=== PATIENT | female | born 1950 | race Caucasian/White ===

== ENCOUNTER 2016-07-08 12:59 | Emergency (ER) | payer MEDICARE, OTHER ==
[2016-07-08 13:22] VITALS: RESP 18
[2016-07-08] MEDS ORDERED: HYDROmorphone 1 MG/ML 1 ML SYRINGE IM STA (13:34)
--- NOTE | 2016-07-08 13:50 | ED ---
Upper Extremity HPI - General Chief Complaint: Extremity Injury, Upper Stated Complaint: fall/arm pain Time Seen by Provider: 07/08/16 13:28 Source: patient, RN notes reviewed Mode of arrival: ambulatory Limitations: no limitations - History of Present Illness Initial Comments: 66-year-old female presented emergency department with chief complaint of fall. Patient states she was chasing her dog states she tripped and fell on asphalt. She states she has an abrasion noted to her right first digit with ecchymosis and pain, ecchymosis noted to his left foot first digit. Patient primarily complains of right wrist pain with deformity. Patient states that she struck her nose though she has no nasal pain denies headache, dizziness. Patient also went of left rib pain. Patient has no back pain. Patient denies nausea, vomiting diarrhea constipation. Patient offers no complaints. Patient states her tetanus is up-to-date last 5 years. Patient does not take blood thinners. - Related Data Home Medications Medication Instructions Recorded Confirmed Diphenox-Atrop 2.5-0.025 mg 2 tab PO TID 11/09/13 07/08/16 [Lomotil] SUMAtriptan SUCCINATE [Imitrex] 100 mg PO DAILY PRN 02/25/14 07/08/16 Losartan/Hydrochlorothiazide 1 each PO DAILY 03/26/14 07/08/16 [Losartan-Hctz 100-12.5 mg Tab] OXcarbazepine [Oxtellar Xr] 300 mg PO DAILY 03/26/14 07/08/16 Ascorbic Acid [Vitamin C] 500 mg PO DAILY 10/05/15 07/08/16 Aspirin 81 mg PO DAILY 10/05/15 07/08/16 Baclofen [Lioresal] 20 mg PO HS 10/05/15 07/08/16 Calcium Carbonate [Calcium] 180 mg PO DAILY 10/05/15 07/08/16 Cholestyramine (with Sugar) 378 gm PO BID 10/05/15 07/08/16 [Questran Powder] HYDROcodone/APAP 7.5-325MG [[place] 1 tab PO Q6HR PRN 10/05/15 07/08/16 7.5-325] Melatonin 5 mg PO HS 10/05/15 07/08/16 Propranolol [Inderal] 120 mg PO DAILY 10/05/15 07/08/16 rOPINIRole HCL [Requip] 4 mg PO BID 10/05/15 07/08/16 risperiDONE [RisperDAL] 0.5 mg PO DAILY 10/05/15 07/08/16 Allergies Allergy/AdvReac Type Severity Reaction Status Date / Time ketorolac tromethamine AdvReac Rapid Verified 07/08/16 14:45 [From Toradol] Heart Rate Review of Systems ROS Statement: Those systems with pertinent positive or pertinent negative responses have been documented in the HPI. ROS Other: All systems not noted in ROS Statement are negative. Past Medical History Past Medical History: GERD/Reflux, GI Bleed, Hyperlipidemia, Hypertension, Neurologic Disorder, Osteoarthritis (OA), Supraventricular Tachycardia (SVT) Additional Past Medical History / Comment(s): PUD,. Crohn disease,. short gut syndrome,. migraine headaches, History of Any Multi-Drug Resistant Organisms: None Reported Past Surgical History: Appendectomy, Bowel Resection, Heart Catheterization Additional Past Surgical History / Comment(s): ACDF-ANTERIOR CERVICAL DISKECTOMY AND FUSION. ORIF Rt femur,. bowel resection X3 1959, 1967, 1975,. recto- vagina fistula repair,. EGD,. colonoscopy, occipital steroid injections. Past Anesthesia/Blood Transfusion Reactions: No Reported Reaction Past Psychological History: Anxiety, Depression Smoking Status: Former smoker Past Alcohol Use History: Occasional Past Drug Use History: None Reported - Past Family History Mother Family Medical History: Hypertension Father Family Medical History: Neurologic Disorder General Exam Limitations: no limitations General appearance: alert, in no apparent distress Head exam: Present: atraumatic, normocephalic, normal inspection Eye exam: Present: normal appearance, PERRL, EOMI. Absent: scleral icterus, conjunctival injection, periorbital swelling ENT exam: Present: normal exam, normal oropharynx, mucous membranes moist, TM's normal bilaterally Neck exam: Present: normal inspection, full ROM. Absent: tenderness, meningismus, lymphadenopathy Respiratory exam: Present: normal lung sounds bilaterally, chest wall tenderness (Mild tenderness left anterior lateral ribs). Absent: respiratory distress, wheezes, rales, rhonchi, stridor Cardiovascular Exam: Present: regular rate, normal rhythm, normal heart sounds. Absent: systolic murmur, diastolic murmur, rubs, gallop, clicks GI/Abdominal exam: Present: soft, normal bowel sounds. Absent: distended, tenderness, guarding, rebound, rigid Extremities exam: Present: other (Ecchymosis noted to the right foot first digit with small abrasion there is no nail disruption. There is ecchymosis noted distal tip of the left foot first digit with no wound. Right wrist there is deformity with ecchymosis noted limited range of motion secondary pain there is moderate tenderness with palpation radial pulses equal bilaterally Refill less than 2 seconds patient has full sensation of all digits) Neurological exam: Present: alert, oriented X3, CN II-XII intact Skin exam: Present: warm, dry, intact, normal color. Absent: rash Course Vital Signs 07/08/16 13:19 Temperature 98.4 F Pulse Rate 77 Respiratory 18 Rate Blood Pressure 119/74 O2 Sat by Pulse 98 Oximetry Procedures - Orthopedic Splinting/Casting Injury #1 Side: right Upper Extremity Injury Location: wrist Upper Extremity Immobilizer: volar splint (Short arm neurovascular intact before and after procedure) Medical Decision Making - Medical Decision Making 66-year-old female presented emergency from for fall. Patient has a fracture to her right wrist which is impacted. Patient also has a fracture to her first toe on her right foot. Patient was placed orthopedic shoe. Patient be discharged with pain medication. Return parameters were discussed. Patient follow-up with on-call orthopedics Dr. Barnett. Disposition Clinical Impression: Toe fracture, Right wrist fracture, Rib contusion Disposition: HOME SELF-CARE Condition: Stable Instructions: Wrist Fracture in Adults (ED) Additional Instructions: Please return to the Emergency Department if symptoms worsen or any other concerns. Referrals: Matthias Dixon MD [Primary Care Provider] - 1-2 days Miky Barnett MD [STAFF PHYSICIAN] - 1-2 days Time of Disposition: 14:47
--- NOTE | 2016-07-08 14:42 | XR ---
EXAMINATION TYPE: XR wrist complete RT DATE OF EXAM: 07/08/2016 2:33 PM CLINICAL HISTORY: pain TECHNIQUE: Frontal, lateral and oblique images of the right wrist are obtained. COMPARISON: None. FINDINGS: There is an impacted distal radial fracture identified. No definite intra-articular extension. No add itional fracture seen. The joint spaces appear within normal limits. The overlying soft tissue appe ars unremarkable. IMPRESSION: There is an impacted distal radial fracture identified. ICD 10 closed FRACTURE, INITIAL EVALUATION
--- NOTE | 2016-07-08 14:43 | XR ---
EXAMINATION TYPE: XR ribs LT w pa chest xray DATE OF EXAM: 07/08/2016 2:33 PM COMPARISON: 12/04/2014 HISTORY: Pain TECHNIQUE: Single view of the chest 3 views of the ribs are submitted. FINDINGS: The lungs are clear. No Evidence for pneumothorax. No evidence for focal contusion. Medi astinal structures are midline. Evaluation of the ribs fails to demonstrate evidence for acute displ aced rib fracture or secondary sign of rib fracture. Chronic deformity of left rib 7. IMPRESSION: 1. No acute pulmonary disease. 2. No acute displaced left-sided rib fracture.
--- NOTE | 2016-07-08 14:45 | XR ---
EXAMINATION TYPE: XR toes bilateral DATE OF EXAM: 07/08/2016 2:33 PM COMPARISON: NONE HISTORY: Pain TECHNIQUE: 3 views of the bilateral great toes are submitted. FINDINGS: Right great toe: There is a fracture at the dorsal base of the distal phalanx right great toe. Displa cement is 1.8 mm. There is intra-articular extension. No additional fractures seen. Left great toe: No evidence for acute displaced fracture or dislocation. IMPRESSION: 1. Fracture of the right great toe as noted.
[2016-07-08 15:13] VITALS: BP 119/55; PULSE 88; TEMP 98.3
== END 2016-07-08 15:13 | disposition home or self-care (01) ==
LOC: EC 12:59
DX: S52.501A Unspecified fracture of the lower end of right radius, initial encounter for closed fracture (principal); S92.421A Displaced fracture of distal phalanx of right great toe, initial encounter for closed fracture; S20.212A Contusion of left front wall of thorax, initial encounter; I10 Essential (primary) hypertension; G43.909 Migraine, unspecified, not intractable, without status migrainosus; I47.1 Supraventricular tachycardia; R29.90 Unspecified symptoms and signs involving the nervous system; Z79.899 Other long term (current) drug therapy; Z79.82 Long term (current) use of aspirin; Z88.8 Allergy status to other drugs, medicaments and biological substances; Z87.891 Personal history of nicotine dependence; Y93.02 Activity, running; W01.0XXA Fall on same level from slipping, tripping and stumbling without subsequent striking against object, initial encounter
CPT/HCPCS: 71101; 73660; 73110; 29125; 96372; 99283; J1170

== ENCOUNTER 2016-09-06 05:20 | Emergency (ER) | payer MEDICARE, OTHER ==
[2016-09-06 05:30] VITALS: RESP 18
[2016-09-06] MEDS ORDERED: SUMAtriptan SUCCINATE 6 MG/0.5 ML VIAL SQ STA (05:42)
--- NOTE | 2016-09-06 06:44 | ED ---
Psych HPI - General Chief Complaint: Psychiatric Symptoms Stated Complaint: mental health Time Seen by Provider: 09/06/16 05:23 Source: patient, EMS Mode of arrival: EMS - Related Data Home Medications Medication Instructions Recorded Confirmed Diphenox-Atrop 2.5-0.025 mg 1 tab PO TID 11/09/13 09/06/16 [Lomotil] SUMAtriptan SUCCINATE [Imitrex] 100 mg PO DAILY PRN 02/25/14 09/06/16 Losartan/Hydrochlorothiazide 1 tab PO DAILY 03/26/14 09/06/16 [Losartan-Hctz 100-12.5 mg Tab] Ascorbic Acid [Vitamin C] 500 mg PO DAILY 10/05/15 09/06/16 Aspirin 81 mg PO DAILY 10/05/15 09/06/16 Baclofen [Lioresal] 20 mg PO TID PRN 10/05/15 09/06/16 Calcium Carbonate [Calcium] 180 mg PO DAILY 10/05/15 09/06/16 Cholestyramine (with Sugar) 1 packet PO BID 10/05/15 09/06/16 [Questran Powder] HYDROcodone/APAP 7.5-325MG [[place] 1 tab PO Q6HR PRN 10/05/15 09/06/16 7.5-325] Cholecalciferol [Vitamin D3] 1,000 unit PO DAILY 07/08/16 09/06/16 Gluc/Abhay-MSM#1/C/Bravo/Hermes/Bor 1 tab PO DAILY 07/08/16 09/06/16 [Glucosamine-Chondroitin Tablet] Multivitamins, Thera [Multivitamin] 1 tab PO DAILY 07/08/16 09/06/16 Propranolol HCl [Propranolol HCl 160 mg PO DAILY 07/08/16 09/06/16 ER] Zolpidem [Ambien] 10 mg PO HS PRN 07/08/16 09/06/16 rOPINIRole HCL [rOPINIRole HCL ER] 4 mg PO BID 07/08/16 09/06/16 Allergies Allergy/AdvReac Type Severity Reaction Status Date / Time ketorolac tromethamine AdvReac Rapid Verified 09/06/16 05:30 [From Toradol] Heart Rate Review of Systems ROS Statement: Those systems with pertinent positive or pertinent negative responses have been documented in the HPI. ROS Other: All systems not noted in ROS Statement are negative. Past Medical History Past Medical History: GERD/Reflux, GI Bleed, Hyperlipidemia, Hypertension, Neurologic Disorder, Osteoarthritis (OA), Supraventricular Tachycardia (SVT) Additional Past Medical History / Comment(s): PUD,. Crohn disease,. short gut syndrome,. migraine headaches, History of Any Multi-Drug Resistant Organisms: None Reported Past Surgical History: Appendectomy, Bowel Resection, Heart Catheterization Additional Past Surgical History / Comment(s): ACDF-ANTERIOR CERVICAL DISKECTOMY AND FUSION. ORIF Rt femur,. bowel resection X3 1959, 1967, 1975,. recto- vagina fistula repair,. EGD,. colonoscopy, occipital steroid injections. Past Anesthesia/Blood Transfusion Reactions: No Reported Reaction Past Psychological History: Anxiety, Depression Smoking Status: Former smoker Past Alcohol Use History: Occasional Past Drug Use History: None Reported - Past Family History Mother Family Medical History: Hypertension Father Family Medical History: Neurologic Disorder General Exam Limitations: no limitations Course Vital Signs 09/06/16 05:26 Temperature 98.4 F Pulse Rate 78 Respiratory 18 Rate Blood Pressure 117/63 O2 Sat by Pulse 96 Oximetry Disposition Clinical Impression: Migraine, Insomnia Disposition: HOME SELF-CARE Condition: Fair Referrals: Matthias Dixon MD [Primary Care Provider] - 1-2 days
[2016-09-06 06:58] VITALS: BP 163/74; PULSE 79; TEMP 97.3
== END 2016-09-06 07:44 | disposition home or self-care (01) ==
LOC: EC 05:20
DX: G43.909 Migraine, unspecified, not intractable, without status migrainosus (principal); E78.5 Hyperlipidemia, unspecified; I10 Essential (primary) hypertension; M19.90 Unspecified osteoarthritis, unspecified site; Z87.891 Personal history of nicotine dependence; Z79.82 Long term (current) use of aspirin; Z79.899 Other long term (current) drug therapy; Z88.6 Allergy status to analgesic agent; Z87.19 Personal history of other diseases of the digestive system
CPT/HCPCS: 99284; 96372; 82075; J3030

== ENCOUNTER 2016-11-06 09:19 | Day surgery (SDC) | payer MEDICARE ==
[2016-11-05 11:15] VITALS: BMI 23.3
[~2016-11-06 09:19] MED LIST: LACTATED RINGERS 1,000 ML IV SCH
[2016-11-06 10:14] VITALS: TEMP 97.5
[2016-11-06] MEDS ORDERED: LACTATED RINGERS 1,000 ML IV ONE (10:16)
[2016-11-06] MEDS ORDERED: LIDOCAINE 1% 20 ML VIAL (10MG/ML) FOR IV START INTRADERMA ONE (10:16)
[2016-11-06] MEDS ORDERED: PROPOFOL 10 MG/ML 20 ML VIAL IV ONE (10:47)
--- NOTE | 2016-11-06 11:04 | P.PCN ---
Date of Procedure: 11/06/16 Preoperative Diagnosis: Postoperative Diagnosis: Procedure(s) Performed: BRIEF HISTORY: Patient is a 66-year-old pleasant white female, scheduled for an elective colonoscopy as a part of evaluation of lungs any history of Crohn's disease diagnosed at age 15. She is presently in clinical remission. PROCEDURE PERFORMED: Colonoscopy. PREOPERATIVE DIAGNOSIS: Long-standing history of Crohn's disease. IV sedation per Anesthesia. PROCEDURE: After informed consent was obtained, the patient, was brought into the endoscopy unit. IV sedation was administered by Anesthesia under continuous monitoring. Digital rectal examination was normal. Initially the Olympus CF- 160 flexible video colonoscope was then inserted in the rectum, gradually advanced into the right colon without any difficulty with the ileocolic anastomosis was visualized and appeared normal. The anastomosis was widely patent. The scope was advanced into the distal ileum at least 40 cm visualized and appeared normal. The mucosa of the ascending colon, transverse colon, descending colon, sigmoid colon, and rectum appeared normal. Retroflexion was performed in the rectum and no lesions were seen. The patient tolerated the procedure well. IMPRESSION: Normal-appearing colon from rectum to the right ileocolic anastomosis with no evidence of recurrent Crohn's disease. RECOMMENDATIONS: Findings of this examination were discussed with the patient as well as his family. She was advised to have a repeat surveillance colonoscopy in 5 years.. Implants: Indications for Procedure: Operative Findings: Description of Procedure:
[2016-11-06 11:07] VITALS: RESP 16
[2016-11-06 11:26] VITALS: BP 146/76; PULSE 73
== END 2016-11-06 12:26 | disposition home or self-care (01) ==
LOC: ORWHC2ENDO 09:19
PROVIDERS: ATTEND Internal Medicine Gastroenterology
DX: K50.90 Crohn's disease, unspecified, without complications (principal); Z98.0 Intestinal bypass and anastomosis status; Z90.49 Acquired absence of other specified parts of digestive tract; I47.1 Supraventricular tachycardia; E78.5 Hyperlipidemia, unspecified; I10 Essential (primary) hypertension; M19.90 Unspecified osteoarthritis, unspecified site; G43.909 Migraine, unspecified, not intractable, without status migrainosus; K21.9 Gastro-esophageal reflux disease without esophagitis; Z79.82 Long term (current) use of aspirin; Z79.899 Other long term (current) drug therapy; Z88.8 Allergy status to other drugs, medicaments and biological substances
CPT/HCPCS: 45378; J2704

== ENCOUNTER 2016-12-11 12:56 | Inpatient (IN) | payer MEDICARE ==
[2016-12-11] MEDS ORDERED: ACETAMINOPHEN IV (For NPO) 1,000 MG in EMPTY BAG 1 BAG IVPB STA (12:59)
--- NOTE | 2016-12-11 13:14 | ED ---
General Adult HPI - General Chief complaint: Altered Mental Status Stated complaint: ALTERED MENTAL, COMBATIVE Time Seen by Provider: 12/11/16 12:58 Source: EMS, RN notes reviewed Mode of arrival: EMS Limitations: altered mental status, physical limitation - History of Present Illness Initial comments: Patient is a 66-year-old female presenting to the emergency Department with agitation. Patient history provided by EMS. Patient reportedly has a history of headaches with psychotic behavior. Patient's mother reported to EMS that this happens frequently with her. Patient is agitated and restless and nonverbal at this time. Patient's home was apparently in disarray by the patient. EMS reports temporal temperature at 105.3. - Related Data Home Medications Medication Instructions Recorded Confirmed Diphenox-Atrop 2.5-0.025 mg 2 tab PO TID 11/09/13 12/11/16 [Lomotil] SUMAtriptan SUCCINATE [Imitrex] 100 mg PO DAILY PRN 02/25/14 12/11/16 Losartan/Hydrochlorothiazide 1 tab PO DAILY 03/26/14 12/11/16 [Losartan-Hctz 100-12.5 mg Tab] Baclofen [Lioresal] 20 mg PO TID PRN 10/05/15 12/11/16 Cholestyramine (with Sugar) 1 packet PO BID 10/05/15 12/11/16 [Questran Powder] HYDROcodone/APAP 7.5-325MG [[place] 1 tab PO Q8HR PRN 10/05/15 12/11/16 7.5-325] Propranolol HCl [Propranolol HCl 160 mg PO DAILY 07/08/16 12/11/16 ER] Zolpidem [Ambien] 10 mg PO HS PRN 07/08/16 12/11/16 DULoxetine HCL [Cymbalta] 60 mg PO DAILY 11/05/16 12/11/16 rOPINIRole HCL 3 mg PO TID 12/11/16 12/11/16 Allergies Allergy/AdvReac Type Severity Reaction Status Date / Time ketorolac tromethamine AdvReac Rapid Verified 12/11/16 14:35 [From Toradol] Heart Rate Review of Systems ROS Statement: Those systems with pertinent positive or pertinent negative responses have been documented in the HPI. ROS Other: All systems not noted in ROS Statement are negative. Limitations: ROS unobtainable due to patients medical condition Past Medical History Past Medical History: GERD/Reflux, GI Bleed, Hyperlipidemia, Hypertension, Neurologic Disorder, Osteoarthritis (OA), Supraventricular Tachycardia (SVT) Additional Past Medical History / Comment(s): Crohn disease,. short gut syndrome,. migraine headaches, History of Any Multi-Drug Resistant Organisms: None Reported Past Surgical History: Appendectomy, Bowel Resection, Heart Catheterization Additional Past Surgical History / Comment(s): ACDF-ANTERIOR CERVICAL DISKECTOMY AND FUSION. ORIF Rt femur,. bowel resection X3 1959, 1967, 1975,. recto- vagina fistula repair,. EGD,. colonoscopy, occipital steroid injections. Past Anesthesia/Blood Transfusion Reactions: No Reported Reaction Smoking Status: Former smoker - Past Family History Mother Family Medical History: Hypertension Father Family Medical History: Neurologic Disorder General Exam Limitations: altered mental status, physical limitation General appearance: alert, anxious, other (Patient is agitated and restless, nonverbal.) Head exam: Present: atraumatic Eye exam: Present: normal appearance ENT exam: Present: mucous membranes dry Neck exam: Present: normal inspection. Absent: tenderness, meningismus Respiratory exam: Present: normal lung sounds bilaterally Cardiovascular Exam: Present: tachycardia GI/Abdominal exam: Present: soft. Absent: tenderness Extremities exam: Present: other (Mild erythema right dorsal lateral hand without warmth.) Neurological exam: Present: alert, other (Limited assessment. No focal deficit , moves all extremities) Expanded Neurological exam: Present: protecting the airway Psychiatric exam: Present: agitated, anxious, manic Expanded Focused psych exam: Present: mute, restlessness Skin exam: Present: erythema (Right lateral hand.) Course Vital Signs 12/11/16 12/11/16 12:59 16:05 Temperature 105 F H 99.9 F H Pulse Rate 127 H 101 H Respiratory 24 22 Rate Blood Pressure 137/77 89/50 O2 Sat by Pulse 98 96 Oximetry - Reevaluation(s) Reevaluation #1: 12/11/16 14:12 Patient was reexamined. Patient does meet criteria for severe sepsis diagnosed at 1412. Blood cultures and lactic acid have been ordered. Fluid bolus has been ordered. IV antibiotics has been ordered. 12/11/16 15:32 Dr. Dixon has been paged 12/11/16 16:09 Dr. Dixon has been paged again 12/11/16 16:14 Patient was reexamined. Case was discussed with Dr. Hayes who will admit for Dr. Dixon with ICU consult for Dr. Ferrer. EKG Findings - EKG Comments: EKG Findings:: Sinus tachycardia 102. PVC present. [place] 132. QRS 88. QT 302. QTC 393. Normal axis. Normal QRS. Nonspecific ST-T. Procedures - Orthopedic Splinting/Casting Injury #1 Side: right Upper Extremity Injury Location: forearm Upper Extremity Immobilizer: volar splint Additional Comments: Short arm splint. No complications. Examined postplacement and good alignment and neurovascular intact. - Restraint - Face to Face Restraint Occurrence 1 Patient's Immediate Situation: Endangers self safety, Endangers others' safety, Endangers staff safety, Violent behavior Patient's Reaction to the Intervention: Uncooperative, Anxious, Aggressive, Restless Patient's Medical & Behavioral Condition: Anxious, Agitated Need to Continue or Terminate Restraint or Seclusion: Continue Face to Face Eval of Restraint Date: 12/11/16 Face to Face Eval of Restraint Time: 13:09 Medical Decision Making - Lab Data Result diagrams: 12/11/16 13:20 12/11/16 13:20 Lab Results 12/11/16 12/11/16 12/11/16 Range/Units 13:20 13:20 13:20 WBC 21.9 H (3.8-10.6) k/uL RBC 3.88 (3.80-5.40) m/uL Hgb 11.5 (11.4-16.0) gm/dL Hct 34.5 (34.0-46.0) % MCV 89.0 (80.0-100.0) fL MCH 29.5 (25.0-35.0) pg MCHC 33.2 (31.0-37.0) g/dL RDW 12.9 (11.5-15.5) % Plt Count 319 (150-450) k/uL Neutrophils % 80 % Lymphocytes % 12 % Monocytes % 6 % Eosinophils % 0 % Basophils % 0 % Neutrophils # 17.6 H (1.3-7.7) k/uL Lymphocytes # 2.6 (1.0-4.8) k/uL Monocytes # 1.3 H (0-1.0) k/uL Eosinophils # 0.0 (0-0.7) k/uL Basophils # 0.0 (0-0.2) k/uL PT (9.0-12.0) sec INR (<1.2) APTT (22.0-30.0) sec Sodium 151 H (137-145) mmol/L Potassium 3.6 (3.5-5.1) mmol/L Chloride 121 H* (98-107) mmol/L Carbon Dioxide 18 L (22-30) mmol/L Anion Gap 12 mmol/L BUN 39 H (7-17) mg/dL Creatinine 1.04 (0.52-1.04) mg/dL Est GFR (MDRD) Af Amer >60 (>60 ml/min/1.73 sqM) Est GFR (MDRD) Non-Af 53 (>60 ml/min/1.73 sqM) Glucose 102 H (74-99) mg/dL Plasma Lactic Acid Juma (0.7-2.0) mmol/L Calcium 9.4 (8.4-10.2) mg/dL Total Bilirubin 1.2 (0.2-1.3) mg/dL AST 62 H (14-36) U/L ALT 37 (9-52) U/L Alkaline Phosphatase 82 (38-126) U/L Total Creatine Kinase 1339 H (30-135) U/L CK-MB (CK-2) 13.1 H* (0.0-2.4) ng/mL CK-MB (CK-2) Rel Index 1.0 Troponin I 0.015 (0.000-0.034) ng/mL Total Protein 6.6 (6.3-8.2) g/dL Albumin 3.8 (3.5-5.0) g/dL Urine Color Urine Appearance (Clear) Urine pH (5.0-8.0) Ur Specific [place] (1.001-1.035) Urine Protein (Negative) Urine Glucose (UA) (Negative) Urine Ketones (Negative) Urine Blood (Negative) Urine Nitrite (Negative) Urine Bilirubin (Negative) Urine Urobilinogen (<2.0) mg/dL Ur Leukocyte Esterase (Negative) Urine RBC (0-5) /hpf Urine Bacteria (None) /hpf Hyaline Casts (0-2) /lpf Urine Mucus (None) /hpf Salicylates <1.0 mg/dL Urine Opiates Screen (NotDetected) Ur Oxycodone Screen (NotDetected) Urine Methadone Screen (NotDetected) Ur Propoxyphene Screen (NotDetected) Acetaminophen <10.0 ug/mL Ur Barbiturates Screen (NotDetected) U Tricyclic Antidepress (NotDetected) Ur Phencyclidine Scrn (NotDetected) Ur Amphetamines Screen (NotDetected) U Methamphetamines Scrn (NotDetected) U Benzodiazepines Scrn (NotDetected) Urine Cocaine Screen (NotDetected) U Marijuana (THC) Screen (NotDetected) Serum Alcohol <10 mg/dL 12/11/16 12/11/16 12/11/16 Range/Units 13:20 13:20 13:20 WBC (3.8-10.6) k/uL RBC (3.80-5.40) m/uL Hgb (11.4-16.0) gm/dL Hct (34.0-46.0) % MCV (80.0-100.0) fL MCH (25.0-35.0) pg MCHC (31.0-37.0) g/dL RDW (11.5-15.5) % Plt Count (150-450) k/uL Neutrophils % % Lymphocytes % % Monocytes % % Eosinophils % % Basophils % % Neutrophils # (1.3-7.7) k/uL Lymphocytes # (1.0-4.8) k/uL Monocytes # (0-1.0) k/uL Eosinophils # (0-0.7) k/uL Basophils # (0-0.2) k/uL PT 11.5 (9.0-12.0) sec INR 1.1 (<1.2) APTT 22.2 (22.0-30.0) sec Sodium (137-145) mmol/L Potassium (3.5-5.1) mmol/L Chloride (98-107) mmol/L Carbon Dioxide (22-30) mmol/L Anion Gap mmol/L BUN (7-17) mg/dL Creatinine (0.52-1.04) mg/dL Est GFR (MDRD) Af Amer (>60 ml/min/1.73 sqM) Est GFR (MDRD) Non-Af (>60 ml/min/1.73 sqM) Glucose (74-99) mg/dL Plasma Lactic Acid Juma 3.2 H* (0.7-2.0) mmol/L Calcium (8.4-10.2) mg/dL Total Bilirubin (0.2-1.3) mg/dL AST (14-36) U/L ALT (9-52) U/L Alkaline Phosphatase (38-126) U/L Total Creatine Kinase (30-135) U/L CK-MB (CK-2) (0.0-2.4) ng/mL CK-MB (CK-2) Rel Index Troponin I (0.000-0.034) ng/mL Total Protein (6.3-8.2) g/dL Albumin (3.5-5.0) g/dL Urine Color Yellow Urine Appearance Clear (Clear) Urine pH 5.5 (5.0-8.0) Ur Specific [place] 1.021 (1.001-1.035) Urine Protein 1+ H (Negative) Urine Glucose (UA) Negative (Negative) Urine Ketones 1+ H (Negative) Urine Blood Small H (Negative) Urine Nitrite Negative (Negative) Urine Bilirubin Negative (Negative) Urine Urobilinogen <2.0 (<2.0) mg/dL Ur Leukocyte Esterase Negative (Negative) Urine RBC 23 H (0-5) /hpf Urine Bacteria Rare H (None) /hpf Hyaline Casts 1 (0-2) /lpf Urine Mucus Rare H (None) /hpf Salicylates mg/dL Urine Opiates Screen Detected H (NotDetected) Ur Oxycodone Screen Not Detected (NotDetected) Urine Methadone Screen Not Detected (NotDetected) Ur Propoxyphene Screen Not Detected (NotDetected) Acetaminophen ug/mL Ur Barbiturates Screen Not Detected (NotDetected) U Tricyclic Antidepress Not Detected (NotDetected) Ur Phencyclidine Scrn Not Detected (NotDetected) Ur Amphetamines Screen Not Detected (NotDetected) U Methamphetamines Scrn Not Detected (NotDetected) U Benzodiazepines Scrn Not Detected (NotDetected) Urine Cocaine Screen Not Detected (NotDetected) U Marijuana (THC) Screen Not Detected (NotDetected) Serum Alcohol mg/dL - Radiology Data Radiology results: image reviewed (Chest x-ray shows mild left perihilar infiltrate. X-ray of the right hand shows possible nondisplaced fracture of distal radius, also consider infection.) Critical Care Time Critical Care Time: Yes Total Critical Care Time: 33 Disposition Clinical Impression: Severe sepsis, Pneumonia, Altered mental status, Dehydration Disposition: ADMITTED IP TO THIS [facility] Condition: Serious Referrals: Matthias Dixon MD [Primary Care Provider] - 1-2 days Decision Time: 16:36
[2016-12-11] MEDS: SODIUM CHLORIDE 0.9% 500 ML IV SCH ×4 (13:24→16:12)
[2016-12-11] MEDS: LORazepam 2 MG/ML SYRINGE IV STA ×2 (13:32→14:30)
[2016-12-11 13:34] LABS: Basophils % (A) 0 %; CH 29.4; CHCM 33.2; Eosinophils % (A) 0 %; HCT 34.5 % (34.0-46.0); HDW 2.44; HGB 11.5 gm/dL (11.4-16.0); Luc # (Auto) 0.44; Luc % (Auto) 2; Lymphocytes # (A) 2.6 k/uL (1.0-4.8); Lymphocytes % (A) 12 %; MCH 29.5 pg (25.0-35.0); MCHC 33.2 g/dL (31.0-37.0); Mean Platelet Volume 7.8; Monocytes # (A) 1.3 k/uL (0-1.0); Monocytes % (A) 6 %; Neutrophils # (A) 17.6 k/uL (1.3-7.7); Neutrophils % (A) 80 %; RBC 3.88 m/uL (3.80-5.40); RDW 12.9 % (11.5-15.5); WBC 21.9 k/uL (3.8-10.6); WBC (Perox) 22.43
[2016-12-11 13:35] LABS: Appearance,Urine Clear (Clear); Bacteria,Urine Rare /hpf; Bilirubin,Urine Negative (Negative); Glucose,Urine (UA) Negative (Negative); Ketones,Urine 1+ (Negative); Leukocyte Esterase,Urine Negative (Negative); Mucus,Urine Rare /hpf; Nitrite,Urine Negative (Negative); PH, Urine 5.5 (5.0-8.0); Particle Count 4641; Protein,Urine 1+ (Negative); RBC,Urine 23 /hpf (0-5); Specific Gravity,Urine 1.021 (1.001-1.035); UA Billing (MACRO vs. MICRO) MICRO; Urobilinogen,Urine <2.0 mg/dL (<2.0)
[2016-12-11 13:39] LABS: INR 1.1 (<1.2); Partial Thromboplastin Time 22.2 sec (22.0-30.0); Prothrombin Time 11.5 sec (9.0-12.0)
--- NOTE | 2016-12-11 14:00 | XR ---
EXAMINATION TYPE: XR chest 1V portable DATE OF EXAM: 12/11/2016 COMPARISON: 07/08/2016 INDICATION: Altered mental status, combative TECHNIQUE: Single frontal view of the chest is obtained in the AP supine view FINDINGS: The heart size is normal. The pulmonary vasculature is normal. There are some mild infiltrates in the left perihilar region. Co rrelate for pneumonia or aspiration pneumonia. IMPRESSION: 1. Mild left perihilar infiltrate. Correlate for pneumonia and aspiration pneumonia. Follow-up is rec ommended.
[2016-12-11 14:01] LABS: ALT 37 U/L (9-52); AST 62 U/L (14-36); Acetaminophen <10.0 ug/mL; Alcohol <10 mg/dL; Alkaline Phosphatase 82 U/L (38-126); Anion Gap 12 mmol/L; Blood Urea Nitrogen 39 mg/dL (7-17); Calcium 9.4 mg/dL (8.4-10.2); Carbon Dioxide 18 mmol/L (22-30); Glucose 102 mg/dL (74-99); Non-African American GFR(MDRD) 53 (>60 ml/min/1.73 sqM); Potassium 3.6 mmol/L (3.5-5.1); Salicylate <1.0 mg/dL; Sodium 151 mmol/L (137-145); Total Bilirubin 1.2 mg/dL (0.2-1.3); Total Protein 6.6 g/dL (6.3-8.2)
--- NOTE | 2016-12-11 14:03 | XR ---
EXAMINATION TYPE: XR hand limited RT DATE OF EXAM: 12/11/2016 COMPARISON: 07/08/2016 HISTORY: Pain redness TECHNIQUE: 2 view right wrist FINDINGS: There is an oblique hypodensity within the distal radius. There is lucency within the ulna r aspect of the distal radius. Step-off on the articular surface is not identified. Consider occult f racture. Other etiologies including infection could be considered. Small spurs from the radial aspect of the metaphyseal radius. Soft tissue swelling is over the dorsal wrist. IMPRESSION: 1. Possible nondisplaced occult fracture versus infection of the distal radius. Clinical correlation is recommended.
[2016-12-11 14:04] LABS: Chloride 121 mmol/L (98-107)
[2016-12-11] MEDS ORDERED: PNEUMONIA PROTOCOL UTILIZED 1 EACH MISC PO PRN (14:09)
[2016-12-11] MEDS ORDERED: LEVOFLOXACIN 750MG-D5W PMX 750 MG in DEXTROSE/WATER 1 150ML.BAG IVPB STA (14:09)
[2016-12-11] MEDS ORDERED: PIPERACILLIN-TAZOBACTAM 3.375 GM in DEXTROSE/WATER 1 50ML.BAG IVPB STA (14:09)
[2016-12-11] MEDS ORDERED: LORazepam 2 MG/ML SYRINGE IV STA (14:30)
[2016-12-11 14:31] LABS: Troponin I 0.015 ng/mL (0.000-0.034)
[2016-12-11 14:32] LABS: Creatine Kinase MB 13.1 ng/mL (0.0-2.4)
--- NOTE | 2016-12-11 15:20 | CT ---
EXAMINATION TYPE: CT brain wo con DATE OF EXAM: 12/11/2016 COMPARISON: 11/26/2014 HISTORY: Patient poor historian. Altered mental status. CT DLP: 1116 mGycm. Automated Exposure Control for Dose Reduction was Utilized. TECHNIQUE: CT scan of the head is performed without contrast. FINDINGS: There is no acute intracranial hemorrhage, mass effect, or midline shift identified. The ventricles and sulci are within normal limits in size. The globes are intact. Again there is and ab normal made of a high riding left jugular bulb. The previously finding of engorged superior ophthalmi c veins is no longer visualized. Cavernous sinuses appear unremarkable. 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 There is new paranasal sinus disease with mucosal thickening seen within the right maxillary, ethmoid, and to a lesser degree within the sphenoid sinuses. Remaining paranasal sinuses and mastoid air cells are we ll aerated. IMPRESSION: 1. No acute intracranial hemorrhage, mass effect, or midline shift is seen. 2. 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 3. New paranasal sinus disease. 4. Previously seen engorged superior ophthalmic veins are now within normal limits. Cavernous sinuses are unremarkable.
[2016-12-11] MEDS ORDERED: ACETAMINOPHEN SUPPOSITORY 650 MG SUPP RECTAL PRN (16:36)
[2016-12-11] MEDS ORDERED: NALOXONE 0.4 MG/ML 1 ML VIAL IV PRN (16:36)
[2016-12-11 17:42] LABS: Glucose,Whole Blood 101 mg/dL (75-99)
[2016-12-11] MEDS: HALOPERIDOL LACTATE 5 MG/ML 1 ML VIAL IVP PRN (18:01)
[2016-12-11 18:48] LABS: Troponin I 0.013 ng/mL (0.000-0.034)
[2016-12-11 18:51] VITALS: BMI 25.3
[2016-12-11 18:52] LABS: Creatine Kinase MB 16.1 ng/mL (0.0-2.4)
[2016-12-11] MEDS: SODIUM CHLORIDE 0.9% 1,000 ML IV SCH ×2 (20:47→20:50)
[2016-12-11] MEDS ORDERED: SODIUM CHLORIDE 0.9% 2,000 ML IV ONE (22:33)
[2016-12-11] MEDS ORDERED: VANCOMYCIN 1,000 MG in SODIUM CHLORIDE 0.9% 250 ML IVPB STA (22:58)
[2016-12-11] MEDS ORDERED: IPRATROPIUM-ALBUTEROL 3 ML NEB INHALATION PRN (22:58)
--- NOTE | 2016-12-11 22:58 | P.CON ---
Consult Note - . Consult date: 12/11/16 Assessment/Plan:: *Live* [facility] [address], [place] [address] Critical care consult, time spent 50 minutes Patient Name: Deedee John Date of : 1950 Patient Status: Inpatient Attending Provider: Nicky Hayes Date: 12/11/16 Initialization Date: 12/11/16 General Adult HPI - General Chief complaint: Altered Mental Status Stated complaint: ALTERED MENTAL, COMBATIVE Source: EMS, RN notes reviewed. Emergency room physician Limitations: altered mental status, physical limitation - History of Present Illness Initial comments: Patient is a 66-year-old female presenting to the emergency Department with agitation. Patient history provided by EMS. Patient reportedly has a history of headaches with psychotic behavior. Patient's mother reported to EMS that this happens frequently with her. Patient is agitated and restless and nonverbal at this time. Patient's home was apparently in disarray by the patient. EMS reports temporal temperature at 105.3. Patient has a recent hospitalization psychiatric unit has been discharged in stable condition lives by herself at home last seen 3 days ago she was found by mother lethargic poorly responsive agitated not in her best shape patient was very combative as well and Route as well as in the ER in ICU does require 2.5 mg of IM Holdol with that patient was slightly more calm she is however arousable does open eyes does answer to simple question fever spike has improved to 99 from 105 - Related Data Home Medications Medication Instructions Recorded Confirmed Diphenox-Atrop 2.5-0.025 mg 2 tab PO TID 11/09/13 12/11/16 [Lomotil] SUMAtriptan SUCCINATE [Imitrex] 100 mg PO DAILY PRN 02/25/14 12/11/16 Losartan/Hydrochlorothiazide 1 tab PO DAILY 03/26/14 12/11/16 [Losartan-Hctz 100-12.5 mg Tab] Baclofen [Lioresal] 20 mg PO TID PRN 10/05/15 12/11/16 Cholestyramine (with Sugar) 1 packet PO BID 10/05/15 12/11/16 [Questran Powder] HYDROcodone/APAP 7.5-325MG [[place] 1 tab PO Q8HR PRN 10/05/15 12/11/16 7.5-325] Propranolol HCl [Propranolol HCl 160 mg PO DAILY 07/08/16 12/11/16 ER] Zolpidem [Ambien] 10 mg PO HS PRN 07/08/16 12/11/16 DULoxetine HCL [Cymbalta] 60 mg PO DAILY 11/05/16 12/11/16 rOPINIRole HCL 3 mg PO TID 12/11/16 12/11/16 Allergies Allergy/AdvReac Type Severity Reaction Status Date / Time ketorolac tromethamine AdvReac Rapid Verified 12/11/16 14:35 [From Toradol] Heart Rate Review of Systems ROS Statement: Those systems with pertinent positive or pertinent negative responses have been documented in the HPI. ROS Other: All systems not noted in ROS Statement are negative. Limitations: ROS unobtainable due to patients medical condition Past Medical History Past Medical History: GERD/Reflux, GI Bleed, Hyperlipidemia, Hypertension, Neurologic Disorder, Osteoarthritis (OA), Supraventricular Tachycardia (SVT) Additional Past Medical History / Comment(s): Crohn disease,. short gut syndrome,. migraine headaches, History of Any Multi-Drug Resistant Organisms: None Reported Past Surgical History: Appendectomy, Bowel Resection, Heart Catheterization Additional Past Surgical History / Comment(s): ACDF-ANTERIOR CERVICAL DISKECTOMY AND FUSION. ORIF Rt femur,. bowel resection X3 1959, 1967, 1975,. recto- vagina fistula repair,. EGD,. colonoscopy, occipital steroid injections. Past Anesthesia/Blood Transfusion Reactions: No Reported Reaction Smoking Status: Former smoker - Past Family History Mother Family Medical History: Hypertension Father Family Medical History: Neurologic Disorder General Exam Limitations: altered mental status, physical limitation, restless and agitated behavior General appearance: alert, anxious, other (Patient is agitated and restless, nonverbal.) Head exam: Present: atraumatic, patient does have a small bruise on the left eye superior aspect, which is nontender Eye exam: Present: normal appearance ENT exam: Present: Oral mucous membranes dry Neck exam: Present: normal inspection. Absent: tenderness, meningismus Respiratory exam: Present: normal lung sounds bilaterally fine expiratory wheeze cannot be excluded however was intermittent Cardiovascular Exam: Present: tachycardia S1-S2 audible no gallop rub or murmur GI/Abdominal exam: Present: soft. Absent: tenderness bowel sounds are present no rebound rigidity or tenderness Extremities exam: Right wrist diffuse edema and erythema right dorsal lateral hand without warmth, tender to touch extending from distal part of the forearm involving the wrist and extensor surface of the hand.) Neurological exam: Present: alert, other (Limited assessment. No focal deficit , moves all extremities) Neurological exam: Present: protecting the airway, good gag reflex Psychiatric exam: Present: agitated, anxious, manic Focused psych exam: Present: mute, restlessness, predominantly Skin exam: Present: erythema (Right lateral hand.), Patient also noted to have a diffuse somewhat well-defined rash appears to be a drug rash or related to vasculitis predominantly involving the extensor surface of the extremities this rash varies from 1 cm to 2 cm in size not raised does not appear to be pruritic with somewhat well-defined margins Course Vital Signs 12/11/16 12/11/16 12:59 16:05 Temperature 105 F H 99.9 F H Pulse Rate 127 H 101 H Respiratory 24 22 Rate Blood Pressure 137/77 89/50 O2 Sat by Pulse 98 96 Oximetry EKG Findings - EKG Comments: EKG Findings:: Sinus tachycardia 102. PVC present. UT 132. QRS 88. QT 302. QTC 393. Normal axis. Normal QRS. Nonspecific ST-T. - Lab Data Result diagrams: 12/11/16 13:20 12/11/16 13:20 Lab Results 12/11/16 12/11/16 12/11/16 Range/Units 13:20 13:20 13:20 WBC 21.9 H (3.8-10.6) k/uL RBC 3.88 (3.80-5.40) m/uL Hgb 11.5 (11.4-16.0) gm/dL Hct 34.5 (34.0-46.0) % MCV 89.0 (80.0-100.0) fL MCH 29.5 (25.0-35.0) pg MCHC 33.2 (31.0-37.0) g/dL RDW 12.9 (11.5-15.5) % Plt Count 319 (150-450) k/uL Neutrophils % 80 % Lymphocytes % 12 % Monocytes % 6 % Eosinophils % 0 % Basophils % 0 % Neutrophils # 17.6 H (1.3-7.7) k/uL Lymphocytes # 2.6 (1.0-4.8) k/uL Monocytes # 1.3 H (0-1.0) k/uL Eosinophils # 0.0 (0-0.7) k/uL Basophils # 0.0 (0-0.2) k/uL PT (9.0-12.0) sec INR (<1.2) APTT (22.0-30.0) sec Sodium 151 H (137-145) mmol/L Potassium 3.6 (3.5-5.1) mmol/L Chloride 121 H* (98-107) mmol/L Carbon Dioxide 18 L (22-30) mmol/L Anion Gap 12 mmol/L BUN 39 H (7-17) mg/dL Creatinine 1.04 (0.52-1.04) mg/dL Est GFR (MDRD) Af Amer >60 (>60 ml/min/1.73 sqM) Est GFR (MDRD) Non-Af 53 (>60 ml/min/1.73 sqM) Glucose 102 H (74-99) mg/dL Plasma Lactic Acid Juma (0.7-2.0) mmol/L Calcium 9.4 (8.4-10.2) mg/dL Total Bilirubin 1.2 (0.2-1.3) mg/dL AST 62 H (14-36) U/L ALT 37 (9-52) U/L Alkaline Phosphatase 82 (38-126) U/L Total Creatine Kinase 1339 H (30-135) U/L CK-MB (CK-2) 13.1 H* (0.0-2.4) ng/mL CK-MB (CK-2) Rel Index 1.0 Troponin I 0.015 (0.000-0.034) ng/mL Total Protein 6.6 (6.3-8.2) g/dL Albumin 3.8 (3.5-5.0) g/dL Urine Color Urine Appearance (Clear) Urine pH (5.0-8.0) Ur Specific [place] (1.001-1.035) Urine Protein (Negative) Urine Glucose (UA) (Negative) Urine Ketones (Negative) Urine Blood (Negative) Urine Nitrite (Negative) Urine Bilirubin (Negative) Urine Urobilinogen (<2.0) mg/dL Ur Leukocyte Esterase (Negative) Urine RBC (0-5) /hpf Urine Bacteria (None) /hpf Hyaline Casts (0-2) /lpf Urine Mucus (None) /hpf Salicylates <1.0 mg/dL Urine Opiates Screen (NotDetected) Ur Oxycodone Screen (NotDetected) Urine Methadone Screen (NotDetected) Ur Propoxyphene Screen (NotDetected) Acetaminophen <10.0 ug/mL Ur Barbiturates Screen (NotDetected) U Tricyclic Antidepress (NotDetected) Ur Phencyclidine Scrn (NotDetected) Ur Amphetamines Screen (NotDetected) U Methamphetamines Scrn (NotDetected) U Benzodiazepines Scrn (NotDetected) Urine Cocaine Screen (NotDetected) U Marijuana (THC) Screen (NotDetected) Serum Alcohol <10 mg/dL 12/11/16 12/11/16 12/11/16 Range/Units 13:20 13:20 13:20 WBC (3.8-10.6) k/uL RBC (3.80-5.40) m/uL Hgb (11.4-16.0) gm/dL Hct (34.0-46.0) % MCV (80.0-100.0) fL MCH (25.0-35.0) pg MCHC (31.0-37.0) g/dL RDW (11.5-15.5) % Plt Count (150-450) k/uL Neutrophils % % Lymphocytes % % Monocytes % % Eosinophils % % Basophils % % Neutrophils # (1.3-7.7) k/uL Lymphocytes # (1.0-4.8) k/uL Monocytes # (0-1.0) k/uL Eosinophils # (0-0.7) k/uL Basophils # (0-0.2) k/uL PT 11.5 (9.0-12.0) sec INR 1.1 (<1.2) APTT 22.2 (22.0-30.0) sec Sodium (137-145) mmol/L Potassium (3.5-5.1) mmol/L Chloride (98-107) mmol/L Carbon Dioxide (22-30) mmol/L Anion Gap mmol/L BUN (7-17) mg/dL Creatinine (0.52-1.04) mg/dL Est GFR (MDRD) Af Amer (>60 ml/min/1.73 sqM) Est GFR (MDRD) Non-Af (>60 ml/min/1.73 sqM) Glucose (74-99) mg/dL Plasma Lactic Acid Juma 3.2 H* (0.7-2.0) mmol/L Calcium (8.4-10.2) mg/dL Total Bilirubin (0.2-1.3) mg/dL AST (14-36) U/L ALT (9-52) U/L Alkaline Phosphatase (38-126) U/L Total Creatine Kinase (30-135) U/L CK-MB (CK-2) (0.0-2.4) ng/mL CK-MB (CK-2) Rel Index Troponin I (0.000-0.034) ng/mL Total Protein (6.3-8.2) g/dL Albumin (3.5-5.0) g/dL Urine Color Yellow Urine Appearance Clear (Clear) Urine pH 5.5 (5.0-8.0) Ur Specific [place] 1.021 (1.001-1.035) Urine Protein 1+ H (Negative) Urine Glucose (UA) Negative (Negative) Urine Ketones 1+ H (Negative) Urine Blood Small H (Negative) Urine Nitrite Negative (Negative) Urine Bilirubin Negative (Negative) Urine Urobilinogen <2.0 (<2.0) mg/dL Ur Leukocyte Esterase Negative (Negative) Urine RBC 23 H (0-5) /hpf Urine Bacteria Rare H (None) /hpf Hyaline Casts 1 (0-2) /lpf Urine Mucus Rare H (None) /hpf Salicylates mg/dL Urine Opiates Screen Detected H (NotDetected) Ur Oxycodone Screen Not Detected (NotDetected) Urine Methadone Screen Not Detected (NotDetected) Ur Propoxyphene Screen Not Detected (NotDetected) Acetaminophen ug/mL Ur Barbiturates Screen Not Detected (NotDetected) U Tricyclic Antidepress Not Detected (NotDetected) Ur Phencyclidine Scrn Not Detected (NotDetected) Ur Amphetamines Screen Not Detected (NotDetected) U Methamphetamines Scrn Not Detected (NotDetected) U Benzodiazepines Scrn Not Detected (NotDetected) Urine Cocaine Screen Not Detected (NotDetected) U Marijuana (THC) Screen Not Detected (NotDetected) Serum Alcohol mg/dL - Radiology Data Radiology results: image reviewed (Chest x-ray shows mild left perihilar infiltrate. 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 Impression severe sepsis related to unclear source at this point of time associated urinary tract infection, left perihilar pneumonia, Acute rhabdomyolysis related to above versus trauma of the right forearm and wrist with possible fracture distal end of the radius medial aspect versus osteomyelitis of the distal end of the radius, (overall less likely) Diffuse rash macular well-defined without any raised border of unclear etiology suspected drug rash versus vasculitis Altered mental status and encephalopathy and agitated behavior Acute renal failure hypernatremia severe dehydration and volume depleted state with hypovolemic shock History of psychiatric disorder Plan aggressive fluid resuscitation Broad-spectrum antibiotics H and already has been on the Zosyn and Levaquin, will add IV vancomycin Repeatedly labs later on today if total CK, renal failure and acidosis is getting worse may need to start bicarb drip Haldol on IV as needed with 2.5 mg to keep patient, and comfortable Head urine culture repeat labs and x-ray tomorrow Patient to be started on DVT and peptic ulcer disease prophylaxis, critical care time spent 50 minutes Overall plan is to observe her clinical response over the next 12-24 hours , subsequently may need dermatology and/or or infectious disease consultation
[2016-12-11] MEDS ORDERED: IV VANCOMYCIN PER PHARMACY 1 EACH MISC MISCELLANE PRN (23:01)
[2016-12-11] MEDS ORDERED: VANCOMYCIN 1,500 MG in SODIUM CHLORIDE 0.9% 250 ML IVPB ONE (23:15)
[2016-12-11 23:41] LABS: Anion Gap 7 mmol/L; Blood Urea Nitrogen 30 mg/dL (7-17); Calcium 7.8 mg/dL (8.4-10.2); Carbon Dioxide 20 mmol/L (22-30); Creatine Kinase 1447 U/L (30-135); Glucose 85 mg/dL (74-99); Non-African American GFR(MDRD) >60 (>60 ml/min/1.73 sqM); Potassium 3.1 mmol/L (3.5-5.1); Sodium 149 mmol/L (137-145)
[2016-12-11 23:42] LABS: Chloride 122 mmol/L (98-107)
[2016-12-12] MEDS: PIPERACILLIN-TAZOBACTAM 3.375 GM in DEXTROSE/WATER 1 50ML.BAG IVPB SCH ×3 (00:19→16:15)
[2016-12-12] MEDS ORDERED: Potassium Replacement Protocol 1 EACH MISC MISCELLANE PRN ×2 (00:28→05:29)
[2016-12-12 01:16] LABS: Troponin I <0.012 ng/mL (0.000-0.034)
[2016-12-12 01:21] LABS: Creatine Kinase MB 13.8 ng/mL (0.0-2.4)
[2016-12-12] MEDS: POTASSIUM CHLORIDE 10 MEQ, LIDOCAINE 2% INJ 10 MG in SODIUM CHLORIDE 0.9% 100 ML IV SCH ×4 (01:22→07:09)
[2016-12-12] MEDS: HALOPERIDOL LACTATE 5 MG/ML 1 ML VIAL IVP PRN ×2 (02:31→19:46)
[2016-12-12 04:38] LABS: Basophils % (A) 0 %; CH 29.7; CHCM 31.5; Eosinophils % (A) 1 %; HCT 28.8 % (34.0-46.0); HDW 2.31; Luc # (Auto) 0.16; Luc % (Auto) 2; Lymphocytes % (A) 11 %; MCH 30.1 pg (25.0-35.0); MCHC 31.7 g/dL (31.0-37.0); MCV 94.9 fL (80.0-100.0); Mean Platelet Volume 8.1; Monocytes # (A) 0.6 k/uL (0-1.0); Monocytes % (A) 6 %; Neutrophils # (A) 7.4 k/uL (1.3-7.7); Neutrophils % (A) 80 %; RBC 3.03 m/uL (3.80-5.40); RDW 13.7 % (11.5-15.5); WBC 9.2 k/uL (3.8-10.6); WBC (Perox) 9.84
[2016-12-12 04:42] LABS: HGB 9.1 gm/dL (11.4-16.0)
[2016-12-12 04:48] LABS: ALT 49 U/L (9-52); AST 56 U/L (14-36); Alkaline Phosphatase 60 U/L (38-126); Anion Gap 8 mmol/L; Blood Urea Nitrogen 24 mg/dL (7-17); Calcium 7.2 mg/dL (8.4-10.2); Carbon Dioxide 16 mmol/L (22-30); Glucose 83 mg/dL (74-99); Magnesium 1.4 mg/dL (1.6-2.3); Non-African American GFR(MDRD) >60 (>60 ml/min/1.73 sqM); Phosphorous 1.7 mg/dL (2.5-4.5); Potassium 3.4 mmol/L (3.5-5.1); Sodium 149 mmol/L (137-145); Total Protein 4.8 g/dL (6.3-8.2)
[2016-12-12 04:52] LABS: Chloride 125 mmol/L (98-107)
[2016-12-12] MEDS ORDERED: Phosphorus Replacement Protoco 1 EACH MISC MISCELLANE PRN (05:33)
[2016-12-12] MEDS ORDERED: Magnesium Replacement Protocol 1 EACH MISC MISCELLANE PRN (05:34)
[2016-12-12] MEDS: MAGNESIUM SULFATE-D5W PMX 1 GM in DEXTROSE/WATER 1 100ML.BAG IVPB SCH ×3 (06:20→09:44)
[2016-12-12] MEDS: SODIUM PHOSPHATE 10 MMOL in SODIUM CHLORIDE 0.9% 250 ML IVPB SCH ×2 (06:20→08:30)
--- NOTE | 2016-12-12 06:51 | XR ---
EXAMINATION TYPE: XR chest 1V portable DATE OF EXAM: 12/12/2016 HISTORY: pneumonia. REFERENCE: Previous study dated 12/11/2016. FINDINGS: There is perihilar airspace disease, worse on the left than the right. There is peribronchi al cuffing. Heart size is largely obscured. I could not exclude small effusions. IMPRESSION: WORSENING PERIHILAR AIRSPACE DISEASE BILATERALLY, WORSE ON THE LEFT THAN THE RIGHT.
[2016-12-12] MEDS: SODIUM CHLORIDE 0.9% 1,000 ML IV SCH ×2 (07:11→14:03)
[2016-12-12] MEDS: HEPARIN SODIUM,PORCINE 5,000 UNIT/ML 1 ML VIAL SQ SCH ×2 (08:08→19:57)
--- NOTE | 2016-12-12 08:14 | P.CNOR ---
History of Present Illness - [facility] Consult date: 12/12/16 Consult reason: fracture (Right distal radius fracture) History of present illness: This is a 66-year-old female admitted to the emergency department last evening with confusion and agitation. The patient had a temperature of over 105. She' s had history of mental illness. Chest x-ray revealed pneumonia. We're consulted for orthopedic evaluation of her right wrist. They're questioning infection versus fracture to the distal radius. The patient is alert and is morning but does have some confusion. She states that she does not recall recent trauma to the right wrist. Past Medical History Past Medical History: GERD/Reflux, GI Bleed, Hyperlipidemia, Hypertension, Neurologic Disorder, Osteoarthritis (OA), Supraventricular Tachycardia (SVT) Additional Past Medical History / Comment(s): Crohn disease,. short gut syndrome,. migraine headaches, History of Any Multi-Drug Resistant Organisms: None Reported Past Surgical History: Appendectomy, Bowel Resection, Heart Catheterization Additional Past Surgical History / Comment(s): ACDF-ANTERIOR CERVICAL DISKECTOMY AND FUSION. ORIF Rt femur,. bowel resection X3 1959, 1967, 1975,. recto- vagina fistula repair,. EGD,. colonoscopy, occipital steroid injections. Past Anesthesia/Blood Transfusion Reactions: No Reported Reaction Past Psychological History: Anxiety, Depression Smoking Status: Unknown if ever smoked Past Alcohol Use History: Unable to Obtain Additional Past Alcohol Use History / Comment(s): quit 31 years ago; smoked occ from teen to 30 yrs old 1 pkg kirill 3-4 days Past Drug Use History: Unable to Obtain - Past Family History Mother Family Medical History: Hypertension Father Family Medical History: Neurologic Disorder Medications and Allergies Home Medications Medication Instructions Recorded Confirmed Type Diphenox-Atrop 2.5-0.025 mg 2 tab PO TID 11/09/13 12/11/16 History [Lomotil] SUMAtriptan SUCCINATE [Imitrex] 100 mg PO DAILY PRN 02/25/14 12/11/16 History Losartan/Hydrochlorothiazide 1 tab PO DAILY 03/26/14 12/11/16 History [Losartan-Hctz 100-12.5 mg Tab] Baclofen [Lioresal] 20 mg PO TID PRN 10/05/15 12/11/16 History Cholestyramine (with Sugar) 1 packet PO BID 10/05/15 12/11/16 History [Questran Powder] HYDROcodone/APAP 7.5-325MG [[place] 1 tab PO Q8HR PRN 10/05/15 12/11/16 History 7.5-325] Propranolol HCl [Propranolol HCl 160 mg PO DAILY 07/08/16 12/11/16 History ER] Zolpidem [Ambien] 10 mg PO HS PRN 07/08/16 12/11/16 History DULoxetine HCL [Cymbalta] 60 mg PO DAILY 11/05/16 12/11/16 History rOPINIRole HCL 3 mg PO TID 12/11/16 12/11/16 History Allergies Allergy/AdvReac Type Severity Reaction Status Date / Time ketorolac tromethamine AdvReac Rapid Verified 12/11/16 14:35 [From Toradol] Heart Rate Physical Examination This is a 66-year-old female in no acute distress. She is alert but does have some confusion and is easily distracted throughout the exam. Exam of the head neck reveal no obvious deformity. The patient has full cervical spine motion without difficulty or pain. There is no pain with palpation about the cervical spine or paraspinal musculature. Exam of the upper extremities reveals a splint in place to the right arm. There is an IV in the right hand. The splint is removed. The Gar[place] wrap was very tight around the forearm and wrist. There is significant ecchymosis about the wrist and into the hand. There is no erythema. The patient can move the wrist joint in flexion and extension without pain or difficulty. There is point tenderness over the distal radius. There is no appreciable wrist joint effusion noted. She has full finger motion without difficulty. Neurovascular status to the right upper extremity is intact. No obvious deformity noted to the left upper extremity. She has full shoulder and elbow motion bilaterally. Exam the lower extremities reveals no obvious deformity. She can lift each leg off the bed independently. There is no hip pain with logroll bilaterally. She has full foot and ankle motion bilaterally. Neurovascular status the lower extremities is intact. Results X-ray of the right wrist and hand reveal an acute intra-articular fracture of the distal radius. There is no obvious joint effusion on x-ray. There are some bony calcifications noted on the lateral view the dorsum of the distal radius which may indicate an old fracture as well. I see no evidence of osteomyelitis or bony erosion. - Labs Labs: Abnormal Lab Results - Last 24 Hours (Table) 12/11/16 12/11/16 12/11/16 Range/Units 13:20 13:20 13:20 WBC 21.9 H (3.8-10.6) k/uL RBC (3.80-5.40) m/uL Hgb (11.4-16.0) gm/dL Hct (34.0-46.0) % Neutrophils # 17.6 H (1.3-7.7) k/uL Monocytes # 1.3 H (0-1.0) k/uL Sodium 151 H (137-145) mmol/L Potassium (3.5-5.1) mmol/L Chloride 121 H* (98-107) mmol/L Carbon Dioxide 18 L (22-30) mmol/L BUN 39 H (7-17) mg/dL Glucose 102 H (74-99) mg/dL POC Glucose (mg/dL) (75-99) mg/dL Plasma Lactic Acid Juma (0.7-2.0) mmol/L Calcium (8.4-10.2) mg/dL Phosphorus (2.5-4.5) mg/dL Magnesium (1.6-2.3) mg/dL AST 62 H (14-36) U/L Creatine Kinase (30-135) U/L Total Creatine Kinase 1339 H (30-135) U/L CK-MB (CK-2) 13.1 H* (0.0-2.4) ng/mL Total Protein (6.3-8.2) g/dL Albumin (3.5-5.0) g/dL Urine Protein (Negative) Urine Ketones (Negative) Urine Blood (Negative) Urine RBC (0-5) /hpf Urine Bacteria (None) /hpf Urine Mucus (None) /hpf Urine Opiates Screen (NotDetected) 12/11/16 12/11/16 12/11/16 Range/Units 13:20 13:20 17:40 WBC (3.8-10.6) k/uL RBC (3.80-5.40) m/uL Hgb (11.4-16.0) gm/dL Hct (34.0-46.0) % Neutrophils # (1.3-7.7) k/uL Monocytes # (0-1.0) k/uL Sodium (137-145) mmol/L Potassium (3.5-5.1) mmol/L Chloride (98-107) mmol/L Carbon Dioxide (22-30) mmol/L BUN (7-17) mg/dL Glucose (74-99) mg/dL POC Glucose (mg/dL) 101 H (75-99) mg/dL Plasma Lactic Acid Juma 3.2 H* (0.7-2.0) mmol/L Calcium (8.4-10.2) mg/dL Phosphorus (2.5-4.5) mg/dL Magnesium (1.6-2.3) mg/dL AST (14-36) U/L Creatine Kinase (30-135) U/L Total Creatine Kinase (30-135) U/L CK-MB (CK-2) (0.0-2.4) ng/mL Total Protein (6.3-8.2) g/dL Albumin (3.5-5.0) g/dL Urine Protein 1+ H (Negative) Urine Ketones 1+ H (Negative) Urine Blood Small H (Negative) Urine RBC 23 H (0-5) /hpf Urine Bacteria Rare H (None) /hpf Urine Mucus Rare H (None) /hpf Urine Opiates Screen Detected H (NotDetected) 12/11/16 12/11/16 12/11/16 Range/Units 17:56 23:20 23:20 WBC (3.8-10.6) k/uL RBC (3.80-5.40) m/uL Hgb (11.4-16.0) gm/dL Hct (34.0-46.0) % Neutrophils # (1.3-7.7) k/uL Monocytes # (0-1.0) k/uL Sodium 149 H (137-145) mmol/L Potassium 3.1 L (3.5-5.1) mmol/L Chloride 122 H* (98-107) mmol/L Carbon Dioxide 20 L (22-30) mmol/L BUN 30 H (7-17) mg/dL Glucose (74-99) mg/dL POC Glucose (mg/dL) (75-99) mg/dL Plasma Lactic Acid Juma (0.7-2.0) mmol/L Calcium 7.8 L (8.4-10.2) mg/dL Phosphorus (2.5-4.5) mg/dL Magnesium (1.6-2.3) mg/dL AST (14-36) U/L Creatine Kinase 1447 H (30-135) U/L Total Creatine Kinase 2031 H (30-135) U/L CK-MB (CK-2) 16.1 H* 13.8 H* (0.0-2.4) ng/mL Total Protein (6.3-8.2) g/dL Albumin (3.5-5.0) g/dL Urine Protein (Negative) Urine Ketones (Negative) Urine Blood (Negative) Urine RBC (0-5) /hpf Urine Bacteria (None) /hpf Urine Mucus (None) /hpf Urine Opiates Screen (NotDetected) 12/12/16 12/12/16 Range/Units 03:57 03:57 WBC (3.8-10.6) k/uL RBC 3.03 L (3.80-5.40) m/uL Hgb 9.1 L D (11.4-16.0) gm/dL Hct 28.8 L (34.0-46.0) % Neutrophils # (1.3-7.7) k/uL Monocytes # (0-1.0) k/uL Sodium 149 H (137-145) mmol/L Potassium 3.4 L (3.5-5.1) mmol/L Chloride 125 H* (98-107) mmol/L Carbon Dioxide 16 L (22-30) mmol/L BUN 24 H (7-17) mg/dL Glucose (74-99) mg/dL POC Glucose (mg/dL) (75-99) mg/dL Plasma Lactic Acid Juma (0.7-2.0) mmol/L Calcium 7.2 L (8.4-10.2) mg/dL Phosphorus 1.7 L (2.5-4.5) mg/dL Magnesium 1.4 L (1.6-2.3) mg/dL AST 56 H (14-36) U/L Creatine Kinase (30-135) U/L Total Creatine Kinase (30-135) U/L CK-MB (CK-2) (0.0-2.4) ng/mL Total Protein 4.8 L (6.3-8.2) g/dL Albumin 2.3 L (3.5-5.0) g/dL Urine Protein (Negative) Urine Ketones (Negative) Urine Blood (Negative) Urine RBC (0-5) /hpf Urine Bacteria (None) /hpf Urine Mucus (None) /hpf Urine Opiates Screen (NotDetected) Microbiology - Last 24 Hours (Table) 12/11/16 13:20 Urine Culture - Preliminary Urine,Catheterized H & H 12/11/16 12/12/16 Range/Units 13:20 03:57 Hgb 11.5 9.1 L D (11.4-16.0) gm/dL Hct 34.5 28.8 L (34.0-46.0) % Coagulation 12/11/16 Range/Units 13:20 INR 1.1 (<1.2) Result Diagrams: 12/12/16 03:57 12/12/16 03:57 Assessment and Plan (1) Altered mental status Status: Acute (2) Pneumonia Status: Acute (3) Polysubstance abuse Status: Acute (4) Severe major depression with psychotic features Status: Acute (5) Anxiety disorder Status: Chronic (6) Other intraarticular fracture of lower end of right radius, initial encounter for closed fracture Status: Acute Plan: The clinical and x-ray findings are discussed the patient and her nurse. I will return to place her in a short arm splint to the right upper extremity. Once swelling in the hand comes down and she no longer needs the IV access, we may place her in a cast. We'll continue to follow throughout her stay.
[2016-12-12] MEDS ORDERED: PANTOPRAZOLE 40 MG/10 ML VIAL IVP SCH (09:00)
--- NOTE | 2016-12-12 11:37 | P.PN ---
Subjective Patient is a 66-year-old female presenting to the emergency Department with agitation. Patient history provided by EMS. Patient reportedly has a history of headaches with psychotic behavior. Patient's mother reported to EMS that this happens frequently with her. Patient is agitated and restless and nonverbal at this time. Patient's home was apparently in disarray by the patient. EMS reports temporal temperature at 105.3. Patient has a recent hospitalization psychiatric unit has been discharged in stable condition lives by herself at home last seen 3 days ago she was found by mother lethargic poorly responsive agitated not in her best shape patient was very combative as well and Route as well as in the ER in ICU does require 2.5 mg of IM Holdol with that patient was slightly more calm she is however arousable does open eyes does answer to simple question fever spike has improved to 99 from 105 The patient is seen again today December 2016 in follow-up in the intensive care unit. She is more awake and alert. She is a 0.9 normal saline at 120 mL's per hour. She does have multiple bruises on her upper and lower extremities. She does have a right wrist fracture. Her chest x-ray does show worsening airspace disease bilaterally greater on the left than right. She denies any worsening shortness of breath, cough or congestion. She is currently maintaining good O2 saturations in the 90s on room air. No leukocytosis. She is afebrile. Her sodium remains at 149, potassium 3.4, chloride 125 and a carbon dioxide of 16. Creatinine is 0.80. Hemoglobin 9.1. Objective - Vital Signs Vital signs: Vital Signs Temp 98.6 F 12/12/16 08:00 Pulse 85 12/12/16 10:00 Resp 20 12/12/16 10:00 BP 119/66 12/12/16 10:00 Pulse Ox 96 12/12/16 10:00 Intake & Output 12/11/16 12/12/16 12/12/16 18:59 06:59 18:59 Intake Total 390 4165 860 Output Total 105 765 345 Balance 285 3400 515 Weight 62.8 kg 65.3 kg Intake: IV 4165 860 Magnesium Sulfate-D5w Pmx 100 200 1 gm In Dextrose/Water 1 100ml.bag @ 100 mls/hr IVPB Q1H [facility] Rx#: [id number] Piperacillin-Tazobactam 3 50 50 .375 gm In Dextrose/Water 1 50ml.bag @ 12.5 mls/hr IVPB Q8HR [facility] Rx#: [id number] Potassium Chloride 10 meq 300 Lidocaine 2% Inj 10 mg In Sodium Chloride 0.9% 100 ml @ 100 mls/hr IV Q1HR [facility] Rx#:[id number] Sodium Chloride 0.9% 1, 3340 360 000 ml @ 120 mls/hr IV . Q8H20M [facility] Rx#:[id number] Sodium Phosphate 10 mmol 125 250 In Sodium Chloride 0.9% 250 ml @ 125 mls/hr IVPB Q2H [facility] Rx#:[id number] Vancomycin 1,250 mg In 250 Sodium Chloride 0.9% 250 ml @ 125 mls/hr IVPB Q24H [facility] Rx#:[id number] Intake, IV Titration 390 Amount Piperacillin-Tazobactam 3 150 .375 gm In Dextrose/Water 1 50ml.bag @ 12.5 mls/hr IVPB Q8HR [facility] Rx#: [id number] Sodium Chloride 0.9% 1, 240 000 ml @ 120 mls/hr IV . Q8H20M [facility] Rx#:[id number] Output: Urine 105 765 345 Other: Voiding Method Indwelling Catheter Indwelling Catheter Indwelling Catheter - Exam GENERAL EXAM: Alert, comfortable in no apparent distress. HEAD: Normocephalic. EYES: Normal reaction of pupils, equal size. NOSE: Clear with pink turbinates. THROAT: No erythema or exudates. NECK: No masses, no JVD. CHEST: No chest wall deformity. LUNGS: Equal air entry with few scattered rhonchi. CVS: S1 and S2 normal with no audible murmurs, regular rhythm. ABDOMEN: No hepatosplenomegaly, normal bowel sounds, no guarding or rigidity. SPINE: No scoliosis or deformity SKIN: No rashes, areas of bruising and ecchymosis. CENTRAL NERVOUS SYSTEM: No focal deficits, tone is normal in all 4 extremities. Extremities: There is trace peripheral edema. Soft cast to the right upper extremity. Peripheral pulses are intact. - Labs CBC & Chem 7: 12/12/16 03:57 12/12/16 03:57 Labs: Abnormal Lab Results - Last 24 Hours (Table) 12/11/16 12/11/16 12/11/16 Range/Units 13:20 13:20 13:20 WBC 21.9 H (3.8-10.6) k/uL RBC (3.80-5.40) m/uL Hgb (11.4-16.0) gm/dL Hct (34.0-46.0) % Neutrophils # 17.6 H (1.3-7.7) k/uL Monocytes # 1.3 H (0-1.0) k/uL Sodium 151 H (137-145) mmol/L Potassium (3.5-5.1) mmol/L Chloride 121 H* (98-107) mmol/L Carbon Dioxide 18 L (22-30) mmol/L BUN 39 H (7-17) mg/dL Glucose 102 H (74-99) mg/dL POC Glucose (mg/dL) (75-99) mg/dL Plasma Lactic Acid Juma (0.7-2.0) mmol/L Calcium (8.4-10.2) mg/dL Phosphorus (2.5-4.5) mg/dL Magnesium (1.6-2.3) mg/dL AST 62 H (14-36) U/L Creatine Kinase (30-135) U/L Total Creatine Kinase 1339 H (30-135) U/L CK-MB (CK-2) 13.1 H* (0.0-2.4) ng/mL Total Protein (6.3-8.2) g/dL Albumin (3.5-5.0) g/dL Urine Protein (Negative) Urine Ketones (Negative) Urine Blood (Negative) Urine RBC (0-5) /hpf Urine Bacteria (None) /hpf Urine Mucus (None) /hpf Urine Opiates Screen (NotDetected) 12/11/16 12/11/16 12/11/16 Range/Units 13:20 13:20 17:40 WBC (3.8-10.6) k/uL RBC (3.80-5.40) m/uL Hgb (11.4-16.0) gm/dL Hct (34.0-46.0) % Neutrophils # (1.3-7.7) k/uL Monocytes # (0-1.0) k/uL Sodium (137-145) mmol/L Potassium (3.5-5.1) mmol/L Chloride (98-107) mmol/L Carbon Dioxide (22-30) mmol/L BUN (7-17) mg/dL Glucose (74-99) mg/dL POC Glucose (mg/dL) 101 H (75-99) mg/dL Plasma Lactic Acid Juma 3.2 H* (0.7-2.0) mmol/L Calcium (8.4-10.2) mg/dL Phosphorus (2.5-4.5) mg/dL Magnesium (1.6-2.3) mg/dL AST (14-36) U/L Creatine Kinase (30-135) U/L Total Creatine Kinase (30-135) U/L CK-MB (CK-2) (0.0-2.4) ng/mL Total Protein (6.3-8.2) g/dL Albumin (3.5-5.0) g/dL Urine Protein 1+ H (Negative) Urine Ketones 1+ H (Negative) Urine Blood Small H (Negative) Urine RBC 23 H (0-5) /hpf Urine Bacteria Rare H (None) /hpf Urine Mucus Rare H (None) /hpf Urine Opiates Screen Detected H (NotDetected) 12/11/16 12/11/16 12/11/16 Range/Units 17:56 23:20 23:20 WBC (3.8-10.6) k/uL RBC (3.80-5.40) m/uL Hgb (11.4-16.0) gm/dL Hct (34.0-46.0) % Neutrophils # (1.3-7.7) k/uL Monocytes # (0-1.0) k/uL Sodium 149 H (137-145) mmol/L Potassium 3.1 L (3.5-5.1) mmol/L Chloride 122 H* (98-107) mmol/L Carbon Dioxide 20 L (22-30) mmol/L BUN 30 H (7-17) mg/dL Glucose (74-99) mg/dL POC Glucose (mg/dL) (75-99) mg/dL Plasma Lactic Acid Juma (0.7-2.0) mmol/L Calcium 7.8 L (8.4-10.2) mg/dL Phosphorus (2.5-4.5) mg/dL Magnesium (1.6-2.3) mg/dL AST (14-36) U/L Creatine Kinase 1447 H (30-135) U/L Total Creatine Kinase 2031 H (30-135) U/L CK-MB (CK-2) 16.1 H* 13.8 H* (0.0-2.4) ng/mL Total Protein (6.3-8.2) g/dL Albumin (3.5-5.0) g/dL Urine Protein (Negative) Urine Ketones (Negative) Urine Blood (Negative) Urine RBC (0-5) /hpf Urine Bacteria (None) /hpf Urine Mucus (None) /hpf Urine Opiates Screen (NotDetected) 12/12/16 12/12/16 Range/Units 03:57 03:57 WBC (3.8-10.6) k/uL RBC 3.03 L (3.80-5.40) m/uL Hgb 9.1 L D (11.4-16.0) gm/dL Hct 28.8 L (34.0-46.0) % Neutrophils # (1.3-7.7) k/uL Monocytes # (0-1.0) k/uL Sodium 149 H (137-145) mmol/L Potassium 3.4 L (3.5-5.1) mmol/L Chloride 125 H* (98-107) mmol/L Carbon Dioxide 16 L (22-30) mmol/L BUN 24 H (7-17) mg/dL Glucose (74-99) mg/dL POC Glucose (mg/dL) (75-99) mg/dL Plasma Lactic Acid Juma (0.7-2.0) mmol/L Calcium 7.2 L (8.4-10.2) mg/dL Phosphorus 1.7 L (2.5-4.5) mg/dL Magnesium 1.4 L (1.6-2.3) mg/dL AST 56 H (14-36) U/L Creatine Kinase (30-135) U/L Total Creatine Kinase (30-135) U/L CK-MB (CK-2) (0.0-2.4) ng/mL Total Protein 4.8 L (6.3-8.2) g/dL Albumin 2.3 L (3.5-5.0) g/dL Urine Protein (Negative) Urine Ketones (Negative) Urine Blood (Negative) Urine RBC (0-5) /hpf Urine Bacteria (None) /hpf Urine Mucus (None) /hpf Urine Opiates Screen (NotDetected) Microbiology - Last 24 Hours (Table) 12/11/16 13:20 Urine Culture - Preliminary Urine,Catheterized Assessment and Plan Plan: Impression: #1 Severe sepsis of unclear etiology suspect urinary tract infection and left perihilar pneumonia. #2 Acute rhabdomyolysis secondary to trauma. 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 #4 Altered mental status and encephalopathy secondary to sepsis. #5 Hypernatremia with hyperchloremia secondary to severe dehydration. #6 History of psychiatric disorder. Plan: The patient was seen and evaluated by Dr. Moeller. Her chest x-ray and labs were reviewed. We'll continue with her current antibiotics. Infectious disease has been consulted. We will await further culture results. We'll increase her activity as tolerated. She could be transferred out of the intensive care unit to a regular medical floor today. We'll continue to follow.
[2016-12-12] MEDS ORDERED: VANCOMYCIN 1,250 MG in SODIUM CHLORIDE 0.9% 250 ML IVPB SCH ×2 (14:00→23:00)
[2016-12-12] MEDS: LEVOFLOXACIN 750MG-D5W PMX 750 MG in DEXTROSE/WATER 1 150ML.BAG IVPB SCH (14:03)
--- NOTE | 2016-12-12 14:12 | P.HPIM ---
History of Present Illness H&P Date: 12/12/16 Chief Complaint: acute psychosis/pneumonia with sepsis. Patient is a 6-year-old female. She is a patient of Dr. Craig with a previous medical history significant for hypertension and hypertensive cardiovascular disease, history of Crohn disease, anxiety, major depressive disorder, valvular heart disease in the form of mitral regurgitation, supraventricular tachycardia, peptic ulcer disease. Patient has been having a lot of issues with her ex-, and her social life has been declining up till she was from and unfortunately her recently, and the patient has been living by her self and she has a friend who checks on her on a regular basis along with her mother who lives about a block away, patient was hospitalized back in February 2014 to the mental health unit with a diagnosis of acute psychosis and possible paranoid schizophrenia believe the final diagnosis was bipolar disorder with psychotic feature and she was maintained on her Trileptal 450 mg orally once every day along with Risperdal 1 mg orally twice every day for long period of time and the patient has been seeing me on a regular basis every 3 months in the office however she stopped coming to the office for the past almost 6 months, and the patient apparently was at home when her mother cold her house she did not answer she ended up going to her house to check on her she looked through the window and she saw her quite manicky with running around she ended up the opening the door and unfortunately at that time her dog ran away and her mother tried to tor the dog and by the time she came back her daughter was gone and she went to the house to house was told apart with a lot of filth and food everywhere she broke a lot of her furniture, she went looking for her daughter and finally she went to her house where she found her daughter sitting in a recliner chairs and she was oscillating back in force very fast and the patient was quite agitated and eventually tripped and fell she was found to have a significant swelling in the right forearm, patient's mother ended up calling the police who and they're turn called EMS and the patient was quite agitated she did receive 2.5 mg withheld all I am and she was transported to the emergency department at [facility] patient was admitted to intensive care unit for diagnosis of hypoxemia with sepsis and she was found to have a right perihilar more than left perihilar pneumonia and she was started on IV antibiotic and she was admitted to the intensive care unit, she had a computed tomography scan of the brain that didn't show an old lacunar infarct of the right anterior limb of the internal capsule, without any acute of normalities. Patient was admitted under my service with the pulmonary consultation. Review of Systems Constitutional: Reports chronic headaches, Reports chronic pain, Reports daytime sleepiness, Reports fatigue, Reports lethargy, Reports malaise, Reports weakness, Reports weight loss, Denies anorexia Eyes: denies blurred vision, denies bulging eye, denies decreased vision, denies diplopia, denies discharge Ears: deny: ear discharge Ears, nose, mouth and throat: Denies dysphagia, Denies neck lump, Denies sore throat, Denies vertigo Breasts: absent: change in shape Cardiovascular: Reports high blood pressure, Denies chest pain, Denies decreased exercise tolerance, Denies lightheadedness, Denies orthopnea, Denies rapid heart beat, Denies shortness of breath, Denies syncope Respiratory: Reports cough, Reports cough with sputum, Reports wheezing, Denies congestion, Denies home oxygen, Denies sleep apnea, Denies snoring Gastrointestinal: Reports nausea, Denies abdominal pain, Denies bloating, Denies BRBPR, Denies excessive gas, Denies heartburn, Denies melena, Denies vomiting Genitourinary: Denies dysuria, Denies hematuria Menstruation: Reports postmenopausal Musculoskeletal: Reports fractures, Denies myalgias Musculoskeletal: right: hand pain, hand stiffness, hand swelling, absent: ankle pain, ankle stiffness, ankle swelling, elbow pain, elbow stiffness, elbow swelling, foot pain, foot stiffness, foot swelling, hip pain, hip stiffness, hip swelling, knee pain, knee stiffness, knee swelling, shoulder pain, shoulder stiffness, shoulder swelling, wrist pain, wrist stiffness, wrist swelling Integumentary: Denies pruritus, Denies rash Neurological: Reports change in mentation, Reports confusion, Reports gait dysfunction, Reports migraines, Reports weakness Psychiatric: Reports anxiety, Reports confusion, Reports depression, Reports irritability, Reports paranoia Endocrine: Denies fatigue, Denies weight change Past Medical History Past Medical History: GERD/Reflux, GI Bleed, Hyperlipidemia, Hypertension, Neurologic Disorder, Osteoarthritis (OA), Supraventricular Tachycardia (SVT) Additional Past Medical History / Comment(s): Crohn disease,. short gut syndrome,. migraine headaches, History of Any Multi-Drug Resistant Organisms: None Reported Past Surgical History: Appendectomy, Bowel Resection, Heart Catheterization Additional Past Surgical History / Comment(s): ACDF-ANTERIOR CERVICAL DISKECTOMY AND FUSION. ORIF Rt femur,. bowel resection X3 1959, 1967, 1975,. recto- vagina fistula repair,. EGD,. colonoscopy, occipital steroid injections. Past Anesthesia/Blood Transfusion Reactions: No Reported Reaction Past Psychological History: Anxiety, Depression Smoking Status: Unknown if ever smoked Past Alcohol Use History: Unable to Obtain Additional Past Alcohol Use History / Comment(s): quit 31 years ago; smoked occ from teen to 30 yrs old 1 pkg kirill 3-4 days Past Drug Use History: Unable to Obtain - Past Family History Mother Family Medical History: Hypertension Father Family Medical History: Neurologic Disorder Medications and Allergies Home Medications Medication Instructions Recorded Confirmed Type Diphenox-Atrop 2.5-0.025 mg 2 tab PO TID 11/09/13 12/11/16 History [Lomotil] SUMAtriptan SUCCINATE [Imitrex] 100 mg PO DAILY PRN 02/25/14 12/11/16 History Losartan/Hydrochlorothiazide 1 tab PO DAILY 03/26/14 12/11/16 History [Losartan-Hctz 100-12.5 mg Tab] Baclofen [Lioresal] 20 mg PO TID PRN 10/05/15 12/11/16 History Cholestyramine (with Sugar) 1 packet PO BID 10/05/15 12/11/16 History [Questran Powder] HYDROcodone/APAP 7.5-325MG [[place] 1 tab PO Q8HR PRN 10/05/15 12/11/16 History 7.5-325] Propranolol HCl [Propranolol HCl 160 mg PO DAILY 07/08/16 12/11/16 History ER] Zolpidem [Ambien] 10 mg PO HS PRN 07/08/16 12/11/16 History DULoxetine HCL [Cymbalta] 60 mg PO DAILY 11/05/16 12/11/16 History rOPINIRole HCL 3 mg PO TID 12/11/16 12/11/16 History Allergies Allergy/AdvReac Type Severity Reaction Status Date / Time ketorolac tromethamine AdvReac Rapid Verified 12/11/16 14:35 [From Toradol] Heart Rate Physical Exam Vitals: Vital Signs Temp Pulse Resp BP Pulse Ox 12/12/16 07:09 88 25 H 103/66 96 12/12/16 07:00 101 H 25 H 103/66 98 12/12/16 06:50 94 20 103/66 98 12/12/16 06:40 76 18 103/66 96 12/12/16 06:30 74 22 103/66 97 12/12/16 06:20 103 H 22 103/66 96 12/12/16 06:10 80 26 H 105/66 97 12/12/16 06:00 77 21 105/66 93 L 12/12/16 05:50 81 24 105/66 93 L 12/12/16 05:40 78 21 105/66 92 L 12/12/16 05:30 81 20 105/66 97 12/12/16 05:20 81 24 105/66 97 12/12/16 05:10 88 19 103/62 97 12/12/16 05:00 85 21 103/62 97 12/12/16 04:50 83 18 103/62 97 12/12/16 04:40 85 16 103/62 97 12/12/16 04:30 84 17 103/62 98 12/12/16 04:19 86 20 103/62 99 12/12/16 04:10 90 18 105/64 95 12/12/16 04:00 98.5 F 86 23 105/64 94 L 12/12/16 03:50 84 22 105/64 95 12/12/16 03:40 83 23 105/64 95 12/12/16 03:30 79 20 105/64 99 12/12/16 03:20 83 20 105/64 99 12/12/16 03:10 82 15 112/68 99 12/12/16 03:00 84 20 112/68 100 12/12/16 02:50 89 29 H 112/68 97 12/12/16 02:40 95 40 H 112/68 97 12/12/16 02:30 95 28 H 112/68 97 12/12/16 02:20 103 H 33 H 112/68 97 12/12/16 02:10 109 H 22 100/62 96 12/12/16 02:00 82 22 100/62 94 L 12/12/16 01:50 88 28 H 100/62 94 L 12/12/16 01:40 88 30 H 100/62 94 L 12/12/16 01:30 87 28 H 100/62 97 12/12/16 01:16 89 23 100/62 95 12/12/16 01:10 88 25 H 99/60 95 12/12/16 01:00 89 22 99/60 96 12/12/16 00:50 88 22 99/60 96 12/12/16 00:40 88 20 99/60 98 12/12/16 00:30 82 25 H 99/60 98 12/12/16 00:20 88 23 99/60 97 12/12/16 00:10 87 13 91/48 98 12/12/16 00:00 99.2 F 89 24 91/48 98 12/11/16 23:50 88 21 91/48 98 12/11/16 23:40 87 20 91/48 98 12/11/16 23:30 87 23 91/48 98 12/11/16 23:20 88 21 91/48 98 12/11/16 23:10 96 21 92/53 96 12/11/16 23:00 93 21 92/53 97 12/11/16 22:50 98 20 92/53 97 12/11/16 22:40 87 20 92/53 98 12/11/16 22:34 90 23 92/53 98 12/11/16 22:29 94 25 H 92/53 95 12/11/16 22:20 91 19 92/53 98 12/11/16 22:10 99 20 102/49 96 12/11/16 22:00 92 21 102/49 96 12/11/16 21:50 88 20 102/49 97 12/11/16 21:40 92 28 H 102/49 96 12/11/16 21:30 93 28 H 102/49 95 12/11/16 21:20 91 25 H 102/49 96 12/11/16 21:10 95 24 97/54 97 12/11/16 21:00 97 19 97/54 96 12/11/16 20:45 94 19 97/54 95 12/11/16 20:40 95 19 97/54 95 12/11/16 20:30 94 20 97/54 95 12/11/16 20:20 95 19 97/54 95 12/11/16 20:10 96 19 92/50 95 12/11/16 20:00 96 19 92/50 95 12/11/16 19:50 99.5 F 100 30 H 92/50 95 12/11/16 19:40 96 20 92/50 95 12/11/16 19:30 93 21 92/50 95 12/11/16 19:20 97 27 H 92/50 95 12/11/16 18:50 107 H 31 H 97/53 12/11/16 18:40 105 H 21 97/53 12/11/16 18:30 106 H 25 H 97/53 12/11/16 18:20 99.3 F 110 H 38 H 97/53 94 L 12/11/16 18:10 121 H 55 H 12/11/16 18:00 132 H 47 H 12/11/16 17:50 120 H 38 H 12/11/16 17:43 130 H 39 H 12/11/16 17:17 99.9 F H 96 20 92/55 95 12/11/16 17:06 99.3 F 12/11/16 16:05 99.9 F H 101 H 22 89/50 96 12/11/16 12:59 105 F H 127 H 24 137/77 98 Intake and Output 12/11/16 12/12/16 12/12/16 22:59 06:59 14:59 Intake Total 755 3800 Output Total 205 665 Balance 550 3135 Intake: IV 365 3800 Magnesium Sulfate-D5w Pmx 100 1 gm In Dextrose/Water 1 100ml.bag @ 100 mls/hr IVPB Q1H DARRYL Rx#: [id number] Piperacillin-Tazobactam 3 50 .375 gm In Dextrose/Water 1 50ml.bag @ 12.5 mls/hr IVPB Q8HR DARRYL Rx#: [id number] Potassium Chloride 10 meq 300 Lidocaine 2% Inj 10 mg In Sodium Chloride 0.9% 100 ml @ 100 mls/hr IV Q1HR DARRYL Rx#:[id number] Sodium Chloride 0.9% 1, 365 2975 000 ml @ 120 mls/hr IV . Q8H20M DARRYL Rx#:[id number] Sodium Phosphate 10 mmol 125 In Sodium Chloride 0.9% 250 ml @ 125 mls/hr IVPB Q2H DARRYL Rx#:[id number] Vancomycin 1,250 mg In 250 Sodium Chloride 0.9% 250 ml @ 125 mls/hr IVPB Q24H DARRYL Rx#:[id number] Intake, IV Titration 390 Amount Piperacillin-Tazobactam 3 150 .375 gm In Dextrose/Water 1 50ml.bag @ 12.5 mls/hr IVPB Q8HR DARRYL Rx#: [id number] Sodium Chloride 0.9% 1, 240 000 ml @ 120 mls/hr IV . Q8H20M DARRYL Rx#:[id number] Output: Urine 205 665 Other: Voiding Method Indwelling Catheter Indwelling Catheter Weight 62.8 kg 65.3 kg - Constitutional General appearance: average body habitus, mild distress - EENT Eyes: anicteric sclerae, EOMI, PERRLA, no ptosis, no scleral icterus, normal appearance ENT: hearing grossly normal, NA/AT, normal oropharynx, no thrush Ears: bilateral: normal - Neck Neck: no lymphadenopathy, normal ROM, no rigidity Carotids: bilateral: upstroke normal Thyroid: bilateral: normal size - Respiratory Respiratory: bilateral: diminished, rhonchi, wheezing, negative: dullness, rales , prolonged expiration - Cardiovascular Rhythm: regular Heart sounds: normal: S1, S2 Abnormal Heart Sounds: systolic murmur, no rub, no S3 Gallop, no S4 Gallop, no click - Gastrointestinal General gastrointestinal: normal bowel sounds, soft, no splenomegaly, no tenderness, no umbilical hernia, no ventral hernia - Integumentary Integumentary: normal, normal turgor - Neurologic Neurologic: CNII-XII intact - Musculoskeletal Musculoskeletal: generalized weakness, strength equal bilaterally - Psychiatric Psychiatric: no A&O x's 3, no appropriate affect, no intact judgment & insight Results CBC & Chem 7: 12/12/16 03:57 12/12/16 13:06 Labs: Abnormal Lab Results - Last 24 Hours (Table) 12/11/16 12/11/16 12/11/16 Range/Units 13:20 13:20 13:20 WBC 21.9 H (3.8-10.6) k/uL RBC (3.80-5.40) m/uL Hgb (11.4-16.0) gm/dL Hct (34.0-46.0) % Neutrophils # 17.6 H (1.3-7.7) k/uL Monocytes # 1.3 H (0-1.0) k/uL Sodium 151 H (137-145) mmol/L Potassium (3.5-5.1) mmol/L Chloride 121 H* (98-107) mmol/L Carbon Dioxide 18 L (22-30) mmol/L BUN 39 H (7-17) mg/dL Glucose 102 H (74-99) mg/dL POC Glucose (mg/dL) (75-99) mg/dL Plasma Lactic Acid Juma (0.7-2.0) mmol/L Calcium (8.4-10.2) mg/dL Phosphorus (2.5-4.5) mg/dL Magnesium (1.6-2.3) mg/dL AST 62 H (14-36) U/L Creatine Kinase (30-135) U/L Total Creatine Kinase 1339 H (30-135) U/L CK-MB (CK-2) 13.1 H* (0.0-2.4) ng/mL Total Protein (6.3-8.2) g/dL Albumin (3.5-5.0) g/dL Urine Protein (Negative) Urine Ketones (Negative) Urine Blood (Negative) Urine RBC (0-5) /hpf Urine Bacteria (None) /hpf Urine Mucus (None) /hpf Urine Opiates Screen (NotDetected) 12/11/16 12/11/16 12/11/16 Range/Units 13:20 13:20 17:40 WBC (3.8-10.6) k/uL RBC (3.80-5.40) m/uL Hgb (11.4-16.0) gm/dL Hct (34.0-46.0) % Neutrophils # (1.3-7.7) k/uL Monocytes # (0-1.0) k/uL Sodium (137-145) mmol/L Potassium (3.5-5.1) mmol/L Chloride (98-107) mmol/L Carbon Dioxide (22-30) mmol/L BUN (7-17) mg/dL Glucose (74-99) mg/dL POC Glucose (mg/dL) 101 H (75-99) mg/dL Plasma Lactic Acid Juma 3.2 H* (0.7-2.0) mmol/L Calcium (8.4-10.2) mg/dL Phosphorus (2.5-4.5) mg/dL Magnesium (1.6-2.3) mg/dL AST (14-36) U/L Creatine Kinase (30-135) U/L Total Creatine Kinase (30-135) U/L CK-MB (CK-2) (0.0-2.4) ng/mL Total Protein (6.3-8.2) g/dL Albumin (3.5-5.0) g/dL Urine Protein 1+ H (Negative) Urine Ketones 1+ H (Negative) Urine Blood Small H (Negative) Urine RBC 23 H (0-5) /hpf Urine Bacteria Rare H (None) /hpf Urine Mucus Rare H (None) /hpf Urine Opiates Screen Detected H (NotDetected) 12/11/16 12/11/16 12/11/16 Range/Units 17:56 23:20 23:20 WBC (3.8-10.6) k/uL RBC (3.80-5.40) m/uL Hgb (11.4-16.0) gm/dL Hct (34.0-46.0) % Neutrophils # (1.3-7.7) k/uL Monocytes # (0-1.0) k/uL Sodium 149 H (137-145) mmol/L Potassium 3.1 L (3.5-5.1) mmol/L Chloride 122 H* (98-107) mmol/L Carbon Dioxide 20 L (22-30) mmol/L BUN 30 H (7-17) mg/dL Glucose (74-99) mg/dL POC Glucose (mg/dL) (75-99) mg/dL Plasma Lactic Acid Juma (0.7-2.0) mmol/L Calcium 7.8 L (8.4-10.2) mg/dL Phosphorus (2.5-4.5) mg/dL Magnesium (1.6-2.3) mg/dL AST (14-36) U/L Creatine Kinase 1447 H (30-135) U/L Total Creatine Kinase 2031 H (30-135) U/L CK-MB (CK-2) 16.1 H* 13.8 H* (0.0-2.4) ng/mL Total Protein (6.3-8.2) g/dL Albumin (3.5-5.0) g/dL Urine Protein (Negative) Urine Ketones (Negative) Urine Blood (Negative) Urine RBC (0-5) /hpf Urine Bacteria (None) /hpf Urine Mucus (None) /hpf Urine Opiates Screen (NotDetected) 12/12/16 12/12/16 Range/Units 03:57 03:57 WBC (3.8-10.6) k/uL RBC 3.03 L (3.80-5.40) m/uL Hgb 9.1 L D (11.4-16.0) gm/dL Hct 28.8 L (34.0-46.0) % Neutrophils # (1.3-7.7) k/uL Monocytes # (0-1.0) k/uL Sodium 149 H (137-145) mmol/L Potassium 3.4 L (3.5-5.1) mmol/L Chloride 125 H* (98-107) mmol/L Carbon Dioxide 16 L (22-30) mmol/L BUN 24 H (7-17) mg/dL Glucose (74-99) mg/dL POC Glucose (mg/dL) (75-99) mg/dL Plasma Lactic Acid Juma (0.7-2.0) mmol/L Calcium 7.2 L (8.4-10.2) mg/dL Phosphorus 1.7 L (2.5-4.5) mg/dL Magnesium 1.4 L (1.6-2.3) mg/dL AST 56 H (14-36) U/L Creatine Kinase (30-135) U/L Total Creatine Kinase (30-135) U/L CK-MB (CK-2) (0.0-2.4) ng/mL Total Protein 4.8 L (6.3-8.2) g/dL Albumin 2.3 L (3.5-5.0) g/dL Urine Protein (Negative) Urine Ketones (Negative) Urine Blood (Negative) Urine RBC (0-5) /hpf Urine Bacteria (None) /hpf Urine Mucus (None) /hpf Urine Opiates Screen (NotDetected) Microbiology - Last 24 Hours (Table) 12/11/16 13:20 Urine Culture - Preliminary Urine,Catheterized Thrombosis Risk Factor Assmnt - DVT/VTE Prophylaxis DVT/VTE Prophylaxis: Pharmacologic Prophylaxis ordered, Mechanical Prophylaxis ordered - Choose All That Apply Any of the Below Risk Factors Present?: Yes Each Risk Factor Represents 2 Points: Age 61-74 years Thrombosis Risk Factor Assessment Total Risk Factor Score: 2 Thrombosis Risk Factor Assessment Level: Low Risk Assessment and Plan Plan: Assessment and plan: 1. Severe sepsis due to left perihilar pneumonia as well as possible UTI. Continue patient on IV antibiotic, continue IV fluid resuscitation the form of D5 half-normal saline, encourage oral intake of free water, continue patient on Levaquin 750 mg IV piggyback every 24 hours, vancomycin pharmacy to dose, and Zosyn 3.375 g IV piggyback every 6 hours, urine culture, blood culture, sputum culture, Pulmicort consultation, monitor the patient lactic acid level in the next 6 hours, patient will be transferred outside the intensive care unit in the next 24 hours, continue patient on DuoNeb 3 mL nebulization 4 times every day, continue oxygen support. 2. Right distal radius occult fracture versus osteomyelitis. Check the patient 's ESR this time, patient was placed in a splint as to put her in a cast when the swelling is down. Continue IV antibiotic for now. Patient may need to go for a bone scan which is more stable or even MRI of the right forearm. 3. Acute psychosis I believe are due to bipolar disorder with psychotic features versus paranoiac schizophrenia. Patient will need to be restarted back and her Trileptal for 50 mg orally once every day as well as Risperdal 1 mg orally twice every day, we will hold off until patient is more stable for now we'll continue the patient on held all 2.5 mg IV push every 8 hours as needed. 4. Non-anion gap metabolic acidosis with hyperchloremia. Encourage oral intake of free water and change her IV fluid to D5 half-normal saline at 125 mL an hour. Repeat the patient CMP tomorrow morning. 5. Hypertension and hypertensive cardiovascular disease. Currently hypotensive. Continue patient on current IV fluid. Hold off losartan, atenolol. 6. History of Crohn disease with chronic anemia. Stable at this time patient has been under the care of GI for many years. 7. Migraine headaches with a chronic pain syndrome. Hold off pain management. 8. Supraventricular tachycardia. Stable at this point in time. We will resume the patient beta naldo with the patient is more stable. 9. Hypokalemia. Status post placement. 10. DVT prophylaxis. Heparin 5000 units subcutaneously every 12 hours. 11. GI prophylaxis. Continue Protonix 40 mg IV push every 24 hours. 12. Patient is full code. 13. Admit to inpatient. Estimated length of stay 2 midnights.
[2016-12-12] MEDS: POTASSIUM CHLORIDE ER 20 MEQ TAB.ER PO SCH ×2 (14:45→16:15)
[2016-12-12] MEDS ORDERED: BISACODYL 10 MG SUPP RECTAL STA (19:19)
[2016-12-12] MEDS ORDERED: DRY MOUTH SPRAY 44.3 SPRAY/44.3 ML SPRAY MUCOUS MEM PRN (19:41)
[2016-12-12] MEDS: BISACODYL 10 MG SUPP RECTAL PRN (19:50)
[2016-12-12] MEDS: DEXTROSE 5%-0.45% NACL 1,000 ML IV SCH (19:57)
[2016-12-12] MEDS: HYDROcodone/APAP 5-325MG 1 EACH TAB PO PRN (22:49)
[2016-12-13] MEDS: LACTULOSE 20 GM/30 ML CUP PO SCH ×3 (02:24→23:37)
[2016-12-13] MEDS: PIPERACILLIN-TAZOBACTAM 3.375 GM in DEXTROSE/WATER 1 50ML.BAG IVPB SCH ×4 (03:13→23:37)
[2016-12-13] MEDS: BISACODYL 10 MG SUPP RECTAL PRN (03:40)
[2016-12-13] MEDS: HYDROcodone/APAP 5-325MG 1 EACH TAB PO PRN ×3 (05:04→17:55)
[2016-12-13 07:22] LABS: Magnesium 1.9 mg/dL (1.6-2.3); Phosphorous 1.5 mg/dL (2.5-4.5)
[2016-12-13] MEDS: PANTOPRAZOLE 40 MG TABLET PO SCH (08:49)
[2016-12-13] MEDS: HEPARIN SODIUM,PORCINE 5,000 UNIT/ML 1 ML VIAL SQ SCH ×2 (08:49→20:45)
[2016-12-13] MEDS: DEXTROSE 5%-0.45% NACL 1,000 ML IV SCH ×2 (08:50→11:37)
--- NOTE | 2016-12-13 10:18 | P.PN ---
Subjective Principal diagnosis: Fracture right distal radius. Acute sepsis. This is a 66-year-old female who we are following regarding her right distal radius. The patient was admitted with confusion and high fever. Prior to admission she had been quite agitated and combative. The patient does not remember what happened over the past several days. Chest x-ray showed infiltrates. The patient is feeling better today. She has been transferred to the [facility] floor from ICU. She has no new complaints or concerns today. Objective - Vital Signs Vital signs: Vital Signs Temp 96.8 F L 12/13/16 07:00 Pulse 93 12/13/16 07:00 Resp 16 12/13/16 07:00 BP 110/56 12/13/16 07:00 Pulse Ox 99 12/13/16 07:00 Intake & Output 12/12/16 12/13/16 12/13/16 18:59 06:59 18:59 Intake Total 1340 1490 Output Total 720 Balance 620 1490 Intake: IV 1340 50 Magnesium Sulfate-D5w Pmx 200 1 gm In Dextrose/Water 1 100ml.bag @ 100 mls/hr IVPB Q1H [facility] Rx#: [id number] Piperacillin-Tazobactam 3 50 50 .375 gm In Dextrose/Water 1 50ml.bag @ 12.5 mls/hr IVPB Q8HR [facility]ARRYL Rx#: [id number] Sodium Chloride 0.9% 1, 840 000 ml @ 120 mls/hr IV . Q8H20M [facility]ARRYL Rx#:[id number] Sodium Phosphate 10 mmol 250 In Sodium Chloride 0.9% 250 ml @ 125 mls/hr IVPB Q2H [facility]ARRYL Rx#:[id number] Intake, IV Titration 1440 Amount Dextrose 5%-0.45% NaCl 1, 1440 000 ml @ 125 mls/hr IV . Q8H DARRYL Rx#:[id number] Output: Urine 720 Other: Voiding Method Bedside Commode # Bowel Movements 1 - Exam This is a 66-year-old female in no acute distress. She is alert and oriented. She does continue to have some confusion over the recent events. Exam of the right upper extremity reveals a splint in place. She has full finger motion without difficulty. There is ecchymosis noted to the hand and fingers. She is normal sensation to the fingers. Neurovascular status to the upper extremity is intact. - Labs CBC & Chem 7: 12/12/16 03:57 12/12/16 19:41 Labs: Abnormal Lab Results - Last 24 Hours (Table) 12/12/16 12/13/16 Range/Units 13:06 06:38 Potassium 3.4 L (3.5-5.1) mmol/L Phosphorus 1.5 L (2.5-4.5) mg/dL Microbiology - Last 24 Hours (Table) 12/11/16 13:20 Urine Culture - Final Urine,Catheterized 12/11/16 13:20 Blood Culture - Preliminary Blood No Growth after 24 hours Assessment and Plan (1) Altered mental status Status: Acute (2) Pneumonia Status: Acute (3) Polysubstance abuse Status: Acute (4) Severe major depression with psychotic features Status: Acute (5) Anxiety disorder Status: Chronic (6) Plan: The clinical and x-ray findings are discussed the patient and her nurse. There is very low suspicion for septic arthritis or osteomyelitis of the wrist. She does have history of old fracture as well as radiographic evidence of an acute intra-articular distal radius fracture. She is to continue the current splint until swelling comes down. We'll continue to follow throughout her stay.
[2016-12-13] MEDS ORDERED: FUROSEMIDE 10 MG/ML 4 ML VIAL IV STA (11:20)
[2016-12-13] MEDS: IPRATROPIUM-ALBUTEROL 3 ML NEB INHALATION SCH ×3 (12:16→20:13)
--- NOTE | 2016-12-13 14:49 | CONS ---
DATE OF SERVICE: 12/12/2016 REASON FOR CONSULTATION: Fever and pneumonia. HISTORY OF PRESENT ILLNESS: The patient is a 66-year-old female who was brought into the ER by the EMS after the mother found the patient to be more agitated and uncontrollable for her. Apparently the patient was noticed to be restless and ( ) at the time presentation to the ER and did have a fever of 105 degrees Fahrenheit. The patient workup including the patient with the white of 21.9. BUN and creatinine were normal and the urine was not significantly positive. The patient did have initial chest x-ray that was reported to be mild left perihilar infiltrate. A repeat x-ray done this morning showing worsening perihilar air space disease bilaterally, worse on the left than on the right. The patient has been treated with a broad spectrum antibiotic in the form of vanco, Zosyn and Levaquin. ID is consulted for further examination regarding antibiotic therapy. At the time of evaluation the patient knows that she is in the hospital, my name. The patient did mention she did some headache yesterday, however, that has improved. The patient denies having some photophobia. Some nausea but no vomiting. The patient denies significant chest pain or shortness of breath. She did have some cough but not bringing up any sputum. Denies any abdominal pain. No diarrhea. No significant urinary symptoms. REVIEW OF SYSTEMS: CONSTITUTIONAL: Positive for ( ) along with fever. EYES: No complaint. HEENT: No complaint. RESPIRATORY: As per HPI. CARDIOVASCULAR: No complaint. GENITOURINARY: No complaint. MUSCULOSKELETAL: No complaint. PSYCHOLOGICAL: No complaint. NEUROLOGICAL: As per HPI. PAST MEDICAL HISTORY: Significant for hypertension, hyperlipidemia, osteoarthritis, SVT, GI bleed, anxiety and depression. PAST SURGICAL HISTORY: Appendectomy, bowel obstruction, heart catheterization, cervical discectomy/fusion, ORIF of the right femur. SOCIAL HISTORY: No history of any smoking. No drinking or any drug use. FAMILY HISTORY: Mother history of hypertension. ALLERGIES: KETOROLAC. MEDICATIONS: Patient is currently on Tylenol, DuoNeb, Haldol, heparin, levofloxacin, Narcan, Protonix, piptazobactam and vancomycin. On examination her blood pressure is 119/76 with a pulse of 101, temperature 98.2, she is 96% on room air. GENERAL DESCRIPTION: Elderly female lying in bed in no distress. ( ). HEENT: Pallor. No scleral icterus. Oral mucosa dry. NECK: No JVD. No thyromegaly. LUNGS: Unlabored breathing. Some coarse breath sounds at the bilateral bases. No wheeze. HEART: S1/S2 regular. ABDOMEN: Active bowel sounds. No tenderness, no guarding, no rigidity. EXTREMITIES: No edema. NEUROLOGIC: The patient is awake, alert, oriented x3. No signs of no meningeal irritation. No ( ). LAB: Hemoglobin 9.1, white count 9.2, admitted white count was 21.9. BUN of 24 , creatinine 0.80. Sodium and chloride have been elevated. No significant elevation of the liver enzymes. UA was not significantly positive. Urine toxicology screen positive for opiates. DIAGNOSTIC IMPRESSION: Patient admitted to hospital with sepsis, patient had a fever of 105. Patient did have elevated white count. Source is likely pneumonia with a question of possibly community acquired verus aspiration etiology. The patient denied exposure to anybody. Less likely dealing with a methicillin-resistant Staphylococcus aureus pneumonia. PLAN: 1. Will try to obtain sputum for culture and sensitivity. 2. Patient will continue on the Zosyn and the Levaquin, however, will recommend discontinuation of the vancomycin. 3. Will follow clinical condition and cultures and further adjust medication if needed. Thank you for this consultation. I will follow this patient along with you. KANDACE
--- NOTE | 2016-12-13 15:00 | P.PN ---
Subjective Patient is a 6-year-old female. She is a patient of Dr. Craig with a previous medical history significant for hypertension and hypertensive cardiovascular disease, history of Crohn disease, anxiety, major depressive disorder, valvular heart disease in the form of mitral regurgitation, supraventricular tachycardia, peptic ulcer disease. Patient has been having a lot of issues with her ex-, and her social life has been declining up till she was from and unfortunately her recently, and the patient has been living by her self and she has a friend who checks on her on a regular basis along with her mother who lives about a block away, patient was hospitalized back in February 2014 to the mental health unit with a diagnosis of acute psychosis and possible paranoid schizophrenia believe the final diagnosis was bipolar disorder with psychotic feature and she was maintained on her Trileptal 450 mg orally once every day along with Risperdal 1 mg orally twice every day for long period of time and the patient has been seeing me on a regular basis every 3 months in the office however she stopped coming to the office for the past almost 6 months, and the patient apparently was at home when her mother cold her house she did not answer she ended up going to her house to check on her she looked through the window and she saw her quite manicky with running around she ended up the opening the door and unfortunately at that time her dog ran away and her mother tried to tor the dog and by the time she came back her daughter was gone and she went to the house to house was told apart with a lot of filth and food everywhere she broke a lot of her furniture, she went looking for her daughter and finally she went to her house where she found her daughter sitting in a recliner chairs and she was oscillating back in force very fast and the patient was quite agitated and eventually tripped and fell she was found to have a significant swelling in the right forearm, patient's mother ended up calling the police who and they're turn called EMS and the patient was quite agitated she did receive 2.5 mg withheld all I am and she was transported to the emergency department at [facility] patient was admitted to intensive care unit for diagnosis of hypoxemia with sepsis and she was found to have a right perihilar more than left perihilar pneumonia and she was started on IV antibiotic and she was admitted to the intensive care unit, she had a computed tomography scan of the brain that didn't show an old lacunar infarct of the right anterior limb of the internal capsule, without any acute of normalities. Patient was admitted under my service with the pulmonary consultation. 12/13: Patient was transferred from the intensive care unit last night, she was seen today and was complaining of increased shortness breath, increased coughing and minimal phlegm production, she does complain of orthopnea, PND, she does complain of increased swelling in both upper and lower extremities, patient was given Lasix 40 mg IV push 1, she was taken off her IV fluid, and she was started on neb treatment DuoNeb 3 mL 4 times every day [id number]. Objective - Vital Signs Vital signs: Vital Signs Temp 97.9 F 12/13/16 02:31 Pulse 105 H 12/13/16 02:31 Resp 20 12/13/16 02:31 BP 133/72 12/13/16 02:31 Pulse Ox 97 12/13/16 02:31 Intake & Output 12/12/16 12/13/16 12/13/16 18:59 06:59 18:59 Intake Total 1340 1490 Output Total 720 Balance 620 1490 Intake: IV 1340 50 Magnesium Sulfate-D5w Pmx 200 1 gm In Dextrose/Water 1 100ml.bag @ 100 mls/hr IVPB Q1H DARR[facility] Rx#: [id number] Piperacillin-Tazobactam 3 50 50 .375 gm In Dextrose/Water 1 50ml.bag @ 12.5 mls/hr IVPB Q8HR [facility] Rx#: [id number] Sodium Chloride 0.9% 1, 840 000 ml @ 120 mls/hr IV . Q8H20M DARRYL Rx#:[id number] Sodium Phosphate 10 mmol 250 In Sodium Chloride 0.9% 250 ml @ 125 mls/hr IVPB Q2H DARR[facility] Rx#:[id number] Intake, IV Titration 1440 Amount Dextrose 5%-0.45% NaCl 1, 1440 000 ml @ 125 mls/hr IV . Q8H DARRYL Rx#:[id number] Output: Urine 720 Other: Voiding Method Bedside Commode # Bowel Movements 1 - Exam - Constitutional General appearance: average body habitus, mild distress - EENT Eyes: anicteric sclerae, EOMI, PERRLA, no ptosis, no scleral icterus, normal appearance ENT: hearing grossly normal, NA/AT, normal oropharynx, no thrush Ears: bilateral: normal - Neck Neck: no lymphadenopathy, normal ROM, no rigidity Carotids: bilateral: upstroke normal Thyroid: bilateral: normal size - Respiratory Respiratory: bilateral: diminished, rhonchi, wheezing, negative: dullness, rales , prolonged expiration - Cardiovascular Rhythm: regular Heart sounds: normal: S1, S2 Abnormal Heart Sounds: systolic murmur, no rub, no S3 Gallop, no S4 Gallop, no click - Gastrointestinal General gastrointestinal: normal bowel sounds, soft, no splenomegaly, no tenderness, no umbilical hernia, no ventral hernia - Integumentary Integumentary: normal, normal turgor - Neurologic Neurologic: CNII-XII intact - Musculoskeletal Musculoskeletal: generalized weakness, strength equal bilaterally - Psychiatric Psychiatric: no A&O x's 3, no appropriate affect, no intact judgment & insight - Labs CBC & Chem 7: 12/12/16 03:57 12/12/16 19:41 Labs: Abnormal Lab Results - Last 24 Hours (Table) 12/12/16 12/13/16 Range/Units 13:06 06:38 Potassium 3.4 L (3.5-5.1) mmol/L Phosphorus 1.5 L (2.5-4.5) mg/dL Microbiology - Last 24 Hours (Table) 12/11/16 13:20 Urine Culture - Final Urine,Catheterized 12/11/16 13:20 Blood Culture - Preliminary Blood No Growth after 24 hours Assessment and Plan Plan: Assessment and plan: 1. Severe sepsis due to left perihilar pneumonia as well as possible UTI. Continue patient on IV antibiotic, continue IV fluid resuscitation the form of D5 half-normal saline, encourage oral intake of free water, continue patient on Levaquin 750 mg IV piggyback every 24 hours, vancomycin pharmacy to dose, and Zosyn 3.375 g IV piggyback every 6 hours, urine culture, blood culture, sputum culture, Pulmicort consultation, monitor the patient lactic acid level in the next 6 hours, patient will be transferred outside the intensive care unit in the next 24 hours, continue patient on DuoNeb 3 mL nebulization 4 times every day, continue oxygen support. 2. Right distal radius occult fracture . patient was placed in a splint as to put her in a cast when the swelling is down. Continue IV antibiotic for now. Patient may need to go for a bone scan which is more stable or even MRI of the right forearm. 3. Acute psychosis I believe are due to bipolar disorder with psychotic features versus paranoiac schizophrenia. Patient will need to be restarted back and her Trileptal for 50 mg orally once every day as well as Risperdal 1 mg orally twice every day, we will hold off until patient is more stable for now we'll continue the patient on held all 2.5 mg IV push every 8 hours as needed. 4. Non-anion gap metabolic acidosis with hyperchloremia. Encourage oral intake of free water and change her IV fluid to D5 half-normal saline at 125 mL an hour. Repeat the patient CMP tomorrow morning. 5. Hypertension and hypertensive cardiovascular disease. Currently hypotensive. Continue patient on current IV fluid. Hold off losartan, atenolol. 6. History of Crohn disease with chronic anemia. Stable at this time patient has been under the care of GI for many years. 7. Migraine headaches with a chronic pain syndrome. Hold off pain management. 8. Supraventricular tachycardia. Stable at this point in time. We will resume the patient beta naldo with the patient is more stable. 9. Hypokalemia. Status post placement. 10. DVT prophylaxis. Heparin 5000 units subcutaneously every 12 hours. 11. GI prophylaxis. Continue Protonix 40 mg IV push every 24 hours. 12. Acute respiratory insufficiency due to perihilar pneumonia and fluid overload.heplock IV,Lasix 40 mg ivp x1 and continue with duoneb and ABX ,will recheck CXR in AM.
[2016-12-13 15:46] LABS: Anion Gap 10 mmol/L; Blood Urea Nitrogen 4 mg/dL (7-17); Calcium 8.3 mg/dL (8.4-10.2); Carbon Dioxide 20 mmol/L (22-30); Chloride 115 mmol/L (98-107); Glucose 123 mg/dL (74-99); Non-African American GFR(MDRD) >60 (>60 ml/min/1.73 sqM); Potassium 3.1 mmol/L (3.5-5.1); Sodium 145 mmol/L (137-145)
[2016-12-13 15:47] LABS: Basophils % (A) 0 %; CH 29.6; CHCM 32.4; Eosinophils # (A) 0.1 k/uL (0-0.7); Eosinophils % (A) 2 %; HCT 35.1 % (34.0-46.0); HDW 2.42; HGB 11.2 gm/dL (11.4-16.0); Luc # (Auto) 0.16; Luc % (Auto) 2; Lymphocytes # (A) 1.3 k/uL (1.0-4.8); Lymphocytes % (A) 14 %; MCH 29.2 pg (25.0-35.0); MCHC 31.8 g/dL (31.0-37.0); MCV 91.8 fL (80.0-100.0); Mean Platelet Volume 7.3; Monocytes # (A) 0.4 k/uL (0-1.0); Monocytes % (A) 4 %; Neutrophils # (A) 7.4 k/uL (1.3-7.7); Neutrophils % (A) 79 %; RBC 3.82 m/uL (3.80-5.40); WBC 9.4 k/uL (3.8-10.6)
[2016-12-13] MEDS: LEVOFLOXACIN 750MG-D5W PMX 750 MG in DEXTROSE/WATER 1 150ML.BAG IVPB SCH (15:53)
--- NOTE | 2016-12-13 15:57 | P.CN ---
Psychiatric Consult - . Consult date: 12/13/16 Consult:: 12/13/16 15:41 Identification and Reason for Consult: Patient is a 66-year-old female who was consulted due to altered mental status and confusion. Patient was admitted with pneumonia and an elevated temperature and also had fractured her right distal radius. Patient was seen initially on her own and her mother came later and the patient permitted her to stay and she provided collaborative information. History of Present Illness: Patient is a 66-year-old female who states that she was in her usual state of health but does admit that she had not seen her physician for the last 6 months and reports that she did need to go and he was continuing to fill her prescriptions. The patient was unable to report to me why she was taking Cymbalta 60 mg. Patient states that she lives alone and is able to care for her activities of daily living without any assistance and actually moved here to assisting caring for her mother who lives several houses away. Patient's mother confirms that the patient was doing well and that last Wednesday evening she watched the patient bowl. Patient's mother reports that she had no response on from her daughter when she called and then went to her house on Wednesday. Patient's mother states that she initially had to track down her daughter's dog who got out when she went there and when she went into the house and could not find her daughter. She states that she initially saw her daughter on the porch and then when she returned to her own home her daughter was sitting in her house. Patient's mother reports that she had a severe migraine headache and that when she has these she throws things around. Patient reports that she slipped on a piece of carpeting on a concrete step in her garage and that's when she injured her right wrist. Patient patient states that she was doing well at home and her mother confirmed this. Patient reports that she goes bowling and has a bridge social life as well as having a good-looking boyfriend. Patient reports that she is not feeling confused today and states that she is not clear about the last several days. Patient was admitted here in 2013 with symptoms of psychosis but at that time she had a urinary tract infection as well as elevated liver enzymes. Patient is unable to endorse any symptoms of depression currently or in the past , no symptoms of odette currently or in the past and reports that she has never had any suicidal ideation and has no history of suicide attempts. Past Psychiatric History: Patient's only psychiatric admission was in 2013 and at that time she was presenting with confusion, psychotic symptoms and it was felt to be due to a urinary tract infection and elevated liver enzymes. Patient is currently been taking Cymbalta 60 mg a day but she was unable to tell me why she was taking it. Past Medical/Surgical History: Patient reports that she has hypertension, mitral regurgitation, supraventricular tachycardia, Crohn's disease, coronary artery disease, has had a peptic ulcer and has migraine headaches. She reports having several bowel resections as well as fistula repairs due to her Crohn's disease. Current Medications Acetaminophen (Tylenol Suppository) 650 mg RECTAL Q4HR PRN PRN Reason: Fever And/ Or Mild Pain Hydrocodone Bitart/Acetaminophen (Munising 5-325) 1 each PO Q6HR PRN PRN Reason: Pain Last Admin: 12/13/16 11:39 Dose: 1 each Albuterol/Ipratropium (Duoneb 0.5 Mg-3 Mg/3 Ml Soln) 3 ml INHALATION RT-QID [facility] Last Admin: 12/13/16 12:16 Dose: 3 ml Bisacodyl (Dulcolax) 10 mg RECTAL DAILY PRN PRN Reason: Constipation Last Admin: 12/13/16 03:40 Dose: 10 mg Haloperidol Lactate (Haldol) 2.5 mg IVP Q8HR PRN PRN Reason: Agitation or Acute Psychosis Last Admin: 12/12/16 19:46 Dose: 2.5 mg Heparin Sodium (Porcine) (Heparin) 5,000 unit SQ Q12HR [facility] Last Admin: 12/13/16 08:49 Dose: 5,000 unit Levofloxacin 750 mg/ IV (Solution) 150 mls @ 100 mls/hr IVPB Q24H DARRYL Stop: 12/24/16 15:01 Last Admin: 12/12/16 14:03 Dose: 100 mls/hr Piperacillin/Tazobactam/ (Dextrose 3.375 gm/ IV Solution) 50 mls @ 12.5 mls/hr IVPB Q8HR [facility] Stop: 12/21/16 00:01 Last Admin: 12/13/16 09:49 Dose: 12.5 mls/hr Dextrose/Sodium Chloride (Dextrose 5%-1/2ns Iv Soln) 1,000 mls @ 125 mls/hr IV .Q8H [facility] Last Admin: 12/13/16 11:37 Dose: Not Given Lactulose (Cephulac) 30 gm PO BID [facility] Last Admin: 12/13/16 08:49 Dose: 30 gm Miscellaneous Information (Pneumonia Protocol Utilized) 1 each PO ONCE PRN PRN Reason: Per Protocol Miscellaneous Information (Potassium Per Protocol) 1 each MISCELLANE DAILY PRN ; Protocol PRN Reason: Per Protocol Miscellaneous Information (Magnesium Per Protocol) 1 each MISCELLANE DAILY PRN ; Protocol PRN Reason: Per Protocol Miscellaneous Information (Phosphorus Per Protocol) 1 each MISCELLANE DAILY PRN ; Protocol PRN Reason: Per Protocol Naloxone HCl (Narcan) 0.2 mg IV Q2M PRN PRN Reason: Opioid Reversal Naphazoline/Phenyleph/Pyrilamine (Neutra-Phos Packet) 1 each PO TID DARRYL Pantoprazole Sodium (Protonix) 40 mg PO AC-BRKFST [facility] Last Admin: 12/13/16 08:49 Dose: 40 mg Saliva Substitute (Mouthkote Solution) 1 spray MUCOUS MEM QID PRN PRN Reason: Dry Mouth Last Admin: 12/12/16 20:36 Dose: 1 spray Family History: Patient states that she is unaware of anyone in the family who is any psychiatric illness, any alcohol or substance use disorders and no one has completed suicide. Social History: Patient was born and raised in [place] and she states at the age of 20 she went to [place] returning 10 years ago to assist in the care of with her mother. She reports that she lives in her own house and her mother lives nearby. Patient reports that she has been 3 times the last [facility] . She has 3 children ages 44, 41 and 34 2 of whom limit [place] and one lives in [place]. 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 She reports that she is not currently working and is retired and lives on her 's pension and Social Security. She denies any prior abuse. Patient states she is involved in a relationship with a man that she described as "good-looking". Substance Use History: Patient reports that she may have one to 2 drinks a week and has never used any more alcohol than that. She denies any current or prior substance use and she quit smoking a number of years ago. Legal History: Patient denies any legal history. Mental Status:Appearance/Attitude: Patient is lying in a hospital bed and is in no acute distress and is cooperative and makes good eye contact. She has a hematoma under her left eye that she states she obtained when she fell at home on the stairs. Behavior: Patient displayed no psychomotor agitation or retardation. Speech/Language: Speech was spontaneous and of normal volume and rhythm and she was coherent. Thought Process: Patient's thought processes were goal-directed and there is no evidence of any circumstantial or tangential thought and no loose associations or flight of ideas. Thought Content: Patient denied any auditory or visual hallucinations no delusions or paranoid ideation could be elicited. Patient reports that she is doing well and feeling much better. She reported no other concerns at this time. Suicidal/Homicidal Ideation: Patient denied any current suicidal or homicidal ideation. Sensorium/Cognition: She was alert and oriented to person, place, and time and her memory was grossly intact. Mood/Affect: Patient's mood was pleasant and euthymic and her affect was appropriate. Insight/Judgement: Patient's insight and judgment are intact. Assessment: Patient has a history of having had a delirium with agitated behavior in 2013 when her liver enzymes were elevated and she had a urinary tract infection, she was admitted this time with agitation and confusion most likely secondary to pneumonia as well as having injured her right wrist. Today patient on exam is not experiencing or exhibiting any confusion there is no evidence of any agitation. Her mother was there to collaborate her history that she was doing well at home prior to admission but that when she does have severe migraine headaches she has a tendency to throw things around. Patient reports that she slipped on a piece of carpeting on a concrete step going into her garage and this is what caused her to fall and injure her right wrist. Patient had no other concerns at this time. Diagnosis: Delirium now resolving Plan: At this time I see no evidence of any psychotic process, depressive process or manic process and see no need for any psychotropic medication. I am unaware of why the patient was taking Cymbalta 60 mg a day in the past as the patient could not tell me why. I will sign off the case as the patient's delirium appears to be resolving as her pneumonia has been treated. 12/13/16 15:41 12/13/16 15:48
[2016-12-13] MEDS: POTAS-SOD-PHOS 278-164-250 MG 1 EACH PACKET PO SCH ×2 (17:13→23:39)
[2016-12-13] MEDS ORDERED: Potassium Replacement Protocol 1 EACH MISC MISCELLANE PRN (19:14)
[2016-12-13] MEDS: POTASSIUM CHLORIDE ER 20 MEQ TAB.ER PO SCH ×2 (20:46→23:33)
[2016-12-14] MEDS: HYDROcodone/APAP 5-325MG 1 EACH TAB PO PRN ×3 (00:07→18:42)
[2016-12-14] MEDS: POTASSIUM CHLORIDE ER 20 MEQ TAB.ER PO SCH ×2 (04:24→05:30)
[2016-12-14] MEDS: DEXTROSE 5%-0.45% NACL 1,000 ML IV SCH ×2 (04:42→04:43)
[2016-12-14 07:36] LABS: Basophils % (A) 0 %; CHCM 32.4; Eosinophils # (A) 0.3 k/uL (0-0.7); Eosinophils % (A) 4 %; HCT 32.8 % (34.0-46.0); HDW 2.38; HGB 10.3 gm/dL (11.4-16.0); Luc # (Auto) 0.16; Luc % (Auto) 3; Lymphocytes # (A) 1.1 k/uL (1.0-4.8); Lymphocytes % (A) 18 %; MCH 29.1 pg (25.0-35.0); MCHC 31.3 g/dL (31.0-37.0); MCV 93.1 fL (80.0-100.0); Mean Platelet Volume 8.1; Monocytes # (A) 0.4 k/uL (0-1.0); Monocytes % (A) 6 %; Neutrophils # (A) 4.5 k/uL (1.3-7.7); Neutrophils % (A) 69 %; RBC 3.52 m/uL (3.80-5.40); RDW 13.7 % (11.5-15.5); WBC 6.5 k/uL (3.8-10.6); WBC (Perox) 6.91
[2016-12-14 07:48] LABS: ALT 64 U/L (9-52); AST 34 U/L (14-36); Alkaline Phosphatase 67 U/L (38-126); Anion Gap 7 mmol/L; Blood Urea Nitrogen 3 mg/dL (7-17); Carbon Dioxide 22 mmol/L (22-30); Chloride 114 mmol/L (98-107); Glucose 103 mg/dL (74-99); Magnesium 1.7 mg/dL (1.6-2.3); Non-African American GFR(MDRD) >60 (>60 ml/min/1.73 sqM); Phosphorous 2.3 mg/dL (2.5-4.5); Potassium 3.5 mmol/L (3.5-5.1); Sodium 143 mmol/L (137-145); Total Bilirubin 0.5 mg/dL (0.2-1.3); Total Protein 5.6 g/dL (6.3-8.2)
--- NOTE | 2016-12-14 07:51 | XR ---
EXAMINATION TYPE: XR chest 2V DATE OF EXAM: 12/14/2016 COMPARISON: 12/12/2016 TECHNIQUE: PA and lateral views submitted. HISTORY: Abnormal x-ray FINDINGS: Degenerative changes spine with mild compression deformities in the upper thoracic region. Previous surgery involving the abdomen. Improving bilateral areas of infiltrate. No sizable pleural effusion or pneumothorax. Heart size stab le. IMPRESSION: 1. Improving bilateral infiltrates.
[2016-12-14] MEDS: IPRATROPIUM-ALBUTEROL 3 ML NEB INHALATION SCH ×4 (08:40→19:22)
[2016-12-14] MEDS: PIPERACILLIN-TAZOBACTAM 3.375 GM in DEXTROSE/WATER 1 50ML.BAG IVPB SCH ×3 (09:16→23:03)
[2016-12-14] MEDS: HEPARIN SODIUM,PORCINE 5,000 UNIT/ML 1 ML VIAL SQ SCH ×2 (09:17→21:13)
[2016-12-14] MEDS: LACTULOSE 20 GM/30 ML CUP PO SCH ×2 (09:17→21:13)
[2016-12-14] MEDS: POTAS-SOD-PHOS 278-164-250 MG 1 EACH PACKET PO SCH ×3 (09:17→21:13)
[2016-12-14] MEDS: PANTOPRAZOLE 40 MG TABLET PO SCH (09:18)
[2016-12-14] MEDS ORDERED: ZOLPIDEM 10 MG TAB PO PRN (10:32)
--- NOTE | 2016-12-14 10:56 | P.PN ---
Subjective Principal diagnosis: Fracture right distal radius. Acute sepsis. This is a 66-year-old female who we are following regarding her right distal radius. The patient was admitted with confusion and high fever. Prior to admission she had been quite agitated and combative. The patient does not remember what happened over the past several days. Chest x-ray showed infiltrates. The patient is feeling better today. She has been transferred to the [facility] floor from ICU. She has no new complaints or concerns today. Objective - Vital Signs Vital signs: Vital Signs Temp 97.6 F 12/14/16 07:00 Pulse 92 12/14/16 08:53 Resp 16 12/14/16 07:00 BP 147/89 12/14/16 07:00 Pulse Ox 97 12/14/16 07:00 Intake & Output 12/13/16 12/14/16 12/14/16 18:59 06:59 18:59 Intake Total 100 180 Balance 100 180 Intake: IV 100 Piperacillin-Tazobactam 3 100 .375 gm In Dextrose/Water 1 50ml.bag @ 12.5 mls/hr IVPB Q8HR [facility] Rx#: [id number] Oral 180 Other: Voiding Method Bedside Commode # Voids 3 # Bowel Movements 2 1 - Exam This is a 66-year-old female in no acute distress. She is alert and oriented. She does continue to have some confusion over the recent events. Exam of the right upper extremity reveals a splint in place. She has full finger motion without difficulty. There is ecchymosis noted to the hand and fingers. Swelling to fingers is decreased. She is normal sensation to the fingers. Neurovascular status to the upper extremity is intact. - Labs CBC & Chem 7: 12/14/16 06:56 12/14/16 06:56 Labs: Abnormal Lab Results - Last 24 Hours (Table) 12/13/16 12/13/16 12/14/16 Range/Units 15:17 15: 01:05 RBC (3.80-5.40) m/uL Hgb 11.2 L (11.4-16.0) gm/dL Hct (34.0-46.0) % Potassium 3.1 L 3.3 L (3.5-5.1) mmol/L Chloride 115 H (98-107) mmol/L Carbon Dioxide 20 L (22-30) mmol/L BUN 4 L (7-17) mg/dL Glucose 123 H (74-99) mg/dL Calcium 8.3 L (8.4-10.2) mg/dL Phosphorus (2.5-4.5) mg/dL ALT (9-52) U/L Total Protein (6.3-8.2) g/dL Albumin (3.5-5.0) g/dL 12/14/16 12/14/16 Range/Units 06:56 06:56 RBC 3.52 L (3.80-5.40) m/uL Hgb 10.3 L (11.4-16.0) gm/dL Hct 32.8 L (34.0-46.0) % Potassium (3.5-5.1) mmol/L Chloride 114 H (98-107) mmol/L Carbon Dioxide (22-30) mmol/L BUN 3 L (7-17) mg/dL Glucose 103 H (74-99) mg/dL Calcium 8.0 L (8.4-10.2) mg/dL Phosphorus 2.3 L (2.5-4.5) mg/dL ALT 64 H (9-52) U/L Total Protein 5.6 L (6.3-8.2) g/dL Albumin 2.9 L (3.5-5.0) g/dL Microbiology - Last 24 Hours (Table) 12/11/16 13:20 Blood Culture - Preliminary Blood No Growth after 48 hours Assessment and Plan (1) Altered mental status Status: Acute (2) Pneumonia Status: Acute (3) Polysubstance abuse Status: Acute (4) Severe major depression with psychotic features Status: Acute (5) Anxiety disorder Status: Chronic (6) Plan: The clinical and x-ray findings are discussed the patient and her nurse. There is very low suspicion for septic arthritis or osteomyelitis of the wrist. She does have history of old fracture as well as radiographic evidence of an acute intra-articular distal radius fracture. She is to continue the current splint until swelling comes down. We'll continue to follow throughout her stay. She may be discharged from an orthopedic standpoint. She is to follow-up in one week for re-x-ray and evaluation.
--- NOTE | 2016-12-14 11:08 | PN ---
A 66-year-old female who we saw yesterday in the ICU in consultation. She came in with severe sepsis of unclear etiology, likely related to either urinary tract infection/urosepsis or pneumonia involving the left lung. She also had some acute rhabdomyolysis from trauma as well as osteomyelitis of the distal end of the radius. The patient came in with altered mental status, hypernatremia, dehydration. Doing much better today. Feeing much better. Orthopedics has been consulted as has Infectious Disease. The patient really is not a particular good historian. I cannot really remember exactly what happened to her. Current temperature is 96.8, heart rate 80, respiratory rate 16, blood pressure 110/56, mean 74, room air saturation 99%. Appears in no acute distress. HEENT examination is grossly unremarkable. Mucous membranes are moist. No oral lesions. NECK: Supple. Full range of motion. No adenopathy or thyromegaly. Cardiovascular examination reveals regular rhythm and rate. Heart sounds are distant. No murmur. Heart rate about 88. Lungs reveal a few scattered rhonchi. No wheezes or crackles. Breath sounds are equal. Abdomen is soft. Bowel sounds are heard. Extremities are intact. No cyanosis, clubbing or edema. Multiple bruises throughout her body including right arm, hand, leg and chest area. The patient is not even sure how they develop. Lab data is reviewed. Nothing from today other than a phosphorus of 1.5 and a magnesium of 1.9. Microbiology thus far is all negative. Chest x-ray from yesterday shows perihilar airspace disease more on the left than on the right. Could be consistent with a touch of fluid overload and/or pneumonia. A chest x-ray will be ordered for tomorrow. ASSESSMENT: 1. Sepsis, likely related to urinary source. Possible left sided pneumonia as well. 2. Acute rhabdomyolysis secondary to trauma. 3. Mental status changes secondary to sepsis. 4. Hypernatremia and hyperchloremia secondary to severe dehydration. 5. History of psychiatric disorder. 6. Right forearm fracture. PLAN: The patient is certainly much better. Will continue to follow. X-ray in the morning. No additional recommendations are made. Orders are reviewed. [facility]
[2016-12-14] MEDS ORDERED: LOSARTAN 25 MG TAB PO STA (13:49)
--- NOTE | 2016-12-14 13:50 | P.PN ---
Subjective Patient is a 6-year-old female. She is a patient of Dr. Craig with a previous medical history significant for hypertension and hypertensive cardiovascular disease, history of Crohn disease, anxiety, major depressive disorder, valvular heart disease in the form of mitral regurgitation, supraventricular tachycardia, peptic ulcer disease. Patient has been having a lot of issues with her ex-, and her social life has been declining up till she was from and unfortunately her recently, and the patient has been living by her self and she has a friend who checks on her on a regular basis along with her mother who lives about a block away, patient was hospitalized back in February 2014 to the mental health unit with a diagnosis of acute psychosis and possible paranoid schizophrenia believe the final diagnosis was bipolar disorder with psychotic feature and she was maintained on her Trileptal 450 mg orally once every day along with Risperdal 1 mg orally twice every day for long period of time and the patient has been seeing me on a regular basis every 3 months in the office however she stopped coming to the office for the past almost 6 months, and the patient apparently was at home when her mother cold her house she did not answer she ended up going to her house to check on her she looked through the window and she saw her quite manicky with running around she ended up the opening the door and unfortunately at that time her dog ran away and her mother tried to tor the dog and by the time she came back her daughter was gone and she went to the house to house was told apart with a lot of filth and food everywhere she broke a lot of her furniture, she went looking for her daughter and finally she went to her house where she found her daughter sitting in a recliner chairs and she was oscillating back in force very fast and the patient was quite agitated and eventually tripped and fell she was found to have a significant swelling in the right forearm, patient's mother ended up calling the police who and they're turn called EMS and the patient was quite agitated she did receive 2.5 mg withheld all I am and she was transported to the emergency department at [facility] patient was admitted to intensive care unit for diagnosis of hypoxemia with sepsis and she was found to have a right perihilar more than left perihilar pneumonia and she was started on IV antibiotic and she was admitted to the intensive care unit, she had a computed tomography scan of the brain that didn't show an old lacunar infarct of the right anterior limb of the internal capsule, without any acute of normalities. Patient was admitted under my service with the pulmonary consultation. 12/13: Patient was transferred from the intensive care unit last night, she was seen today and was complaining of increased shortness breath, increased coughing and minimal phlegm production, she does complain of orthopnea, PND, she does complain of increased swelling in both upper and lower extremities, patient was given Lasix 40 mg IV push 1, she was taken off her IV fluid, and she was started on neb treatment DuoNeb 3 mL 4 times every day [id number]. 12/14: Patient states that she is feeling better today and slept okay during the night. Her breathing status is improved. Pulse ox is 97% on room air. Repeat chest x-ray shows improving bilateral infiltrates. Patient is requesting Ambien for sleep which will be provided. Chloride is down to 114. IV fluids will be changed to saline lock. Patient has been seen by psychiatrist does not identify any psychiatric issues. Dr. Sykes has recommended discontinuing vancomycin continue Levaquin and Zosyn. We will change Levaquin to oral. Potassium is 3.5. Anticipate possible discharge by tomorrow. Objective - Vital Signs Vital signs: Vital Signs Temp 97.6 F 12/14/16 07:00 Pulse 92 12/14/16 08:53 Resp 16 12/14/16 07:00 BP 147/89 12/14/16 07:00 Pulse Ox 97 12/14/16 07:00 Intake & Output 12/13/16 12/14/16 12/14/16 18:59 06:59 18:59 Intake Total 100 180 Balance 100 180 Intake: IV 100 Piperacillin-Tazobactam 3 100 .375 gm In Dextrose/Water 1 50ml.bag @ 12.5 mls/hr IVPB Q8HR [facility] Rx#: [id number] Oral 180 Other: Voiding Method Bedside Commode # Voids 3 # Bowel Movements 2 1 - Exam General appearance: average body habitus, mild distress - EENT Eyes: anicteric sclerae, EOMI, PERRLA, no ptosis, no scleral icterus, normal appearance ENT: hearing grossly normal, NA/AT, normal oropharynx, no thrush Ears: bilateral: normal - Neck Neck: no lymphadenopathy, normal ROM, no rigidity Carotids: bilateral: upstroke normal Thyroid: bilateral: normal size - Respiratory Respiratory: bilateral: diminished, rhonchi, wheezing, negative: dullness, rales , prolonged expiration - Cardiovascular Rhythm: regular Heart sounds: normal: S1, S2 Abnormal Heart Sounds: systolic murmur, no rub, no S3 Gallop, no S4 Gallop, no click - Gastrointestinal General gastrointestinal: normal bowel sounds, soft, no splenomegaly, no tenderness, no umbilical hernia, no ventral hernia - Integumentary Integumentary: normal, normal turgor - Neurologic Neurologic: CNII-XII intact - Musculoskeletal Musculoskeletal: generalized weakness, strength equal bilaterally - Psychiatric Psychiatric: no A&O x's 3, no appropriate affect, no intact judgment & insight - Labs CBC & Chem 7: 12/14/16 06:56 12/14/16 06:56 Labs: Abnormal Lab Results - Last 24 Hours (Table) 12/13/16 12/13/16 12/14/16 Range/Units 15:17 15:17 01:05 RBC (3.80-5.40) m/uL Hgb 11.2 L (11.4-16.0) gm/dL Hct (34.0-46.0) % Potassium 3.1 L 3.3 L (3.5-5.1) mmol/L Chloride 115 H (98-107) mmol/L Carbon Dioxide 20 L (22-30) mmol/L BUN 4 L (7-17) mg/dL Glucose 123 H (74-99) mg/dL Calcium 8.3 L (8.4-10.2) mg/dL Phosphorus (2.5-4.5) mg/dL ALT (9-52) U/L Total Protein (6.3-8.2) g/dL Albumin (3.5-5.0) g/dL 12/14/16 12/14/16 Range/Units 06:56 06:56 RBC 3.52 L (3.80-5.40) m/uL Hgb 10.3 L (11.4-16.0) gm/dL Hct 32.8 L (34.0-46.0) % Potassium (3.5-5.1) mmol/L Chloride 114 H (98-107) mmol/L Carbon Dioxide (22-30) mmol/L BUN 3 L (7-17) mg/dL Glucose 103 H (74-99) mg/dL Calcium 8.0 L (8.4-10.2) mg/dL Phosphorus 2.3 L (2.5-4.5) mg/dL ALT 64 H (9-52) U/L Total Protein 5.6 L (6.3-8.2) g/dL Albumin 2.9 L (3.5-5.0) g/dL Microbiology - Last 24 Hours (Table) 12/11/16 13:20 Blood Culture - Preliminary Blood No Growth after 48 hours Assessment and Plan Plan: 1. Severe sepsis due to left perihilar pneumonia as well as possible UTI. Continue Levaquin 750 mg to oral every 24 hours, vancomycin discontinued, and Zosyn 3.375 g IV piggyback every 6 hours. Pulmonary and infectious disease consults appreciated 2. Right distal radius occult fracture maintained with a splint until swelling is improved. [facility] after discharge. 3. Acute psychosis I believe are due to bipolar disorder with psychotic features versus paranoiac schizophrenia. Patient will need to be restarted back and her Trileptal for 50 mg orally once every day as well as Risperdal 1 mg orally twice every day, Haldol as needed. Psychiatric consult noted. 4. Non-anion gap metabolic acidosis with hyperchloremia. IV fluids discontinued. 5. Hypertension and hypertensive cardiovascular disease. Patient was hypotensive but improved now. Patient will be resumed on lower dose of losartan 25 mg daily. 6. History of Crohn disease with chronic anemia. Stable at this time patient has been under the care of GI for many years. 7. Migraine headaches with a chronic pain syndrome. Hold off pain management. 8. Supraventricular tachycardia. Stable at this point in time. We will resume the patient beta naldo with the patient is more stable. 9. Hypokalemia. Status post placement. 10. DVT prophylaxis. Heparin 5000 units subcutaneously every 12 hours. 11. GI prophylaxis. Continue Protonix 40 mg IV push every 24 hours. 12. Acute respiratory insufficiency due to perihilar pneumonia and fluid overload.heplock IV,Lasix 40 mg ivp x1 and continue with duoneb and ABX Discharge plan: Most likely home tomorrow Impression and plan of care have been directed as dictated by the signing physician. Idalmis Parker nurse practitioner acting as scribe for signing physician.
[2016-12-14] MEDS: LEVOFLOXACIN 750 MG TAB PO SCH (15:24)
--- NOTE | 2016-12-14 17:32 | P.PN ---
Subjective Patient is a 66-year-old female presenting to the emergency Department with agitation. Patient history provided by EMS. Patient reportedly has a history of headaches with psychotic behavior. Patient's mother reported to EMS that this happens frequently with her. Patient is agitated and restless and nonverbal at this time. Patient's home was apparently in disarray by the patient. EMS reports temporal temperature at 105.3. Patient has a recent hospitalization psychiatric unit has been discharged in stable condition lives by herself at home last seen 3 days ago she was found by mother lethargic poorly responsive agitated not in her best shape patient was very combative as well and Route as well as in the ER in ICU does require 2.5 mg of IM Holdol with that patient was slightly more calm she is however arousable does open eyes does answer to simple question fever spike has improved to 99 from 105 On 12/12/2016 the patient is being seen in follow-up in the intensive care unit. She is more awake and alert. She is a 0.9 normal saline at 120 mL's per hour. She does have multiple bruises on her upper and lower extremities. She does have a right wrist fracture. Her chest x-ray does show worsening airspace disease bilaterally greater on the left than right. She denies any worsening shortness of breath, cough or congestion. She is currently maintaining good O2 saturations in the 90s on room air. No leukocytosis. She is afebrile. Her sodium remains at 149, potassium 3.4, chloride 125 and a carbon dioxide of 16. Creatinine is 0.80. Hemoglobin 9.1. On 12/14/2016 the patient is being seen in follow-up. She has no specific complaints pH is on room air oxygen. Chest x-ray shows further improvement reported pulses were described earlier. She is afebrile pH is hemodynamically stable. She is on Levaquin and Zosyn. Objective - Vital Signs Vital signs: Vital Signs Temp 98 F 12/14/16 13:56 Pulse 94 12/14/16 16:46 Resp 16 12/14/16 13:56 BP 123/76 12/14/16 13:56 Pulse Ox 97 12/14/16 13:56 Intake & Output 12/13/16 12/14/16 12/14/16 18:59 06:59 18:59 Intake Total 100 180 Balance 100 180 Intake: IV 100 Piperacillin-Tazobactam 3 100 .375 gm In Dextrose/Water 1 50ml.bag @ 12.5 mls/hr IVPB Q8HR [facility] Rx#: [id number] Oral 180 Other: Voiding Method Bedside Commode Bedside Commode # Voids 3 # Bowel Movements 2 1 - Exam The patient appeared well nourished and normally developed. Vital signs as documented. Head exam is unremarkable. No scleral icterus or corneal arcus noted. Neck is without jugular venous distension, thyromegaly, or carotid bruits. Carotid upstrokes are brisk bilaterally. Lungs are clear to auscultation and percussion. Cardiac exam reveals the PMI to be normally sized and situated. Rhythm is regular. First and second heart sounds normal. No murmurs, rubs or gallops. Abdominal exam reveals normal bowel sounds, no masses , no organomegaly and no aortic enlargement. Extremities are nonedematous and both femoral and pedal pulses are normal. The right upper extremities placed in a splint and it's wrapped. - Labs CBC & Chem 7: 12/14/16 06:56 12/14/16 06:56 Labs: Abnormal Lab Results - Last 24 Hours (Table) 12/14/16 12/14/16 12/14/16 Range/Units 01:05 06:56 06:56 RBC 3.52 L (3.80-5.40) m/uL Hgb 10.3 L (11.4-16.0) gm/dL Hct 32.8 L (34.0-46.0) % Potassium 3.3 L (3.5-5.1) mmol/L Chloride 114 H (98-107) mmol/L BUN 3 L (7-17) mg/dL Glucose 103 H (74-99) mg/dL Calcium 8.0 L (8.4-10.2) mg/dL Phosphorus 2.3 L (2.5-4.5) mg/dL ALT 64 H (9-52) U/L Total Protein 5.6 L (6.3-8.2) g/dL Albumin 2.9 L (3.5-5.0) g/dL Microbiology - Last 24 Hours (Table) 12/11/16 13:20 Blood Culture - Preliminary Blood No Growth after 72 hours Assessment and Plan Plan: Impression: #1 Severe sepsis of unclear etiology suspect urinary tract infection and left perihilar pneumonia. Pneumonia is more favored over urine checked infection. Urine cultures of been negative. Patient is still on Zosyn and Levaquin. Chest x-ray is improving. Vancomycin was discontinued today. Patient is on oral Levaquin. #2 Acute rhabdomyolysis secondary to trauma. #3 fracture of the distal end of the radius. The arm was splinted and the patient is under good pain control. #4 Altered mental status and encephalopathy secondary to sepsis. #5 Hypernatremia with hyperchloremia secondary to severe dehydration. This has recovered and the patient's sodium level is normalized is down to 143. #6 History of psychiatric disorder. The patient was acute psychotic and this is improved #6: Disease with chronic anemia 7 migraine 8 metabolic acidosis, recovered Plan Chest x-ray was noted. The clinical improvement was noted. We'll continue to follow. Possible discharge in a.m. Ambulate in the hallway.
--- NOTE | 2016-12-14 18:59 | PN ---
DATE OF SERVICE: 12/13/16 REASON FOR FOLLOW UP: Pneumonia. INTERVAL HISTORY: The patient is afebrile. She is breathing comfortably. She did have minimal cough and not bringing up any sputum. Denies significant chest pain. No abdominal pain. No nausea or vomiting. No diarrhea. On examination, blood pressure 153/83, pulse 88, temperature 97.8. She is 97 % on room air. General description is an elderly female lying in the bed in no distress. Respiratory system: Unlabored breathing. Some decreased breath sounds at the base. No wheeze. Heart: S1, S2 regular rate and rhythm. Abdomen soft, no tenderness. LABS: Hemoglobin 11.2, White count 9.4 with a BUN 4. Creatinine 0.90. Blood cultures so far negative. DIAGNOSTIC IMPRESSION AND PLAN: Patient admitted to the hospital with sepsis with fever, elevated white count with bilateral perihilar infiltrate more on the right side with question of possible pneumonia. Community acquired with aspiration. She is currently covered with Zosyn and Levaquin. We will try to obtain a sputum ( ) antibiotics. Continue supportive care. KANDACE
[2016-12-15] MEDS: HYDROcodone/APAP 5-325MG 1 EACH TAB PO PRN ×2 (00:45→07:06)
[2016-12-15 02:55] VITALS: RESP 16
[2016-12-15 07:21] LABS: CH 30.2; CHCM 32.5; HCT 30.5 % (34.0-46.0); HDW 2.41; HGB 9.8 gm/dL (11.4-16.0); MCH 29.9 pg (25.0-35.0); MCHC 31.9 g/dL (31.0-37.0); MCV 93.5 fL (80.0-100.0); Mean Platelet Volume 8.2; RBC 3.27 m/uL (3.80-5.40); RDW 14.2 % (11.5-15.5)
[2016-12-15] MEDS: IPRATROPIUM-ALBUTEROL 3 ML NEB INHALATION SCH ×2 (07:26→12:34)
[2016-12-15 07:57] LABS: ALT 52 U/L (9-52); AST 27 U/L (14-36); Alkaline Phosphatase 58 U/L (38-126); Anion Gap 6 mmol/L; Blood Urea Nitrogen 4 mg/dL (7-17); Calcium 8.3 mg/dL (8.4-10.2); Carbon Dioxide 25 mmol/L (22-30); Chloride 112 mmol/L (98-107); Glucose 94 mg/dL (74-99); Non-African American GFR(MDRD) >60 (>60 ml/min/1.73 sqM); Potassium 3.3 mmol/L (3.5-5.1); Sodium 143 mmol/L (137-145); Total Bilirubin 0.4 mg/dL (0.2-1.3); Total Protein 5.3 g/dL (6.3-8.2)
[2016-12-15] MEDS: PIPERACILLIN-TAZOBACTAM 3.375 GM in DEXTROSE/WATER 1 50ML.BAG IVPB SCH (08:09)
[2016-12-15] MEDS: POTAS-SOD-PHOS 278-164-250 MG 1 EACH PACKET PO SCH (08:10)
[2016-12-15] MEDS: LACTULOSE 20 GM/30 ML CUP PO SCH (08:10)
[2016-12-15] MEDS: HEPARIN SODIUM,PORCINE 5,000 UNIT/ML 1 ML VIAL SQ SCH (08:10)
[2016-12-15] MEDS: LEVOFLOXACIN 750 MG TAB PO SCH (08:10)
[2016-12-15] MEDS: PANTOPRAZOLE 40 MG TABLET PO SCH (08:11)
[2016-12-15] MEDS ORDERED: LOSARTAN 25 MG TAB PO SCH (09:00)
--- NOTE | 2016-12-15 10:26 | PN ---
DATE OF SERVICE: 12/14/2016 Reason for follow up is possible aspiration pneumonia. INTERVAL HISTORY: The patient is afebrile. She is breathing comfortably. Denies significant chest pain. No shortness of breath, occasional cough. No abdominal pain, nausea, vomiting or any diarrhea. On examination, blood pressure 123/76 with pulse of 95. Temperature 98. She is 97% on room air. General description is an elderly female lying in bed in no distress. RESPIRATORY: Unlabored breathing. Clear to auscultation anteriorly. HEART: S1, S2 regular rate and rhythm. ABDOMEN: Soft. LABS: Hemoglobin is 25, white count 6.5 with BUN 3, creatinine 0.73. DIAGNOSTIC IMPRESSION AND PLAN: Patient admitted to the hospital with sepsis with likely aspiration pneumonia with perihilar infiltrate on the left side. X-ray done this morning did show some improvement. She is currently on the Zosyn and Levaquin that will be continued and hopefully to finish therapy on oral antibiotics. Continue supportive care. KANDACE
--- NOTE | 2016-12-15 11:38 | P.PN ---
Subjective Patient is a 66-year-old female presenting to the emergency Department with agitation. Patient history provided by EMS. Patient reportedly has a history of headaches with psychotic behavior. Patient's mother reported to EMS that this happens frequently with her. Patient is agitated and restless and nonverbal at this time. Patient's home was apparently in disarray by the patient. EMS reports temporal temperature at 105.3. Patient has a recent hospitalization psychiatric unit has been discharged in stable condition lives by herself at home last seen 3 days ago she was found by mother lethargic poorly responsive agitated not in her best shape patient was very combative as well and Route as well as in the ER in ICU does require 2.5 mg of IM Holdol with that patient was slightly more calm she is however arousable does open eyes does answer to simple question fever spike has improved to 99 from 105 The patient is seen again today December 12 2016 in follow-up in the intensive care unit. She is more awake and alert. She is a 0.9 normal saline at 120 mL' s per hour. She does have multiple bruises on her upper and lower extremities. She does have a right wrist fracture. Her chest x-ray does show worsening airspace disease bilaterally greater on the left than right. She denies any worsening shortness of breath, cough or congestion. She is currently maintaining good O2 saturations in the 90s on room air. No leukocytosis. She is afebrile. Her sodium remains at 149, potassium 3.4, chloride 125 and a carbon dioxide of 16. Creatinine is 0.80. Hemoglobin 9.1. On 12/14/2016 the patient is being seen in follow-up. She has no specific complaints pH is on room air oxygen. Chest x-ray shows further improvement reported pulses were described earlier. She is afebrile pH is hemodynamically stable. She is on Levaquin and Zosyn. The patient is seen again today 12/15/2016 in follow-up on the regular medical floor. She is awake and alert in no acute distress. She denies any worsening shortness of breath, cough or congestion. She is maintaining good O2 saturations in the high 90s on room air. She's been afebrile. She has been treated with Zosyn and Levaquin. She is anxious to go home. Objective - Vital Signs Vital signs: Vital Signs Temp 97.8 F 12/15/16 02:54 Pulse 88 12/15/16 07:39 Resp 16 12/15/16 02:54 BP 131/89 12/15/16 02:54 Pulse Ox 98 12/15/16 02:54 Intake & Output 12/14/16 12/15/16 12/15/16 18:59 06:59 18:59 Intake Total 300 480 360 Balance 300 480 360 Intake: Oral 300 480 360 Other: Voiding Method Bedside Commode # Voids 2 3 # Bowel Movements 1 - Exam GENERAL EXAM: Alert, comfortable in no apparent distress. HEAD: Normocephalic. EYES: Normal reaction of pupils, equal size. NOSE: Clear with pink turbinates. THROAT: No erythema or exudates. NECK: No masses, no JVD. CHEST: No chest wall deformity. LUNGS: Equal air entry with no rhonchi, rales or wheezing. CVS: S1 and S2 normal with no audible murmurs, regular rhythm. ABDOMEN: No hepatosplenomegaly, normal bowel sounds, no guarding or rigidity. SPINE: No scoliosis or deformity SKIN: No rashes, areas of bruising and ecchymosis. CENTRAL NERVOUS SYSTEM: No focal deficits, tone is normal in all 4 extremities. Extremities: There is trace peripheral edema. Soft cast to the right upper extremity. Peripheral pulses are intact. - Labs CBC & Chem 7: 12/15/16 06:59 12/15/16 06:59 Labs: Abnormal Lab Results - Last 24 Hours (Table) 12/15/16 12/15/16 Range/Units 06:59 06:59 RBC 3.27 L (3.80-5.40) m/uL Hgb 9.8 L (11.4-16.0) gm/dL Hct 30.5 L (34.0-46.0) % Potassium 3.3 L (3.5-5.1) mmol/L Chloride 112 H (98-107) mmol/L BUN 4 L (7-17) mg/dL Calcium 8.3 L (8.4-10.2) mg/dL Total Protein 5.3 L (6.3-8.2) g/dL Albumin 2.8 L (3.5-5.0) g/dL Microbiology - Last 24 Hours (Table) 12/11/16 13:20 Blood Culture - Preliminary Blood No Growth after 72 hours Assessment and Plan Plan: Impression: #1 Severe sepsis of unclear etiology suspect urinary tract infection and left perihilar pneumonia. She has recovered. He she was treated with Zosyn and Levaquin. #2 Acute rhabdomyolysis secondary to trauma. 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 #4 Altered mental status and encephalopathy secondary to sepsis. #5 Hypernatremia with hyperchloremia secondary to severe dehydration. #6 History of psychiatric disorder. Plan: The patient was seen and evaluated by Dr. Lake. She is cleared for discharge from the pulmonary standpoint. She'll complete her course of antibiotics. She is often an appointment in our office for follow-up we'll repeat his chest x-ray done. She is however encouraged to call sooner with any recurrence of symptoms or other questions or concerns.
[2016-12-15 12:52] VITALS: BP 143/76; PULSE 110; TEMP 96.9
--- NOTE | 2016-12-15 13:45 | PN ---
DATE OF SERVICE: 12/15/2016 Reason for followup is possible aspiration pneumonia. INTERVAL HISTORY: The patient is afebrile. She is feeling better, breathing comfortably. Denies any significant chest pain or shortness of breath. No abdominal pain or any diarrhea. On examination, blood pressure 131/89 with a pulse of 108, temperature 97.8. She is 98% on room air. General description is a elderly female lying in bed in no distress. RESPIRATORY SYSTEM: Unlabored breathing, clear to auscultation anteriorly. HEART: S1, S2, regular rate and rhythm. ABDOMEN: Soft, no tenderness. LABS: Hemoglobin 9.8, white count 6.0 with a BUN of 4, creatinine 0.79. DIAGNOSTIC IMPRESSION AND PLAN: Patient with pneumonia, likely aspiration etiology. Patient did show overall improvement on Zosyn and now will plan to finish therapy with p.o. medication for another 7 to 10 days. Continue supportive care. MTDD
--- NOTE | 2016-12-17 14:39 | P.DS ---
Providers Date of admission: 12/11/16 16:36 Expected date of discharge: 12/15/16 Attending physician: Nicky Hayes Consults: 12/11/16 14:27 Consult Physician Urgent Consulting Provider: Manny Garcia Consult Reason/Comments: fracture v infection r distal radius Do you want consulting provider notified?: Yes 12/11/16 16:36 Consult Physician Urgent Consulting Provider: Julius Ferrer Consult Reason/Comments: critical care Do you want consulting provider notified?: Yes 12/12/16 07:34 Consult Physician Urgent Consulting Provider: Stanton Sykes Consult Reason/Comments: Sepsis Do you want consulting provider notified?: Yes, Notify in am 12/12/16 12:32 Consult Physician Urgent Consulting Provider: Brielle Suresh Consult Reason/Comments: AMS and increased confusion. Do you want consulting provider notified?: Already Contacted Primary care physician: Matthias Dixon [facility] Course: Patient is a 6-year-old female. She is a patient of Dr. Dixon'christina with a previous medical history significant for hypertension and hypertensive cardiovascular disease, history of Crohn disease, anxiety, major depressive disorder, valvular heart disease in the form of mitral regurgitation, supraventricular tachycardia, peptic ulcer disease. Patient has been having a lot of issues with her ex-, and her social life has been declining up till she was from and unfortunately her recently, and the patient has been living by her self and she has a friend who checks on her on a regular basis along with her mother who lives about a block away, patient was hospitalized back in February 2014 to the mental health unit with a diagnosis of acute psychosis and possible paranoid schizophrenia believe the final diagnosis was bipolar disorder with psychotic feature and she was maintained on her Trileptal 450 mg orally once every day along with Risperdal 1 mg orally twice every day for long period of time and the patient has been seeing me on a regular basis every 3 months in the office however she stopped coming to the office for the past almost 6 months, and the patient apparently was at home when her mother cold her house she did not answer she ended up going to her house to check on her she looked through the window and she saw her quite manicky with running around she ended up the opening the door and unfortunately at that time her dog ran away and her mother tried to tor the dog and by the time she came back her daughter was gone and she went to the house to house was told apart with a lot of filth and food everywhere she broke a lot of her furniture, she went looking for her daughter and finally she went to her house where she found her daughter sitting in a recliner chairs and she was oscillating back in force very fast and the patient was quite agitated and eventually tripped and fell she was found to have a significant swelling in the right forearm, patient's mother ended up calling the police who and they're turn called EMS and the patient was quite agitated she did receive 2.5 mg withheld all I am and she was transported to the emergency department at [facility] patient was admitted to intensive care unit for diagnosis of hypoxemia with sepsis and she was found to have a right perihilar more than left perihilar pneumonia and she was started on IV antibiotic and she was admitted to the intensive care unit, she had a computed tomography scan of the brain that didn't show an old lacunar infarct of the right anterior limb of the internal capsule, without any acute of normalities. Patient was admitted under my service with the pulmonary consultation. 12/13: Patient was transferred from the intensive care unit last night, she was seen today and was complaining of increased shortness breath, increased coughing and minimal phlegm production, she does complain of orthopnea, PND, she does complain of increased swelling in both upper and lower extremities, patient was given Lasix 40 mg IV push 1, she was taken off her IV fluid, and she was started on neb treatment DuoNeb 3 mL 4 times every day [id number]. 12/14: Patient states that she is feeling better today and slept okay during the night. Her breathing status is improved. Pulse ox is 97% on room air. Repeat chest x-ray shows improving bilateral infiltrates. Patient is requesting Ambien for sleep which will be provided. Chloride is down to 114. IV fluids will be changed to saline lock. Patient has been seen by psychiatrist does not identify any psychiatric issues. Dr. Sykes has recommended discontinuing vancomycin continue Levaquin and Zosyn. We will change Levaquin to oral. Potassium is 3.5. Anticipate possible discharge by tomorrow. 12/15: Patient's breathing status continues to improve. Dr. Lake is seen and cleared for discharge. Patient will be discharged home today in stable condition. Discharge diagnoses: 1. Severe sepsis due to left perihilar pneumonia as well as possible UTI. 2. Right distal radius occult fracture maintained with a splint until swelling is improved. [facility] one week after discharge. 3. Acute psychosis I believe are due to bipolar disorder with psychotic features versus paranoiac schizophrenia. 4. Non-anion gap metabolic acidosis with hyperchloremia. 5. Hypertension and hypertensive cardiovascular disease. 6. History of Crohn disease with chronic anemia. 7. Migraine headaches with a chronic pain syndrome. 8. Supraventricular tachycardia. 9. Hypokalemia. Status post placement. 10. Acute respiratory insufficiency due to perihilar pneumonia and fluid overload.heplock IV,Lasix 40 mg ivp x1 and continue with duoneb and ABX Discharge plan: home Impression and plan of care have been directed as dictated by the signing physician. Idalmis Parker nurse practitioner acting as scribe for signing physician. Patient Condition at Discharge: Serious Plan - Discharge Summary New Discharge Prescriptions: New Levofloxacin [Levaquin] 750 mg PO DAILY #5 tab Continue Diphenox-Atrop 2.5-0.025 mg [Lomotil] 2 tab PO TID SUMAtriptan SUCCINATE [Imitrex] 100 mg PO DAILY PRN PRN Reason: MIGRAINES Baclofen [Lioresal] 20 mg PO TID PRN PRN Reason: HYDROcodone/APAP 7.5-325MG [Agra 7.5-325] 1 tab PO Q8HR PRN PRN Reason: Pain Cholestyramine (with Sugar) [Questran Powder] 1 packet PO BID Zolpidem [Ambien] 10 mg PO HS PRN PRN Reason: SLEEP Propranolol HCl [Propranolol HCl ER] 160 mg PO DAILY DULoxetine HCL [Cymbalta] 60 mg PO DAILY rOPINIRole HCL 3 mg PO TID Losartan/Hydrochlorothiazide [Losartan-Hctz 100-12.5 mg Tab] 1 tab PO DAILY # 0 Discharge Medication List Diphenox-Atrop 2.5-0.025 mg [Lomotil] 2 tab PO TID 11/09/13 [History] SUMAtriptan SUCCINATE [Imitrex] 100 mg PO DAILY PRN 02/25/14 [History] Baclofen [Lioresal] 20 mg PO TID PRN 10/05/15 [History] Cholestyramine (with Sugar) [Questran Powder] 1 packet PO BID 10/05/15 [History] HYDROcodone/APAP 7.5-325MG [Agra 7.5-325] 1 tab PO Q8HR PRN 10/05/15 [History] Propranolol HCl [Propranolol HCl ER] 160 mg PO DAILY 07/08/16 [History] Zolpidem [Ambien] 10 mg PO HS PRN 07/08/16 [History] DULoxetine HCL [Cymbalta] 60 mg PO DAILY 11/05/16 [History] rOPINIRole HCL 3 mg PO TID 12/11/16 [History] Levofloxacin [Levaquin] 750 mg PO DAILY #5 tab 12/15/16 [Rx] Losartan/Hydrochlorothiazide [Losartan-Hctz 100-12.5 mg Tab] 1 tab PO DAILY #0 12/15/16 [Rx] Follow up Appointment(s)/Referral(s): Matthias Dixon MD [Primary Care Provider] - 12/17/16 11:00 am Miky Barnett MD [STAFF PHYSICIAN] - 12/22/16 9:00 am Julius Ferrer MD [STAFF PHYSICIAN] - 12/29/16 11:15 am Patient Instructions/Handouts: Cast Care (DC), Wrist Fracture in Adults (DC) Activity/Diet/Wound Care/Special Instructions: Keep splint intact. Discharge Disposition: HOME SELF-CARE
== END 2016-12-15 14:00 | disposition home or self-care (01) | DRG 871 ==
LOC: EC 12:56 → 6ICU 16:36 → 3SUR 12-12 21:36
PROVIDERS: ADMIT Internal Medicine; ATTEND Internal Medicine
PROC: 2W38X1Z Immobilization of Right Upper Extremity using Splint (ICD-10-PCS; principal; 2016-12-11)
DX: A41.9 Sepsis, unspecified organism (principal); J18.9 Pneumonia, unspecified organism; E87.0 Hyperosmolality and hypernatremia; E87.2 Acidosis; K91.2 Postsurgical malabsorption, not elsewhere classified; K50.90 Crohn's disease, unspecified, without complications; F05 Delirium due to known physiological condition; I11.9 Hypertensive heart disease without heart failure; E86.0 Dehydration; M62.82 Rhabdomyolysis; N39.0 Urinary tract infection, site not specified; I47.1 Supraventricular tachycardia; S52.571A Other intraarticular fracture of lower end of right radius, initial encounter for closed fracture; F30.2 Manic episode, severe with psychotic symptoms; E87.70 Fluid overload, unspecified; E87.6 Hypokalemia; E87.8 Other disorders of electrolyte and fluid balance, not elsewhere classified; D64.9 Anemia, unspecified; E78.5 Hyperlipidemia, unspecified; K21.9 Gastro-esophageal reflux disease without esophagitis; L27.1 Localized skin eruption due to drugs and medicaments taken internally; I49.3 Ventricular premature depolarization; R65.20 Severe sepsis without septic shock; F41.9 Anxiety disorder, unspecified; R09.02 Hypoxemia; R45.6 Violent behavior; R06.89 Other abnormalities of breathing; G43.909 Migraine, unspecified, not intractable, without status migrainosus; I25.10 Atherosclerotic heart disease of native coronary artery without angina pectoris; G89.4 Chronic pain syndrome; F19.10 Other psychoactive substance abuse, uncomplicated; M19.90 Unspecified osteoarthritis, unspecified site; R11.0 Nausea; G94 Other disorders of brain in diseases classified elsewhere; I34.0 Nonrheumatic mitral (valve) insufficiency; Z87.891 Personal history of nicotine dependence; Z87.11 Personal history of peptic ulcer disease; Z90.49 Acquired absence of other specified parts of digestive tract; Z79.899 Other long term (current) drug therapy; Z82.49 Family history of ischemic heart disease and other diseases of the circulatory system; Z78.1 Physical restraint status; Z88.5 Allergy status to narcotic agent; Z86.59 Personal history of other mental and behavioral disorders; Z91.81 History of falling; Z87.19 Personal history of other diseases of the digestive system; Z87.81 Personal history of (healed) traumatic fracture; Z79.891 Long term (current) use of opiate analgesic; Z63.4 Disappearance and death of family member; Z98.1 Arthrodesis status; Z78.0 Asymptomatic menopausal state; Z91.19 Patient's noncompliance with other medical treatment and regimen; W10.9XXA Fall (on) (from) unspecified stairs and steps, initial encounter; Y92.008 Other place in unspecified non-institutional (private) residence as the place of occurrence of the external cause
CPT/HCPCS: 29125; 36415; 70450; 71010; 71020; 80048; 80053; 80306; 80320; 81001; 82550; 82553; 83520; 83605; 83735; 84100; 84132; 84484; 85025; 85027; 85610; 85730; 87040; 87086; 93005; 94640; 96365; 96367; 96368; 96375; 99291

== ENCOUNTER 2016-12-23 19:39 | Inpatient (IN) | payer MEDICARE ==
[2016-12-23] MEDS ORDERED: RX INFO: IV CONTRAST WAS GIVEN 1 EACH MISC MISCELLANE PRN (19:45)
[2016-12-23 19:50] LABS: Glucose,Whole Blood 109 mg/dL (75-99)
[2016-12-23 19:56] LABS: Basophils # (A) 0.1 k/uL (0-0.2); Basophils % (A) 1 %; CHCM 32.3; Eosinophils # (A) 0.3 k/uL (0-0.7); Eosinophils % (A) 4 %; HCT 39.6 % (34.0-46.0); HDW 2.39; HGB 12.7 gm/dL (11.4-16.0); Luc # (Auto) 0.28; Luc % (Auto) 3; Lymphocytes # (A) 2.3 k/uL (1.0-4.8); Lymphocytes % (A) 28 %; MCH 29.9 pg (25.0-35.0); MCV 93.4 fL (80.0-100.0); Mean Platelet Volume 7.3; Monocytes # (A) 0.6 k/uL (0-1.0); Monocytes % (A) 8 %; Neutrophils # (A) 4.7 k/uL (1.3-7.7); Neutrophils % (A) 57 %; RBC 4.25 m/uL (3.80-5.40); RDW 13.9 % (11.5-15.5); WBC 8.4 k/uL (3.8-10.6); WBC (Perox) 8.65
[2016-12-23 20:06] LABS: Calcium 9.5 mg/dL (8.4-10.2); Total Bilirubin 0.3 mg/dL (0.2-1.3); Total Protein 7.1 g/dL (6.3-8.2)
[2016-12-23 20:13] LABS: INR 1.1 (<1.2); Partial Thromboplastin Time 23.2 sec (22.0-30.0); Prothrombin Time 10.7 sec (9.0-12.0)
[2016-12-23] MEDS: NALOXONE 0.4 MG/ML 1 ML VIAL IV STA ×2 (20:13→22:09)
--- NOTE | 2016-12-23 20:23 | CT ---
EXAMINATION TYPE: CT brain wo con for TPA DATE OF EXAM: 12/23/2016 COMPARISON: 12/11/2016 HISTORY: Confusion. History of stroke. CT DLP: 2453.75 mGycm Automated exposure control for dose reduction was used. FINDINGS: Multiple axial sections were obtained of the brain with no contrast. Ventricles of normal size. There is no mass effect nor midline shift. There is no sign of intracrania l hemorrhage. The calvarium is intact. IMPRESSION: NEGATIVE CT SCAN OF THE BRAIN. NO CHANGE.
--- NOTE | 2016-12-23 20:25 | XR ---
EXAMINATION TYPE: XR chest 1V portable DATE OF EXAM: 12/23/2016 COMPARISON: 12/14/2016 HISTORY: Altered mental status TECHNIQUE: Single frontal view of the chest is obtained. FINDINGS: There is patchy pneumonic infiltrate in the left lower lobe. There is mild pulmonary conge stion. I see no pleural effusion. Heart size is normal. There are chest leads. IMPRESSION: There is increasing left lower lobe pneumonia compared to last exam. Mild pulmonary vasc ular congestion.
--- NOTE | 2016-12-23 20:43 | CT ---
EXAMINATION TYPE: CT angio head neck DATE OF EXAM: 12/23/2016 HISTORY: History of stroke, confusion. COMPARISON: NONE CT DLP: 356.39 mGycm. Automated Exposure Control for Dose Reduction was Utilized. TECHNIQUE: CTA scan of the neck is performed with IV Contrast, patient injected with 65 mL of Omnipa que 350, axial images are obtained, coronal and sagittal reformatted images are reviewed. Three-D rec onstructed images are created on an independent workstation and reviewed. FINDINGS: There is arterial flow in the anterior middle and posterior cerebral arteries. There is arterial flow in the vertebrobasilar artery system. There is normal contrast opacification of the venous sinuses. There is no evidence of stenosis. I see no sign of aneurysm or neovascularity. There is no mass effect. There is patchy pneumonic infiltrate in left upper lobe. There is normal branching pattern of the gre at vessels on the aortic arch. There is bilateral patency of the vertebral arteries. There is wide pa tency of the carotid artery bifurcations. There is no evidence of carotid dissection. IMPRESSION: Negative CT angiogram of the brain. Negative CT angiogram of the neck.
[2016-12-23] MEDS ORDERED: SODIUM CHLORIDE 0.9% 1,000 ML IV ONE ×2 (21:40→23:04)
[2016-12-23 23:05] LABS: Appearance,Urine Clear (Clear); Bilirubin,Urine Negative (Negative); Glucose,Urine (UA) Negative (Negative); Ketones,Urine Negative (Negative); Leukocyte Esterase,Urine Large (Negative); Nitrite,Urine Negative (Negative); Particle Count 2492; Protein,Urine Negative (Negative); RBC,Urine 2 /hpf (0-5); Specific Gravity,Urine 1.024 (1.001-1.035); UA Billing (MACRO vs. MICRO) MICRO; Urobilinogen,Urine <2.0 mg/dL (<2.0); WBC,Urine 25 /hpf (0-5)
[2016-12-23 23:55] LABS: VBG PH 7.32 (7.31-7.41)
[2016-12-24] MEDS ORDERED: NALOXONE 0.4 MG/ML 1 ML VIAL IV PRN (00:10)
[2016-12-24] MEDS ORDERED: ONDANSETRON 4 MG/2 ML VIAL IVP PRN (00:10)
--- NOTE | 2016-12-24 00:34 | ED ---
General Adult HPI - General Chief complaint: Altered Mental Status Stated complaint: Neuro Defecit Time Seen by Provider: 12/23/16 19:45 Source: patient, EMS, RN notes reviewed, old records reviewed Mode of arrival: EMS Limitations: altered mental status - History of Present Illness Initial comments: 66 yo female presenting with acute confusion and slurred speech. This began at approximately 1900. Patient was at [employer], was confused and wandering store. Her car was found running in the parking lot in the neutral position. EMS was called. Patient had slurred speech and was unable to contribute to the history. She did state she had a headache earlier today, she also indicated to EMS that she had not slept in several days. Patient is unable to contribute to the history - Related Data Home Medications Medication Instructions Recorded Confirmed Diphenox-Atrop 2.5-0.025 mg 2 tab PO TID 11/09/13 12/11/16 [Lomotil] SUMAtriptan SUCCINATE [Imitrex] 100 mg PO DAILY PRN 02/25/14 12/11/16 Baclofen [Lioresal] 20 mg PO TID PRN 10/05/15 12/11/16 Cholestyramine (with Sugar) 1 packet PO BID 10/05/15 12/11/16 [Questran Powder] HYDROcodone/APAP 7.5-325MG [[place] 1 tab PO Q8HR PRN 10/05/15 12/11/16 7.5-325] Propranolol HCl [Propranolol HCl 160 mg PO DAILY 07/08/16 12/11/16 ER] Zolpidem [Ambien] 10 mg PO HS PRN 07/08/16 12/11/16 DULoxetine HCL [Cymbalta] 60 mg PO DAILY 11/05/16 12/11/16 rOPINIRole HCL 3 mg PO TID 12/11/16 12/11/16 Previous Rx's Medication Instructions Recorded Levofloxacin [Levaquin] 750 mg PO DAILY #5 tab 12/15/16 Losartan/Hydrochlorothiazide 1 tab PO DAILY #0 12/15/16 [Losartan-Hctz 100-12.5 mg Tab] Allergies Allergy/AdvReac Type Severity Reaction Status Date / Time ketorolac tromethamine AdvReac Rapid Verified 12/11/16 14:35 [From Toradol] Heart Rate Review of Systems ROS Statement: Those systems with pertinent positive or pertinent negative responses have been documented in the HPI. ROS Other: All systems not noted in ROS Statement are negative. Past Medical History Past Medical History: CVA/TIA Additional Past Medical History / Comment(s): Crohn disease,. short gut syndrome,. migraine headaches, History of Any Multi-Drug Resistant Organisms: None Reported Past Surgical History: Appendectomy, Bowel Resection, Heart Catheterization Additional Past Surgical History / Comment(s): ACDF-ANTERIOR CERVICAL DISKECTOMY AND FUSION. ORIF Rt femur,. bowel resection X3 1959, 1967, 1975,. recto- vagina fistula repair,. EGD,. colonoscopy, occipital steroid injections. Past Anesthesia/Blood Transfusion Reactions: No Reported Reaction Past Psychological History: Anxiety, Depression Smoking Status: Unknown if ever smoked Past Alcohol Use History: Unable to Obtain Past Drug Use History: Unable to Obtain - Past Family History Mother Family Medical History: Hypertension Father Family Medical History: Neurologic Disorder General Exam Limitations: altered mental status General appearance: in no apparent distress, lethargic, obtunded Head exam: Present: atraumatic, normocephalic Eye exam: Present: normal appearance, PERRL ENT exam: Present: normal exam, mucous membranes dry Neck exam: Present: normal inspection, full ROM. Absent: meningismus Respiratory exam: Present: normal lung sounds bilaterally. Absent: respiratory distress Cardiovascular Exam: Present: normal rhythm, tachycardia GI/Abdominal exam: Present: soft. Absent: distended, tenderness, guarding Extremities exam: Present: normal inspection, normal capillary refill. Absent: pedal edema Neurological exam: Present: altered, motor sensory deficit (Patient is left lower extremity weakness) Skin exam: Present: warm, dry, intact. Absent: cyanosis, diaphoretic Course Vital Signs 12/23/16 12/23/16 12/23/16 19:42 19:45 20:05 Temperature 98.2 F Pulse Rate 104 H 98 96 Respiratory 14 18 18 Rate Blood Pressure 137/84 136/81 113/67 O2 Sat by Pulse 94 L 98 98 Oximetry 12/23/16 12/23/16 12/23/16 20:15 20:35 20:50 Temperature Pulse Rate 102 H 101 H 89 Respiratory 18 18 18 Rate Blood Pressure 119/76 125/78 98/54 O2 Sat by Pulse 98 98 98 Oximetry 12/23/16 12/23/16 12/23/16 21:04 21:20 21:35 Temperature Pulse Rate 98 84 78 Respiratory 18 18 18 Rate Blood Pressure 98/55 94/65 89/52 O2 Sat by Pulse 96 98 98 Oximetry 12/23/16 12/23/16 12/23/16 21:50 22:20 22:58 Temperature 98.7 F Pulse Rate 76 84 80 Respiratory 18 18 18 Rate Blood Pressure 106/57 84/55 111/59 O2 Sat by Pulse 98 98 98 Oximetry 12/23/16 23:08 Temperature Pulse Rate 78 Respiratory 18 Rate Blood Pressure 115/69 O2 Sat by Pulse 98 Oximetry - Reevaluation(s) Reevaluation #1: 12/24/16 00:26 She is given IV Narcan with some improvement in her symptoms. She will answer simple questions with deep sternal rub. EKG Findings - EKG Comments: EKG Findings:: EKG shows sinus tachycardia with a ventricular rate of 104, MS interval 138, QRS duration 76, QTC 452, no ST segment elevation or depression Medical Decision Making - Medical Decision Making 66 yo female presenting with acute confusion and slurred speech. Patient initially presents as a stroke activation. Patient was complaining of headache the day. Initial examination she is found to have left lower extremity weakness. Head CT shows no acute process, CT angiography shows no filling defect or stenosis. Case is discussed with neurology, there is no recommendation for TPA, I agree with this assessment. There are several medications the patient's purse including clonazepam 2 mg. Her exam is consistent with benzodiazepine overdose, however her symptoms do somewhat improved with Narcan administration. Pupils were 4 mm and reactive. Patient's leg weakness does appear to be waxing and waning. Patient did have recent admission for agitation and was nonverbal on December 11. This is somewhat consistent with today's presentation. Laboratories reveal elevated serum creatinine above baseline at 1.19, patient receives IV hydration. Urinalysis reveals 25 white blood cells, urine culture is pending. Venous blood gas reveals a CO2 of 36 which is normal. Urine drug screen does reveal opiates, negative for benzodiazepine. Chest x-ray shows left lower lobe pneumonia which is worsening from previous examination with some mild pulmonary edema, patient's vital signs do not point towards pneumonia , there is no elevated white blood cell count, no fever, no antibiotics were given at this time. Patient will be admitted with acute confusion, likely polysubstance overdose including opiates and benzodiazepines. Although her left lower extremity weakness is coming and going. Patient will also be evaluated by neurology. Echo has been ordered. [facility] for suicide precautions has been ordered as I'm unable to assess whether the patient is suicidal at this time. Diagnosis: Altered mental status, acute kidney injury, likely polysubstance overdose. - Lab Data Result diagrams: 12/23/16 19:49 12/23/16 19:49 Lab Results 12/23/16 12/23/16 12/23/16 Range/Units 19:49 19:49 19:49 WBC 8.4 (3.8-10.6) k/uL RBC 4.25 (3.80-5.40) m/uL Hgb 12.7 (11.4-16.0) gm/dL Hct 39.6 (34.0-46.0) % MCV 93.4 (80.0-100.0) fL MCH 29.9 (25.0-35.0) pg MCHC 32.0 (31.0-37.0) g/dL RDW 13.9 (11.5-15.5) % Plt Count 418 (150-450) k/uL Neutrophils % 57 % Lymphocytes % 28 % Monocytes % 8 % Eosinophils % 4 % Basophils % 1 % Neutrophils # 4.7 (1.3-7.7) k/uL Lymphocytes # 2.3 (1.0-4.8) k/uL Monocytes # 0.6 (0-1.0) k/uL Eosinophils # 0.3 (0-0.7) k/uL Basophils # 0.1 (0-0.2) k/uL PT (9.0-12.0) sec INR (<1.2) APTT (22.0-30.0) sec VBG pH (7.31-7.41) VBG pCO2 (37-51) mmHg VBG HCO3 (24-28) mmol/L Sodium 138 (137-145) mmol/L Potassium 4.0 (3.5-5.1) mmol/L Chloride 107 (98-107) mmol/L Carbon Dioxide 20 L (22-30) mmol/L Anion Gap 11 mmol/L BUN 16 (7-17) mg/dL Creatinine 1.19 H (0.52-1.04) mg/dL Est GFR (MDRD) Af Amer 55 (>60 ml/min/1.73 sqM) Est GFR (MDRD) Non-Af 45 (>60 ml/min/1.73 sqM) Glucose 109 H (74-99) mg/dL POC Glucose (mg/dL) 109 H (75-99) mg/dL POC Glu Blending Operator ID Margaret Lobo Calcium 9.5 (8.4-10.2) mg/dL Total Bilirubin 0.3 (0.2-1.3) mg/dL AST 25 (14-36) U/L ALT 35 (9-52) U/L Alkaline Phosphatase 64 (38-126) U/L Troponin I (0.000-0.034) ng/mL Total Protein 7.1 (6.3-8.2) g/dL Albumin 3.9 (3.5-5.0) g/dL Urine Color Urine Appearance (Clear) Urine pH (5.0-8.0) Ur Specific [place] (1.001-1.035) Urine Protein (Negative) Urine Glucose (UA) (Negative) Urine Ketones (Negative) Urine Blood (Negative) Urine Nitrite (Negative) Urine Bilirubin (Negative) Urine Urobilinogen (<2.0) mg/dL Ur Leukocyte Esterase (Negative) Urine RBC (0-5) /hpf Urine WBC (0-5) /hpf Urine WBC Clumps (None) /hpf Urine Opiates Screen (NotDetected) Ur Oxycodone Screen (NotDetected) Urine Methadone Screen (NotDetected) Ur Propoxyphene Screen (NotDetected) Ur Barbiturates Screen (NotDetected) U Tricyclic Antidepress (NotDetected) Ur Phencyclidine Scrn (NotDetected) Ur Amphetamines Screen (NotDetected) U Methamphetamines Scrn (NotDetected) U Benzodiazepines Scrn (NotDetected) Urine Cocaine Screen (NotDetected) U Marijuana (THC) Screen (NotDetected) 12/23/16 12/23/16 12/23/16 Range/Units 19:49 19:49 22:41 WBC (3.8-10.6) k/uL RBC (3.80-5.40) m/uL Hgb (11.4-16.0) gm/dL Hct (34.0-46.0) % MCV (80.0-100.0) fL MCH (25.0-35.0) pg MCHC (31.0-37.0) g/dL RDW (11.5-15.5) % Plt Count (150-450) k/uL Neutrophils % % Lymphocytes % % Monocytes % % Eosinophils % % Basophils % % Neutrophils # (1.3-7.7) k/uL Lymphocytes # (1.0-4.8) k/uL Monocytes # (0-1.0) k/uL Eosinophils # (0-0.7) k/uL Basophils # (0-0.2) k/uL PT 10.7 (9.0-12.0) sec INR 1.1 (<1.2) APTT 23.2 (22.0-30.0) sec VBG pH (7.31-7.41) VBG pCO2 (37-51) mmHg VBG HCO3 (24-28) mmol/L Sodium (137-145) mmol/L Potassium (3.5-5.1) mmol/L Chloride (98-107) mmol/L Carbon Dioxide (22-30) mmol/L Anion Gap mmol/L BUN (7-17) mg/dL Creatinine (0.52-1.04) mg/dL Est GFR (MDRD) Af Amer (>60 ml/min/1.73 sqM) Est GFR (MDRD) Non-Af (>60 ml/min/1.73 sqM) Glucose (74-99) mg/dL POC Glucose (mg/dL) (75-99) mg/dL POC Glu Blending Operator ID Calcium (8.4-10.2) mg/dL Total Bilirubin (0.2-1.3) mg/dL AST (14-36) U/L ALT (9-52) U/L Alkaline Phosphatase (38-126) U/L Troponin I <0.012 (0.000-0.034) ng/mL Total Protein (6.3-8.2) g/dL Albumin (3.5-5.0) g/dL Urine Color Yellow Urine Appearance Clear (Clear) Urine pH 5.0 (5.0-8.0) Ur Specific [place] 1.024 (1.001-1.035) Urine Protein Negative (Negative) Urine Glucose (UA) Negative (Negative) Urine Ketones Negative (Negative) Urine Blood Negative (Negative) Urine Nitrite Negative (Negative) Urine Bilirubin Negative (Negative) Urine Urobilinogen <2.0 (<2.0) mg/dL Ur Leukocyte Esterase Large H (Negative) Urine RBC 2 (0-5) /hpf Urine WBC 25 H (0-5) /hpf Urine WBC Clumps Occasional H (None) /hpf Urine Opiates Screen Detected H (NotDetected) Ur Oxycodone Screen Not Detected (NotDetected) Urine Methadone Screen Not Detected (NotDetected) Ur Propoxyphene Screen Not Detected (NotDetected) Ur Barbiturates Screen Not Detected (NotDetected) U Tricyclic Antidepress Not Detected (NotDetected) Ur Phencyclidine Scrn Not Detected (NotDetected) Ur Amphetamines Screen Not Detected (NotDetected) U Methamphetamines Scrn Not Detected (NotDetected) U Benzodiazepines Scrn Not Detected (NotDetected) Urine Cocaine Screen Not Detected (NotDetected) U Marijuana (THC) Screen Not Detected (NotDetected) 12/23/16 Range/Units 23:39 WBC (3.8-10.6) k/uL RBC (3.80-5.40) m/uL Hgb (11.4-16.0) gm/dL Hct (34.0-46.0) % MCV (80.0-100.0) fL MCH (25.0-35.0) pg MCHC (31.0-37.0) g/dL RDW (11.5-15.5) % Plt Count (150-450) k/uL Neutrophils % % Lymphocytes % % Monocytes % % Eosinophils % % Basophils % % Neutrophils # (1.3-7.7) k/uL Lymphocytes # (1.0-4.8) k/uL Monocytes # (0-1.0) k/uL Eosinophils # (0-0.7) k/uL Basophils # (0-0.2) k/uL PT (9.0-12.0) sec INR (<1.2) APTT (22.0-30.0) sec VBG pH 7.32 (7.31-7.41) VBG pCO2 36 L (37-51) mmHg VBG HCO3 18 L (24-28) mmol/L Sodium (137-145) mmol/L Potassium (3.5-5.1) mmol/L Chloride (98-107) mmol/L Carbon Dioxide (22-30) mmol/L Anion Gap mmol/L BUN (7-17) mg/dL Creatinine (0.52-1.04) mg/dL Est GFR (MDRD) Af Amer (>60 ml/min/1.73 sqM) Est GFR (MDRD) Non-Af (>60 ml/min/1.73 sqM) Glucose (74-99) mg/dL POC Glucose (mg/dL) (75-99) mg/dL POC Glu Blending Operator ID Calcium (8.4-10.2) mg/dL Total Bilirubin (0.2-1.3) mg/dL AST (14-36) U/L ALT (9-52) U/L Alkaline Phosphatase (38-126) U/L Troponin I (0.000-0.034) ng/mL Total Protein (6.3-8.2) g/dL Albumin (3.5-5.0) g/dL Urine Color Urine Appearance (Clear) Urine pH (5.0-8.0) Ur Specific [place] (1.001-1.035) Urine Protein (Negative) Urine Glucose (UA) (Negative) Urine Ketones (Negative) Urine Blood (Negative) Urine Nitrite (Negative) Urine Bilirubin (Negative) Urine Urobilinogen (<2.0) mg/dL Ur Leukocyte Esterase (Negative) Urine RBC (0-5) /hpf Urine WBC (0-5) /hpf Urine WBC Clumps (None) /hpf Urine Opiates Screen (NotDetected) Ur Oxycodone Screen (NotDetected) Urine Methadone Screen (NotDetected) Ur Propoxyphene Screen (NotDetected) Ur Barbiturates Screen (NotDetected) U Tricyclic Antidepress (NotDetected) Ur Phencyclidine Scrn (NotDetected) Ur Amphetamines Screen (NotDetected) U Methamphetamines Scrn (NotDetected) U Benzodiazepines Scrn (NotDetected) Urine Cocaine Screen (NotDetected) U Marijuana (THC) Screen (NotDetected) Critical Care Time Critical Care Time: Yes Total Critical Care Time: 42 Disposition Clinical Impression: Acute kidney injury, Altered mental status, unspecified, Polysubstance overdose Disposition: ADMITTED IP TO THIS [facility] Condition: Serious Referrals: Matthias Dixon MD [Primary Care Provider] - 1-2 days Decision to Admit Reason: Admit from EC Decision Date: 12/24/16 Decision Time: 23:20
[2016-12-24 02:02] VITALS: BMI 21.4
[2016-12-24] MEDS: DEXTROSE 5%-0.45% NACL 1,000 ML IV SCH ×2 (09:10→14:25)
[2016-12-24] MEDS ORDERED: SUMAtriptan SUCCINATE 50 MG TAB PO PRN (09:44)
--- NOTE | 2016-12-24 11:17 | ECHOF ---
Referral Reason:Pulmonary edema MEASUREMENTS -------- HEIGHT: 162.6 cm WEIGHT: 56.7 kg BP: 115/63 RVIDd: 2.3 cm (< 3.3) IVSd: 1.2 cm (0.6 - 1.1) LVIDd: 3.8 cm (3.9 - 5.3) LVPWd: 0.9 cm (0.6 - 1.1) IVSs: 1.4 cm LVIDs: 2.5 cm LVPWs: 1.1 cm LA Diam: 2.8 cm (2.7 - 3.8) LAESV Index (A-L): 28.96 ml/m Ao Diam: 2.6 cm (2.0 - 3.7) AV Cusp: 1.9 cm (1.5 - 2.6) LA Diam: 3.1 cm (2.7 - 3.8) MV EXCURSION: 15.228 mm (> 18.000) MV EF SLOPE: 52 mm/s (70 - 150) EPSS: 0.4 cm MV E Sanjay: 0.58 m/s MV DecT: 278 ms MV A Sanjay: 0.79 m/s MV E/A Ratio: 0.74 RAP: 5.00 mmHg RVSP: 26.51 mmHg FINDINGS -------- Sinus rhythm. This was a technically adequate study. There is mild concentric left ventricular hypertrophy. Overall left ventricular systolic function is normal with, an EF between 55 - 60 %. The right ventricle is normal in size. LA is midly dilated 29-33ml/m2. The right atrial size is normal. There is mild aortic valve sclerosis. There is mild aortic regurgitation. Mild mitral annular calcification present. Mild mitral regurgitation is present. Mild tricuspid regurgitation present. There is no evidence of pulmonary hypertension. The right ventricular systolic pressure, as measured by Doppler, is 26.51mmHg. Trace/mild (physiologic) pulmonic regurgitation. The aortic root size is normal. There is no pericardial effusion. CONCLUSIONS -------- 1. There is mild concentric left ventricular hypertrophy. 2. The right ventricular systolic pressure, as measured by Doppler, is 26.51mmHg. 3. Trace/mild (physiologic) pulmonic regurgitation. 4. Overall left ventricular systolic function is normal with, an EF between 55 - 60 %. 5. LA is midly dilated 29-33ml/m2. 6. There is mild aortic valve sclerosis. 7. There is mild aortic regurgitation. 8. Mild mitral annular calcification present. 9. Mild mitral regurgitation is present. 10. Mild tricuspid regurgitation present. 11. There is no evidence of pulmonary hypertension. [employer]TI[employer] REPAIRER: Norma Corona RDCS
[2016-12-24] MEDS: DULoxetine HCL 60 MG CAPSULE.DR PO SCH (11:50)
[2016-12-24] MEDS: PROPRANOLOL LA 80 MG CAP.SA.24H PO SCH (11:50)
[2016-12-24] MEDS: LOSARTAN 50 MG TAB PO SCH (14:25)
[2016-12-24] MEDS: HYDROCHLOROTHIAZIDE 25 MG TAB PO SCH (14:25)
--- NOTE | 2016-12-24 14:48 | P.HPIM ---
History of Present Illness H&P Date: 12/24/16 Chief Complaint: Confusion slurred speech and This is a pleasant 66-year-old lady patient of Dr. Dixon. She has underlying history of hypertension hypertensive cardiovascular disease Crohn's disease anxiety major depression who in February 2014 was admitted to the mental health unit secondary to acute psychosis with possible paranoid schizophrenia the final diagnoses that time was bipolar disorder with psychotic features, she was recently admitted from our facility 12/12/2016 secondary to psychosis however the same time she has a fever of 105 and was diagnosed to have right pneumonia, she sustained a fracture in the right hand when she fell. Her mother saw her quite manicky and agitated, also that the event was triggered by the dog running away, she was admitted to the ICU for the pneumonia with casting on the right arm post discharge, she had an old stroke based on her previous CAT scan involving the right anterior limb of the internal capsule which is an coronary infarct. She was seen by mental health as well as pulmonary during her last admission 12/12/2016 She was home last night, they're preparing for the boyfriend getting a colonoscopy today, and the patient took Ambien at 6 PM last night, patient was subsequently found wondering at [employer] around 1900, she was acutely confused and has some slurred speech, she was wondering in the store. Her car was found running in the parking lot in a neutral position, EMS was called and they found that she has multiple sleeping pills in her pocket and per EMS history patient has not slept for several days. Patient was subsequently admitted to the medical floor, she is lucid without any suicidal ideation no hallucinations, no homicidal tendencies, patient has no recollection of the event right after she took her Ambien and [place] at 6 PM. Unknown whether the patient took excessivepills or just appropriate prescribed amount as the patient lost track of this as well, patient takes Cymbalta for her migraines Review of Systems Constitutional: Reports as per HPI, Denies anorexia, Denies chills, Denies chronic headaches, Denies chronic pain, Denies daytime sleepiness, Denies fatigue, Denies fever, Denies lethargy, Denies malaise, Denies night sweats, Denies poor appetite, Denies sweats, Denies weakness, Denies weight gain, Denies weight loss Ears, nose, mouth and throat: Reports as per HPI, Denies ant. neck pain, Denies bleeding gums, Denies dental pain, Denies dysphagia, Denies epistaxis, Denies headache, Denies hoarseness, Denies mouth pain, Denies nasal congestion, Denies nasal discharge, Denies neck fullness/pressure, Denies neck lump, Denies nose pain, Denies odynophagia, Denies post-nasal drip, Denies sinus pain, Denies sinus pressure, Denies swelling in mouth, Denies swelling in throat, Denies sore throat, Denies vertigo, Denies voice changes Cardiovascular: Reports as per HPI, Denies chest pain, Denies claudication, Denies decreased exercise tolerance, Denies dyspnea on exertion, Denies edema, Denies high blood pressure, Denies irregular heart beat, Denies leg edema, Denies lightheadedness, Denies orthopnea, Denies palpitations, Denies paroxysmal nocturnal dyspnea, Denies phlebitis, Denies rapid heart beat, Denies shortness of breath, Denies syncope Respiratory: Reports as per HPI, Denies congestion, Denies cough, Denies cough with sputum, Denies dyspnea, Denies excessive sputum, Denies hemoptysis, Denies home oxygen, Denies pain, Denies pain on inspiration, Denies pleurisy, Denies respiratory infections, Denies sleep apnea, Denies snoring, Denies wheezing Gastrointestinal: Reports as per HPI, Denies abdominal pain, Denies belching, Denies bloating, Denies BRBPR, Denies change in bowel habits, Denies coffee ground emesis, Denies constipation, Denies diarrhea, Denies dyspepsia, Denies early satiety, Denies excessive gas, Denies heartburn, Denies hematemesis, Denies hematochezia, Denies indigestion, Denies jaundice, Denies lactose intolerance, Denies loss of appetite, Denies melena, Denies nausea, Denies vomiting Genitourinary: Reports as per HPI, Denies abnormal vaginal bleeding, Denies decreased libido, Denies difficulty conceiving, Denies difficulty voiding, Denies dysmenorrhea, Denies dyspareunia, Denies dysuria, Denies flank pain, Denies genital sores, Denies hematuria, Denies hot flashes, Denies incomplete emptying, Denies kidney stones, Denies menorrhagia, Denies mixed incontinence, Denies nocturia, Denies pelvic pain, Denies post void dribbling, Denies , Denies prolapse symptoms, Denies stress incontinence, Denies urge incontinence , Denies urgency, Denies urinary frequency, Denies vaginal discharge, Denies vaginal dryness, Denies vaginal itching, Denies vaginal odor Menstruation: Reports as per HPI, Denies amenorrhea, Denies amenorrhea on BC, Denies currently menstrual, Denies cycle < 21 days, Denies cycle > 35 days, Denies cycle variable, Denies menses 1-7 days, Denies menses 8 or > days, Denies menses variable, Denies period heavy, Denies period light, Denies period normal, Denies period spotting, Denies post hysterectomy, Denies postmenopausal , Denies premenarcheal Musculoskeletal: Reports as per HPI, Denies arm numbness/tingling, Denies atrophy, Denies fractures, Denies frequent falls, Denies gait dysfunction, Denies hot joints, Denies leg numbness/tingling, Denies limitation of motion, Denies loss of height, Denies low back pain, Denies morning stiffness, Denies muscle cramps, Denies muscle weakness, Denies myalgias, Denies neck pain, Denies neck stiffness, Denies prior amputations, Denies redness of joints, Denies shooting arm pain, Denies shooting leg pain Musculoskeletal: right: wrist pain (On the wrist cast) Integumentary: Reports as per HPI, Reports darkening of skin Psychiatric: Reports as per HPI, Reports insomnia, Reports sleep disturbances Endocrine: Reports as per HPI Past Medical History Past Medical History: CVA/TIA Additional Past Medical History / Comment(s): Crohn disease,. short gut syndrome,. migraine headaches, History of Any Multi-Drug Resistant Organisms: None Reported Past Surgical History: Appendectomy, Bowel Resection, Heart Catheterization Additional Past Surgical History / Comment(s): ACDF-ANTERIOR CERVICAL DISKECTOMY AND FUSION. ORIF Rt femur,. bowel resection X3 1959, 1967, 1975,. recto- vagina fistula repair,. EGD,. colonoscopy, occipital steroid injections. Past Anesthesia/Blood Transfusion Reactions: No Reported Reaction Past Psychological History: Anxiety, Depression Smoking Status: Never smoker Past Alcohol Use History: Unable to Obtain Additional Past Alcohol Use History / Comment(s): quit 31 years ago; smoked occ from teen to 30 yrs old 1 angela roy 3-4 days Past Drug Use History: Unable to Obtain - Past Family History Mother Family Medical History: Hypertension Father Family Medical History: Neurologic Disorder Medications and Allergies Home Medications Medication Instructions Recorded Confirmed Type Diphenox-Atrop 2.5-0.025 mg 2 tab PO TID PRN 11/09/13 12/24/16 History [Lomotil] SUMAtriptan SUCCINATE [Imitrex] 100 mg PO DAILY PRN 02/25/14 12/24/16 History Baclofen [Lioresal] 20 mg PO TID PRN 10/05/15 12/24/16 History Cholestyramine (with Sugar) 1 packet PO BID 10/05/15 12/24/16 History [Questran Powder] HYDROcodone/APAP 7.5-325MG [[place] 1 tab PO Q8HR PRN 10/05/15 12/24/16 History 7.5-325] Propranolol HCl [Propranolol HCl 160 mg PO DAILY 07/08/16 12/24/16 History ER] Zolpidem [Ambien] 10 mg PO HS 07/08/16 12/24/16 History DULoxetine HCL [Cymbalta] 60 mg PO DAILY 11/05/16 12/24/16 History rOPINIRole HCL 3 mg PO TID 12/11/16 12/24/16 History Losartan/Hydrochlorothiazide 0.5 tab PO DAILY 12/24/16 12/24/16 History [Losartan-Hctz 100-12.5 mg Tab] Allergies Allergy/AdvReac Type Severity Reaction Status Date / Time ketorolac tromethamine AdvReac Rapid Verified 12/24/16 09:32 [From Toradol] Heart Rate mannitol AdvReac joint pain Verified 12/24/16 09:32 zoledronic acid AdvReac joint pain Verified 12/24/16 09:32 Physical Exam Vitals: Vital Signs Temp Pulse Pulse Resp BP BP Pulse Ox 12/24/16 11:47 85 16 119/64 98 12/24/16 08:00 97.2 F L 91 16 100/52 99 12/24/16 03:00 97.4 F L 80 18 115/68 98 12/24/16 01:40 97.8 F 80 18 110/69 98 12/24/16 00:56 97.4 F L 80 18 115/68 98 12/24/16 00:54 97.8 F 12/24/16 00:44 80 18 110/69 98 12/24/16 00:20 94 18 104/62 99 12/23/16 23:08 78 18 115/69 98 12/23/16 22:58 80 18 111/59 98 12/23/16 22:20 98.7 F 84 18 84/55 98 12/23/16 21:50 76 18 106/57 98 12/23/16 21:35 78 18 89/52 98 12/23/16 21:20 84 18 94/65 98 12/23/16 21:04 98 18 98/55 96 12/23/16 20:50 89 18 98/54 98 12/23/16 20:35 101 H 18 125/78 98 12/23/16 20:15 102 H 18 119/76 98 12/23/16 20:05 96 18 113/67 98 12/23/16 19:45 98 18 136/81 98 12/23/16 19:42 98.2 F 104 H 14 137/84 94 L Intake and Output 12/23/16 12/24/16 12/24/16 22:59 06:59 14:59 Intake Total 245 Balance 245 Intake: Oral 245 Other: # Voids 1 # Bowel Movements 2 Weight 56.699 kg 72 kg - Constitutional General appearance: no average body habitus, cooperative, no disheveled, no mild distress, no morbidly obese, no acute distress, no obese, no severe distress, no thin - EENT Eyes: anicteric sclerae, PERRLA, normal appearance ENT: hearing grossly normal, NA/AT, normal oropharynx - Neck Neck: normal ROM - Respiratory Respiratory: bilateral: CTA, negative: diminished, dullness - Cardiovascular Rhythm: regular Heart sounds: normal: S1, S2 Abnormal Heart Sounds: no systolic murmur, no diastolic murmur, no rub, no S3 Gallop, no S4 Gallop, no click, no other - Gastrointestinal General gastrointestinal: normal bowel sounds, soft - Integumentary Integumentary: normal, normal turgor - Neurologic Neurologic: CNII-XII intact - Musculoskeletal Musculoskeletal: gait normal, strength equal bilaterally - Psychiatric Psychiatric: A&O x's 3, appropriate affect, intact judgment & insight Results CBC & Chem 7: 12/25/16 05:33 12/25/16 05:33 Labs: Abnormal Lab Results - Last 24 Hours (Table) 12/23/16 12/23/16 12/23/16 Range/Units 19:49 19:49 22:41 VBG pCO2 (37-51) mmHg VBG HCO3 (24-28) mmol/L Carbon Dioxide 20 L (22-30) mmol/L Creatinine 1.19 H (0.52-1.04) mg/dL Glucose 109 H (74-99) mg/dL POC Glucose (mg/dL) 109 H (75-99) mg/dL Ur Leukocyte Esterase Large H (Negative) Urine WBC 25 H (0-5) /hpf Urine WBC Clumps Occasional H (None) /hpf Urine Opiates Screen Detected H (NotDetected) 12/23/16 Range/Units 23:39 VBG pCO2 36 L (37-51) mmHg VBG HCO3 18 L (24-28) mmol/L Carbon Dioxide (22-30) mmol/L Creatinine (0.52-1.04) mg/dL Glucose (74-99) mg/dL POC Glucose (mg/dL) (75-99) mg/dL Ur Leukocyte Esterase (Negative) Urine WBC (0-5) /hpf Urine WBC Clumps (None) /hpf Urine Opiates Screen (NotDetected) Microbiology - Last 24 Hours (Table) 12/23/16 22:40 Urine Culture - Preliminary Urine,Catheterized Laboratory Results WBC 8.4 k/uL (3.8-10.6) 12/23/16 19:49 RBC 4.25 m/uL (3.80-5.40) 12/23/16 19:49 Hgb 12.7 gm/dL (11.4-16.0) 12/23/16 19:49 Hct 39.6 % (34.0-46.0) 12/23/16 19:49 MCV 93.4 fL (80.0-100.0) 12/23/16 19:49 MCH 29.9 pg (25.0-35.0) 12/23/16 19:49 MCHC 32.0 g/dL (31.0-37.0) 12/23/16 19:49 RDW 13.9 % (11.5-15.5) 12/23/16 19:49 Plt Count 418 k/uL (150-450) 12/23/16 19:49 Neutrophils % 57 % 12/23/16 19:49 Lymphocytes % 28 % 12/23/16 19:49 Monocytes % 8 % 12/23/16 19:49 Eosinophils % 4 % 12/23/16 19:49 Basophils % 1 % 12/23/16 19:49 Neutrophils # 4.7 k/uL (1.3-7.7) 12/23/16 19:49 Lymphocytes # 2.3 k/uL (1.0-4.8) 12/23/16 19:49 Monocytes # 0.6 k/uL (0-1.0) 12/23/16 19:49 Eosinophils # 0.3 k/uL (0-0.7) 12/23/16 19:49 Basophils # 0.1 k/uL (0-0.2) 12/23/16 19:49 PT 10.7 sec (9.0-12.0) 12/23/16 19:49 INR 1.1 (<1.2) 12/23/16 19:49 APTT 23.2 sec (22.0-30.0) 12/23/16 19:49 VBG pH 7.32 (7.31-7.41) 12/23/16 23:39 VBG pCO2 36 mmHg (37-51) L 12/23/16 23:39 VBG HCO3 18 mmol/L (24-28) L 12/23/16 23:39 Sodium 138 mmol/L (137-145) 12/23/16 19:49 Potassium 4.0 mmol/L (3.5-5.1) 12/23/16 19:49 Chloride 107 mmol/L (98-107) 12/23/16 19:49 Carbon Dioxide 20 mmol/L (22-30) L 12/23/16 19:49 Anion Gap 11 mmol/L 12/23/16 19:49 BUN 16 mg/dL (7-17) 12/23/16 19:49 Creatinine 1.19 mg/dL (0.52-1.04) H 12/23/16 19:49 Est GFR (MDRD) Af Amer 55 (>60 ml/min/1.73 sqM) 12/23/16 19:49 Est GFR (MDRD) Non-Af 45 (>60 ml/min/1.73 sqM) 12/23/16 19:49 Glucose 109 mg/dL (74-99) H 12/23/16 19:49 POC Glucose (mg/dL) 109 mg/dL (75-99) H 12/23/16 19:49 POC [employer] Salesperson ID Margaret Lobo 12/23/16 19:49 Calcium 9.5 mg/dL (8.4-10.2) 12/23/16 19:49 Total Bilirubin 0.3 mg/dL (0.2-1.3) 12/23/16 19:49 AST 25 U/L (14-36) 12/23/16 19:49 ALT 35 U/L (9-52) 12/23/16 19:49 Alkaline Phosphatase 64 U/L (38-126) 12/23/16 19:49 Troponin I <0.012 ng/mL (0.000-0.034) 12/23/16 19:49 Total Protein 7.1 g/dL (6.3-8.2) 12/23/16 19:49 Albumin 3.9 g/dL (3.5-5.0) 12/23/16 19:49 Urine Color Yellow 12/23/16 22:41 Urine Appearance Clear (Clear) 12/23/16 22:41 Urine pH 5.0 (5.0-8.0) 12/23/16 22:41 Ur Specific [place] 1.024 (1.001-1.035) 12/23/16 22:41 Urine Protein Negative (Negative) 12/23/16 22:41 Urine Glucose (UA) Negative (Negative) 12/23/16 22:41 Urine Ketones Negative (Negative) 12/23/16 22:41 Urine Blood Negative (Negative) 12/23/16 22:41 Urine Nitrite Negative (Negative) 12/23/16 22:41 Urine Bilirubin Negative (Negative) 12/23/16 22:41 Urine Urobilinogen <2.0 mg/dL (<2.0) 12/23/16 22:41 Ur Leukocyte Esterase Large (Negative) H 12/23/16 22:41 Urine RBC 2 /hpf (0-5) 12/23/16 22:41 Urine WBC 25 /hpf (0-5) H 12/23/16 22:41 Urine WBC Clumps Occasional /hpf (None) H 12/23/16 22:41 Urine Opiates Screen Detected (NotDetected) H 12/23/16 22:41 Ur Oxycodone Screen Not Detected (NotDetected) 12/23/16 22:41 Urine Methadone Screen Not Detected (NotDetected) 12/23/16 22:41 Ur Propoxyphene Screen Not Detected (NotDetected) 12/23/16 22:41 Ur Barbiturates Screen Not Detected (NotDetected) 12/23/16 22:41 U Tricyclic Antidepress Not Detected (NotDetected) 12/23/16 22:41 Ur Phencyclidine Scrn Not Detected (NotDetected) 12/23/16 22:41 Ur Amphetamines Screen Not Detected (NotDetected) 12/23/16 22:41 U Methamphetamines Scrn Not Detected (NotDetected) 12/23/16 22:41 U Benzodiazepines Scrn Not Detected (NotDetected) 12/23/16 22:41 Urine Cocaine Screen Not Detected (NotDetected) 12/23/16 22:41 U Marijuana (THC) Screen Not Detected (NotDetected) 12/23/16 22:41 Thrombosis Risk Factor Assmnt - Choose All That Apply Each Risk Factor Represents 2 Points: Age 61-74 years, Immobilizing plaster cast Thrombosis Risk Factor Assessment Total Risk Factor Score: 4 Thrombosis Risk Factor Assessment Level: Moderate Risk Assessment and Plan Plan: 1. Metabolic encephalopathy with amnesia of events, related to intake of both [place] and Ambien, possibility off sleepwalking episode related to Ambien, patient is back on her mentation currently, however with her preceding history of psychosis and delirium, 3 episodes were identified during this past hospitalizations, patient was seen also by mental health unit, she was in the past diagnosed to possibly having bipolar with psychotic features, urine drug screen was requested to be done along with a product safety professional at bedside,: Psychiatry is to see for mental health psychosis history Dr. Escudero neurology to see She had multiple workup last 12/12/2016 for similar episodes, CTA of neck and brain CT was performed during this admission which was negative 2 UTI pyuria noted, urine cultures were sent, patient was started on IV Rocephin 3 Hypertension: Has been doing well on losartan HCT handed/12.5 mg daily continue medication. 4 severe GERD: Continue Protonix. 5 arrhythmia has been stable will watch patient on heart monitor. 6 history of Chron's disease post surgery with short gut syndrome with right ileocolic anastomosis colonoscopy 11/06/2016 Dr. 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 9 chronic insomnia we will discontinue Ambien secondary to lingering side effect profile, melatonin would be offered at 6 mg at bedtime, based on beers criteria for drug safety for 60+ years of age, Ambien and other hypnotic sedatives are contraindicated 10. Acute renal insufficiency with CKD2. patient will be hydrated, nephrotoxins will be eliminated, monitor labs, expect good response with hydration, monitor and avoid hypotension, maintain bp over 110 DVT prophylaxis: Knee-high NAILA hose and early mobilization.
--- NOTE | 2016-12-24 20:14 | CONS ---
DATE OF SERVICE: 12/24/2016 PURPOSE FOR CONSULTATION: Evaluate for mental status changes. HISTORY OF PRESENTING ILLNESS: The patient is a 66-year-old female. She presented to the emergency room with confusion and slurred speech. At 1900 hours the patient was found in [employer] in a confused state. She was wandering. Her car was found running in the parking lot in the neutral position. She was unable to provide history other than stating that she had not slept in several days. It is noted that the patient had an admission to the psychiatric unit February 25, 2014. At that time she was found to be confused and exhibiting symptoms of psychosis. There was a question of delirium. She had periods where she got quite agitated and was hyperverbal. She had paranoid thinking. She had some aggressive behavior. She had apparently been prescribed Viibryd 40 mg a day prior to her hospitalization. There was no history of substance use disorder. She was diagnosed with psychosis NOS, rule out paranoid schizophrenia. She was started on Trileptal 450 mg twice a day and Risperdal 1 mg twice a day. It was felt that she responded well to the medications and was discharged on those two psychotropic medications. The patient herself today reports that she took those medications for some period of time thought apparently not for an extended period of time. She stopped the medications and reports taking no psychotropic medications currently. It is noted, however, that records indicate she is on Cymbalta 50 mg a day. She had a recent admission December 12 which included a presentation of psychosis. At that time she had a fever of 105 and was diagnosed with right pneumonia. In addition, she had sustained a fracture of her right wrist when she fell. According to the patient's mother, during the episode where she feel and broke her wrist she was quite "manicky and agitated" with the event being triggered by her running after her dog and then tripping. She has a past history of a CVA. According to the patient in regards to events leading up to this hospitalization, she was home in the evening time. She had not been sleeping well. She took Ambien at about 6 in the evening. Also, at that time she presumably took Swan. She said it was her intention to go asleep. Soon, thereafter, though she got an impulse to shop for a computer. She apparently drove to [employer] and was found in the state noted above. Nursing indicates that on admission she was confused and disorganized in thoughts. Since the morning the patient has been doing much better. Her thoughts are clear. She has been calm. She has not indicated any problems with mood, thought or anxiety. She has good awareness and understanding of her current situation though she says that she has only vague recollections of what transpired last evening. She gave vague information about her psychiatric hospitalization in 2014. She said that she has not had fci problems with mood or anxiety disorder. She reports no current or past problems with hallucinations, delusions, posttraumatic flashbacks or past trauma, obsessions, compulsions, significant anxiety or panic attacks. She does say that intermittent she will have periods for a few days where she sleeps poorly. She says on occasion she takes Ambien which helps then she will do fairly well in her sleep for a while. She says that she only takes the Ambien occasionally, so not on any regular basis. She notes that she has been opioid pain medication since her wrist fracture. She is aware that she gets more pain in her arm and wrist at different times in the day, often when she is aware that she has been holding her arm downward. She does take Aleve 200 mg intermittently to help with pain. She was unclear about how much she had been taking the opioid pain medication. MENTAL STATUS: The patient was in her room, sitting up. She gave good eye contact. Psychomotor activity was normal. Speech was clear. She answered questions with brief responses. Some of her responses were vague. She was not too spontaneous though she was interactive. Her affect was a little constricted though not significantly so. She smiled. She seemed relaxed. Her mood was even. She did not appear to be distressed. There was no indication of thought disorder. On cognitive exam she knew the day and date, she knew the president, she could give me some details about this morning's even. As noted, she was vague about events leading up to her hospitalization. ASSESSMENT AND PLAN: This 66-year-old female is diagnosed with delirium secondary to the use of opioid pain medication in combination with ambient. It is not clear that the patient has any ongoing or fci psychiatric issues beyond her apparent current treatment for depression as based on her being on an antidepressant medication. Her psychiatric admission in 2014 at age 63 with a presentation of psychosis is not consistent with a diagnosis of schizophrenia. Schizophrenia only has an onset prior to age 40. Her sleep issues are a concern. I strongly encouraged the patient to stop taking Ambien and that her episode leading to her hospitalization was extremely dangerous for her and others and is a clear demonstration that Ambien is a dangerous medication for the patient. I agree with Dr. Sagastume's assessment regarding chronic insomnia and risks for use of Ambien or other hypnotic sedatives which are contraindicated for this patient. In regards to a question of possible bipolar disorder, at this time my understanding is that there are only some brief episodes that could be suggestive of some bipolar manic symptoms. On the other hand, those episodes appear to be quite limited. There is not adequate information to make any further assessment of mood disorder beyond depression. At this point it remains to be determined by her primary care physician whether she has an appropriate indication for ongoing use of Cymbalta though at this point there is no clear reason that Cymbalta should be discontinued. It does appear that the patient would warrant further outpatient evaluation for sleep disorder which, by the patient's report, has been a chronic condition for her. I will continue to follow. KANDACE
[2016-12-24] MEDS ORDERED: MELATONIN 3 MG TABLET PO SCH (21:00)
--- NOTE | 2016-12-24 21:39 | P.CNNES ---
History of Present Illness Consult date: 12/24/16 History of Present Illness: The patient a 66-year-old and it white female who became disoriented in front of [facility] yesterday evening. She states she took an Ambien around 7 PM and then drove to [facility] and she does not recall what happened next. Apparently she was wandering out of front of [facility] left her car running on [address]. Was called and she was brought to the hospital. Apparently she had some garbled speech. She told EMS that she hadn't slept in several days. We'll to explain why she would've taken Ambien and then driven. Denies taking any medications then ones that were prescribed however according to the ER note they had found some clonazepam in her purse. Given Narcan. And her symptoms improved. Mated to the hospital with acute kidney injury and altered mental status. Gotten in was 1.19 CT angiogram of the brain which was negative and a CT and a gram of the neck which was negative the patient is awake and alert and cooperative. She has no specific complaints. At recall the incident at [facility] but she only recalls taking an Ambien. She does not recall why she would' ve driven after taken Ambien. Eyes any headache or focal weakness or numbness. Review of Systems Constitutional: Denies chills, Denies fever Eyes: denies blurred vision, denies pain Ears, nose, mouth and throat: Denies headache, Denies sore throat Cardiovascular: Denies chest pain, Denies shortness of breath Respiratory: Denies cough Musculoskeletal: Denies myalgias Integumentary: Denies pruritus, Denies rash Neurological: Denies numbness, Denies weakness Psychiatric: Denies anxiety, Denies depression Past Medical History Past Medical History: CVA/TIA Additional Past Medical History / Comment(s): Crohn disease,. short gut syndrome,. migraine headaches, History of Any Multi-Drug Resistant Organisms: None Reported Past Surgical History: Appendectomy, Bowel Resection, Heart Catheterization Additional Past Surgical History / Comment(s): ACDF-ANTERIOR CERVICAL DISKECTOMY AND FUSION. ORIF Rt femur,. bowel resection X3 1959, 1967, 1975,. recto- vagina fistula repair,. EGD,. colonoscopy, occipital steroid injections. Past Anesthesia/Blood Transfusion Reactions: No Reported Reaction Past Psychological History: Anxiety, Depression Smoking Status: Never smoker Past Alcohol Use History: Unable to Obtain Additional Past Alcohol Use History / Comment(s): quit 31 years ago; smoked occ from teen to 30 yrs old 1 angela roy 3-4 days Past Drug Use History: Unable to Obtain - Past Family History Mother Family Medical History: Hypertension Father Family Medical History: Neurologic Disorder Medications and Allergies Home Medications Medication Instructions Recorded Confirmed Type Diphenox-Atrop 2.5-0.025 mg 2 tab PO TID PRN 11/09/13 12/24/16 History [Lomotil] SUMAtriptan SUCCINATE [Imitrex] 100 mg PO DAILY PRN 02/25/14 12/24/16 History Baclofen [Lioresal] 20 mg PO TID PRN 10/05/15 12/24/16 History Cholestyramine (with Sugar) 1 packet PO BID 10/05/15 12/24/16 History [Questran Powder] HYDROcodone/APAP 7.5-325MG [[place] 1 tab PO Q8HR PRN 10/05/15 12/24/16 History 7.5-325] Propranolol HCl [Propranolol HCl 160 mg PO DAILY 07/08/16 12/24/16 History ER] Zolpidem [Ambien] 10 mg PO HS 07/08/16 12/24/16 History DULoxetine HCL [Cymbalta] 60 mg PO DAILY 11/05/16 12/24/16 History rOPINIRole HCL 3 mg PO TID 12/11/16 12/24/16 History Losartan/Hydrochlorothiazide 0.5 tab PO DAILY 12/24/16 12/24/16 History [Losartan-Hctz 100-12.5 mg Tab] Allergies Allergy/AdvReac Type Severity Reaction Status Date / Time ketorolac tromethamine AdvReac Rapid Verified 12/24/16 09:32 [From Toradol] Heart Rate mannitol AdvReac joint pain Verified 12/24/16 09:32 zoledronic acid AdvReac joint pain Verified 12/24/16 09:32 Physical Examination - Vital Signs Vital Signs: Vital Signs Temp Pulse Pulse Resp BP BP Pulse Ox 12/24/16 16:00 75 16 141/75 95 12/24/16 11:47 85 16 119/64 98 12/24/16 08:00 97.2 F L 91 16 100/52 99 12/24/16 03:00 97.4 F L 80 18 115/68 98 12/24/16 01:40 97.8 F 80 18 110/69 98 12/24/16 00:56 97.4 F L 80 18 115/68 98 12/24/16 00:54 97.8 F 12/24/16 00:44 80 18 110/69 98 12/24/16 00:20 94 18 104/62 99 12/23/16 23:08 78 18 115/69 98 12/23/16 22:58 80 18 111/59 98 12/23/16 22:20 98.7 F 84 18 84/55 98 12/23/16 21:50 76 18 106/57 98 12/23/16 21:35 78 18 89/52 98 Intake and Output 12/24/16 12/24/16 12/24/16 06:59 14:59 22:59 Intake Total 245 236 Balance 245 236 Intake: Oral 245 236 Other: # Voids 1 1 # Bowel Movements 2 Weight 72 kg - Constitutional General appearance: average body habitus - EENT EENT: PERRL, hearing intact, vision intact - Respiratory Respiratory: lungs clear - Cardiovascular Cardiovascular: regular rate, normal S1, normal S2 - Integumentary Integumentary: normal - Neurologic Status she was awake alert and oriented 3 she was oriented to person place and time she was able to do simple calculations she was able to spell world forward and backward or dysarthria Cranial nerve examination: PERRL, EOMI, VFF, V1/V2/V3 grossly intact, face symmetric, tongue midline Speech examination: intact Detailed motor examination: grossly full strength in all extremities, full strength in all major muscle groups Motor examination - right side: 5/5: biceps, triceps, wrist flexion, wrist extension, 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, hip flexors, knee extensors, dorsiflexion, toe extension (EHL) , plantarflexion Motor examination - left side: 5/5: biceps, triceps, wrist flexion, wrist extension, 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, hip flexors, knee extensors, dorsiflexion, toe extension (EHL) , plantarflexion Detailed sensory examination: intact Reflexes: 2+: tricep - Psychiatric Psychiatric: mood/affect appropriate Results - Laboratory Findings CBC and BMP: 12/23/16 19:49 12/23/16 19:49 Abnormal Lab Findings: Abnormal Labs 12/23/16 12/23/16 12/23/16 19:49 19:49 22:41 VBG pCO2 VBG HCO3 Carbon Dioxide 20 L Creatinine 1.19 H Glucose 109 H POC Glucose (mg/dL) 109 H Ur Leukocyte Esterase Large H Urine WBC 25 H Urine WBC Clumps Occasional H Urine Opiates Screen Detected H 12/23/16 23:39 VBG pCO2 36 L VBG HCO3 18 L Carbon Dioxide Creatinine Glucose POC Glucose (mg/dL) Ur Leukocyte Esterase Urine WBC Urine WBC Clumps Urine Opiates Screen Assessment and Plan (1) Altered mental status, unspecified Status: Acute Code(s): R41.82 - ALTERED MENTAL STATUS, UNSPECIFIED (2) Polysubstance overdose Status: Acute Code(s): T50.901A - POISONING BY UNSP DRUG/MEDS/BIOL SUBST, ACCIDENTAL, INIT Plan: The patient is a 66 year old woman who had an episode of altered mental status after taking Ambien in combination with [place] . Her confusion may have been related to the medication that she took. She was admitted to the hospital with polysubstance abuse and she had some renal insufficiency. She had a CT of the brain which was normal. Recommend EEG. The patient is also on Requip 3 mg 3 times a day recommend reducing dose as this may also contribute to drowsiness
[2016-12-25 06:01] LABS: Basophils % (A) 0 %; CH 30.2; CHCM 31.9; Eosinophils # (A) 0.2 k/uL (0-0.7); Eosinophils % (A) 3 %; HCT 35.5 % (34.0-46.0); HDW 2.49; Luc # (Auto) 0.14; Luc % (Auto) 2; Lymphocytes # (A) 1.2 k/uL (1.0-4.8); Lymphocytes % (A) 20 %; MCH 29.5 pg (25.0-35.0); MCHC 31.1 g/dL (31.0-37.0); MCV 94.9 fL (80.0-100.0); Mean Platelet Volume 7.6; Monocytes # (A) 0.3 k/uL (0-1.0); Monocytes % (A) 5 %; Neutrophils # (A) 4.3 k/uL (1.3-7.7); Neutrophils % (A) 70 %; RBC 3.74 m/uL (3.80-5.40); RDW 14.1 % (11.5-15.5); WBC 6.2 k/uL (3.8-10.6); WBC (Perox) 6.33
[2016-12-25 06:07] LABS: ALT 36 U/L (9-52); AST 23 U/L (14-36); Alkaline Phosphatase 56 U/L (38-126); Anion Gap 7 mmol/L; Blood Urea Nitrogen 8 mg/dL (7-17); Calcium 8.4 mg/dL (8.4-10.2); Carbon Dioxide 22 mmol/L (22-30); Chloride 112 mmol/L (98-107); Glucose 99 mg/dL (74-99); Non-African American GFR(MDRD) >60 (>60 ml/min/1.73 sqM); Potassium 3.7 mmol/L (3.5-5.1); Sodium 141 mmol/L (137-145); Total Bilirubin 0.3 mg/dL (0.2-1.3); Total Protein 5.8 g/dL (6.3-8.2)
[2016-12-25] MEDS: DEXTROSE 5%-0.45% NACL 1,000 ML IV SCH (06:55)
[2016-12-25] MEDS: LOSARTAN 50 MG TAB PO SCH ×2 (07:54→10:47)
[2016-12-25] MEDS: PROPRANOLOL LA 80 MG CAP.SA.24H PO SCH (07:55)
[2016-12-25] MEDS: DULoxetine HCL 60 MG CAPSULE.DR PO SCH (07:55)
[2016-12-25 08:25] VITALS: RESP 18; TEMP 97
[2016-12-25] MEDS: HYDROCHLOROTHIAZIDE 25 MG TAB PO SCH (10:47)
[2016-12-25 13:20] VITALS: BP 127/61; PULSE 86
--- NOTE | 2016-12-25 13:48 | P.DS ---
Providers Date of admission: 12/24/16 00:10 Expected date of discharge: 12/25/16 Attending physician: Kasey Sagastume Consults: 12/24/16 00:12 Consult Physician Urgent Consulting Provider: Noemi Escudero Consult Reason/Comments: Acute confusion Do you want consulting provider notified?: Yes, Notify in am 12/24/16 00:13 Consult Physician Urgent Consulting Provider: Tyrone Nettles Consult Reason/Comments: Overdose Do you want consulting provider notified?: Yes, Notify in am Primary care physician: Matthias Dixon [place] [facility] Course: This is a pleasant 66-year-old lady patient of Dr. Dixon. She has underlying history of hypertension hypertensive cardiovascular disease Crohn's disease anxiety major depression who in February 2014 was admitted to the mental health unit secondary to acute psychosis with possible paranoid schizophrenia the final diagnoses that time was bipolar disorder with psychotic features, she was recently admitted from our facility 12/12/2016 secondary to psychosis however the same time she has a fever of 105 and was diagnosed to have right pneumonia, she sustained a fracture in the right hand when she fell. Her mother saw her quite manicky and agitated, also that the event was triggered by the dog running away, she was admitted to the ICU for the pneumonia with casting on the right arm post discharge, she had an old stroke based on her previous CAT scan involving the right anterior limb of the internal capsule which is an coronary infarct. She was seen by mental health as well as pulmonary during her last admission 12/12/2016 She was home last night, they're preparing for the boyfriend getting a colonoscopy today, and the patient took Ambien at 6 PM last night, patient was subsequently found wondering at [employer] around 1900, she was acutely confused and has some slurred speech, she was wondering in the store. Her car was found running in the parking lot in a neutral position, EMS was called and they found that she has multiple sleeping pills in her pocket and per EMS history patient has not slept for several days. Patient was subsequently admitted to the medical floor, she is lucid without any suicidal ideation no hallucinations, no homicidal tendencies, patient has no recollection of the event right after she took her Ambien and [place] at 6 PM. Unknown whether the patient took excessivepills or just appropriate prescribed amount as the patient lost track of this as well, patient takes Cymbalta for her migraines 12/25: Echocardiogram revealed mild concentric left ventricular hypertrophy, EF 55-60%, mild aortic regurgitation, mild mitral regurg, mild tricuspid regurgitation. Patient was seen by psychiatrist with recommendations to stop taking Ambien and further outpatient follow-up regarding sleep disorder. Patient has been seen by neurologist, Dr. Jazlyn Escudero with recommendations for EEG and recommended reducing dose of Requip. Patient is at her baseline and BUN is 8 and creatinine 0.67. Urine culture is finalized with no growth. Patient will be discharged home today in stable condition. . Discharge diagnoses: 1. Metabolic encephalopathy with amnesia of events, related to intake of both [place] and Ambien, possibility of sleepwalking episode related to Ambien 2 UTI pyuria noted 3 Hypertension 4 severe GERD 5 arrhythmia 6 history of Chron's disease post surgery with short gut syndrome with right ileocolic anastomosis colonoscopy 11/06/2016 Dr. 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 Acute renal insufficiency with CKD2 Discharge plan: Return home Impression and plan of care have been directed as dictated by the signing physician. Idalmis Parker nurse practitioner acting as scribe for signing physician. Patient Condition at Discharge: Good Plan - Discharge Summary New Discharge Prescriptions: New Ciprofloxacin HCl [Cipro] 250 mg PO Q12HR #10 tablet Melatonin 3 mg PO HS #0 tab Cyanocobalamin (Vitamin B-12) [Vitamin B12] 500 mcg PO DAILY #30 tab.chew Continue Diphenox-Atrop 2.5-0.025 mg [Lomotil] 2 tab PO TID PRN PRN Reason: Diarrhea SUMAtriptan SUCCINATE [Imitrex] 100 mg PO DAILY PRN PRN Reason: MIGRAINES Baclofen [Lioresal] 20 mg PO TID PRN PRN Reason: Muscle Spasm HYDROcodone/APAP 7.5-325MG [[place] 7.5-325] 1 tab PO Q8HR PRN PRN Reason: Pain Cholestyramine (with Sugar) [Questran Powder] 1 packet PO BID Propranolol HCl [Propranolol HCl ER] 160 mg PO DAILY DULoxetine HCL [Cymbalta] 60 mg PO DAILY rOPINIRole HCL 3 mg PO TID Losartan/Hydrochlorothiazide [Losartan-Hctz 100-12.5 mg Tab] 0.5 tab PO DAILY Discontinued Zolpidem [Ambien] 10 mg PO HS Discharge Medication List Diphenox-Atrop 2.5-0.025 mg [Lomotil] 2 tab PO TID PRN 11/09/13 [History] SUMAtriptan SUCCINATE [Imitrex] 100 mg PO DAILY PRN 02/25/14 [History] Baclofen [Lioresal] 20 mg PO TID PRN 10/05/15 [History] Cholestyramine (with Sugar) [Questran Powder] 1 packet PO BID 10/05/15 [History] HYDROcodone/APAP 7.5-325MG [[place] 7.5-325] 1 tab PO Q8HR PRN 10/05/15 [History] Propranolol HCl [Propranolol HCl ER] 160 mg PO DAILY 07/08/16 [History] DULoxetine HCL [Cymbalta] 60 mg PO DAILY 11/05/16 [History] rOPINIRole HCL 3 mg PO TID 12/11/16 [History] Losartan/Hydrochlorothiazide [Losartan-Hctz 100-12.5 mg Tab] 0.5 tab PO DAILY [History] Ciprofloxacin HCl [Cipro] 250 mg PO Q12HR #10 tablet 12/25/16 [Rx] Cyanocobalamin (Vitamin B-12) [Vitamin B12] 500 mcg PO DAILY #30 tab.chew [Rx] Melatonin 3 mg PO HS #0 tab 12/25/16 [Rx] Follow up Appointment(s)/Referral(s): Matthias Dixon MD [Primary Care Provider] - 1-2 days Silvio Ochoa DO [STAFF PHYSICIAN] - 1 Week
== END 2016-12-25 14:11 | disposition home or self-care (01) | DRG 92 ==
LOC: EC 19:39 → 6SEL 12-24 00:10
PROVIDERS: ADMIT Family Medicine; ATTEND Family Medicine
DX: G92 Toxic encephalopathy (principal); N17.9 Acute kidney failure, unspecified; K91.2 Postsurgical malabsorption, not elsewhere classified; K50.90 Crohn's disease, unspecified, without complications; N39.0 Urinary tract infection, site not specified; I08.3 Combined rheumatic disorders of mitral, aortic and tricuspid valves; T40.2X5A Adverse effect of other opioids, initial encounter; I13.10 Hypertensive heart and chronic kidney disease without heart failure, with stage 1 through stage 4 chronic kidney disease, or unspecified chronic kidney disease; F32.9 Major depressive disorder, single episode, unspecified; F51.3 Sleepwalking [somnambulism]; T42.6X5A Adverse effect of other antiepileptic and sedative-hypnotic drugs, initial encounter; T39.1X5A Adverse effect of 4-Aminophenol derivatives, initial encounter; F41.9 Anxiety disorder, unspecified; F51.04 Psychophysiologic insomnia; G89.4 Chronic pain syndrome; K21.9 Gastro-esophageal reflux disease without esophagitis; N18.2 Chronic kidney disease, stage 2 (mild); G43.909 Migraine, unspecified, not intractable, without status migrainosus; I49.9 Cardiac arrhythmia, unspecified; Z79.899 Other long term (current) drug therapy; Z88.8 Allergy status to other drugs, medicaments and biological substances; Z82.49 Family history of ischemic heart disease and other diseases of the circulatory system; Y92.9 Unspecified place or not applicable; Y92.009 Unspecified place in unspecified non-institutional (private) residence as the place of occurrence of the external cause
CPT/HCPCS: 36415; 70450; 70496; 70498; 71010; 80053; 80306; 81001; 82803; 84484; 85025; 85610; 85730; 87086; 93005; 93306; 95816; 96361; 96374; 99291

== ENCOUNTER 2017-01-20 06:14 | Observation (INO) | payer MEDICARE ==
--- NOTE | 2017-01-20 06:28 | ED ---
Altered Mental Status HPI - General Chief Complaint: Altered Mental Status Stated Complaint: Altered Mental Time Seen by Provider: 01/20/17 06:24 Source: EMS Mode of arrival: EMS Limitations: altered mental status - History of Present Illness Initial Comments: This patient is a 66-year-old woman brought in by EMS. EMS had been found by the patient's neighbor. The neighbor had heard what sounded like moaning noises and when they checked outside they saw the patient and observed a fall. The patient has not been able to communicate any history as her speech seems very dysarthric. It is not known when the patient was last well. MD Complaint: altered mental status, confusion -: unknown Consistency of Symptoms: unknown - Related Data Home Medications Medication Instructions Recorded Confirmed Diphenox-Atrop 2.5-0.025 mg 2 tab PO TID PRN 11/09/13 12/24/16 [Lomotil] SUMAtriptan SUCCINATE [Imitrex] 100 mg PO DAILY PRN 02/25/14 12/24/16 Baclofen [Lioresal] 20 mg PO TID PRN 10/05/15 12/24/16 Cholestyramine (with Sugar) 1 packet PO BID 10/05/15 12/24/16 [Questran Powder] HYDROcodone/APAP 7.5-325MG [[place] 1 tab PO Q8HR PRN 10/05/15 12/24/16 7.5-325] Propranolol HCl [Propranolol HCl 160 mg PO DAILY 07/08/16 12/24/16 ER] DULoxetine HCL [Cymbalta] 60 mg PO DAILY 11/05/16 12/24/16 rOPINIRole HCL 3 mg PO TID 12/11/16 12/24/16 Losartan/Hydrochlorothiazide 0.5 tab PO DAILY 12/24/16 12/24/16 [Losartan-Hctz 100-12.5 mg Tab] Previous Rx's Medication Instructions Recorded Ciprofloxacin HCl [Cipro] 250 mg PO Q12HR #10 tablet 12/25/16 Cyanocobalamin (Vitamin B-12) 500 mcg PO DAILY #30 tab.chew 12/25/16 [Vitamin B12] Melatonin 3 mg PO HS #0 tab 12/25/16 Allergies Allergy/AdvReac Type Severity Reaction Status Date / Time ketorolac tromethamine AdvReac Rapid Verified 09/13/17 06:22 [From Toradol] Heart Rate mannitol AdvReac joint pain Verified 01/20/17 06:22 zoledronic acid AdvReac joint pain Verified 01/20/17 06:22 Review of Systems ROS Statement: Those systems with pertinent positive or pertinent negative responses have been documented in the HPI. ROS Other: All systems not noted in ROS Statement are negative. Limitations: ROS unobtainable due to patients medical condition Past Medical History Past Medical History: CVA/TIA Additional Past Medical History / Comment(s): Crohn disease,. short gut syndrome,. migraine headaches, History of Any Multi-Drug Resistant Organisms: None Reported Past Surgical History: Appendectomy, Bowel Resection, Heart Catheterization Additional Past Surgical History / Comment(s): ACDF-ANTERIOR CERVICAL DISKECTOMY AND FUSION. ORIF Rt femur,. bowel resection X3 1959, 1967, 1975,. recto- vagina fistula repair,. EGD,. colonoscopy, occipital steroid injections. Past Anesthesia/Blood Transfusion Reactions: No Reported Reaction Past Psychological History: Anxiety, Depression Smoking Status: Never smoker Past Alcohol Use History: Unable to Obtain Past Drug Use History: Unable to Obtain - Past Family History Mother Family Medical History: Hypertension Father Family Medical History: Neurologic Disorder General Exam Limitations: altered mental status General appearance: appears intoxicated Head exam: Present: atraumatic, normocephalic Eye exam: Present: normal appearance, PERRL, EOMI. Absent: scleral icterus, conjunctival injection ENT exam: Present: mucous membranes dry Neck exam: Present: other (Patient in cervical collar). Absent: tenderness Respiratory exam: Present: normal lung sounds bilaterally. Absent: respiratory distress, wheezes, rales, rhonchi, stridor, chest wall tenderness Cardiovascular Exam: Present: regular rate, normal rhythm, normal heart sounds. Absent: systolic murmur, diastolic murmur, rubs, gallop GI/Abdominal exam: Present: soft. Absent: distended, tenderness, guarding, rebound Extremities exam: Present: normal inspection, normal capillary refill. Absent: pedal edema, calf tenderness Back exam: Present: normal inspection. Absent: CVA tenderness (R), CVA tenderness (L) Neurological exam: Present: alert, altered, CN II-XII intact. Absent: oriented X3, motor sensory deficit Skin exam: Present: warm, dry, intact, normal color. Absent: rash Course Vital Signs 01/20/17 01/20/17 01/20/17 06:17 06:59 07:52 Temperature 97.3 F L Pulse Rate 84 87 83 Respiratory 18 18 18 Rate Blood Pressure 150/97 140/82 145/91 O2 Sat by Pulse 98 99 98 Oximetry Medical Decision Making - Lab Data Result diagrams: 01/20/17 06:40 01/20/17 06:40 Lab Results 01/20/17 01/20/17 01/20/17 Range/Units 06:40 06:40 06:40 WBC (3.8-10.6) k/uL RBC (3.80-5.40) m/uL Hgb (11.4-16.0) gm/dL Hct (34.0-46.0) % MCV (80.0-100.0) fL MCH (25.0-35.0) pg MCHC (31.0-37.0) g/dL RDW (11.5-15.5) % Plt Count (150-450) k/uL Neutrophils % % Lymphocytes % % Monocytes % % Eosinophils % % Basophils % % Neutrophils # (1.3-7.7) k/uL Lymphocytes # (1.0-4.8) k/uL Monocytes # (0-1.0) k/uL Eosinophils # (0-0.7) k/uL Basophils # (0-0.2) k/uL PT (9.0-12.0) sec INR (<1.2) APTT (22.0-30.0) sec Sodium 140 (137-145) mmol/L Potassium 3.7 (3.5-5.1) mmol/L Chloride 106 (98-107) mmol/L Carbon Dioxide 23 (22-30) mmol/L Anion Gap 11 mmol/L BUN 14 (7-17) mg/dL Creatinine 0.93 (0.52-1.04) mg/dL Est GFR (MDRD) Af Amer >60 (>60 ml/min/1.73 sqM) Est GFR (MDRD) Non-Af >60 (>60 ml/min/1.73 sqM) Glucose 107 H (74-99) mg/dL POC Glucose (mg/dL) (75-99) mg/dL POC Glu Tool Clerk ID Plasma Lactic Acid Juma 1.2 (0.7-2.0) mmol/L Calcium 9.9 (8.4-10.2) mg/dL Total Bilirubin 0.7 (0.2-1.3) mg/dL AST 26 (14-36) U/L ALT 30 (9-52) U/L Alkaline Phosphatase 80 (38-126) U/L Total Creatine Kinase 44 (30-135) U/L CK-MB (CK-2) 0.5 (0.0-2.4) ng/mL CK-MB (CK-2) Rel Index 1.1 Troponin I <0.012 (0.000-0.034) ng/mL Total Protein 7.5 (6.3-8.2) g/dL Albumin 4.3 (3.5-5.0) g/dL Urine Color Urine Appearance (Clear) Urine pH (5.0-8.0) Ur Specific Antimony (1.001-1.035) Urine Protein (Negative) Urine Glucose (UA) (Negative) Urine Ketones (Negative) Urine Blood (Negative) Urine Nitrite (Negative) Urine Bilirubin (Negative) Urine Urobilinogen (<2.0) mg/dL Ur Leukocyte Esterase (Negative) Urine Opiates Screen (NotDetected) Ur Oxycodone Screen (NotDetected) Urine Methadone Screen (NotDetected) Ur Propoxyphene Screen (NotDetected) Ur Barbiturates Screen (NotDetected) U Tricyclic Antidepress (NotDetected) Ur Phencyclidine Scrn (NotDetected) Ur Amphetamines Screen (NotDetected) U Methamphetamines Scrn (NotDetected) U Benzodiazepines Scrn (NotDetected) Urine Cocaine Screen (NotDetected) U Marijuana (THC) Screen (NotDetected) Serum Alcohol <10 mg/dL 01/20/17 01/20/17 01/20/17 Range/Units 06:40 06:40 06:45 WBC 11.4 H (3.8-10.6) k/uL RBC 4.45 (3.80-5.40) m/uL Hgb 13.1 (11.4-16.0) gm/dL Hct 39.9 (34.0-46.0) % MCV 89.7 D (80.0-100.0) fL MCH 29.5 (25.0-35.0) pg MCHC 32.9 (31.0-37.0) g/dL RDW 14.3 (11.5-15.5) % Plt Count 318 (150-450) k/uL Neutrophils % 68 % Lymphocytes % 20 % Monocytes % 6 % Eosinophils % 2 % Basophils % 1 % Neutrophils # 7.8 H (1.3-7.7) k/uL Lymphocytes # 2.3 (1.0-4.8) k/uL Monocytes # 0.7 (0-1.0) k/uL Eosinophils # 0.3 (0-0.7) k/uL Basophils # 0.1 (0-0.2) k/uL PT 10.5 (9.0-12.0) sec INR 1.0 (<1.2) APTT 22.7 (22.0-30.0) sec Sodium (137-145) mmol/L Potassium (3.5-5.1) mmol/L Chloride (98-107) mmol/L Carbon Dioxide (22-30) mmol/L Anion Gap mmol/L BUN (7-17) mg/dL Creatinine (0.52-1.04) mg/dL Est GFR (MDRD) Af Amer (>60 ml/min/1.73 sqM) Est GFR (MDRD) Non-Af (>60 ml/min/1.73 sqM) Glucose (74-99) mg/dL POC Glucose (mg/dL) (75-99) mg/dL POC Glu Tool Clerk ID Plasma Lactic Acid Juma (0.7-2.0) mmol/L Calcium (8.4-10.2) mg/dL Total Bilirubin (0.2-1.3) mg/dL AST (14-36) U/L ALT (9-52) U/L Alkaline Phosphatase (38-126) U/L Total Creatine Kinase (30-135) U/L CK-MB (CK-2) (0.0-2.4) ng/mL CK-MB (CK-2) Rel Index Troponin I (0.000-0.034) ng/mL Total Protein (6.3-8.2) g/dL Albumin (3.5-5.0) g/dL Urine Color Yellow Urine Appearance Clear (Clear) Urine pH 5.0 (5.0-8.0) Ur Specific Antimony 1.010 (1.001-1.035) Urine Protein Negative (Negative) Urine Glucose (UA) Negative (Negative) Urine Ketones Negative (Negative) Urine Blood Negative (Negative) Urine Nitrite Negative (Negative) Urine Bilirubin Negative (Negative) Urine Urobilinogen <2.0 (<2.0) mg/dL Ur Leukocyte Esterase Negative (Negative) Urine Opiates Screen Not Detected (NotDetected) Ur Oxycodone Screen Not Detected (NotDetected) Urine Methadone Screen Not Detected (NotDetected) Ur Propoxyphene Screen Not Detected (NotDetected) Ur Barbiturates Screen Not Detected (NotDetected) U Tricyclic Antidepress Not Detected (NotDetected) Ur Phencyclidine Scrn Not Detected (NotDetected) Ur Amphetamines Screen Not Detected (NotDetected) U Methamphetamines Scrn Not Detected (NotDetected) U Benzodiazepines Scrn Not Detected (NotDetected) Urine Cocaine Screen Not Detected (NotDetected) U Marijuana (THC) Screen Not Detected (NotDetected) Serum Alcohol mg/dL 01/20/17 Range/Units 07:03 WBC (3.8-10.6) k/uL RBC (3.80-5.40) m/uL Hgb (11.4-16.0) gm/dL Hct (34.0-46.0) % MCV (80.0-100.0) fL MCH (25.0-35.0) pg MCHC (31.0-37.0) g/dL RDW (11.5-15.5) % Plt Count (150-450) k/uL Neutrophils % % Lymphocytes % % Monocytes % % Eosinophils % % Basophils % % Neutrophils # (1.3-7.7) k/uL Lymphocytes # (1.0-4.8) k/uL Monocytes # (0-1.0) k/uL Eosinophils # (0-0.7) k/uL Basophils # (0-0.2) k/uL PT (9.0-12.0) sec INR (<1.2) APTT (22.0-30.0) sec Sodium (137-145) mmol/L Potassium (3.5-5.1) mmol/L Chloride (98-107) mmol/L Carbon Dioxide (22-30) mmol/L Anion Gap mmol/L BUN (7-17) mg/dL Creatinine (0.52-1.04) mg/dL Est GFR (MDRD) Af Amer (>60 ml/min/1.73 sqM) Est GFR (MDRD) Non-Af (>60 ml/min/1.73 sqM) Glucose (74-99) mg/dL POC Glucose (mg/dL) 117 H (75-99) mg/dL POC Glu Tool Clerk ID Josue Mcghee Plasma Lactic Acid Juma (0.7-2.0) mmol/L Calcium (8.4-10.2) mg/dL Total Bilirubin (0.2-1.3) mg/dL AST (14-36) U/L ALT (9-52) U/L Alkaline Phosphatase (38-126) U/L Total Creatine Kinase (30-135) U/L CK-MB (CK-2) (0.0-2.4) ng/mL CK-MB (CK-2) Rel Index Troponin I (0.000-0.034) ng/mL Total Protein (6.3-8.2) g/dL Albumin (3.5-5.0) g/dL Urine Color Urine Appearance (Clear) Urine pH (5.0-8.0) Ur Specific Antimony (1.001-1.035) Urine Protein (Negative) Urine Glucose (UA) (Negative) Urine Ketones (Negative) Urine Blood (Negative) Urine Nitrite (Negative) Urine Bilirubin (Negative) Urine Urobilinogen (<2.0) mg/dL Ur Leukocyte Esterase (Negative) Urine Opiates Screen (NotDetected) Ur Oxycodone Screen (NotDetected) Urine Methadone Screen (NotDetected) Ur Propoxyphene Screen (NotDetected) Ur Barbiturates Screen (NotDetected) U Tricyclic Antidepress (NotDetected) Ur Phencyclidine Scrn (NotDetected) Ur Amphetamines Screen (NotDetected) U Methamphetamines Scrn (NotDetected) U Benzodiazepines Scrn (NotDetected) Urine Cocaine Screen (NotDetected) U Marijuana (THC) Screen (NotDetected) Serum Alcohol mg/dL - EKG Data -: EKG Interpreted by Me EKG shows normal: sinus rhythm, intervals (The QTC is 503 ms, prolonged. IL interval is 148 ms, QRS duration 84 ms, both normal.), QRS complexes (Normal), ST-T waves (Normal) Rate: normal (Rate approximate 78 bpm) Disposition Clinical Impression: Altered mental status Disposition: ADMITTED IP TO THIS HOSP Condition: Poor Instructions: Altered Mental Status (ED) Referrals: None,Stated [Primary Care Provider] - 1-2 days
[2017-01-20 06:49] LABS: Basophils # (A) 0.1 k/uL (0-0.2); Basophils % (A) 1 %; CH 30.1; CHCM 33.8; Eosinophils # (A) 0.3 k/uL (0-0.7); Eosinophils % (A) 2 %; HCT 39.9 % (34.0-46.0); HDW 2.52; HGB 13.1 gm/dL (11.4-16.0); Luc % (Auto) 3; Lymphocytes # (A) 2.3 k/uL (1.0-4.8); Lymphocytes % (A) 20 %; MCH 29.5 pg (25.0-35.0); MCHC 32.9 g/dL (31.0-37.0); Mean Platelet Volume 7.6; Monocytes # (A) 0.7 k/uL (0-1.0); Monocytes % (A) 6 %; Neutrophils # (A) 7.8 k/uL (1.3-7.7); Neutrophils % (A) 68 %; RBC 4.45 m/uL (3.80-5.40); RDW 14.3 % (11.5-15.5); WBC 11.4 k/uL (3.8-10.6)
[2017-01-20] MEDS ORDERED: LORazepam 2 MG/ML INJ IV STA (06:51)
[2017-01-20 06:52] LABS: MCV 89.7 fL (80.0-100.0)
[2017-01-20 06:56] LABS: Appearance,Urine Clear (Clear); Bilirubin,Urine Negative (Negative); Glucose,Urine (UA) Negative (Negative); Ketones,Urine Negative (Negative); Leukocyte Esterase,Urine Negative (Negative); Nitrite,Urine Negative (Negative); Protein,Urine Negative (Negative); UA Billing (MACRO vs. MICRO) CHEM; Urobilinogen,Urine <2.0 mg/dL (<2.0)
[2017-01-20 07:04] LABS: ALT 30 U/L (9-52); AST 26 U/L (14-36); Alcohol <10 mg/dL; Alkaline Phosphatase 80 U/L (38-126); Anion Gap 11 mmol/L; Blood Urea Nitrogen 14 mg/dL (7-17); Calcium 9.9 mg/dL (8.4-10.2); Carbon Dioxide 23 mmol/L (22-30); Chloride 106 mmol/L (98-107); Glucose 107 mg/dL (74-99); Non-African American GFR(MDRD) >60 (>60 ml/min/1.73 sqM); Partial Thromboplastin Time 22.7 sec (22.0-30.0); Potassium 3.7 mmol/L (3.5-5.1); Prothrombin Time 10.5 sec (9.0-12.0); Sodium 140 mmol/L (137-145); Total Bilirubin 0.7 mg/dL (0.2-1.3); Total Protein 7.5 g/dL (6.3-8.2)
[2017-01-20 07:05] LABS: Glucose,Whole Blood 117 mg/dL (75-99)
[2017-01-20 07:09] LABS: Creatine Kinase 44 U/L (30-135)
[2017-01-20 07:22] LABS: Creatine Kinase MB 0.5 ng/mL (0.0-2.4); Troponin I <0.012 ng/mL (0.000-0.034)
[2017-01-20] MEDS ORDERED: NALOXONE 0.4 MG/ML 1 ML VIAL IV PRN (08:02)
--- NOTE | 2017-01-20 08:20 | CT ---
EXAMINATION TYPE: CT brain tristian carmona DATE OF EXAM: 01/20/2017 COMPARISON: 12/23/2016 HISTORY: 66-year-old female confusion, altered mental status and fall CT DLP: 1348.0 mGycm Automated exposure control for dose reduction was used. Technique: Examination of the head was done in axial plane without intravenous contrast. Coronal and sagittal reconstructions performed. CT of the cervical spine was obtained in axial plane without intravenous injection of contrast mater ial. Coronal and sagittal reformatted images were obtained from the axial views for evaluation of f ractures, spinal alignment and canal. FINDINGS: Head: There is no evidence of acute intracranial hemorrhage, acute ischemic changes, mass, mass-effect, or extra-axial fluid collection. There is no effacement of cerebral sulci or basal subarachnoid cister ns. There is no hydrocephalus. There is no midline shift. Andrade-white matter distinction is preserv ed. Mild age-related supratentorial volume loss. Paranasal sinuses and mastoid air cells are well pneumatized. Orbits and globes are intact. Slight ri ghtward nasal septal deviation. Cervical spine: No craniocervical junction and upper body, predental space widening, or prevertebral soft tissue swel ling. No acute fracture of the cervical spine. Alignment is maintained. There are postsurgical changes of C3-C6 ACDF with satisfactory interbody ankylosis. Some posterior osteophytic ridging is present such as posterior to C5 which minimally impresses on th e ventral thecal sac. Uncovertebral joint and facet degenerative changes present at multiple levels. At C2-C3, changes result in moderate left neuroforaminal stenosis. At C5-C6, changes result in moderate bilateral neuroforaminal stenosis. At C6/C7, changes result in mild to moderate bilateral neuroforaminal stenosis. Variable mild neuroforaminal narrowing throughout the remaining levels. Suspect underlying COPD. Sagittal and coronal reformatted images confirm above findings. COMBINED IMPRESSION: 1. No acute intracranial abnormality seen. 2. No acute fracture or malalignment of the cervical spine. Postsurgical changes of C3-C6 ACDF with m oderate spondylotic change as above.
--- NOTE | 2017-01-20 08:55 | XR ---
EXAMINATION TYPE: XR chest 1V portable DATE OF EXAM: 01/20/2017 HISTORY: Shortness of breath. COMPARISON: December 23, 2016 TECHNIQUE: Single view of the chest is submitted. FINDINGS: Demonstrated are scattered senescent parenchymal change. There is persistent left perihilar and basilar infiltrate which may reflect pneumonia. The heart is stable. Hilar and mediastinal structures are within normal limits. Degenerative changes are seen of the dorsal spine. IMPRESSION: 1. There is persistent left perihilar and basilar infiltrate which may reflect pneumonia.
[2017-01-20] MEDS: SODIUM CHLORIDE 0.9% 1,000 ML IV SCH (14:08)
--- NOTE | 2017-01-20 15:48 | P.HPIM ---
History of Present Illness H&P Date: 01/20/17 Chief Complaint: Decreased level of consciousness, altered mental status, encephalopathy, re 66-year-old female [address] Dixon's patient who seen Dr. Ochoa neurology on regular basis known to have history of migraine, chronic pain syndrome. Patient was hospitalized last month with severe altered mental status was diagnosed with encephalopathy and possible side effect medication including Ambien and other. Patient also found to have UTI was treated at the time. Patient was discharged in 24 hours. Patient presented to the emergency department today by EMS because found on the floor with her car has been running for over 6 hours according to the neighbor she is confused had significant altered mental status and had significant decreased level of consciousness at the time. She was not arousable and took 3 hours after she arrived to the emergency room to wake up and have mild slurred speech at the time. Her workup in the emergency room including CAT scan and drug screen came back negative with no finding consistent of infection. Patient will be hospitalized will consult neurology will refer patient for rapid EEG no other testing including Further CAT scan MRI carotid or echo needed at this point and depend on the respond to further management will be decided by neurology. Review of Systems Constitutional: Reports anorexia, Reports chronic pain, Reports daytime sleepiness, Reports fatigue, Reports lethargy, Reports poor appetite, Reports weakness, Denies as per HPI, Denies chills, Denies chronic headaches, Denies fever, Denies malaise, Denies night sweats, Denies sweats, Denies weight gain, Denies weight loss Eyes: bilateral as per HPI Ears: bilateral: decreased hearing Ears, nose, mouth and throat: Reports nasal congestion, Reports sinus pain, Reports sinus pressure, Denies as per HPI, Denies ant. neck pain, Denies bleeding gums, Denies dental pain, Denies dysphagia, Denies epistaxis, Denies headache, Denies hoarseness, Denies mouth pain, Denies nasal discharge, Denies neck fullness/pressure, Denies neck lump, Denies nose pain, Denies odynophagia, Denies post-nasal drip, Denies swelling in mouth, Denies swelling in throat, Denies sore throat, Denies vertigo, Denies voice changes Cardiovascular: Reports high blood pressure, Reports irregular heart beat, Reports orthopnea, Reports palpitations, Denies as per HPI, Denies chest pain, Denies claudication, Denies decreased exercise tolerance, Denies dyspnea on exertion, Denies edema, Denies leg edema, Denies lightheadedness, Denies paroxysmal nocturnal dyspnea, Denies phlebitis, Denies rapid heart beat, Denies shortness of breath, Denies syncope Respiratory: Reports congestion, Reports dyspnea, Denies as per HPI, Denies cough, Denies cough with sputum, Denies excessive sputum, Denies hemoptysis, Denies home oxygen, Denies pain, Denies pain on inspiration, Denies pleurisy, Denies respiratory infections, Denies sleep apnea, Denies snoring, Denies wheezing Gastrointestinal: Reports bloating, Reports constipation, Reports early satiety , Reports indigestion, Reports nausea, Denies as per HPI, Denies abdominal pain , Denies belching, Denies BRBPR, Denies change in bowel habits, Denies coffee ground emesis, Denies diarrhea, Denies dyspepsia, Denies excessive gas, Denies heartburn, Denies hematemesis, Denies hematochezia, Denies jaundice, Denies lactose intolerance, Denies loss of appetite, Denies melena, Denies vomiting Genitourinary: Reports dysuria, Reports stress incontinence, Denies as per HPI, Denies abnormal vaginal bleeding, Denies decreased libido, Denies difficulty conceiving, Denies difficulty voiding, Denies dysmenorrhea, Denies dyspareunia, Denies flank pain, Denies genital sores, Denies hematuria, Denies hot flashes, Denies incomplete emptying, Denies kidney stones, Denies menorrhagia, Denies mixed incontinence, Denies nocturia, Denies pelvic pain, Denies post void dribbling, Denies , Denies prolapse symptoms, Denies urge incontinence, Denies urgency, Denies urinary frequency, Denies vaginal discharge, Denies vaginal dryness, Denies vaginal itching, Denies vaginal odor Menstruation: Denies as per HPI, Denies amenorrhea, Denies amenorrhea on BC, Denies currently menstrual, Denies cycle < 21 days, Denies cycle > 35 days, Denies cycle variable, Denies menses 1-7 days, Denies menses 8 or > days, Denies menses variable, Denies period heavy, Denies period light, Denies period normal, Denies period spotting, Denies post hysterectomy, Denies postmenopausal , Denies premenarcheal Musculoskeletal: Reports arm numbness/tingling, Reports gait dysfunction, Reports low back pain, Reports neck stiffness, Denies as per HPI, Denies atrophy , Denies fractures, Denies frequent falls, Denies hot joints, Denies leg numbness/tingling, Denies limitation of motion, Denies loss of height, Denies morning stiffness, Denies muscle cramps, Denies muscle weakness, Denies myalgias , Denies neck pain, Denies prior amputations, Denies redness of joints, Denies shooting arm pain, Denies shooting leg pain Integumentary: Denies as per HPI, Denies acne, Denies boils, Denies brittle nails, Denies change in hair/nails, Denies color changes, Denies darkening of skin, Denies depigmentation, Denies dryness, Denies foot/leg ulcers, Denies growths, Denies hirsutism, Denies lesions, Denies onychomycosis, Denies pruritus , Denies rash, Denies sores, Denies striae, Denies unusual bruising, Denies wounds Neurological: Reports balance difficulties, Reports confusion, Reports convulsions, Reports gait dysfunction, Reports migraines, Reports numbness, Reports paresthesias, Reports tingling, Reports weakness, Denies as per HPI, Denies aphasia, Denies ataxia, Denies burning pain, Denies change in mentation, Denies change in smell/taste, Denies change in speech, Denies double vision, Denies head injury, Denies headaches, Denies hearing difficulties, Denies lack of coordination, Denies loss of vision, Denies memory loss, Denies motor disturbance, Denies paralysis, Denies seizures, Denies sensory deficit, Denies spasticity, Denies syncope, Denies tic, Denies transient paralysis, Denies tremors, Denies vertigo, Denies visual changes Psychiatric: Reports anhedonia, Reports anxiety, Reports anxiety attacks, Reports depression, Reports disorientation, Reports memory loss, Denies as per HPI, Denies change in appetite, Denies change in libido, Denies change in sleep habits, Denies confusion, Denies difficulty concentrating, Denies hallucinations , Denies hopelessness, Denies hypersomnia, Denies insomnia, Denies irritability , Denies mood swings, Denies paranoia, Denies sadness/tearfulness, Denies sleep disturbances, Denies suicidal ideation Endocrine: Reports cold intolerance, Reports fatigue, Reports nocturia, Denies as per HPI, Denies deepening of the voice, Denies excessive sweating, Denies excessive thirst, Denies flushing, Denies heat intolerance, Denies high blood sugars, Denies increase in ring/shoe/hat size, Denies low blood sugars, Denies palpitations, Denies polydipsia, Denies polyphagia, Denies polyuria, Denies proptosis, Denies recent glucocorticoid use, Denies thyroid mass, Denies weight change Hematologic/Lymphatic: Denies as per HPI, Denies easy bleeding, Denies easy bruising, Denies lymphadenopathy, Denies lymphedema, Denies thrombophilia Allergic/Immunologic: Denies as per HPI, Denies allergic rhinitis, Denies anaphylaxis, Denies angioedema, Denies gluten intolerance, Denies persistent infections, Denies seasonal allergies, Denies urticaria, Denies wheezing Past Medical History Past Medical History: CVA/TIA, GERD/Reflux, GI Bleed, Hyperlipidemia, Hypertension, Pneumonia, Renal Disease Additional Past Medical History / Comment(s): CVA, SVT with ablation, colitis, crohn disease, short gut syndrome, hemorrrhoids, CKD stage II, chronic pain syndrome, lower GI bleed, antral ulcer, gastritis, chronic insomnia, RLS, migraine headaches, History of Any Multi-Drug Resistant Organisms: None Reported Past Surgical History: Adenoidectomy, Appendectomy, Bowel Resection, Cardiac Ablation, Heart Catheterization, Orthopedic Surgery, Tonsillectomy, Uterine Ablation Additional Past Surgical History / Comment(s): ANTERIOR CERVICAL DISKECTOMY AND FUSION with plate, ORIF Rt femur with vineet, bowel resection X3 1959, 1967, 1975, recto- vagina fistula repairs x 3, EGD/colonoscopy/polypectomy, occipital steroid injections, L eye lasik. Past Anesthesia/Blood Transfusion Reactions: No Reported Reaction Smoking Status: Former smoker - Past Family History Mother Family Medical History: Hypertension Father Family Medical History: Neurologic Disorder Medications and Allergies Home Medications Medication Instructions Recorded Confirmed Type Diphenox-Atrop 2.5-0.025 mg 2 tab PO TID PRN 11/09/13 01/20/17 History [Lomotil] SUMAtriptan SUCCINATE [Imitrex] 100 mg PO DAILY PRN 02/25/14 01/20/17 History Baclofen [Lioresal] 20 mg PO TID PRN 10/05/15 01/20/17 History Cholestyramine (with Sugar) 1 packet PO BID 10/05/15 01/20/17 History [Questran Powder] HYDROcodone/APAP 7.5-325MG [[place] 1 tab PO Q8HR PRN 10/05/15 01/20/17 History 7.5-325] Propranolol HCl [Propranolol HCl 160 mg PO DAILY 07/08/16 01/20/17 History ER] DULoxetine HCL [Cymbalta] 60 mg PO DAILY 11/05/16 01/20/17 History rOPINIRole HCL 3 mg PO TID 12/11/16 01/20/17 History Losartan/Hydrochlorothiazide 1 tab PO DAILY 12/24/16 01/20/17 History [Losartan-Hctz 100-12.5 mg Tab] Cyanocobalamin (Vitamin B-12) 500 mcg PO DAILY #30 tab.chew 12/25/16 01/20/17 Rx [Vitamin B12] Melatonin 3 mg PO HS #0 tab 12/25/16 01/20/17 Rx Zolpidem [Ambien] 10 mg PO HS PRN 01/20/17 01/20/17 History Allergies Allergy/AdvReac Type Severity Reaction Status Date / Time ketorolac tromethamine AdvReac Rapid Verified 01/20/17 08:32 [From Toradol] Heart Rate mannitol AdvReac joint pain Verified 01/20/17 08:32 zoledronic acid AdvReac joint pain Verified 01/20/17 08:32 Physical Exam Vitals: Vital Signs Temp Pulse Pulse Resp BP BP Pulse Ox 01/20/17 13:12 92 18 01/20/17 09:57 92 18 01/20/17 09:32 97.5 F L 92 18 121/80 93 L 01/20/17 08:55 97.5 F L 86 20 140/86 96 01/20/17 07:52 83 18 145/91 98 01/20/17 06:59 87 18 140/82 99 01/20/17 06:17 97.3 F L 84 18 150/97 98 Intake and Output 01/20/17 01/20/17 01/20/17 06:59 14:59 22:59 Intake Total 240 Balance 240 Intake: Oral 240 Other: Voiding Method Toilet Weight 66.678 kg 62.5 kg Patient Weight 01/21/17 06:59 Weight 62.5 kg - Constitutional General appearance: no average body habitus, no cooperative, disheveled, no mild distress, no morbidly obese, no acute distress, no obese, no severe distress, thin - EENT Eyes: no abnormal pupil, no anicteric sclerae, no disc margins sharp, no edentulous, no EOMI, no PERRLA, no fundus normal, no photophobia, no dentition normal, no poor dentition, no ptosis, no scleral icterus, normal appearance ENT: no hard of hearing, no hearing grossly normal, no NA/AT, normal oropharynx , no other, pharyngeal erythema, no thrush, no tonsillar exudates, no tonsillar swelling Ears: bilateral: normal - Neck Neck: no lymphadenopathy, normal ROM, no other, no rigidity, no stridor, no thyromegaly Carotids: bilateral: upstroke normal Thyroid: bilateral: normal size - Respiratory Respiratory: bilateral: diminished, dullness - Cardiovascular Rhythm: regular Heart sounds: normal: S1, S2 - Gastrointestinal General gastrointestinal: no absent bowel sounds, no decreased bowel sounds, distended, no hepatomegaly, no hyperactive bowel sounds, no normal bowel sounds , no organomegaly, no rigid, no scaphoid, soft, no splenomegaly, no tenderness, no umbilical hernia, no ventral hernia - Integumentary Integumentary: no calor, no cellulitis, no cyanotic, no decreased turgor, no flushed, no jaundiced, normal, no normal turgor, pale, no rash, no ulcer - Musculoskeletal Musculoskeletal: no gait normal, no generalized weakness, no strength equal bilaterally, no right sided weakness, no left sided weakness - Psychiatric Psychiatric: no A&O x's 3, no appropriate affect, no intact judgment & insight Results CBC & Chem 7: 01/20/17 06:40 01/20/17 06:40 Labs: Abnormal Lab Results - Last 24 Hours (Table) 01/20/17 01/20/17 01/20/17 Range/Units 06:40 06:40 07:03 WBC 11.4 H (3.8-10.6) k/uL Neutrophils # 7.8 H (1.3-7.7) k/uL Glucose 107 H (74-99) mg/dL POC Glucose (mg/dL) 117 H (75-99) mg/dL Thrombosis Risk Factor Assmnt - Choose All That Apply Any of the Below Risk Factors Present?: No Other Risk Factors: Yes Each Risk Factor Represents 2 Points: Age 61-74 years Thrombosis Risk Factor Assessment Total Risk Factor Score: 2 Thrombosis Risk Factor Assessment Level: Low Risk Assessment and Plan Plan: 1 severe altered mental status with decreased level of consciousness: From reviewing everything this is my opinion side effect medication including the large dose of baclofen she is on and the Requip she is taking regularly for restless leg and if this is happening every few weeks according to her mom was on the bedside during the exam when patient was more awake at this point this is most likely reaction and side effect to the medication. With the recurrent episode as well even from the last admission patient was supposed to have an EEG which supposed to be done this time if she had any sign of atypical seizures post to be treated. 2 severe encephalopathy: From last time and this time was infection and chemical related mostly medication try to treat underlying disease. 3 psychosis and recurrent depression has been treated and sees psychiatry on regular basis patient has been on Cymbalta continue medication. 4 severe recurrent migraine apparently has been on Imitrex and hydrocodone will hold both for now. 5 history of Crohn disease and recurrent diarrhea has been on Lomotil. 6 hypertension: Patient is doing very well on Hyzaar 100/12.5 g half tablet daily. Along with propranolol ER 160 mg daily. 7 severe restless leg syndrome: Has been on very high dose of Requip 3 mg 3 times a day will hold medication for now may be patient can benefit from longer term smaller dose of gabapentin or other medication or at least to reduce the Requip dose to 2 mg twice a day or 1 mg 3 times a day only and try not to go higher than 5 mg in 24 hours. 8 possible atypical seizure: With her current symptoms, EEG will be done if patient result is positive she'll be on antiepileptic medication. 9 chronic pain syndrome: With take her off hydrocodone to the patient is more awake. 10 GI prophylaxis: Patient be on Pepcid 20 mg daily. 11 DVT prophylaxis: Patient will be on heparin 5000 units subcutaneous in his twice a day. CODE STATUS: Full code Expectation from this admission: Patient in the hospital for 1-2 nights.
[2017-01-20] MEDS: FAMOTIDINE 20 MG TAB PO SCH ×2 (16:19→20:22)
--- NOTE | 2017-01-20 17:42 | EEG ---
ELECTROENCEPHALOGRAM REPORT DATE OF EE01/20/2017. REFERRING PHYSICIAN: Dr. Sagastume. INTERPRETING PHYSICIAN: Dr. Noemi Escudero MD PROCEDURE PERFORMED: Electroencephalographic examination INDICATION FOR EXAMINATION: This patient is a 66-year-old female being evaluated for altered mental status. AGE: [age]. EEG FINDINGS: A routine 21 channel awake digital EEG recording was accomplished utilizing the 10-20 international system with bipolar and referential montages. The background activity in the most alert resting state consists of a low to medium amplitude, fairly well- developed well sustained 7-8 Hz activity over the posterior head regions. This posterior rhythm attenuates to eye opening. There is a small amount of low amplitude 18-22 Hz beta activity seen maximally over the anterior head regions. Muscle and movement artifact was observed on a few occasions during the tracing. Hyperventilation was not performed. Photic stimulation at flash frequencies of 2-30 Hz produced a minimal occipital driving response. No epileptiform discharges were seen. IMPRESSION: This EEG is within normal limits for the patient's age. The EEG failed to reveal any focal, lateralized or epileptiform abnormalities. Clinical correlation is recommended. MMODL / IJN: [id number] /
--- NOTE | 2017-01-20 18:59 | P.CNNES ---
History of Present Illness Consult date: 01/20/17 Reason for Consult: Patient being evaluated for altered mental status. History of Present Illness: This patient is a 66-year-old right-handed white female who apparently was found by a neighbor collapsed on his driveway. The neighbor immediately called EMS who arrived early this morning to his home. Apparently the police were notified of this patient being found on the driveway. On further questioning apparently she remembers going to bed at about 8:30 PM yesterday evening. She has no recollection as to how she ended up on her neighbor's driveway. There was concern she may have had episode of sleepwalking. She apparently was also noted yesterday evening by next-door neighbor as having her car running indefinitely for more than 2 hours. This was notified to the patient's mother. This morning the mother called the home and found that the patient was not there. She apparently called 911 who alerted the police as well. The patient was taken by EMS to the emergency room at [facility] for further evaluation. She was seen in the ER by Dr. Suarez. She was sent for a computed tomography scan of the brain and cervical spine. CAT scan of the brain revealed no acute intracranial abnormality. CAT scan of the cervical spine revealed postsurgical changes at C3-C6 levels due to anterior fusion. There was moderate spondylitic changes noted. No acute stroke or hemorrhage was identified on the CAT scan of the brain. Patient states that she did undergo cervical spine fusion surgery in [address] Cervantes. This has remained stable. She apparently did undergo a sleep study in 2010 which she reports was normal. She states recently she has had 2 episodes of sleepwalking one that occurred in early December and then the episode that recently brought her to the emergency room. She has not been evaluated for any type of parasomnia. She is being treated for migraine headaches and chronic pain by Dr. Ochoa. She is on various medications for this condition. She also has restless leg syndrome for which she has been taking Requip 3 mg 3 times a day. This seems to be a very high dose of Requip for the patient. She states due to insurance reason she had to switch to this particular dosage. We have recommended that the Requip be placed on hold at this time. The patient apparently on initial presentation to the observation floor was very obtunded and hard to arouse. This evening she is awake and alert and is able to answer questions fairly well. She states she was planning to fly to [place] this morning to visit her grandchildren. Due to this hospitalization her trip has been canceled. The patient does have history of underlying depression and psychosis. She has been treated by psychiatry for this condition. She is currently on Cymbalta for treatment. The patient was recently seen in neurology consultation back on 12/23/2016 for episode of acute encephalopathy. This was felt to be secondary to her use of Ambien. Due to her repeated episodes of confusion and disorientation a stat EEG was ordered this morning to rule out complex partial status epilepticus. Patient underwent routine EEG testing this morning which was reviewed and interpreted. Her EEG is normal for age with no evidence of any epileptiform discharges. The patient's clinical history at this time suggest panic attacks. We would recommend a psychiatry consultation for this patient. We will continue close neurological follow-up with this patient during this admission. Her overall prognosis at this time remains very guarded. Review of Systems Constitutional: Denies chills, Denies fever Eyes: denies blurred vision, denies pain Ears, nose, mouth and throat: Denies headache, Denies sore throat Cardiovascular: Denies chest pain, Denies shortness of breath Respiratory: Denies cough Gastrointestinal: Denies abdominal pain, Denies diarrhea, Denies nausea, Denies vomiting Genitourinary: Denies dysuria, Denies hematuria Musculoskeletal: Denies myalgias Integumentary: Denies pruritus, Denies rash Neurological: Reports change in mentation, Reports confusion, Reports memory loss, Denies numbness, Denies weakness Psychiatric: Denies anxiety, Denies depression Endocrine: Denies fatigue, Denies weight change Past Medical History Past Medical History: CVA/TIA, GERD/Reflux, GI Bleed, Hyperlipidemia, Hypertension, Pneumonia, Renal Disease Additional Past Medical History / Comment(s): CVA, SVT with ablation, colitis, crohn disease, short gut syndrome, hemorrrhoids, CKD stage II, chronic pain syndrome, lower GI bleed, antral ulcer, gastritis, chronic insomnia, RLS, migraine headaches, History of Any Multi-Drug Resistant Organisms: None Reported Past Surgical History: Adenoidectomy, Appendectomy, Bowel Resection, Cardiac Ablation, Heart Catheterization, Orthopedic Surgery, Tonsillectomy, Uterine Ablation Additional Past Surgical History / Comment(s): ANTERIOR CERVICAL DISKECTOMY AND FUSION with plate, ORIF Rt femur with vineet, bowel resection X3 1960, 1967, 1975, recto- vagina fistula repairs x 3, EGD/colonoscopy/polypectomy, occipital steroid injections, L eye lasik. Past Anesthesia/Blood Transfusion Reactions: No Reported Reaction Smoking Status: Former smoker - Past Family History Mother Family Medical History: Hypertension Father Family Medical History: Neurologic Disorder Medications and Allergies Home Medications Medication Instructions Recorded Confirmed Type Diphenox-Atrop 2.5-0.025 mg 2 tab PO TID PRN 11/09/13 01/20/17 History [Lomotil] SUMAtriptan SUCCINATE [Imitrex] 100 mg PO DAILY PRN 02/25/14 01/20/17 History Baclofen [Lioresal] 20 mg PO TID PRN 10/05/15 01/20/17 History Cholestyramine (with Sugar) 1 packet PO BID 10/05/15 01/20/17 History [Questran Powder] HYDROcodone/APAP 7.5-325MG [[place] 1 tab PO Q8HR PRN 10/05/15 01/20/17 History 7.5-325] Propranolol HCl [Propranolol HCl 160 mg PO DAILY 07/08/16 01/20/17 History ER] DULoxetine HCL [Cymbalta] 60 mg PO DAILY 11/05/16 01/20/17 History rOPINIRole HCL 3 mg PO TID 12/11/16 01/20/17 History Losartan/Hydrochlorothiazide 1 tab PO DAILY 12/24/16 01/20/17 History [Losartan-Hctz 100-12.5 mg Tab] Cyanocobalamin (Vitamin B-12) 500 mcg PO DAILY #30 tab.chew 12/25/16 01/20/17 Rx [Vitamin B12] Melatonin 3 mg PO HS #0 tab 12/25/16 01/20/17 Rx Zolpidem [Ambien] 10 mg PO HS PRN 01/20/17 01/20/17 History Allergies Allergy/AdvReac Type Severity Reaction Status Date / Time ketorolac tromethamine AdvReac Rapid Verified 01/20/17 08:32 [From Toradol] Heart Rate mannitol AdvReac joint pain Verified 01/20/17 08:32 zoledronic acid AdvReac joint pain Verified 01/20/17 08:32 Physical Examination - Vital Signs Vital Signs: Vital Signs Temp Pulse Pulse Resp BP BP Pulse Ox 01/20/17 13:12 92 18 01/20/17 09:57 92 18 01/20/17 09:32 97.5 F L 92 18 121/80 93 L 01/20/17 08:55 97.5 F L 86 20 140/86 96 01/20/17 07:52 83 18 145/91 98 01/20/17 06:59 87 18 140/82 99 01/20/17 06:17 97.3 F L 84 18 150/97 98 Intake and Output 01/20/17 01/20/17 01/20/17 06:59 14:59 22:59 Intake Total 240 Balance 240 Intake: Oral 240 Other: Voiding Method Toilet Weight 66.678 kg 62.5 kg Patient Weight 01/21/17 06:59 Weight 62.5 kg - Constitutional General appearance: average body habitus, cooperative - EENT EENT: PERRL, mucous membranes moist - Respiratory Respiratory: lungs clear, normal breath sounds - Cardiovascular Cardiovascular: regular rate, normal S1, normal S2 Extremities: no peripheral edema bilaterally - Gastrointestinal Gastrointestinal: normoactive bowel sounds - Integumentary Integumentary: normal - Neurologic Cranial nerve examination: PERRL, EOMI, VFF, V1/V2/V3 grossly intact, face symmetric, tongue midline, intact gag reflex, intact corneal reflex, normal palatal elevation Speech examination: intact Sensorimotor examination: intact Motor examination - right side: 4/5: biceps, triceps, wrist flexion, wrist extension, mental health associate, hip flexors, knee extensors, dorsiflexion, toe extension (EHL) , plantarflexion Motor examination - left side: 4/5: biceps, triceps, wrist flexion, wrist extension, mental health associate, hip flexors, knee extensors, dorsiflexion, toe extension (EHL) , plantarflexion Detailed sensory examination: intact Reflex and gait examination: intact Reflexes: 1+: ankle, bicep, knee, tricep - Musculoskeletal Musculoskeletal: no pain - Psychiatric Psychiatric: mood/affect appropriate, cooperative Results - Laboratory Findings CBC and BMP: 01/20/17 06:40 01/20/17 06:40 Abnormal Lab Findings: Abnormal Labs 01/20/17 01/20/17 01/20/17 06:40 06:40 07:03 WBC 11.4 H Neutrophils # 7.8 H Glucose 107 H POC Glucose (mg/dL) 117 H Assessment and Plan (1) Acute encephalopathy Status: Acute Code(s): G93.40 - ENCEPHALOPATHY, UNSPECIFIED (2) Parasomnia Status: Acute Code(s): G47.50 - PARASOMNIA, UNSPECIFIED (3) Chronic pain syndrome Status: Acute Code(s): G89.4 - CHRONIC PAIN SYNDROME (4) Severe major depression with psychotic features Status: Acute Code(s): F32.3 - MAJOR DEPRESSV DISORD, SINGLE EPSD, SEVERE W PSYCH FEATURES Plan: This patient is a 66-year-old female who was been admitted today to the hospital with symptoms of acute confusion and possible sudden Abele is some. Patient has had 2 episodes where she has been found outside of her normal environment with confusion and disorientation. Patient apparently early this morning was found on the [employer] driveway. EMS was called and had notified the police. Apparently she had walks several houses away and was found on the [employer] driveway. She was brought by EMS to the emergency room for further evaluation. She was very obtunded when initially evaluated in the ER. She was hard to arouse. It was felt she may have had some form of a drug reaction. She was recently admitted to Hospital on 12/23/2016 with similar episode of confusion and possible drug overdose with Jenifer. Patient also has been noted to be taking very high dose of Requip 3 mg 3 times a day which has been placed on hold at this time. Her current clinical findings suggest possibility of acute encephalopathy secondary to drug use. We would recommend a place or Requip on hold at this time. If absolutely needed she would be restarted on very low-dose Requip on a twice a day dose schedule. She underwent a computed tomography scan of the brain and cervical spine results which are noted above. There is no evidence of any acute finding. Gender went a stat EEG this morning which was reviewed and is normal for her age. There is no evidence of status epilepticus in this patient. The patient's clinical history at this time is suggesting possibility of panic disorder. She was scheduled to take a flight to [place] this morning to visit with her grandchildren. Apparently she had some form of anxiety and possible panic attack which may have causes episode. We will continue close neurological follow-up for this patient during this admission. Overall prognosis at this time remains very guarded. Time with Patient: Greater than 30
[2017-01-20] MEDS: CHOLESTYRAMINE (WITH SUGAR) 4 GM PACKET PO SCH (20:22)
[2017-01-20] MEDS: DIPHENOX-ATROP 2.5-0.025 MG 1 EACH TAB PO PRN (20:23)
[2017-01-20] MEDS ORDERED: MELATONIN 3 MG TABLET PO SCH (21:00)
[2017-01-21 07:46] VITALS: BP 109/70; PULSE 84; RESP 16; TEMP 98.1
[2017-01-21] MEDS: FAMOTIDINE 20 MG TAB PO SCH (08:23)
[2017-01-21] MEDS: CHOLESTYRAMINE (WITH SUGAR) 4 GM PACKET PO SCH (08:23)
[2017-01-21] MEDS: SODIUM CHLORIDE 0.9% 1,000 ML IV SCH (08:24)
[2017-01-21] MEDS: DIPHENOX-ATROP 2.5-0.025 MG 1 EACH TAB PO PRN (08:26)
[2017-01-21] MEDS ORDERED: CYANOCOBALAMIN 500 MCG TAB PO SCH (09:00)
[2017-01-21] MEDS ORDERED: LOSARTAN 50 MG TAB PO SCH (09:00)
[2017-01-21] MEDS ORDERED: DULoxetine HCL 60 MG CAPSULE.DR PO SCH (09:00)
[2017-01-21] MEDS ORDERED: HYDROCHLOROTHIAZIDE 12.5 MG CAP PO SCH (09:00)
[2017-01-21] MEDS ORDERED: PROPRANOLOL LA 80 MG CAP.SA.24H PO SCH (09:00)
--- NOTE | 2017-01-21 11:03 | P.DS ---
Providers Date of admission: 01/20/17 08:02 Expected date of discharge: 01/21/17 Attending physician: Kasey Sagastume Consults: 01/20/17 08:04 Consult Physician Routine Consulting Provider: Noemi Escudero Consult Reason/Comments: altered mental status Do you want consulting provider notified?: Yes 01/21/17 08:00 Consult Physician Urgent Consulting Provider: Brielle Suresh Consult Reason/Comments: Major depression and panic attacks. Do you want consulting provider notified?: Yes Primary care physician: Stated None Hospital Course: 66-year-old female one of Dr. Dixon's patient who seen Dr. Ochoa neurology on regular basis known to have history of migraine, chronic pain syndrome. Patient was hospitalized last month with severe altered mental status was diagnosed with encephalopathy and possible side effect medication including Ambien and other. Patient also found to have UTI was treated at the time. Patient was discharged in 24 hours. Patient presented to the emergency department today by EMS because found on the floor with her car has been running for over 6 hours according to the neighbor she is confused had significant altered mental status and had significant decreased level of consciousness at the time. She was not arousable and took 3 hours after she arrived to the emergency room to wake up and have mild slurred speech at the time. Her workup in the emergency room including CAT scan and drug screen came back negative with no finding consistent of infection. Patient will be hospitalized will consult neurology will refer patient for rapid EEG no other testing including further CAT scan MRI carotid or echo needed at this point and depend on the respond to further management will be decided by neurology. 01/21: Patient had EEG that was normal. She was consulted by neurology who feels her altered mental status was due to acute encephalopathy secondary to drug use of Requip, Ambien, and baclofen. CT of the brain and cervical spine showed no evidence for any acute findings. Urine drug screen was negative. Patients mental status has returned to baseline. Her dose of Requip was decreased to 1 mg twice a day, Baclofen and Ambien were discontinued. Discharge diagnoses 1 altered mental status 2 encephalopathy 3 psychosis and recurrent depression 4 recurrent migraine 5 history of Crohn disease 6 hypertension 7 restless leg syndrome 8 chronic pain syndrome The above impression and plan of care have been discussed and directed by signing physician. Meryl Quintero nurse practitioner acting as scribe for signing physician. Patient Condition at Discharge: Stable Plan - Discharge Summary New Discharge Prescriptions: New Famotidine [Pepcid] 20 mg PO BID tab Continue Diphenox-Atrop 2.5-0.025 mg [Lomotil] 2 tab PO TID PRN PRN Reason: Diarrhea SUMAtriptan SUCCINATE [Imitrex] 100 mg PO DAILY PRN PRN Reason: MIGRAINES HYDROcodone/APAP 7.5-325MG [[place] 7.5-325] 1 tab PO Q8HR PRN PRN Reason: Pain Cholestyramine (with Sugar) [Questran Powder] 1 packet PO BID Propranolol HCl [Propranolol HCl ER] 160 mg PO DAILY DULoxetine HCL [Cymbalta] 60 mg PO DAILY Losartan/Hydrochlorothiazide [Losartan-Hctz 100-12.5 mg Tab] 1 tab PO DAILY Melatonin 3 mg PO HS #0 tab Cyanocobalamin (Vitamin B-12) [Vitamin B12] 500 mcg PO DAILY #30 tab.chew Changed rOPINIRole HCL 1 mg PO BID #0 Discontinued Baclofen [Lioresal] 20 mg PO TID PRN PRN Reason: Muscle Spasm Zolpidem [Ambien] 10 mg PO HS PRN PRN Reason: Insomnia Discharge Medication List Diphenox-Atrop 2.5-0.025 mg [Lomotil] 2 tab PO TID PRN 11/09/13 [History] SUMAtriptan SUCCINATE [Imitrex] 100 mg PO DAILY PRN 02/25/14 [History] Cholestyramine (with Sugar) [Questran Powder] 1 packet PO BID 10/05/15 [History] HYDROcodone/APAP 7.5-325MG [[place] 7.5-325] 1 tab PO Q8HR PRN 10/05/15 [History] Propranolol HCl [Propranolol HCl ER] 160 mg PO DAILY 07/08/16 [History] DULoxetine HCL [Cymbalta] 60 mg PO DAILY 11/05/16 [History] Losartan/Hydrochlorothiazide [Losartan-Hctz 100-12.5 mg Tab] 1 tab PO DAILY [History] Cyanocobalamin (Vitamin B-12) [Vitamin B12] 500 mcg PO DAILY #30 tab.chew [Rx] Melatonin 3 mg PO HS #0 tab 12/25/16 [Rx] Famotidine [Pepcid] 20 mg PO BID tab 01/21/17 [Rx] rOPINIRole HCL 1 mg PO BID #0 01/21/17 [Rx] Follow up Appointment(s)/Referral(s): Matthias Dixon MD [STAFF PHYSICIAN] - 1 Week Silvio Ochoa DO [STAFF PHYSICIAN] - 1 Week Patient Instructions/Handouts: Altered Mental Status (ED) Discharge Disposition: HOME SELF-CARE
== END 2017-01-21 10:36 | disposition home or self-care (01) ==
LOC: EC 06:14 → 3OBS 08:02
PROVIDERS: ADMIT Family Medicine; ATTEND Family Medicine
DX: G92 Toxic encephalopathy (principal); G43.909 Migraine, unspecified, not intractable, without status migrainosus; G89.4 Chronic pain syndrome; G25.81 Restless legs syndrome; K50.90 Crohn's disease, unspecified, without complications; N18.2 Chronic kidney disease, stage 2 (mild); I12.9 Hypertensive chronic kidney disease with stage 1 through stage 4 chronic kidney disease, or unspecified chronic kidney disease; F33.3 Major depressive disorder, recurrent, severe with psychotic symptoms; K21.9 Gastro-esophageal reflux disease without esophagitis; E78.5 Hyperlipidemia, unspecified; F41.0 Panic disorder [episodic paroxysmal anxiety]; T42.8X5A Adverse effect of antiparkinsonism drugs and other central muscle-tone depressants, initial encounter; T42.6X5A Adverse effect of other antiepileptic and sedative-hypnotic drugs, initial encounter; K91.2 Postsurgical malabsorption, not elsewhere classified; G47.50 Parasomnia, unspecified; F51.3 Sleepwalking [somnambulism]; Z87.11 Personal history of peptic ulcer disease; Z79.899 Other long term (current) drug therapy; Z88.5 Allergy status to narcotic agent; Z88.8 Allergy status to other drugs, medicaments and biological substances; Z86.73 Personal history of transient ischemic attack (TIA), and cerebral infarction without residual deficits; Z82.49 Family history of ischemic heart disease and other diseases of the circulatory system; Z98.1 Arthrodesis status; Z87.891 Personal history of nicotine dependence
CPT/HCPCS: 96374; 99285; 36415; 95819; 93005; 80053; 82140; 82550; 82553; 83605; 84484; 85025; 85610; 85730; 81003; 87040; 80306; 80320; 71010; 72125; 70450; G0378 ×2; J2060

== ENCOUNTER → 2017-05-06 | Outpatient (CLI) | payer MEDICARE ==
--- NOTE | 2017-05-07 12:03 | MM ---
Reason for exam: screening (asymptomatic). History: Patient is postmenopausal. Family history of breast cancer in cousin. Physical Findings: A clinical breast exam by your physician is recommended on an annual basis and results should be correlated with mammographic findings. MG 3D Screening Mammo W/Cad Bilateral CC and MLO view(s) were taken. No prior studies available for comparison. The breast tissue is heterogeneously dense. This may lower the sensitivity of mammography. Developing asymmetry left MLO view () axilla. Focal asymmetry 7mm right posterior outer aspect. ASSESSMENT: Incomplete: need additional imaging evaluation, BI-RAD 0 RECOMMENDATION: Special view mammogram of both breasts. If lesion persists on supplemental views, image directed ultrasound is recommended. [facility] will attempt to contact patient to return for supplemental views and ultrasound if indicated.
== END | disposition home or self-care (01) ==
LOC: RADMAMWWP 09:52
PROVIDERS: ATTEND Internal Medicine
DX: Z12.31 Encounter for screening mammogram for malignant neoplasm of breast (principal)
CPT/HCPCS: 77063; G0202

== ENCOUNTER → 2017-05-19 | Outpatient (CLI) | payer MEDICARE ==
--- NOTE | 2017-05-19 10:05 | MM ---
Reason for exam: additional evaluation requested from abnormal screening. Last mammogram was performed less than 1 month ago. History: Patient is postmenopausal. Family history of breast cancer in cousin. Physical Findings: Nurse did not find any significant physical abnormalities on exam. MG 3D Work Up W/Cad AKIN Bilateral LM view(s) were taken. Spot compression CC view(s) were taken of the right breast. Spot compression MLO view(s) were taken of the left breast. Prior study comparison: May 06, 2017, bilateral MG 3d screening mammo w/cad. The is a nodule upper outer quadrant of the right breast 6.7cm from nipple. Ultrasound is recommended. Left breast is negative. These results were verbally communicated with the patient and result sheet given to the patient on 05/19/17. ASSESSMENT: Incomplete: need additional imaging evaluation, BI-RAD 0 Incomplete: need additional imaging evaluation, BI-RAD 0 of the right breast. Left breast is negative, BI-RAD 1. RECOMMENDATION: Ultrasound of the right breast.
--- NOTE | 2017-05-19 10:09 | USB ---
Reason for exam: additional evaluation requested from abnormal screening. History: Patient is postmenopausal. Family history of breast cancer in cousin. US Breast Workup Limited RT Right breast ultrasound demonstrates a 0.4 x 0.3 x 0.4mm oval, solid lymph node at 10 o'clock and a 0.6 x 0.3 x 0.5mm oval, mixed, hypoechoic lesion at 11 o'clock. These results were verbally communicated with the patient and result sheet given to the patient on 05/19/17. ASSESSMENT: Benign, BI-RAD 2 RECOMMENDATION: Routine screening mammogram of both breasts in 1 year.
== END | disposition home or self-care (01) ==
LOC: RADMAMWWP 08:52
PROVIDERS: ATTEND Internal Medicine
DX: R92.8 Other abnormal and inconclusive findings on diagnostic imaging of breast (principal)
CPT/HCPCS: 77066; 76642; G0279

== ENCOUNTER 2017-08-01 13:05 | Emergency (ER) | payer MEDICARE ==
[2017-08-01 13:44] VITALS: RESP 18
[2017-08-01] MEDS ORDERED: SODIUM CHLORIDE 0.9% 1,000 ML IV STA (14:29)
[2017-08-01] MEDS ORDERED: METOCLOPRAMIDE 5 MG/ML 2 ML VIAL IVP STA (14:29)
[2017-08-01] MEDS ORDERED: diphenhydrAMINE 50 MG/ML 1 ML VIAL IVP STA (14:29)
[2017-08-01] MEDS ORDERED: DIAZEPAM 5 MG/ML 2 ML INJ IVP STA (14:30)
[2017-08-01] MEDS ORDERED: MORPHINE SULFATE/PF 10MG/10ML VL IVP STA (14:30)
[2017-08-01] MEDS ORDERED: methylPREDNISolone SOD SUCCI 250 MG in SODIUM CHLORIDE 0.9% 100 ML IVPB STA (14:32)
--- NOTE | 2017-08-01 14:34 | ED ---
General Adult HPI - General Chief complaint: Headache Stated complaint: migraine Time Seen by Provider: 08/01/17 14:21 Source: patient, RN notes reviewed, old records reviewed Mode of arrival: ambulatory Limitations: no limitations - History of Present Illness Initial comments: This is a 67-year-old female the ER today. Patient presents for evaluation of migraine, headache. Patient has history of migraines, patient take Imitrex at home with no help. Patient has no hospital visits she says the last 2 years for similar headaches. Patient denies they emotional trauma. States ALLERGY to Toradol. Denies trauma no fever. Patient's migraine is similar to her normal headaches. Patient states symptoms since have been episodic - Related Data Home Medications Medication Instructions Recorded Confirmed Diphenox-Atrop 2.5-0.025 mg 2 tab PO TID PRN 11/09/13 08/01/17 [Lomotil] SUMAtriptan SUCCINATE [Imitrex] 100 mg PO DAILY PRN 02/25/14 08/01/17 Cholestyramine (with Sugar) 4 gm PO DAILY 10/05/15 08/01/17 [Questran Powder] Losartan/Hydrochlorothiazide 0.5 tab PO DAILY 12/24/16 08/01/17 [Losartan-Hctz 100-12.5 mg Tab] Aspirin [Adult Low Dose Aspirin EC] 81 mg PO DAILY 08/01/17 08/01/17 Cholecalciferol [Vitamin D3] 1,000 unit PO DAILY 08/01/17 08/01/17 Cyanocobalamin (Vitamin B-12) 1,000 mcg PO DAILY 08/01/17 08/01/17 [Vitamin B-12] Glucosamine-Chondr 500-400Mg 1 tab PO DAILY 08/01/17 08/01/17 Multivitamins, Thera [Multivitamin 1 tab PO DAILY 08/01/17 08/01/17 (formulary)] Potassium 99 mg PO DAILY 08/01/17 08/01/17 Allergies Allergy/AdvReac Type Severity Reaction Status Date / Time ketorolac tromethamine AdvReac Rapid Verified 08/01/17 14:31 [From Toradol] Heart Rate mannitol AdvReac joint pain Verified 08/01/17 14:31 zoledronic acid AdvReac joint pain Verified 08/01/17 14:31 Review of Systems ROS Statement: Those systems with pertinent positive or pertinent negative responses have been documented in the HPI. ROS Other: All systems not noted in ROS Statement are negative. Past Medical History Past Medical History: CVA/TIA, GERD/Reflux, GI Bleed, Hyperlipidemia, Hypertension, Pneumonia, Renal Disease Additional Past Medical History / Comment(s): CVA, SVT with ablation, colitis, crohn disease, short gut syndrome, hemorrrhoids, CKD stage II, chronic pain syndrome, lower GI bleed, antral ulcer, gastritis, chronic insomnia, RLS, migraine headaches, History of Any Multi-Drug Resistant Organisms: None Reported Past Surgical History: Adenoidectomy, Appendectomy, Bowel Resection, Cardiac Ablation, Heart Catheterization, Orthopedic Surgery, Tonsillectomy, Uterine Ablation Additional Past Surgical History / Comment(s): ANTERIOR CERVICAL DISKECTOMY AND FUSION with plate, ORIF Rt femur with vineet, bowel resection X3 1959, 1967, 1975, recto- vagina fistula repairs x 3, EGD/colonoscopy/polypectomy, occipital steroid injections, L eye lasik. Past Anesthesia/Blood Transfusion Reactions: No Reported Reaction Past Psychological History: No Psychological Hx Reported Smoking Status: Former smoker Past Alcohol Use History: None Reported Past Drug Use History: None Reported - Past Family History Mother Family Medical History: Hypertension Father Family Medical History: Neurologic Disorder General Exam Limitations: no limitations General appearance: alert, in no apparent distress Head exam: Present: atraumatic, normocephalic, normal inspection Eye exam: Present: normal appearance, PERRL, EOMI. Absent: scleral icterus, conjunctival injection, periorbital swelling ENT exam: Present: normal exam, mucous membranes moist Neck exam: Present: normal inspection. Absent: tenderness, meningismus, lymphadenopathy Respiratory exam: Present: normal lung sounds bilaterally. Absent: respiratory distress, wheezes, rales, rhonchi, stridor Cardiovascular Exam: Present: normal rhythm, tachycardia, normal heart sounds. Absent: systolic murmur, diastolic murmur, rubs, gallop, clicks GI/Abdominal exam: Present: soft, normal bowel sounds. Absent: distended, tenderness, guarding, rebound, rigid Extremities exam: Present: normal inspection, full ROM, normal capillary refill. Absent: tenderness, pedal edema, joint swelling, calf tenderness Back exam: Present: normal inspection Neurological exam: Present: alert, oriented X3, CN II-XII intact Psychiatric exam: Present: normal affect, normal mood Skin exam: Present: warm, dry, intact, normal color. Absent: rash Course Vital Signs 08/01/17 08/01/17 13:41 15:09 Temperature 99.9 F H Pulse Rate 127 H 115 H Respiratory 18 18 Rate Blood Pressure 138/93 154/82 O2 Sat by Pulse 97 95 Oximetry Medical Decision Making - Medical Decision Making 67 female the ER for evaluation of migraine history of migraines, states migraine is exactly similar to prior migraines. Headache now resolved. Patient discharged home Disposition Clinical Impression: Migraine, Headache Disposition: HOME SELF-CARE Condition: Good Instructions: Acute Headache (ED) Referrals: Matthias Dixon MD [Primary Care Provider] - 1-2 days
[2017-08-01 16:32] VITALS: BP 137/75; PULSE 87; TEMP 97.4
== END 2017-08-01 16:34 | disposition home or self-care (01) ==
LOC: EC 13:05
DX: G43.909 Migraine, unspecified, not intractable, without status migrainosus (principal); I12.9 Hypertensive chronic kidney disease with stage 1 through stage 4 chronic kidney disease, or unspecified chronic kidney disease; N18.2 Chronic kidney disease, stage 2 (mild); Z86.73 Personal history of transient ischemic attack (TIA), and cerebral infarction without residual deficits; Z87.891 Personal history of nicotine dependence; Z79.82 Long term (current) use of aspirin; Z79.899 Other long term (current) drug therapy; Z88.6 Allergy status to analgesic agent; Z88.8 Allergy status to other drugs, medicaments and biological substances
CPT/HCPCS: 93005; 99284; 96365; 96375 ×4; J1200; J2765; J2930; J3360; J2270

== ENCOUNTER 2018-02-26 12:45 | Emergency (ER) | payer MEDICARE ==
[2018-02-26] MEDS ORDERED: METOCLOPRAMIDE 5 MG/ML 2 ML VIAL IVP STA (13:23)
[2018-02-26] MEDS ORDERED: MORPHINE SULFATE 2 MG/ML SYRINGE IVP STA (13:24)
[2018-02-26] MEDS ORDERED: diphenhydrAMINE 50 MG/ML 1 ML VIAL IVP STA (13:25)
[2018-02-26] MEDS ORDERED: SODIUM CHLORIDE 0.9% 1,000 ML IV ONE (13:25)
[2018-02-26] MEDS ORDERED: DIAZEPAM 5 MG/ML 2 ML INJ IVP STA (13:25)
--- NOTE | 2018-02-26 14:50 | ED ---
Headache HPI - General Chief Complaint: Headache Stated Complaint: headache Mode of arrival: ambulatory Limitations: no limitations - History of Present Illness Initial Comments: 67-year-old female past medical history of chronic migraines presents today for chief complaint migraine. Patient states she is experiencing her typical migraines, she states she gets them often, they last anywhere from 1 hour to 10 days. Patient states that this migraine has been occurring since . She describes it as a throbbing pain that began with neck tension as her migraines usually do. Patient states the plan spans from the occiptal area to the frontal. Patient describes it as throbbing, pt does have visual changes including flashes of light, she states that this happens with migraines. Patient denies history of brain aneurysm and has had previous CTA. Pt admits to nausea and vomiting that she states also occurs with her migraines. Pt denies facial assymetry, upper or extremity weakness, any paresthesias, or sensation changes. Pt states she would like "the migraine cocktail she had last time" she stated it helped abort her migraine. Pt did attempt to take her imitrex for migraine relief however has not had success. Patient denies any recent fever, chills, shortness of breath, chest pain, back pain, abdominal pain, numbness or tingling, dysuria or hematuria, constipation or diarrhea, or any other complaints. Upon arrival pt appears well. VS within acceptable limits. - Related Data Home Medications Medication Instructions Recorded Confirmed Diphenox-Atrop 2.5-0.025 mg 2 tab PO TID PRN 11/09/13 02/26/18 [Lomotil] SUMAtriptan SUCCINATE [Imitrex] 100 mg PO DAILY PRN 02/25/14 02/26/18 Cholestyramine (with Sugar) 4 gm PO BID 10/05/15 02/26/18 [Questran Powder] Losartan/Hydrochlorothiazide 0.5 tab PO DAILY 12/24/16 02/26/18 [Losartan-Hctz 100-12.5 mg Tab] Aspirin [Adult Low Dose Aspirin EC] 81 mg PO DAILY 08/01/17 02/26/18 Cholecalciferol [Vitamin D3] 1,000 unit PO DAILY 08/01/17 02/26/18 Cyanocobalamin (Vitamin B-12) 1,000 mcg PO DAILY 08/01/17 02/26/18 [Vitamin B-12] Glucosamine-Chondr 500-400Mg 1 tab PO DAILY 08/01/17 02/26/18 Multivitamins, Thera [Multivitamin 1 tab PO DAILY 08/01/17 02/26/18 (formulary)] Potassium 99 mg PO DAILY 08/01/17 02/26/18 Magnesium Oxide [Mag-Ox] 250 mg PO DAILY 02/26/18 02/26/18 Zolpidem [Ambien] 10 mg PO HS 02/26/18 02/26/18 Allergies Allergy/AdvReac Type Severity Reaction Status Date / Time ketorolac tromethamine AdvReac Rapid Verified 02/26/18 14:05 [From Toradol] Heart Rate mannitol AdvReac joint pain Verified 02/26/18 14:05 zoledronic acid AdvReac joint pain Verified 02/26/18 14:05 Review of Systems ROS Statement: Those systems with pertinent positive or pertinent negative responses have been documented in the HPI. ROS Other: All systems not noted in ROS Statement are negative. Constitutional: Denies: fever, chills, night sweats Eyes: Reports: vision change ENT: Denies: hearing loss Respiratory: Denies: cough, dyspnea, wheezes, hemoptysis, stridor Cardiovascular: Denies: chest pain, palpitations, dyspnea on exertion Gastrointestinal: Denies: abdominal pain, nausea, vomiting, diarrhea, constipation Genitourinary: Denies: urgency, dysuria, frequency, hematuria Musculoskeletal: Denies: back pain Skin: Denies: rash, lesions Neurological: Reports: headache. Denies: weakness, numbness, paresthesias, confusion, abnormal gait Past Medical History Past Medical History: CVA/TIA, GERD/Reflux, GI Bleed, Hyperlipidemia, Hypertension, Pneumonia, Renal Disease Additional Past Medical History / Comment(s): CVA, SVT with ablation, colitis, crohn disease, short gut syndrome, hemorrrhoids, CKD stage II, chronic pain syndrome, lower GI bleed, antral ulcer, gastritis, chronic insomnia, RLS, migraine headaches, History of Any Multi-Drug Resistant Organisms: None Reported Past Surgical History: Adenoidectomy, Appendectomy, Bowel Resection, Cardiac Ablation, Heart Catheterization, Orthopedic Surgery, Tonsillectomy, Uterine Ablation Additional Past Surgical History / Comment(s): ANTERIOR CERVICAL DISKECTOMY AND FUSION with plate, ORIF Rt femur with vineet, bowel resection X3 1959, 1967, 1975, recto- vagina fistula repairs x 3, EGD/colonoscopy/polypectomy, occipital steroid injections, L eye lasik. Past Anesthesia/Blood Transfusion Reactions: No Reported Reaction Past Psychological History: No Psychological Hx Reported Smoking Status: Former smoker Past Alcohol Use History: None Reported Past Drug Use History: None Reported - Past Family History Mother Family Medical History: Hypertension Father Family Medical History: Neurologic Disorder General Exam - General Exam Comments Initial Comments: General: The patient is awake and alert, in no distress, and does not appear acutely ill. Eye: +3 mm pupils are equal, round and reactive to light, extra-ocular movements are intact. No APD. No nystagmus. There is normal conjunctiva bilaterally. No signs of icterus. Ears, nose, mouth and throat: There are moist mucous membranes and no oral lesions. Neck: The neck is supple, there is no tenderness or JVD. Cardiovascular: There is a regular rate and rhythm. No murmur, rub or gallop is appreciated. Respiratory: Lungs are clear to auscultation, respirations are non-labored, breath sounds are equal. No wheezes, stridor, rales, or rhonchi. Musculoskeletal: Normal ROM, no tenderness. Strength 5/5. Sensation intact. Radial pulses equal bilaterally 2+. Neurological: A&O x 3. CN II-XII intact, There are no obvious motor or sensory deficits. Coordination appears grossly intact. Speech is normal. Skin: Skin is warm and dry and no rashes or lesions are noted. Psychiatric: Cooperative, appropriate mood & affect, normal judgment. Limitations: no limitations Course Vital Signs 02/26/18 02/26/18 12:55 15:23 Temperature 98.3 F 97.9 F Pulse Rate 118 H 90 Respiratory 20 18 Rate Blood Pressure 153/91 133/86 O2 Sat by Pulse 96 96 Oximetry - Reevaluation(s) Reevaluation #1: reevaluation #1. 06/19 migraine now pt requesting discharge. 02/26/18 Medical Decision Making - Medical Decision Making Pt presenting with typical chronic migraine symptoms. No focal neurological deficits upon examination. Pt given Valium, Benadryl, Morphine and Reglan. Pt states that this brought her migraine to a dull headache 06/19 pt is requesting d /c. Case discussed with Dr. Bonner who agreed with impression of migraine. Pt discharged in stable condition. Disposition Clinical Impression: Migraine Disposition: HOME SELF-CARE Condition: Good Instructions: Acute Headache (ED) Additional Instructions: Please use home medication as discussed. Please follow-up with primary care provider one to 2 days. Please return to emergency room if the symptoms increase or worsen or for any other concerns. Is patient prescribed a controlled substance at d/c from ED?: No Referrals: Matthias Dixon MD [Primary Care Provider] - 1-2 days Time of Disposition: 14:50
[2018-02-26 15:24] VITALS: BP 133/86; PULSE 90; RESP 18; TEMP 97.9
== END 2018-02-26 15:25 | disposition home or self-care (01) ==
LOC: EC 12:45
DX: G43.909 Migraine, unspecified, not intractable, without status migrainosus (principal); I12.9 Hypertensive chronic kidney disease with stage 1 through stage 4 chronic kidney disease, or unspecified chronic kidney disease; N18.2 Chronic kidney disease, stage 2 (mild); Z79.82 Long term (current) use of aspirin; Z79.899 Other long term (current) drug therapy; Z88.8 Allergy status to other drugs, medicaments and biological substances; Z88.6 Allergy status to analgesic agent; Z87.891 Personal history of nicotine dependence; Z86.73 Personal history of transient ischemic attack (TIA), and cerebral infarction without residual deficits
CPT/HCPCS: 99283; 96374; 96375 ×3; 96361; J1200; J2765; J3360; J2270

== ENCOUNTER 2018-03-02 13:35 | Emergency (ER) | payer MEDICARE ==
[2018-03-02] MEDS ORDERED: MORPHINE SULFATE 4 MG/ML SYRINGE IV STA ×2 (15:06→16:33)
[2018-03-02 15:49] VITALS: BP 130/87
--- NOTE | 2018-03-02 15:50 | XR ---
Lumbar spine HISTORY: Trauma and pain 3 views of the lumbar spine correlated to prior exam 02/05/2014 Postop changes are again noted. Spinal curvature is again seen. Lumbar vertebral bodies show stable h eight, alignment, bone mineralization is reduced. There is multilevel spondylosis. Loss of disc heigh t at the intervertebral level L5-S1, L2-3 and L1-2. Sclerosis present in the posterior elements of th e lumbar spine. IMPRESSION: Osteopenia, degenerative disc disease, facet arthropathy. No acute fracture or subluxatio n.
--- NOTE | 2018-03-02 15:52 | XR ---
EXAMINATION TYPE: XR chest 1V DATE OF EXAM: 03/02/2018 COMPARISON: Prior chest x-ray 01/20/2017 HISTORY: Trauma and pain TECHNIQUE: Single frontal view of the chest is obtained. FINDINGS: Postop changes are noted in the cervical spine. There are overlying cardiac leads. No evid ent airspace disease, pneumothorax, or pleural effusion. There is improved aeration as compared to pr ior exam. Cardiac mediastinal silhouette, pulmonary vascularity and zi within normal limits. Patien t is rotated. Surgical clip upper abdomen. IMPRESSION: No acute cardiopulmonary disease.
--- NOTE | 2018-03-02 15:53 | XR ---
AP pelvis HISTORY: Trauma and pain Single frontal view of the pelvis Patient shows postop change to the proximal right femur. Bone mineralization is reduced. Alignment an d joint spaces are normal. Injection granuloma present of the left gluteal region, probable vascular calcifications present within the pelvis. Postop change noted in the midline. IMPRESSION: No acute fracture or dislocation is evident.
--- NOTE | 2018-03-02 16:13 | ED ---
General Adult HPI - General Chief complaint: Fall Stated complaint: Fall-back pain Time Seen by Provider: 03/02/18 14:02 Source: patient, RN notes reviewed Mode of arrival: EMS Limitations: no limitations - History of Present Illness Initial comments: 67-year-old female patient presents to ED after mechanical fall at approximately 11 AM this morning. Patient lost her balance after getting out of bathtub, while falling she twisted her body to avoid hitting her head and strained her low back. Patient denies head trauma or loss of consciousness. Patient was initially ambulatory after fall. Patient called EMS due to pain in back. Patient has not been ambulatory upon arrival to Hospital secondary to pain. Patient denies any other injury with the exception of lumbar back pain. Patient denies loss of bowel or bladder control. Patient denies paresthesias, decreased sensation, decreased strength. Systemic: Pt denies fatigue, myalgia, fever/chills, rash. Pt denies weakness, night sweats, weight loss. Neuro: Pt denies headache, visual disturbances, syncope or pre-syncope. HEENT: Pt denies ocular discharge or irritation, otalgia, rhinorrhea, pharyngitis or notable lymphadenopathy. Cardiopulmonary: Pt denies chest pain, SOB, heart palpitations. Abdominal/GI: Pt denies abdominal pain, n/v/d. : Pt denies dysuria, burning w/ urination, frequency/urgency. MSK: Pt denies myalgia, loss of strength or function in extremities. Pt complains of acute low back pain without radiation. - Related Data Home Medications Medication Instructions Recorded Confirmed Diphenox-Atrop 2.5-0.025 mg 2 tab PO TID PRN 11/09/13 03/02/18 [Lomotil] SUMAtriptan SUCCINATE [Imitrex] 100 mg PO DAILY PRN 02/25/14 03/02/18 Cholestyramine (with Sugar) 4 gm PO BID 10/05/15 03/02/18 [Questran Powder] Losartan/Hydrochlorothiazide 0.5 tab PO DAILY 12/24/16 03/02/18 [Losartan-Hctz 100-12.5 mg Tab] Aspirin [Adult Low Dose Aspirin EC] 81 mg PO DAILY 08/01/17 03/02/18 Cholecalciferol [Vitamin D3] 1,000 unit PO DAILY 08/01/17 03/02/18 Cyanocobalamin (Vitamin B-12) 1,000 mcg PO DAILY 08/01/17 03/02/18 [Vitamin B-12] Glucosamine-Chondr 500-400Mg 1 tab PO DAILY 08/01/17 03/02/18 Multivitamins, Thera [Multivitamin 1 tab PO DAILY 08/01/17 03/02/18 (formulary)] Potassium 99 mg PO DAILY 08/01/17 03/02/18 Magnesium Oxide [Mag-Ox] 250 mg PO DAILY 02/26/18 03/02/18 Zolpidem [Ambien] 10 mg PO HS 02/26/18 03/02/18 Allergies Allergy/AdvReac Type Severity Reaction Status Date / Time ketorolac tromethamine AdvReac Rapid Verified 03/02/18 14:04 [From Toradol] Heart Rate mannitol AdvReac joint pain Verified 03/02/18 14:04 zoledronic acid AdvReac joint pain Verified 03/02/18 14:04 Review of Systems ROS Statement: Those systems with pertinent positive or pertinent negative responses have been documented in the HPI. ROS Other: All systems not noted in ROS Statement are negative. Past Medical History Past Medical History: CVA/TIA, GERD/Reflux, GI Bleed, Hyperlipidemia, Hypertension, Pneumonia, Renal Disease Additional Past Medical History / Comment(s): CVA, SVT with ablation, colitis, crohn disease, short gut syndrome, hemorrrhoids, CKD stage II, chronic pain syndrome, lower GI bleed, antral ulcer, gastritis, chronic insomnia, RLS, migraine headaches, History of Any Multi-Drug Resistant Organisms: None Reported Past Surgical History: Adenoidectomy, Appendectomy, Bowel Resection, Cardiac Ablation, Heart Catheterization, Orthopedic Surgery, Tonsillectomy, Uterine Ablation Additional Past Surgical History / Comment(s): ANTERIOR CERVICAL DISKECTOMY AND FUSION with plate, ORIF Rt femur with vineet, bowel resection X3 1959, 1967, 1975, recto- vagina fistula repairs x 3, EGD/colonoscopy/polypectomy, occipital steroid injections, L eye lasik. Past Anesthesia/Blood Transfusion Reactions: No Reported Reaction Past Psychological History: No Psychological Hx Reported Smoking Status: Former smoker Past Alcohol Use History: None Reported Past Drug Use History: None Reported - Past Family History Mother Family Medical History: Hypertension Father Family Medical History: Neurologic Disorder General Exam - General Exam Comments Initial Comments: Constitutional: NAD, AOX3, Pt has pleasant affect. HEENT: NC/AT, trachea midline, neck supple, no lymphadenopathy. Posterior pharynx non erythematous, without exudates. External ears appear normal, without discharge. Mucous membranes moist. Eyes PERRLA. There is no scleral icterus. No pallor noted. Cardiopulmonary: RRR, no murmurs, rubs or gallops, no JVD noted. Lungs CTAB in anterior and posterior dunbar. No peripheral edema. Abdominal exam: Abdomen soft and non-distended. Abdomen non-tender to palpation in all 4 quadrants. Bowel sounds active in LLQ. No hepatosplenomegaly. MSK: Patient has full active range of motion in upper and lower extremities. Patient has full active range of motion of neck. No cervical spine tenderness. Upon examination of head no contusion or abrasion. Upon palpation of extremities no other injuries. Cervical thoracic and lumbar spine are nontender to palpation. Patient expresses discomfort of the lumbar paraspinal region bilaterally but is not tender to palpation. All extremities are neurovascularly intact. Limitations: no limitations Course Vital Signs 03/02/18 03/02/18 03/02/18 13:38 13:40 14:00 Temperature 98.7 F Pulse Rate 85 102 H Respiratory 20 20 Rate Blood Pressure 160/100 160/100 O2 Sat by Pulse 96 94 L 93 L Oximetry 03/02/18 03/02/18 03/02/18 14:30 15:00 15:30 Temperature Pulse Rate 99 106 H 110 H Respiratory 18 17 15 Rate Blood Pressure 145/89 134/74 130/87 O2 Sat by Pulse 94 L 96 96 Oximetry 03/02/18 16:00 Temperature Pulse Rate 96 Respiratory 18 Rate Blood Pressure 130/87 O2 Sat by Pulse Oximetry Medical Decision Making - Medical Decision Making Patient was evaluated for acute fracture with chest x-ray, pelvic films and lumbar films. All were negative for acute pathology. Patient diagnosed with lumbar back strain. Patient was given inpatient analgesic. Patient's symptoms were vastly improved after administration of analgesic. Patient ambulatory. Patient to be discharged with Tylenol 3 starter pack. Patient to return if symptoms do not improve within 3-5 days, or if new symptoms develop. Patient should return to ED if numbness or tingling involving extremities, loss of bowel or bladder control. Patient to follow up with PCP in one to 2 days. Disposition Clinical Impression: Lumbar back sprain Disposition: HOME SELF-CARE Condition: Good Instructions: Low Back Strain (ED) Additional Instructions: Patient to adhere to previously discussed treatment plan and will take medication(s) as directed. Patient to follow up with PCP in 1-2 days. Patient to return to ED if symptoms do not improve or worsen. Is patient prescribed a controlled substance at d/c from ED?: No Referrals: Matthias Dixon MD [Primary Care Provider] - 1-2 days Time of Disposition: 16:38
[2018-03-02] MEDS ORDERED: ACET/COD 300 MG/30 MG STARTER PACK 6 TAB BTL PO STA ×2 (16:43→16:48)
[2018-03-02 17:03] VITALS: PULSE 102; RESP 21; TEMP 98
== END 2018-03-02 17:25 | disposition home or self-care (01) ==
LOC: EC 13:35
DX: S33.5XXA Sprain of ligaments of lumbar spine, initial encounter (principal); S39.012A Strain of muscle, fascia and tendon of lower back, initial encounter; I12.9 Hypertensive chronic kidney disease with stage 1 through stage 4 chronic kidney disease, or unspecified chronic kidney disease; N18.2 Chronic kidney disease, stage 2 (mild); F51.04 Psychophysiologic insomnia; Z87.891 Personal history of nicotine dependence; Z88.6 Allergy status to analgesic agent; Z88.8 Allergy status to other drugs, medicaments and biological substances; Z79.82 Long term (current) use of aspirin; Z79.899 Other long term (current) drug therapy; W01.0XXA Fall on same level from slipping, tripping and stumbling without subsequent striking against object, initial encounter; Y93.89 Activity, other specified; Y92.009 Unspecified place in unspecified non-institutional (private) residence as the place of occurrence of the external cause
CPT/HCPCS: 72100; 72170; 71045; 99284; 96374; 96376; J2270

== ENCOUNTER → 2018-03-17 | Outpatient (CLI) | payer MEDICARE ==
--- NOTE | 2018-03-17 16:48 | CT ---
EXAMINATION TYPE: CT lumbar spine wo con DATE OF EXAM: 03/17/2018 COMPARISON: Lumbar spine 03/02/2018 plain films, lateral chest film 12/14/2016 HISTORY: Low back pain after twisting injury x2 weeks ago. CT DLP: 373 mGycm CONTRAST: None TECHNIQUE: CT of the lumbar spine is performed on a spiral scan at 3 mm thick sections. Reconstructed images are performed in the coronal and sagittal planes. FINDINGS: T12-L1: There is a compression deformity of L1 superior endplate. There is approximately 20% loss of superior vertebral body height. This has some superior posterior wall displacement into the spinal ca nal estimated at 0.6 cm. AP diameter is 1.0 cm posterior to the endplate displacement. Correlate wit h the injury. Acute fracture is not excluded. L1-L2: No focal disc herniation or significant disc bulge is evident. No spinal canal stenosis or n eural foraminal stenosis is present L2-L3: Mild loss of disc height is to this level. No significant disc bulging is evident. Anterior th ecal sac contact is noted. No spinal canal stenosis is present. L3-L4: Mild disc bulge is present with anterior thecal sac flattening. No AP spinal canal stenosis or neural foraminal stenosis is present. L4-L5: Mild disc bulge has mild anterior thecal sac compression. No AP spinal canal stenosis or neura l foraminal stenosis is present. L5-S1: No focal disc herniation or significant disc bulge is evident. No spinal canal stenosis or n eural foraminal stenosis is present Vertebral alignment appears normal. Incidental note is made of nonobstructing inferior pole left renal stones. IMPRESSION: Superior endplate compression deformity with posterior wall displacement of 0.6 cm at the L1 level. C orrelate with the injury. The acute fractures within the differential. A [place] level critical message alert has been initiated for Matthias Dixon MD via the [employer] Critical Results System on 03/17/2018 4:45 PM. This message alert has been sent to Matthias Dixon MD via the preferences provided by the clinician for the receipt of Radiology Critical Findings. Message ID [id number].
== END ==
LOC: RADCTMAIN 14:29
PROVIDERS: ATTEND Internal Medicine
DX: M51.26 Other intervertebral disc displacement, lumbar region (principal)
CPT/HCPCS: 72131

== ENCOUNTER → 2018-06-27 | Outpatient (CLI) | payer MEDICARE ==
--- NOTE | 2018-06-27 14:40 | XR ---
EXAMINATION TYPE: XR knee complete RT DATE OF EXAM: 06/27/2018 COMPARISON: NONE HISTORY: 68-year-old female with right knee pain TECHNIQUE: 3 views FINDINGS: Partially visualized retrograde intramedullary nail with distal interlocking screw fixation. There is a chronic healed fracture deformity of the distal femoral shaft. No knee joint effusion. Degenerativ e spurring in the patellofemoral compartment. Extensor mechanism appears intact. There is additional degenerative spurring in the medial compartment. Weightbearing view could better assess degree of nancy nt space narrowing. No acute fracture, subluxation, or dislocation seen. IMPRESSION: 1. Partially visualized retrograde intramedullary nailing of the femur traversing a healed fracture d eformity of the distal shaft. 2. Patellofemoral compartmental and medial compartment osteoarthrosis with degenerative spurring. A w eight-bearing view could better assess the degree of cartilage and joint space narrowing. 3. No acute osseous abnormality seen.
== END | disposition home or self-care (01) ==
LOC: RADXRMAIN 10:02
PROVIDERS: ATTEND Internal Medicine
DX: M17.11 Unilateral primary osteoarthritis, right knee (principal)

== ENCOUNTER 2018-09-19 15:42 | Emergency (ER) | payer MEDICARE ==
[2018-09-19] MEDS ORDERED: METOCLOPRAMIDE 5 MG/ML 2 ML VIAL IVP STA (16:07)
[2018-09-19] MEDS ORDERED: DEXAMETHASONE SOD PHOSPHATE 10 MG/ML 1 ML VIAL IV STA (16:09)
[2018-09-19] MEDS ORDERED: SODIUM CHLORIDE 0.9% 1,000 ML IV ONE (16:12)
[2018-09-19] MEDS ORDERED: HYDROcodone/APAP 5-325MG 1 EACH TAB PO STA (16:12)
[2018-09-19] MEDS ORDERED: diphenhydrAMINE 50 MG/ML 1 ML VIAL IVP STA (16:12)
--- NOTE | 2018-09-19 16:17 | ED ---
General Adult HPI - General Chief complaint: Headache Stated complaint: Headache Time Seen by Provider: 09/19/18 15:56 Source: patient Mode of arrival: ambulatory Limitations: no limitations - History of Present Illness Initial comments: 68-year-old female with history of chronic migraines presenting with a waxing and waning headache for the last 8 days. Patient states it started gradually on the back right side of her skull radiating to the right eye. She states initially was improved with Tylenol and Imitrex. She states it then returned on the left side radiating to the left side of her face and feels like a "upper band snapping". She admits to getting "squiggly lines in my vision" with her migraines but otherwise denies any new vision change or photophobia. The patient denies any fever or constitutional symptoms, denies any chest pain shortness of breath, focal weakness or numbness, or confusion. Patient's cousin is at bedside denies any mental status changes. She denies anticoagulation use or trauma. Patient states she called her neurologist office who instructed her to come to the emergency department. - Related Data Home Medications Medication Instructions Recorded Confirmed Diphenox-Atrop 2.5-0.025 mg 2 tab PO BID 11/09/13 09/19/18 [Lomotil] SUMAtriptan SUCCINATE [Imitrex] 100 mg PO DAILY PRN 02/25/14 09/19/18 Losartan/Hydrochlorothiazide 0.5 tab PO DAILY 12/24/16 09/19/18 [Losartan-Hctz 100-12.5 mg Tab] Aspirin [Adult Low Dose Aspirin EC] 81 mg PO DAILY 08/01/17 09/19/18 Cholecalciferol [Vitamin D3] 1,000 unit PO DAILY 08/01/17 09/19/18 Cyanocobalamin (Vitamin B-12) 1,000 mcg PO DAILY 08/01/17 09/19/18 [Vitamin B-12] Glucosamine-Chondr 500-400Mg 1 tab PO DAILY 08/01/17 09/19/18 Multivitamins, Thera [Multivitamin 1 tab PO DAILY 08/01/17 09/19/18 (formulary)] Potassium 99 mg PO DAILY 08/01/17 09/19/18 Magnesium Oxide [Mag-Ox] 250 mg PO DAILY 02/26/18 09/19/18 Zolpidem [Ambien] 10 mg PO HS PRN 02/26/18 09/19/18 Ascorbic Acid [Vitamin C] 500 mg PO DAILY 09/19/18 09/19/18 Omeprazole [PriLOSEC] 20 mg PO DAILY 09/19/18 09/19/18 Allergies Allergy/AdvReac Type Severity Reaction Status Date / Time ketorolac tromethamine AdvReac Rapid Verified 09/19/18 16:48 [From Toradol] Heart Rate mannitol AdvReac joint pain Verified 09/19/18 16:48 zoledronic acid AdvReac joint pain Verified 09/19/18 16:48 Review of Systems ROS Statement: Those systems with pertinent positive or pertinent negative responses have been documented in the HPI. Review of Systems Constitutional: Denies fever, chills Eyes: Denies change in vision, Denies pain Ears, nose, mouth, throat: Denies headaches, Denies sore throat Cardiovascular: Denies chest pain. Denies palpitations Respiratory: Denies shortness of breath, Denies cough Gastrointestinal: Denies abdominal pain. Denies nausea, vomiting, diarrhea. Genitourinary: Denies hematuria, Denies infections Musculoskeletal: Denies pain, Denies swelling Integumentary: Denies rash Neurological: Positive headache. Negative focal weakness, focal numbness Psychiatric: Denies anxiety, Denies depression Hematologic/Lymphatic: Denies easy bleeding or bruising ROS Other: All systems not noted in ROS Statement are negative. Past Medical History Past Medical History: CVA/TIA, GERD/Reflux, GI Bleed, Hyperlipidemia, Hypertension, Pneumonia, Renal Disease Additional Past Medical History / Comment(s): CVA, SVT with ablation, colitis, crohn disease, short gut syndrome, hemorrrhoids, CKD stage II, chronic pain syndrome, lower GI bleed, antral ulcer, gastritis, chronic insomnia, RLS, migraine headaches, History of Any Multi-Drug Resistant Organisms: None Reported Past Surgical History: Adenoidectomy, Appendectomy, Bowel Resection, Cardiac Ablation, Heart Catheterization, Orthopedic Surgery, Tonsillectomy, Uterine Ablation Additional Past Surgical History / Comment(s): ANTERIOR CERVICAL DISKECTOMY AND FUSION with plate, ORIF Rt femur with vineet, bowel resection X3 1959, 1967, 1975, recto- vagina fistula repairs x 3, EGD/colonoscopy/polypectomy, occipital steroid injections, L eye lasik. Past Anesthesia/Blood Transfusion Reactions: No Reported Reaction Past Psychological History: No Psychological Hx Reported Smoking Status: Former smoker Past Alcohol Use History: None Reported Past Drug Use History: None Reported - Past Family History Mother Family Medical History: Hypertension Father Family Medical History: Neurologic Disorder General Exam - General Exam Comments Initial Comments: General: Awake, alert, No acute Distress HENT: Normocephalic. Atraumatic. TMs normal bilaterally. Eyes: PERRL. EOMI. No scleral icterus. No injected conjunctiva. No nystagmus bilaterally. Neck: Full ROM. No nuchal rigidity Chest/Lungs: Clear to auscultation bilaterally. No wheezing, rhonchi, or rales Cardiac: Regular rate, rhythm. No murmurs or rubs Abdomen/GI: Soft, nontender, nondistended. No rebound, guarding, or rigidity. Musculoskeletal: Full ROM Skin: Warm, dry, intact Neurologic: A/Ox3, no weakness, no abnormal gait, no coordination deficit. Finger to nose intact bilaterally. Cranial nerves II through XII intact. Chronic C7 and T1 sensory deficit on the left. Limitations: no limitations Course Vital Signs 09/19/18 09/19/18 15:51 17:08 Temperature 98.2 F 97.6 F Pulse Rate 138 H 92 Respiratory 20 16 Rate Blood Pressure 155/74 105/63 O2 Sat by Pulse 94 L 97 Oximetry EKG Findings - EKG Comments: EKG Findings:: EKG shows sinus tachycardia at a rate of [address] segment elevation, depression. No prolonged QT/QTc or IN interval. No dysrythmia noted. Medical Decision Making - Medical Decision Making 68-year-old female presenting with headache. Initial exam the patient is awake, alert, in no acute distress. She is tachycardic but vital signs are otherwise stable. She states that she gets very anxious presenting to the emergency department but she does have a history of SVT for which she had an ablation. She denies any chest pain or shortness of breath over the duration of the last 8 days or currently. She states other than that the duration of this migraine it is the exact same as her other migraines in the past. Patient's EKG shows sinus tachycardia at a rate of 113 bpm. On reevaluation patient's OTERO has now resolved. Her repeat heart rate is 96 bpm. She is resting comfortably. CT head without contrast is negative for acute process. The patient has no infectious symptoms and at this time her symptoms are unlikely due to meningitis. She also had no CVA symptoms. At this time she is stable for outpatient follow up with her neurologist. No further emergent workup indicated. The patient was given return to ED instructions. They were instructed to follow up with their primary care provider. Stable for discharge at this time. Disposition Clinical Impression: Headache Disposition: HOME SELF-CARE Condition: Good Instructions (If sedation given, give patient instructions): Acute Headache (ED) Additional Instructions: Follow up with your neurologist this week. Return to emergency department if you have any weakness of your arms or legs, change in vision, or develop a fever. Take Tylenol immediately if your OTERO starts to return. Is patient prescribed a controlled substance at d/c from ED?: No Referrals: Matthias Dixon MD [Primary Care Provider] - 1-2 days
--- NOTE | 2018-09-19 17:01 | CT ---
EXAMINATION TYPE: CT brain wo con DATE OF EXAM: 09/19/2018 COMPARISON: 01/20/2017 HISTORY: Headache for [address] DLP: 1129.4 mGycm Automated exposure control for dose reduction was used. FINDINGS: Ventricles and sulci appear normal. There is no mass effect nor midline shift. There is no sign of in tracranial hemorrhage. The calvarium is intact. IMPRESSION: NEGATIVE HEAD CT SCAN. NO CHANGE COMPARED TO OLD EXAM.
[2018-09-19 17:11] VITALS: RESP 16
[2018-09-19 17:48] VITALS: BP 122/85; PULSE 89; TEMP 98
== END 2018-09-19 17:50 | disposition home or self-care (01) ==
LOC: EC 15:42
DX: R51 Headache (principal); K21.9 Gastro-esophageal reflux disease without esophagitis; E78.5 Hyperlipidemia, unspecified; I12.9 Hypertensive chronic kidney disease with stage 1 through stage 4 chronic kidney disease, or unspecified chronic kidney disease; N18.2 Chronic kidney disease, stage 2 (mild); G25.81 Restless legs syndrome; Z86.73 Personal history of transient ischemic attack (TIA), and cerebral infarction without residual deficits; Z87.891 Personal history of nicotine dependence; Z79.82 Long term (current) use of aspirin; Z79.899 Other long term (current) drug therapy; Z88.5 Allergy status to narcotic agent; Z88.8 Allergy status to other drugs, medicaments and biological substances; Z95.818 Presence of other cardiac implants and grafts
CPT/HCPCS: 93005; 70450; 99284; 96374; 96375 ×2; 96361; J1200; J1100; J2765

== ENCOUNTER 2019-10-23 10:06 | Inpatient (IN) | payer MEDICARE ==
[2019-10-23] MEDS ORDERED: MORPHINE SULFATE 4 MG/ML SYRINGE IV STA (10:29)
[2019-10-23] MEDS ORDERED: SODIUM CHLORIDE 0.9% 1,000 ML IV STA (10:29)
[2019-10-23] MEDS ORDERED: ONDANSETRON 4 MG/2 ML VIAL IVP STA (10:29)
[2019-10-23 10:57] LABS: Basophils % (A) 1 %; Eosinophils # (A) 0.2 k/uL (0-0.7); Eosinophils % (A) 3 %; HCT 39.5 % (34.0-46.0); HGB 12.4 gm/dL (11.4-16.0); Lymphocytes # (A) 1.2 k/uL (1.0-4.8); Lymphocytes % (A) 18 %; MCH 28.8 pg (25.0-35.0); MCHC 31.4 g/dL (31.0-37.0); MCV 91.6 fL (80.0-100.0); Mean Platelet Volume 7.5; Monocytes # (A) 0.4 k/uL (0-1.0); Monocytes % (A) 6 %; Neutrophils # (A) 4.6 k/uL (1.3-7.7); Neutrophils % (A) 71 %; Platelet Count 286 k/uL (150-450); RBC 4.31 m/uL (3.80-5.40); RDW 12.6 % (11.5-15.5); WBC 6.4 k/uL (3.8-10.6)
[2019-10-23 10:59] LABS: Appearance,Urine Clear (Clear); Bilirubin,Urine Negative (Negative); Blood,Urine Negative (Negative); Color,Urine Light Yellow; Glucose,Urine (UA) Negative (Negative); Ketones,Urine Negative (Negative); Leukocyte Esterase,Urine Negative (Negative); Nitrite,Urine Negative (Negative); PH, Urine 5.5 (5.0-8.0); Protein,Urine Negative (Negative); Specific Gravity,Urine 1.013 (1.001-1.035); Urobilinogen,Urine <2.0 mg/dL (<2.0)
--- NOTE | 2019-10-23 10:59 | ED ---
Abdominal Pain HPI - General Chief Complaint: Abdominal Pain Stated Complaint: lt sided abd pain Time Seen by Provider: 10/23/19 10:20 Source: patient, RN notes reviewed Mode of arrival: ambulatory Limitations: no limitations - History of Present Illness Initial Comments: This is a 69-year-old female presents emergency Department with chief complaint of left sided abdominal pain. Patient states that started on Wednesday and is progressively throughout the weekend. She states that she cannot tolerate the pain and was able to get into her primary care physician. She does have a history of bowel resection secondary to Crohn's disease. She denies any fevers chills nausea vomiting diarrhea constipation or dysuria no hematuria. Patient states that she has no history kidney stones denies any trauma there is some pain with range of motion. - Related Data Home Medications Medication Instructions Recorded Confirmed Diphenox-Atrop 2.5-0.025 mg 2 tab PO TID PRN 11/09/13 10/23/19 [Lomotil] SUMAtriptan SUCCINATE [Imitrex] 100 mg PO DAILY PRN 02/25/14 10/23/19 Losartan/Hydrochlorothiazide 1 tab PO DAILY 12/24/16 10/23/19 [Losartan-Hctz 100-12.5 mg Tab] Aspirin [Adult Low Dose Aspirin EC] 81 mg PO DAILY 08/01/17 10/23/19 Cholecalciferol [Vitamin D3] 1,000 unit PO DAILY 08/01/17 10/23/19 Cyanocobalamin (Vitamin B-12) 1,000 mcg PO DAILY 08/01/17 10/23/19 [Vitamin B-12] Glucosamine-Chondr 500-400Mg 1 tab PO DAILY 08/01/17 10/23/19 Multivitamins, Thera [Multivitamin 1 tab PO DAILY 08/01/17 10/23/19 (formulary)] Potassium 99 mg PO DAILY 08/01/17 10/23/19 Magnesium Oxide [Mag-Ox] 250 mg PO DAILY 02/26/18 10/23/19 Zolpidem [Ambien] 10 mg PO HS PRN 02/26/18 10/23/19 Ascorbic Acid [Vitamin C] 500 mg PO DAILY 09/19/18 10/23/19 Omeprazole [PriLOSEC] 20 mg PO DAILY 09/19/18 10/23/19 Cholestyramine (with Sugar) 4 gm PO BID 10/23/19 10/23/19 [Cholestyramine Packet] Allergies Allergy/AdvReac Type Severity Reaction Status Date / Time ketorolac tromethamine AdvReac Rapid Verified 10/23/19 12:11 [From Toradol] Heart Rate mannitol AdvReac joint pain Verified 10/23/19 12:11 zoledronic acid AdvReac joint pain Verified 10/23/19 12:11 Review of Systems ROS Statement: Those systems with pertinent positive or pertinent negative responses have been documented in the HPI. ROS Other: All systems not noted in ROS Statement are negative. Past Medical History Past Medical History: CVA/TIA, GERD/Reflux, GI Bleed, Hyperlipidemia, Hypertension, Pneumonia, Renal Disease Additional Past Medical History / Comment(s): CVA, SVT with ablation, colitis, crohn disease, short gut syndrome, hemorrrhoids, CKD stage II, chronic pain syndrome, lower GI bleed, antral ulcer, gastritis, chronic insomnia, RLS, migraine headaches, History of Any Multi-Drug Resistant Organisms: None Reported Past Surgical History: Adenoidectomy, Appendectomy, Bowel Resection, Cardiac Ablation, Heart Catheterization, Orthopedic Surgery, Tonsillectomy, Uterine Ablation Additional Past Surgical History / Comment(s): ANTERIOR CERVICAL DISKECTOMY AND FUSION with plate, ORIF Rt femur with vineet, bowel resection X3 1959, 1967, 1975, recto- vagina fistula repairs x 3, EGD/colonoscopy/polypectomy, occipital steroid injections, L eye lasik. Past Anesthesia/Blood Transfusion Reactions: No Reported Reaction Past Psychological History: No Psychological Hx Reported Smoking Status: Former smoker Past Alcohol Use History: None Reported Past Drug Use History: None Reported - Past Family History Mother Family Medical History: Hypertension Father Family Medical History: Neurologic Disorder General Exam Limitations: no limitations General appearance: alert, in no apparent distress Head exam: Present: atraumatic, normocephalic, normal inspection Eye exam: Present: normal appearance, PERRL, EOMI. Absent: scleral icterus, conjunctival injection, periorbital swelling ENT exam: Present: normal exam, mucous membranes moist Neck exam: Present: normal inspection, full ROM. Absent: tenderness, meningismus, lymphadenopathy Respiratory exam: Present: normal lung sounds bilaterally. Absent: respiratory distress, wheezes, rales, rhonchi, stridor Cardiovascular Exam: Present: regular rate, normal rhythm, normal heart sounds. Absent: systolic murmur, diastolic murmur, rubs, gallop, clicks GI/Abdominal exam: Present: soft, tenderness (Moderate left sided abdominal tenderness), normal bowel sounds. Absent: distended, guarding, rebound, rigid Back exam: Absent: CVA tenderness (R), CVA tenderness (L) Neurological exam: Present: alert, oriented X3 Skin exam: Present: warm, dry, intact, normal color. Absent: rash Course Vital Signs 10/23/19 10:14 Temperature 98.2 F Pulse Rate 108 H Respiratory 18 Rate Blood Pressure 191/118 O2 Sat by Pulse 97 Oximetry Medical Decision Making - Medical Decision Making 16-year-old female presented for left-sided abdominal pain. Patient has worsening persistent symptoms. Patient has had minimal improvement after multiple doses IV pain meds CT shows evidence of endocarditis is concerning with the given history of multiple resections of colitis. Patient case discussed with Dr. Maria. He recommends antibiotics, site Medrol and GI consult. - Lab Data Result diagrams: 10/23/19 10:42 10/23/19 10:42 Lab Results 10/23/19 10/23/19 10/23/19 Range/Units 10:42 10:42 10:42 WBC 6.4 (3.8-10.6) k/uL RBC 4.31 (3.80-5.40) m/uL Hgb 12.4 (11.4-16.0) gm/dL Hct 39.5 (34.0-46.0) % MCV 91.6 (80.0-100.0) fL MCH 28.8 (25.0-35.0) pg MCHC 31.4 (31.0-37.0) g/dL RDW 12.6 (11.5-15.5) % Plt Count 286 (150-450) k/uL Neutrophils % 71 % Lymphocytes % 18 % Monocytes % 6 % Eosinophils % 3 % Basophils % 1 % Neutrophils # 4.6 (1.3-7.7) k/uL Lymphocytes # 1.2 (1.0-4.8) k/uL Monocytes # 0.4 (0-1.0) k/uL Eosinophils # 0.2 (0-0.7) k/uL Basophils # 0.0 (0-0.2) k/uL Sodium 139 (137-145) mmol/L Potassium 4.1 (3.5-5.1) mmol/L Chloride 111 H (98-107) mmol/L Carbon Dioxide 23 (22-30) mmol/L Anion Gap 5 mmol/L BUN 13 (7-17) mg/dL Creatinine 0.74 (0.52-1.04) mg/dL Est GFR (CKD-EPI)AfAm >90 (>60 ml/min/1.73 sqM) Est GFR (CKD-EPI)NonAf 84 (>60 ml/min/1.73 sqM) Glucose 120 H (74-99) mg/dL Plasma Lactic Acid Juma (0.7-2.0) mmol/L Calcium 9.3 (8.4-10.2) mg/dL Total Bilirubin 0.4 (0.2-1.3) mg/dL AST 21 (14-36) U/L ALT 17 (4-34) U/L Alkaline Phosphatase 89 (38-126) U/L Total Protein 7.2 (6.3-8.2) g/dL Albumin 3.9 (3.5-5.0) g/dL Amylase 64 (30-110) U/L Lipase 51 (23-300) U/L Urine Color Light Yellow Urine Appearance Clear (Clear) Urine pH 5.5 (5.0-8.0) Ur Specific [place] 1.013 (1.001-1.035) Urine Protein Negative (Negative) Urine Glucose (UA) Negative (Negative) Urine Ketones Negative (Negative) Urine Blood Negative (Negative) Urine Nitrite Negative (Negative) Urine Bilirubin Negative (Negative) Urine Urobilinogen <2.0 (<2.0) mg/dL Ur Leukocyte Esterase Negative (Negative) 10/23/19 Range/Units 10:42 WBC (3.8-10.6) k/uL RBC (3.80-5.40) m/uL Hgb (11.4-16.0) gm/dL Hct (34.0-46.0) % MCV (80.0-100.0) fL MCH (25.0-35.0) pg MCHC (31.0-37.0) g/dL RDW (11.5-15.5) % Plt Count (150-450) k/uL Neutrophils % % Lymphocytes % % Monocytes % % Eosinophils % % Basophils % % Neutrophils # (1.3-7.7) k/uL Lymphocytes # (1.0-4.8) k/uL Monocytes # (0-1.0) k/uL Eosinophils # (0-0.7) k/uL Basophils # (0-0.2) k/uL Sodium (137-145) mmol/L Potassium (3.5-5.1) mmol/L Chloride (98-107) mmol/L Carbon Dioxide (22-30) mmol/L Anion Gap mmol/L BUN (7-17) mg/dL Creatinine (0.52-1.04) mg/dL Est GFR (CKD-EPI)AfAm (>60 ml/min/1.73 sqM) Est GFR (CKD-EPI)NonAf (>60 ml/min/1.73 sqM) Glucose (74-99) mg/dL Plasma Lactic Acid Juma 1.5 (0.7-2.0) mmol/L Calcium (8.4-10.2) mg/dL Total Bilirubin (0.2-1.3) mg/dL AST (14-36) U/L ALT (4-34) U/L Alkaline Phosphatase (38-126) U/L Total Protein (6.3-8.2) g/dL Albumin (3.5-5.0) g/dL Amylase (30-110) U/L Lipase (23-300) U/L Urine Color Urine Appearance (Clear) Urine pH (5.0-8.0) Ur Specific [place] (1.001-1.035) Urine Protein (Negative) Urine Glucose (UA) (Negative) Urine Ketones (Negative) Urine Blood (Negative) Urine Nitrite (Negative) Urine Bilirubin (Negative) Urine Urobilinogen (<2.0) mg/dL Ur Leukocyte Esterase (Negative) Disposition Clinical Impression: Exacerbation of Crohn's disease, Enterocolitis Disposition: ADMITTED IP TO THIS [facility] Condition: Fair Referrals: Matthias Dixon MD [Primary Care Provider] - 1-2 days
[2019-10-23] MEDS ORDERED: HYDROmorphone 0.5 MG/0.5 ML SYRINGE IVP STA (11:01)
[2019-10-23 11:06] LABS: ALT 17 U/L (4-34); AST 21 U/L (14-36); African American GFR (CKD) >90 (>60 ml/min/1.73 sqM); Albumin 3.9 g/dL (3.5-5.0); Alkaline Phosphatase 89 U/L (38-126); Amylase 64 U/L (30-110); Anion Gap 5 mmol/L; Blood Urea Nitrogen 13 mg/dL (7-17); Calcium 9.3 mg/dL (8.4-10.2); Carbon Dioxide 23 mmol/L (22-30); Chloride 111 mmol/L (98-107); Glucose 120 mg/dL (74-99); Non-African American GFR(CKD) 84 (>60 ml/min/1.73 sqM); Potassium 4.1 mmol/L (3.5-5.1); Sodium 139 mmol/L (137-145); Total Bilirubin 0.4 mg/dL (0.2-1.3); Total Protein 7.2 g/dL (6.3-8.2)
--- NOTE | 2019-10-23 11:54 | CT ---
EXAMINATION TYPE: CT abdomen pelvis w con DATE OF EXAM: 10/23/2019 HISTORY: Abdominal pain, history of Crohn's disease and [address] DLP: 648.5mGycm Automated Exposure Control for Dose Reduction was Utilized. CONTRAST: CT scan of the abdomen and pelvis is performed with IV Contrast, patient injected with 100 ml mL of I sovue 300. COMPARISON: Prior CT abdomen and pelvis May 12, 2013 FINDINGS: LUNG BASES: Patchy atelectasis and/or scarring left greater than right lung bases. LIVER/GB: No significant abnormality is appreciated. PANCREAS: Pancreatic duct prominent up to 3 mm the pancreatic head without obstructing mass identifie d coronal image 32. SPLEEN: No significant abnormality is seen. ADRENALS: No significant abnormality is seen. KIDNEYS: Asymmetric decreased size to right kidney versus left kidney more prominent from prior study without significant focal cortical volume loss. There is symmetric cortical medullary uptake and exc retion without hydronephrosis seen bilaterally. BOWEL: Suboptimal evaluation without enteric contrast. Stomach poorly distended and the suboptimally evaluated. Numerous surgical clips in the left upper quadrant are new from prior study. No suspiciou s small bowel dilatation. Overlying vertical rectus midline surgical alysha are redemonstrated. Part ial proximal colectomy suspected mid abdominal level anteriorly. There is fluid filled bowel proximal to this with air-fluid level. Suspect colonized neoterminal ileum. There is mild wall thickening in the sigmoid colon and [id number] wall thickening in the sigmoid rectal colon. UTERUS/ADNEXA: Anteverted uterus projects just right of midline with superior fundal 1.0 cm calcifica tion or calcified fibroid redemonstrated. Scattered pelvic phleboliths. LYMPH NODES: No greater than 1cm abdominal or pelvic lymph nodes are appreciated. OSSEOUS STRUCTURES: Slight right-sided step off L1 on T12. Grade 1 anterolisthesis T12 on L1 with mil d height loss superior L1 endplate and moderate disc space narrowing and spurring with endplate scler osis. Additional mild to moderate multilevel anterior and lateral spurring throughout the spine. Mild to moderate joint space loss and spurring of both hips. Partial visualization of surgical change in the right proximal femur through healed fracture. OTHER: No significant additional abnormality is seen. IMPRESSION: No bowel obstruction. Possible uncomplicated mild enterocolitis, correlate clinically.
[2019-10-23] MEDS ORDERED: LEVOFLOXACIN 750MG-D5W PMX 750 MG in DEXTROSE/WATER 1 150ML.BAG IVPB STA (12:31)
[2019-10-23] MEDS ORDERED: metroNIDAZOLE-NS PMX 500 MG in SALINE 1 100ML.BAG IVPB STA (12:31)
[2019-10-23] MEDS ORDERED: methylPREDNISolone SOD SUCCI 125 MG/2 ML VIAL IV STA (12:32)
[2019-10-23] MEDS ORDERED: NALOXONE 0.4 MG/ML 1 ML VIAL IV PRN (12:46)
[2019-10-23] MEDS ORDERED: methylPREDNISolone SOD SUCCI 40 MG/ML 1 ML VIAL IV SCH (16:00)
[2019-10-23] MEDS: HYDROmorphone 0.5 MG/0.5 ML SYRINGE IVP PRN ×2 (17:12→20:27)
--- NOTE | 2019-10-23 18:34 | XR ---
2 view abdomen HISTORY: Abdominal pain, Crohn's disease 2 views the abdomen correlated to CT scan dated 10/23/2019 Surgical clips are noted within the abdomen. No evident pneumoperitoneum or bowel obstruction. Suture s present in the patient's midline. There is retained contrast material within the urinary bladder. P robable injection granuloma present over the gluteal regions. Postop change noted to the right femur. IMPRESSION: No acute abnormality.
[2019-10-24] MEDS: metroNIDAZOLE-NS PMX 500 MG in SALINE 1 100ML.BAG IVPB SCH ×3 (00:15→16:01)
[2019-10-24] MEDS: HYDROmorphone 0.5 MG/0.5 ML SYRINGE IVP PRN ×7 (00:16→21:36)
[2019-10-24] MEDS: methylPREDNISolone SOD SUCCI 40 MG/ML 1 ML VIAL IV SCH ×3 (00:16→16:01)
[2019-10-24] MEDS ORDERED: DIPHENOX-ATROP 2.5-0.025 MG 1 EACH TAB PO PRN (05:14)
[2019-10-24] MEDS ORDERED: ZOLPIDEM 10 MG TAB PO PRN (05:14)
--- NOTE | 2019-10-24 05:44 | P.HPIM ---
History of Present Illness H&P Date: 10/23/19 Chief Complaint: Abdominal pain. This is a 69 year old female one of my patient with a previous medical history significant for hypertension and hypertensive cardiovascular disease, hyperlipidemia, Crohn disease post small and large bowel resection with last colonoscopy 3 years ago, migraine headaches, SVT post ablation, anxiety and insomnia, patient developed to have increased abdominal pain in the left upper quadrant to the flank area 3 days ago that started on Wednesday evening and kept waxing and waning every day, it was colicky in nature, got worse as the day went by, without any relief from heat or cold, no relief from tylenol or NSAIDs, same things happened Wednesday and wednesday last night she could not sleep at all. so she decided to come to the ER at [facility], her labs and UA were negative, so is abdominal x_ray , she ended up getting CT scan of the Abdomen with contrast, that showed non specific enterocolitis, she was started on IV antibiotics and steroid for possible Crohn exacerbation and was admitted to the hospital for evaluation by GI and treatment of her intractable pain, notice that he urine was completely negative for blood so is her abdominal X-ray , unlikley to be a renal stone. Review of Systems Constitutional: Denies chills, Denies fever, Denies weakness Eyes: denies blurred vision, denies bulging eye, denies decreased vision Ears, nose, mouth and throat: Denies dysphagia, Denies neck lump, Denies sore throat Cardiovascular: Denies chest pain, Denies decreased exercise tolerance, Denies dyspnea on exertion, Denies leg edema, Denies rapid heart beat, Denies shortness of breath, Denies syncope Respiratory: Denies congestion, Denies cough, Denies cough with sputum, Denies home oxygen, Denies sleep apnea, Denies snoring, Denies wheezing Gastrointestinal: Reports abdominal pain, Denies belching, Denies bloating, Denies BRBPR, Denies change in bowel habits, Denies coffee ground emesis, Denies constipation, Denies diarrhea, Denies dyspepsia, Denies early satiety, Denies excessive gas, Denies heartburn, Denies hematemesis, Denies hematochezia, Denies indigestion, Denies loss of appetite, Denies melena, Denies nausea, Denies vomiting Genitourinary: Denies dysuria, Denies hematuria, Denies nocturia Menstruation: Reports postmenopausal Musculoskeletal: Denies myalgias Musculoskeletal: absent: ankle pain, ankle stiffness, ankle swelling, elbow pain, elbow stiffness, elbow swelling, foot pain, foot stiffness, foot swelling, hand pain, hand stiffness, hand swelling, hip pain, hip stiffness, hip swelling, knee pain, knee stiffness, knee swelling, shoulder pain, shoulder stiffness, shoulder swelling, wrist pain, wrist stiffness, wrist swelling Integumentary: Denies pruritus, Denies rash Neurological: Denies numbness, Denies weakness Psychiatric: Denies anxiety, Denies depression Endocrine: Denies fatigue, Denies weight change Past Medical History Past Medical History: CVA/TIA, GERD/Reflux, GI Bleed, Hyperlipidemia, Hypertension, Pneumonia, Renal Disease Additional Past Medical History / Comment(s): CVA, SVT with ablation, colitis, crohn disease, short gut syndrome, hemorrrhoids, chronic pain syndrome, lower GI bleed, antral ulcer, gastritis, chronic insomnia, RLS, migraine headaches, History of Any Multi-Drug Resistant Organisms: None Reported Past Surgical History: Adenoidectomy, Appendectomy, Bowel Resection, Cardiac Abl ation, Heart Catheterization, Orthopedic Surgery, Tonsillectomy, Uterine Ablation Additional Past Surgical History / Comment(s): ANTERIOR CERVICAL DISKECTOMY AND FUSION with plate, ORIF Rt femur with vineet, bowel resection X3 1959, 1967, 1975, recto- vagina fistula repairs x 3, EGD/colonoscopy/polypectomy, occipital steroid injections, L eye lasik. Past Anesthesia/Blood Transfusion Reactions: No Reported Reaction Past Psychological History: No Psychological Hx Reported Smoking Status: Former smoker (Used to smoke a pack for week for 10 years then quit more than 30 years ago.) Past Alcohol Use History: None Reported Past Drug Use History: None Reported - Past Family History Mother Family Medical History: Hypertension (Mother is 90 year old with hypertension, gout and atrial fibrillation) Father Family Medical History: Neurologic Disorder (Father at the age of 76 from Parkinson disease.) Brother(s) Family Medical History: No Reported History (she has one brother no major medical issues.) Daughter(s) Family Medical History: No Reported History (Patient has 2 daughetrs no major medical problems.) Son(s) Family Medical History: No Reported History (Patient [place] son son no medical issues.) Medications and Allergies Home Medications Medication Instructions Recorded Confirmed Type Diphenox-Atrop 2.5-0.025 mg 2 tab PO TID PRN 11/09/13 10/23/19 History [Lomotil] SUMAtriptan SUCCINATE [Imitrex] 100 mg PO DAILY PRN 02/25/14 10/23/19 History Losartan/Hydrochlorothiazide 1 tab PO DAILY 12/24/16 10/23/19 History [Losartan-Hctz 100-12.5 mg Tab] Aspirin [Adult Low Dose Aspirin EC] 81 mg PO DAILY 08/01/17 10/23/19 History Cholecalciferol [Vitamin D3] 1,000 unit PO DAILY 08/01/17 10/23/19 History Cyanocobalamin (Vitamin B-12) 1,000 mcg PO DAILY 08/01/17 10/23/19 History [Vitamin B-12] Glucosamine-Chondr 500-400Mg 1 tab PO DAILY 08/01/17 10/23/19 History Multivitamins, Thera [Multivitamin 1 tab PO DAILY 08/01/17 10/23/19 History (formulary)] Potassium 99 mg PO DAILY 08/01/17 10/23/19 History Magnesium Oxide [Mag-Ox] 250 mg PO DAILY 02/26/18 10/23/19 History Zolpidem [Ambien] 10 mg PO HS PRN 02/26/18 10/23/19 History Ascorbic Acid [Vitamin C] 500 mg PO DAILY 09/19/18 10/23/19 History Omeprazole [PriLOSEC] 20 mg PO DAILY 09/19/18 10/23/19 History Cholestyramine (with Sugar) 4 gm PO BID 10/23/19 10/23/19 History [Cholestyramine Packet] Allergies Allergy/AdvReac Type Severity Reaction Status Date / Time ketorolac tromethamine AdvReac Rapid Verified 10/23/19 12:11 [From Toradol] Heart Rate mannitol AdvReac joint pain Verified 10/23/19 12:11 zoledronic acid AdvReac joint pain Verified 10/23/19 12:11 Physical Exam Vitals: Vital Signs Temp Pulse Resp BP Pulse Ox 10/23/19 12:36 71 16 134/78 97 10/23/19 10:14 98.2 F 108 H 18 191/118 97 Intake and Output 06/14/20 06/15/20 06/15/20 22:59 06:59 14:59 Other: Weight 59.829 kg Physical examination: HEENT; Head ia atraumatic normocephalic pupils were equal round reactive to light and accommodations extra ocular muscle movements were intact, mucous membranes of the mouth are moist. Neck: supple no JVP no lymphadenopathy. Chest: decrease breath sounds at the bases otherwise clear to auscultation bilaterally. Heart: first heart sound is normal , second heart sound is normal there is no gallop or murmur. Abdomen: soft, moderate tenderness to left upper quadrant with rebound or guarding positive bowel sounds, there is no hepato-splenomegaly. Extremities: there is no edema or calf tenderness, DP +2 bilaterally. Neurologic examination: patient is awake alert and oriented X3 CN II-XII are grossly intact, muscle power 5/5 in upper and lower extremities bilaterally, deep tendon reflexes were hyoer bilaterally. Results CBC & Chem 7: 10/23/19 10:42 10/23/19 10:42 Labs: Abnormal Lab Results - Last 24 Hours (Table) 10/23/19 Range/Units 10:42 Chloride 111 H (98-107) mmol/L Glucose 120 H (74-99) mg/dL Thrombosis Risk Factor Assmnt - DVT/VTE Prophylaxis DVT/VTE Prophylaxis: Pharmacologic Prophylaxis ordered, Mechanical Prophylaxis ordered Assessment and Plan Assessment: Assessment and plan: 1. Acute abdominal pain due to Enterocolitis possible Crohn exacerbation. we will continue with IV fluid, , continue with Levaquin 500 mg IVPB daily, Metronidazole 500 mg IVPB three times daily, we will continue with current pain management, Zofran and add smal dose of solu-Medrol 40 mg IVP q 8 hours, we will keep on clear liquid diet advance as tolerated, GI evaluation. 2. Hypertension and hypertensive cardiovascular disease. we will continue with Losarta 100/12.5 mg orally daily. 3. Hyperlipidemia. not on any statins. 4. Migraine headaches. stable. 5. Crhon disease. her last colonoscopy was 3 years ago . we will continue with Questran and Lomotil along with the treatment is paragraph #1. 6. History of supraventricular tachycardia. post ablation. 7. GERD. we will continue with Omeprazole 20 mg orally daily. 8. Insomnia. we will continue with Ambien 10 mg orally at bedtime. 9. DVT prophylaxis. we will continue with heparin 5000 units SQ q 8 hours. 10. GI prophylaxis. we will continue with PPI. 11. Admit to inpatient. estimated length of stay 2 midnights. 12. Full code.
[2019-10-24 06:22] LABS: Basophils % (A) 0 %; Eosinophils % (A) 0 %; HCT 39.5 % (34.0-46.0); HGB 12.6 gm/dL (11.4-16.0); Lymphocytes # (A) 0.8 k/uL (1.0-4.8); Lymphocytes % (A) 9 %; MCH 30.3 pg (25.0-35.0); MCV 94.6 fL (80.0-100.0); Mean Platelet Volume 7.5; Monocytes # (A) 0.1 k/uL (0-1.0); Monocytes % (A) 1 %; Neutrophils # (A) 8.3 k/uL (1.3-7.7); Neutrophils % (A) 89 %; Platelet Count 304 k/uL (150-450); RBC 4.17 m/uL (3.80-5.40); RDW 12.5 % (11.5-15.5); WBC 9.3 k/uL (3.8-10.6)
[2019-10-24] MEDS: SODIUM CHLORIDE 0.9% 1,000 ML IV SCH ×2 (06:47→19:28)
[2019-10-24] MEDS: PANTOPRAZOLE 40 MG TABLET PO SCH (06:47)
[2019-10-24] MEDS: CYANOCOBALAMIN 500 MCG TAB PO SCH (08:10)
[2019-10-24] MEDS: HEPARIN SODIUM,PORCINE 5,000 UNIT/ML 1 ML VIAL SQ SCH ×2 (08:10→16:01)
[2019-10-24] MEDS: CHOLECALCIFEROL 1,000 UNIT TAB PO SCH (08:10)
[2019-10-24] MEDS: LOSARTAN 50 MG TAB PO SCH (08:11)
[2019-10-24] MEDS: LOSARTAN-HCTZ 50-12.5 MG 1 EACH TAB PO SCH (08:11)
[2019-10-24] MEDS: ASPIRIN 81 MG PO SCH (08:11)
[2019-10-24] MEDS: CHOLESTYRAMINE (WITH SUGAR) 4 GM PACKET PO SCH ×2 (08:16→21:35)
[2019-10-24] MEDS: MULTIVITAMINS, THERA 1 EACH TAB PO SCH ×2 (08:20→08:21)
[2019-10-24] MEDS: ASCORBIC ACID 500 MG TAB PO SCH (08:52)
[2019-10-24] MEDS ORDERED: NON FORMULARY DRUG (Potassium [Potassium] 99 MG) PO SCH (09:00)
[2019-10-24] MEDS ORDERED: GLUCOSAMINE CHONDR PO SCH (09:00)
[2019-10-24] MEDS ORDERED: NON FORMULARY DRUG (Magnesium Oxide 250 MG) PO SCH (09:00)
[2019-10-24 10:07] LABS: Erythrocyte Sedimentation Rate 17 mm/hr (0-20)
--- NOTE | 2019-10-24 11:44 | P.CONS ---
History of Present Illness - Reason for Consult Consult date: 10/23/19 Abdominal pain, Crohn's disease Requesting physician: Matthias Dixon - Chief Complaint Abdominal pain - History of Present Illness 69-year-old female with past medical history significant for hyperlipidemia, hypertension, complicated Crohn's disease of the large and small bowel since the age of [age] years old, migraine disorder, SVT status post ablation, anxiety and insomnia who presented to the hospital due to complaints of abdominal pain. The patient reports sharp constant abdominal pain in the left abdomen and flank approximately 3 days in duration. Pain was waxing and waning in intensity but remain constant. The patient denies any similar episodes. She does report that bowel movements have been at baseline which are approximately one to 2 daily as long as she is taking Lomotil and cholestyramine. She is had a history of Crohn's disease of the small and large bowel since age of 15 and is required 3 surgeries in the past with her last resection at the age of approximately 24 or 25. She has a known history of fistula formation language she reports was att empted to be fixed on 2 occasions in [place] a long time ago without success. She follows up locally with GI with her last colonoscopy in 2017 showing a normal rectum to right ileocolonic anastomosis. She has never been on any biologic therapy but has been treated in the past with a 5-ASA agent as well as intermittent steroids, the last remotely. She had computed tomography scan performed on presentation with findings of no bowel obstruction with possible uncomplicated bulb enterocolitis. Amylase on presentation 64 with lipase 51. Patient had a WBC 6.4, hemoglobin 12.4, platelet count 286,000, total bilirubin 0.4, alkaline phosphatase 84, AST 21 and ALT 17. Review of Systems REVIEW OF SYSTEMS: CONSTITUTIONAL: Denies any fevers, chills, weight change or fatigue. CARDIOVASCULAR: Denies any chest pain, palpitations high or low blood pressures RESPIRATORY: Denies any shortness of breath, hemoptysis or cough. GENITOURINARY: No dysuria or hematuria, does have stool discharge from vagina secondary to fistula formation which is chronic. MUSCULOSKELETAL: No weakness reported. SKIN: Denies any new rashes or lesions, jaundice or pallor. PSYCHIATRIC: Denies any depression or anxiety. NEUROLOGY: Denies headache, denies any new focal deficits. EARS/NOSE/THROAT: No recent hearing change, congestion, nasal discharge or sore throat. EYES: No pain in eyes, discharge or change in vision. GASTROINTESTINAL: As per HPI. Past Medical History Past Medical History: CVA/TIA, GERD/Reflux, GI Bleed, Hyperlipidemia, Hypertension, Pneumonia, Renal Disease Additional Past Medical History / Comment(s): CVA, SVT with ablation, colitis, crohn disease, short gut syndrome, hemorrrhoids, CKD stage II, chronic pain syndrome, lower GI bleed, antral ulcer, gastritis, chronic insomnia, RLS, migraine headaches, History of Any Multi-Drug Resistant Organisms: None Reported Past Surgical History: Adenoidectomy, Appendectomy, Bowel Resection, Cardiac Ablation, Heart Catheterization, Orthopedic Surgery, Tonsillectomy, Uterine Ablation Additional Past Surgical History / Comment(s): ANTERIOR CERVICAL DISKECTOMY AND FUSION with plate, ORIF Rt femur with vineet, bowel resection X3 1959, 1967, 1975, recto- vagina fistula repairs x 3, EGD/colonoscopy/polypectomy, occipital steroid injections, L eye lasik. Past Anesthesia/Blood Transfusion Reactions: No Reported Reaction Past Psychological History: No Psychological Hx Reported Smoking Status: Former smoker Past Alcohol Use History: None Reported Additional Past Alcohol Use History / Comment(s): Pt started smoking as a teen and quit in 1980. She used to smoke 1 pkg kirill 3-4 days Past Drug Use History: None Reported - Past Family History Mother Family Medical History: Hypertension Father Family Medical History: Neurologic Disorder Brother(s) Family Medical History: No Reported History (she has one brother no major medical issues.) Daughter(s) Family Medical History: No Reported History (Patient has 2 daughetrs no major medical problems.) Son(s) Family Medical History: No Reported History (Patient [place] son son no medical issues.) Medications and Allergies Home Medications Medication Instructions Recorded Confirmed Type Diphenox-Atrop 2.5-0.025 mg 2 tab PO TID PRN 11/09/13 10/23/19 History [Lomotil] SUMAtriptan SUCCINATE [Imitrex] 100 mg PO DAILY PRN 02/25/14 10/23/19 History Losartan/Hydrochlorothiazide 1 tab PO DAILY 12/24/16 10/23/19 History [Losartan-Hctz 100-12.5 mg Tab] Aspirin [Adult Low Dose Aspirin EC] 81 mg PO DAILY 08/01/17 10/23/19 History Cholecalciferol [Vitamin D3] 1,000 unit PO DAILY 08/01/17 10/23/19 History Cyanocobalamin (Vitamin B-12) 1,000 mcg PO DAILY 08/01/17 10/23/19 History [Vitamin B-12] Glucosamine-Chondr 500-400Mg 1 tab PO DAILY 08/01/17 10/23/19 History Multivitamins, Thera [Multivitamin 1 tab PO DAILY 08/01/17 10/23/19 History (formulary)] Potassium 99 mg PO DAILY 08/01/17 10/23/19 History Magnesium Oxide [Mag-Ox] 250 mg PO DAILY 02/26/18 10/23/19 History Zolpidem [Ambien] 10 mg PO HS PRN 02/26/18 10/23/19 History Ascorbic Acid [Vitamin C] 500 mg PO DAILY 09/19/18 10/23/19 History Omeprazole [PriLOSEC] 20 mg PO DAILY 09/19/18 10/23/19 History Cholestyramine (with Sugar) 4 gm PO BID 10/23/19 10/23/19 History [Cholestyramine Packet] Allergies Allergy/AdvReac Type Severity Reaction Status Date / Time ketorolac tromethamine AdvReac Rapid Verified 10/23/19 12:11 [From Toradol] Heart Rate mannitol AdvReac joint pain Verified 10/23/19 12:11 zoledronic acid AdvReac joint pain Verified 10/23/19 12:11 Physical Exam Vitals: Vital Signs Temp Pulse Pulse Resp BP BP Pulse Ox 10/23/19 15:12 98.2 F 75 18 145/73 97 10/23/19 15:05 97.6 F 67 16 151/71 97 10/23/19 14:48 75 18 145/73 97 10/23/19 12:36 71 16 134/78 97 10/23/19 10:14 98.2 F 108 H 18 191/118 97 Intake and Output 10/23/19 10/23/19 10/23/19 06:59 14:59 22:59 Other: Weight 59.829 kg 60.3 kg On physical examination, patient appears comfortable in no apparent distress. HEAD: Normocephalic, atraumatic. EYES: No scleral icterus. No conjunctival injection. MOUTH: No lesions, tongue midline. NECK: Trachea midline, no gross abnormalities. CHEST: Clear to auscultation with no wheezing or rhonchi appreciated. HEART: Regular rate and rhythm. ABDOMEN: Soft, tender to palpation worse on the left side of her abdomen. Bowel sounds are positive. No organomegaly. No guarding or rigidity. EXTREMITIES: No pedal edema. SKIN: No rashes, no jaundice. NEUROLOGIC: Alert and oriented x3. No focal deficits. Results CBC & Chem 7: 10/24/19 06:01 10/23/19 10:42 Labs: Abnormal Lab Results - Last 24 Hours (Table) 10/23/19 Range/Units 10:42 Chloride 111 H (98-107) mmol/L Glucose 120 H (74-99) mg/dL CT scan - abdomen: report reviewed (Computed tomography scan of the abdomen with no bowel obstruction noted and possible uncomplicated mild enterocolitis.) Assessment and Plan (1) Enterocolitis Narrative/Plan: 69-year-old female with a history of complicated Crohn's disease who presented with left abdominal pain and findings of possible mild uncomplicated enterocolitis. Currently on treatment with steroid therapy and antibiotic therapy. Current Visit: Yes Status: Acute Code(s): K52.9 - NONINFECTIVE GASTROENTERITIS AND COLITIS, UNSPECIFIED SNOMED Code(s): 01818166 (2) Crohns disease of small intestine Narrative/Plan: Long-standing history of complicated Crohn's disease of the small and large intestine since the age of 15. She has required 3 bowel resections in the past with the last occurring at the age of approximately 24-25 in [place]. She also has a known history of fistula formation with failed attempts at surgical repair in the past. 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 The patient is currently not on any active therapy for her Crohn's disease with her last colonoscopy in 2017 showing a normal rectum to right ileocolonic anastomosis. She has previously been on 5ASA agents as well as steroid therapy. No prior biologic therapy. Current Visit: No Status: Chronic Code(s): K50.00 - CROHN'S DISEASE OF SMALL INTESTINE WITHOUT COMPLICATIONS SNOMED Code(s): 45310625 Plan: Supportive care Clear liquid diet Continue to monitor CBC, CMP ESR and CRP ordered Abdominal x-ray ordered Continue Solu-Medrol therapy Continue broad-spectrum antibiotic therapy Patient will need follow-up after discharge for discussion on possible initiation of immunosuppressive therapy for treatment of her complicated Crohn's disease Thank you for allowing us dysphagia in the care of the patient we will continue to follow
--- NOTE | 2019-10-24 12:59 | P.PN ---
Subjective Progress Note Date: 10/24/19 This is a 69 year old female one of my patient with a previous medical history significant for hypertension and hypertensive cardiovascular disease, hyperlipidemia, Crohn disease post small and large bowel resection with last colonoscopy 3 years ago, migraine headaches, SVT post ablation, anxiety and inso mnia, patient developed to have increased abdominal pain in the left upper quadrant to the flank area 3 days ago that started on Wednesday evening and kept waxing and waning every day, it was colicky in nature, got worse as the day went by, without any relief from heat or cold, no relief from tylenol or NSAIDs, same things happened Wednesday and wednesday last night she could not sleep at all. so she decided to come to the ER at [facility], her labs and UA were negative, so is abdominal x_ray , she ended up getting CT scan of the Abdomen with contrast, that showed non specific enterocolitis, she was started on IV antibiotics and steroid for possible Crohn exacerbation and was admitted to the hospital for evaluation by GI and treatment of her intractable pain, notice that her urine was completely negative for blood so is her abdominal X-ray , unlikley to be a renal stone. 10/23: Patient has been seen by Dr. Malik recommendations to continue supportive care, clear liquid diet, continue Solu-Medrol and broad-spectrum antibiotics. Patient will need follow-up after discharge for discussion of possible initiation of immunosuppressive therapy for her complicated Crohn's disease. Sed rate is 17, C-reactive protein less than 5. CBC is unremarkable. Abdominal x-ray shows no acute abnormality. She continues to have sharp shooting abdominal pain up until 810 present medication. She is able to tolerate a clear liquid diet which will be advanced to full liquid diet today for lunch. She is continued on IV Flagyl and Levaquin as well as Solu-Medrol 40 mg IV every 8 hours. NovoLog scale as well as incentive spirometry. Objective - Vital Signs Vital signs: Vital Signs Temp 98.0 F 10/24/19 07:00 Pulse 79 10/24/19 07:00 Resp 18 10/24/19 07:00 BP 136/76 10/24/19 07:00 Pulse Ox 98 10/24/19 07:00 Intake & Output 10/23/19 10/24/19 10/24/19 18:59 06:59 18:59 Intake Total 2320 Balance 2320 Weight 60.3 kg Intake: Oral 2320 Other: # Voids 1 - Exam Review of Systems Constitutional: Denies chills, Denies fever, Denies weakness Eyes: denies blurred vision, denies bulging eye, denies decreased vision Ears, nose, mouth and throat: Denies dysphagia, Denies neck lump, Denies sore throat Cardiovascular: Denies chest pain, Denies decreased exercise tolerance, Denies dyspnea on exertion, Denies leg edema, Denies rapid heart beat, Denies shortness of breath, Denies syncope Respiratory: Denies congestion, Denies cough, Denies cough with sputum, Denies home oxygen, Denies sleep apnea, Denies snoring, Denies wheezing Gastrointestinal: Reports abdominal pain, Denies belching, Denies bloating, Denies BRBPR, Denies change in bowel habits, Denies coffee ground emesis, Denies constipation, Denies diarrhea, Denies dyspepsia, Denies early satiety, Denies excessive gas, Denies heartburn, Denies hematemesis, Denies hematochezia, Denies indigestion, Denies loss of appetite, Denies melena, Denies nausea, Denies vomiting Genitourinary: Denies dysuria, Denies hematuria, Denies nocturia Menstruation: Reports postmenopausal Musculoskeletal: Denies myalgias Musculoskeletal: absent: ankle pain, ankle stiffness, ankle swelling, elbow pain, elbow stiffness, elbow swelling, foot pain, foot stiffness, foot swelling, hand pain, hand stiffness, hand swelling, hip pain, hip stiffness, hip swelling, knee pain, knee stiffness, knee swelling, shoulder pain, shoulder stiffness, shoulder swelling, wrist pain, wrist stiffness, wrist swelling Integumentary: Denies pruritus, Denies rash Neurological: Denies numbness, Denies weakness Psychiatric: Denies anxiety, Denies depression Endocrine: Denies fatigue, Denies weight change Physical examination: HEENT; Head ia atraumatic normocephalic pupils were equal round reactive to light and accommodations extra ocular muscle movements were intact, mucous membranes of the mouth are moist. Neck: supple no JVP no lymphadenopathy. Chest: decrease breath sounds at the bases otherwise clear to auscultation bilaterally. Heart: first heart sound is normal , second heart sound is normal there is no gallop or murmur. Abdomen: soft, moderate tenderness to left upper quadrant with rebound or guarding positive bowel sounds, there is no hepato-splenomegaly. Extremities: there is no edema or calf tenderness, DP +2 bilaterally. Neurologic examination: patient is awake alert and oriented X3 CN II-XII are grossly intact, muscle power 5/5 in upper and lower extremities bilaterally, deep tendon reflexes were hyoer bilaterally. - Labs CBC & Chem 7: 10/24/19 06:01 10/23/19 10:42 Labs: Abnormal Lab Results - Last 24 Hours (Table) 10/24/19 Range/Units 06:01 Neutrophils # 8.3 H (1.3-7.7) k/uL Lymphocytes # 0.8 L (1.0-4.8) k/uL Assessment and Plan Assessment: Assessment and plan: 1. Acute abdominal pain due to Enterocolitis possible Crohn exacerbation. we will continue with IV fluid, , continue with Levaquin 500 mg IVPB daily, Metronidazole 500 mg IVPB three times daily, we will continue with current pain management, Zofran and add smal dose of solu-Medrol 40 mg IVP q 8 hours, advance diet to full liquids, GI consultation appreciated. 2. Hypertension and hypertensive cardiovascular disease. we will continue with Losartan/HCTZ 100/12.5 mg orally daily. 3. Hyperlipidemia. not on any statins. 4. Migraine headaches. stable. 5. Crhon disease. her last colonoscopy was 3 years ago . we will continue with Questran and Lomotil along with the treatment is paragraph #1. 6. History of supraventricular tachycardia. post ablation. 7. GERD. we will continue with Omeprazole 20 mg orally daily. 8. Insomnia. we will continue with Ambien 10 mg orally at bedtime. 9. DVT prophylaxis. we will continue with heparin 5000 units SQ q 8 hours. 10. GI prophylaxis. we will continue with PPI. 11. Admit to inpatient. estimated length of stay 2 midnights. 12. Full code.
[2019-10-24] MEDS ORDERED: LEVOFLOXACIN 750MG-D5W PMX 750 MG in DEXTROSE/WATER 1 150ML.BAG IVPB SCH (14:00)
[2019-10-24 17:21] LABS: Glucose,Whole Blood 118 mg/dL (75-99)
[2019-10-24] MEDS: INSULIN ASPART (NovoLOG) 100 UNIT/ML VIAL SQ SCH ×2 (19:26→21:36)
[2019-10-24 20:25] LABS: Glucose,Whole Blood 140 mg/dL (75-99)
--- NOTE | 2019-10-24 21:56 | P.PN ---
Subjective Progress Note Date: 10/24/19 Principal diagnosis: Enterocolitis, Crohn's disease, abdominal pain Patient seen lying in bed. She has tolerated a liquid diet. Currently she is reporting some improvement in abdominal pain. No bowel movements today. Objective - Vital Signs Vital signs: Vital Signs Temp 98.0 F 10/24/19 07:00 Pulse 79 10/24/19 07:00 Resp 18 10/24/19 07:00 BP 136/76 10/24/19 07:00 Pulse Ox 98 10/24/19 07:00 Intake & Output 10/23/19 10/24/19 10/24/19 18:59 06:59 18:59 Intake Total 2320 Balance 2320 Weight 60.3 kg Intake: Oral 2320 Other: # Voids 1 - Exam On physical examination, patient appears comfortable in no apparent distress. HEAD: Normocephalic, atraumatic. EYES: No scleral icterus. No conjunctival injection. MOUTH: No lesions, tongue midline. NECK: Trachea midline, no gross abnormalities. ABDOMEN: Thin, less tender to palpation. Bowel sounds are positive. No organomegaly. No guarding or rigidity. EXTREMITIES: No pedal edema. SKIN: No rashes, no jaundice. NEUROLOGIC: Alert and oriented x3. No focal deficits. - Labs CBC & Chem 7: 10/24/19 06:01 10/23/19 10:42 Labs: Abnormal Lab Results - Last 24 Hours (Table) 10/24/19 Range/Units 06:01 Neutrophils # 8.3 H (1.3-7.7) k/uL Lymphocytes # 0.8 L (1.0-4.8) k/uL Assessment and Plan (1) Enterocolitis Narrative/Plan: 69-year-old female with a history of complicated Crohn's disease who presented with left abdominal pain and findings of possible mild uncomplicated enterocolitis. Currently on treatment with steroid therapy and antibiotic therapy. Current Visit: Yes Status: Acute Code(s): K52.9 - NONINFECTIVE GASTROENTERITIS AND COLITIS, UNSPECIFIED SNOMED Code(s): 78081400 (2) Crohns disease of small intestine Narrative/Plan: Long-standing history of complicated Crohn's disease of the small and large intestine since the age of 15. She has required 3 bowel resections in the past with the last occurring at the age of approximately 24-25 in [place]. She also has a known history of fistula formation with failed attempts at surgical repair in the past. 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 The patient is currently not on any active therapy for her Crohn's disease with her last colonoscopy in 2016 showing a normal rectum to right ileocolonic anastomosis. She has previously been on 5ASA age nts as well as steroid therapy. No prior biologic therapy. Current Visit: No Status: Chronic Code(s): K50.00 - CROHN'S DISEASE OF SMALL INTESTINE WITHOUT COMPLICATIONS SNOMED Code(s): 92807788 Plan: Supportive care Clear liquid diet, okay to advance to low residual as tolerated Continue to monitor CBC, CMP ESR and CRP normal Abdominal x-ray negative for obstruction Continue Solu-Medrol therapy Continue broad-spectrum antibiotic therapy Patient will need follow-up after discharge for discussion on possible initiation of immunosuppressive therapy for treatment of her complicated Crohn's disease Thank you for allowing us to participate in the care of the patient we will continue to follow
[2019-10-25] MEDS: HEPARIN SODIUM,PORCINE 5,000 UNIT/ML 1 ML VIAL SQ SCH ×2 (01:23→08:39)
[2019-10-25] MEDS: methylPREDNISolone SOD SUCCI 40 MG/ML 1 ML VIAL IV SCH ×2 (01:23→08:36)
[2019-10-25] MEDS: metroNIDAZOLE-NS PMX 500 MG in SALINE 1 100ML.BAG IVPB SCH ×2 (01:24→08:56)
[2019-10-25] MEDS: HYDROmorphone 0.5 MG/0.5 ML SYRINGE IVP PRN ×4 (01:29→12:50)
[2019-10-25] MEDS: INSULIN ASPART (NovoLOG) 100 UNIT/ML VIAL SQ SCH ×2 (06:59→12:46)
[2019-10-25] MEDS: PANTOPRAZOLE 40 MG TABLET PO SCH (06:59)
[2019-10-25 07:05] LABS: Glucose,Whole Blood 147 mg/dL (75-99)
[2019-10-25] MEDS: CHOLESTYRAMINE (WITH SUGAR) 4 GM PACKET PO SCH (08:35)
[2019-10-25] MEDS: SODIUM CHLORIDE 0.9% 1,000 ML IV SCH (08:37)
[2019-10-25] MEDS: ASCORBIC ACID 500 MG TAB PO SCH (08:37)
[2019-10-25] MEDS: CHOLECALCIFEROL 1,000 UNIT TAB PO SCH (08:37)
[2019-10-25] MEDS: ASPIRIN 81 MG PO SCH (08:37)
[2019-10-25] MEDS: LOSARTAN 50 MG TAB PO SCH (08:38)
[2019-10-25] MEDS: CYANOCOBALAMIN 500 MCG TAB PO SCH (08:38)
[2019-10-25] MEDS: LOSARTAN-HCTZ 50-12.5 MG 1 EACH TAB PO SCH (08:39)
[2019-10-25] MEDS: MULTIVITAMINS, THERA 1 EACH TAB PO SCH (08:41)
[2019-10-25 10:13] VITALS: RESP 20
[2019-10-25 12:41] LABS: Glucose,Whole Blood 117 mg/dL (75-99)
[2019-10-25 12:56] VITALS: BP 151/81; PULSE 80; TEMP 97.9
[2019-10-25] MEDS ORDERED: LEVOFLOXACIN 750 MG TAB PO SCH (14:00)
--- NOTE | 2019-10-25 14:36 | P.DS ---
Providers Date of admission: 10/23/19 12:27 Expected date of discharge: 10/25/19 Attending physician: Matthias Dixon Consults: 10/23/19 12:46 Consult Physician Urgent Consulting Provider: Tia Soto Consult Reason/Comments: Crohn's disease Do you want consulting provider notified?: Yes Primary care physician: Matthias Dixon Hospital Course: This is a 69-year-old female one of my patient with a previous medical history significant for hypertension and hypertensive cardiovascular disease, hyperlipidemia, Crohn disease post small and large bowel resection with last colonoscopy 3 years ago, migraine headaches, SVT post ablation, anxiety and insomnia, patient developed to have increased abdominal pain in the left upper quadrant to the flank area 3 days ago that started on Wednesday evening and kept waxing and waning every day, it was colicky in nature, got worse as the day went by, without any relief from heat or cold, no relief from tylenol or NSAIDs, same things happened Wednesday and wednesday last night she could not sleep at all. so she decided to come to the ER at [facility], her labs and UA were negative, so is abdominal x_ray , she ended up getting CT scan of the Abdomen with contrast, that showed non specific enterocolitis, she was started on IV antibiotics and steroid for possible Crohn exacerbation and was admitted to the hospital for evaluation by GI and treatment of her intractable pain, notice that her urine was completely negative for blood so is her abdominal X-ray , unlikley to be a renal stone. 10/23: Patient has been seen by Dr. Malik recommendations to continue supportive care, clear liquid diet, continue Solu-Medrol and broad-spectrum antibiotics. Patient will need follow-up after discharge for discussion of possible initiation of immunosuppressive therapy for her complicated Crohn's disease. Sed rate is 17, C-reactive protein less than 5. CBC is unremarkable. Abdominal x-ray shows no acute abnormality. She continues to have sharp shooting abdominal pain up until 810 present medication. She is able to tolerate a clear liquid diet which will be advanced to full liquid diet today for lunch. She is continued on IV Flagyl and Levaquin as well as Solu-Medrol 40 mg IV every 8 hours. NovoLog scale as well as incentive spirometry. 10/24: Patient is currently tolerating a full liquid diet will be advanced to low fiber for lunch today and GI has decreased sight Medrol to 20 mg IV every 8 hours. She has been afebrile, heart rate 87, blood pressure 119/69, pulse ox 96% on room air. The patient states that her pain is a 5 out of 10 and now is constant versus sharp. She will be provided 3 day [place] and if needed to obtain more next week in the office. Patient has been cleared for discharge by GI with plan for prednisone tapering dose. Patient will be discharged home today in stable condition. Discharge diagnoses: 1. Acute abdominal pain due to Enterocolitis possible Crohn exacerbation. 2. Hypertension and hypertensive cardiovascular disease. 3. Hyperlipidemia. 4. Migraine headaches. 5. Crohn disease. her last colonoscopy was 3 years ag . 6. History of supraventricular tachycardia. 7. GERD. 8. Insomnia. Patient Condition at Discharge: Good Plan - Discharge Summary Discharge Rx Participant: Yes New Discharge Prescriptions: New predniSONE 10 mg PO DAILY #74 tab metroNIDAZOLE [Flagyl] 500 mg PO Q8HR #21 tab Levofloxacin [Levaquin] 750 mg PO Q24H #5 tab HYDROcodone/APAP 5-325MG [[place] 5-325] 1 tab PO Q6HR PRN 3 Days #12 tab PRN Reason: Pain Continue Diphenox-Atrop 2.5-0.025 mg [Lomotil] 2 tab PO TID PRN PRN Reason: Diarrhea SUMAtriptan SUCCINATE [Imitrex] 100 mg PO DAILY PRN PRN Reason: MIGRAINES Losartan/Hydrochlorothiazide [Losartan-Hctz 100-12.5 mg Tab] 1 tab PO DAILY Multivitamins, Thera [Multivitamin (formulary)] 1 tab PO DAILY Glucosamine-Chondr 500-400Mg 1 tab PO DAILY Cholecalciferol [Vitamin D3 (25 Mcg = 1000 Iu)] 1,000 unit PO DAILY Potassium 99 mg PO DAILY Cyanocobalamin (Vitamin B-12) [Vitamin B-12] 1,000 mcg PO DAILY Aspirin [Adult Low Dose Aspirin EC] 81 mg PO DAILY Magnesium Oxide [Mag-Ox] 250 mg PO DAILY Zolpidem [Ambien] 10 mg PO HS PRN PRN Reason: Insomnia Omeprazole [PriLOSEC] 20 mg PO DAILY Ascorbic Acid [Vitamin C] 500 mg PO DAILY Cholestyramine (with Sugar) [Cholestyramine Packet] 4 gm PO BID Discharge Medication List Diphenox-Atrop 2.5-0.025 mg [Lomotil] 2 tab PO TID PRN 11/09/13 [History] SUMAtriptan SUCCINATE [Imitrex] 100 mg PO DAILY PRN 02/25/14 [History] Losartan/Hydrochlorothiazide [Losartan-Hctz 100-12.5 mg Tab] 1 tab PO DAILY 12/24/16 [History] Aspirin [Adult Low Dose Aspirin EC] 81 mg PO DAILY 08/01/17 [History] Cholecalciferol [Vitamin D3 (25 Mcg = 1000 Iu)] 1,000 unit PO DAILY 08/01/17 [History] Cyanocobalamin (Vitamin B-12) [Vitamin B-12] 1,000 mcg PO DAILY 08/01/17 [History] Glucosamine-Chondr 500-400Mg 1 tab PO DAILY 08/01/17 [History] Multivitamins, Thera [Multivitamin (formulary)] 1 tab PO DAILY 08/01/17 [History] Potassium 99 mg PO DAILY 08/01/17 [History] Magnesium Oxide [Mag-Ox] 250 mg PO DAILY 02/26/18 [History] Zolpidem [Ambien] 10 mg PO HS PRN 02/26/18 [History] Ascorbic Acid [Vitamin C] 500 mg PO DAILY 09/19/18 [History] Omeprazole [PriLOSEC] 20 mg PO DAILY 09/19/18 [History] Cholestyramine (with Sugar) [Cholestyramine Packet] 4 gm PO BID 10/23/19 [History] HYDROcodone/APAP 5-325MG [[place] 5-325] 1 tab PO Q6HR PRN 3 Days #12 tab 10/25/19 [Rx] Levofloxacin [Levaquin] 750 mg PO Q24H #5 tab 10/25/19 [Rx] metroNIDAZOLE [Flagyl] 500 mg PO Q8HR #21 tab 10/25/19 [Rx] predniSONE 10 mg PO DAILY #74 tab 10/25/19 [Rx] Follow up Appointment(s)/Referral(s): Matthias Dixon MD [Primary Care Provider] - 1 Week Yassine Malik MD [STAFF PHYSICIAN] - 2 Weeks () Activity/Diet/Wound Care/Special Instructions: Please notify Dr. Dixon for any worsening symptoms Follow up with in one week with Dr. Zack Any severe or worse symptoms than what brought you here, return to the ER
[2019-10-25] MEDS ORDERED: metroNIDAZOLE 500 MG TAB PO SCH (16:00)
[2019-10-25] MEDS ORDERED: methylPREDNISolone SOD SUCCI 40 MG/ML 1 ML VIAL IV SCH (16:00)
== END 2019-10-25 14:40 | disposition home or self-care (01) | DRG 386 ==
LOC: EC 10:06 → 5NMEDONC 12:27 → 6PED 14:20
PROVIDERS: ADMIT Internal Medicine; ATTEND Internal Medicine
DX: K50.80 Crohn's disease of both small and large intestine without complications (principal); N82.3 Fistula of vagina to large intestine; K91.2 Postsurgical malabsorption, not elsewhere classified; I13.10 Hypertensive heart and chronic kidney disease without heart failure, with stage 1 through stage 4 chronic kidney disease, or unspecified chronic kidney disease; E78.5 Hyperlipidemia, unspecified; G25.81 Restless legs syndrome; G43.909 Migraine, unspecified, not intractable, without status migrainosus; G89.4 Chronic pain syndrome; K21.9 Gastro-esophageal reflux disease without esophagitis; N18.2 Chronic kidney disease, stage 2 (mild); F41.9 Anxiety disorder, unspecified; F51.04 Psychophysiologic insomnia; Z11.59 Encounter for screening for other viral diseases; Z79.82 Long term (current) use of aspirin; Z79.899 Other long term (current) drug therapy; Z90.49 Acquired absence of other specified parts of digestive tract; Z87.891 Personal history of nicotine dependence; Z87.11 Personal history of peptic ulcer disease; Z86.73 Personal history of transient ischemic attack (TIA), and cerebral infarction without residual deficits; Z88.5 Allergy status to narcotic agent; Z88.8 Allergy status to other drugs, medicaments and biological substances; Z87.01 Personal history of pneumonia (recurrent); Z86.010 Personal history of colon polyps; Z98.1 Arthrodesis status; Z82.0 Family history of epilepsy and other diseases of the nervous system; Z82.49 Family history of ischemic heart disease and other diseases of the circulatory system
CPT/HCPCS: 36415; 74019; 74177; 80053; 81003; 82150; 83605; 83690; 85025; 85652; 86140; 96361; 96365; 96375; 99285

== ENCOUNTER → 2020-11-26 | Outpatient (CLI) | payer MEDICARE ==
--- NOTE | 2020-11-26 12:40 | MR ---
EXAMINATION TYPE: MR cervical spine wo/w con DATE OF EXAM: 11/26/2020 COMPARISON: Cervicalgia HISTORY: Cervicalgia, disc degeneration, radiculopath, history of cervical fusion TECHNIQUE: Multiplanar, multisequence images of the cervical spine were acquired utilizing 6.5 mL intravenous Ga davist gadolinium contrast. Diffusion weighted imaging was performed. C2-C3: There is left-sided uncovertebral and facet arthropathy with moderate left neural foraminal na rrowing. C3-C4: There are postoperative changes without sequelae. C4-C5: There are postoperative changes without sequelae. C5-C6: There are postoperative changes with mild bilateral uncovertebral and facet arthropathy. C6-C7: There is postoperative changes with bilateral uncovertebral and facet arthropathy was a small disc bulge without sequelae. C7-T1: There is mild anterolisthesis without significant neural foraminal narrowing or central canal stenosis. The patient is status post anterior fusion of C3-6. Straightening of the normal cervical lordosis. There is mild anterolisthesis of C7 on T1 measuring 5 mm. IMPRESSION: 1. Status post anterior fusion of C3-6. 2. Mild anterolisthesis of C7 on T1. 3. Series multilevel disc disease and osteoarthritic changes of the cervical spine as described
== END | disposition home or self-care (01) ==
LOC: RADMRIMAIN 10:25
PROVIDERS: ATTEND Orthopaedic Surgery Orthopaedic Surgery of the Spine
DX: M50.323 Other cervical disc degeneration at C6-C7 level (principal); M54.12 Radiculopathy, cervical region; Z98.1 Arthrodesis status
CPT/HCPCS: 72156; A9585

== ENCOUNTER → 2021-10-31 | Day surgery (SDC) | payer MEDICARE ==
[2021-10-30 09:07] VITALS: BMI 25.2
[~2021-10-31] MED LIST changes: +LACTATED RINGERS 1,000 ML IV ONE; +PROPOFOL 10 MG/ML 20 ML VIAL IV ONE
[2021-10-31 09:24] VITALS: TEMP 98.1
--- NOTE | 2021-10-31 10:15 | P.PCN ---
Date of Procedure: 10/31/21 Procedure(s) Performed: BRIEF HISTORY: Patient is a 71-year-old pleasant white female scheduled for an elective colonoscopy as a part of ascending history of Crohn's disease diagnosed at age 15 status post terminal ileal resection several years ago.. She is in clinical remission. PROCEDURE PERFORMED: Colonoscopy. PREOPERATIVE DIAGNOSIS: History of Crohn's disease. IV sedation per Anesthesia. PROCEDURE: After informed consent was obtained, the patient, was brought into the endoscopy unit. IV sedation was administered by Anesthesia under continuous monitoring. Digital rectal examination was normal. Initially the Olympus CF-160 flexible video colonoscope was then inserted in the rectum, gradually advanced into the ileocolic anastomosis without any difficulty. Careful examination was performed as the scope was gradually being withdrawn. Mucosa of the transverse colon, descending colon, sigmoid colon, and rectum appeared normal. Retroflexion was performed in the rectum and no lesions were seen. The patient tolerated the procedure well. IMPRESSION: Normal-appearing colon from rectum to transverse colon with no evidence of active colitis or colorectal neoplasia. Patent ileocolic anastomosis RECOMMENDATIONS: Findings of this examination were discussed with the patient as well as her family.. He was advised to have a repeat colonoscopy in 5 years from now.
[2021-10-31 10:34] VITALS: BP 127/80; PULSE 99; RESP 18
== END ==
LOC: ORWHC2ENDO 08:13
PROVIDERS: ATTEND Internal Medicine Gastroenterology
DX: K63.89 Other specified diseases of intestine (principal); K50.90 Crohn's disease, unspecified, without complications; I47.1 Supraventricular tachycardia; I10 Essential (primary) hypertension; E78.5 Hyperlipidemia, unspecified; K21.9 Gastro-esophageal reflux disease without esophagitis; Z87.891 Personal history of nicotine dependence; Z88.8 Allergy status to other drugs, medicaments and biological substances; Z79.82 Long term (current) use of aspirin; Z79.899 Other long term (current) drug therapy
CPT/HCPCS: 45378; J2704

== ENCOUNTER → 2022-03-11 | Outpatient (CLI) | payer MEDICARE ==
--- NOTE | 2022-03-12 08:12 | XR ---
EXAMINATION TYPE: XR shoulder complete 3 views RT DATE OF EXAM: 03/11/2022 Comparison: None Clinical History: 71-year-old female M47.16 SPONDYLOSIS, M77.8 ENTHESOPATHIES Findings: Mild degenerative joint space narrowing and marginal spurring at the acromioclavicular joint. Subacro mial space is preserved. No tendinous or bursal calcifications. Bony sclerosis at the greater tuberos ity on the Grashey view. Minimal spurring inferior glenoid. Partially visualized ACDF hardware. No ac jarrell fracture, subluxation, or dislocation. Impression: Mild AC joint OA. Some bony changes of the greater tuberosity suggests chronic rotator cuff tendinopa thy. No acute process seen.
--- NOTE | 2022-03-12 08:17 | XR ---
EXAMINATION TYPE: XR lumbar spine with bend/flex, 6 views DATE OF EXAM: 03/11/2022 Comparison: 03/02/[address] 10/23/2019 Clinical History: 71-year-old female M47.16 SPONDYLOSIS, M77.8 ENTHESOPATHIES Findings: Slight dextroconvex curvature of the lumbar spine appears slightly increased from 2018. Osteopenia. Gas-filled colon. Surgical clips redemonstrated in the left side of the abdomen. Overlyin g midline abdominal sutures. Hypertrophic facet arthropathy mid to lower lumbar spine. There is mild superior endplate deformity of L1. This appearance is unchanged from the CT of 10/23/2019. Mild to mo derate degenerative disc disease upper lumbar spine and thoracic lumbar junction with disc space narr owing and endplate spondylosis. Trace degenerative grade 1 retrolisthesis L1-L2 does not change on fl exion and extension. On flexion, a trace grade 1 anterolisthesis develops at L4-L5. Impression: 1. Hypertrophic facet arthropathy throughout. A fixed trace grade 1 retrolisthesis at L1-L2 is presen t. On flexion, trace grade 1 anterolisthesis develops at L4-L5. 2. Chronic superior endplate deformity of L1. Moderate degenerative disc disease thoracolumbar juncti on and upper lumbar spine.
--- NOTE | 2022-03-12 08:20 | XR ---
EXAMINATION TYPE: XR Hip Complete RT DATE OF EXAM: 03/11/2022 Comparison: 03/02/2018 Clinical History: 71-year-old female M47.16 SPONDYLOSIS, M77.8 ENTHESOPATHIES Findings: Mild axial joint space narrowing at the right hip. We note some heterotopic ossification in the anter ior and lateral proximal third by soft tissue mass measuring up to 5.4 x 1.5 cm. Retrograde intramedu llary nail is partially visualized ending at the subtrochanteric region. Single interlocking screw no nelsy. Multiple pelvic phleboliths. Impression: 1. Previous retrograde intramedullary nailing of the right femoral shaft. Very mild degenerative axia l joint space narrowing of the right hip. No acute osseous abnormality seen. 2. A 5.4 x 1.5 cm soft tissue focus of calcification anterior lateral upper third thigh soft tissues. Not previously included in the [id number]. 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 Consider conservative six-month follow-up radiograph to reassess.
== END | disposition home or self-care (01) ==
LOC: RADXRMAIN 15:29
PROVIDERS: ATTEND Internal Medicine
DX: M19.011 Primary osteoarthritis, right shoulder (principal); M47.816 Spondylosis without myelopathy or radiculopathy, lumbar region; M43.16 Spondylolisthesis, lumbar region; M51.35 Other intervertebral disc degeneration, thoracolumbar region; M61.9 Calcification and ossification of muscle, unspecified
CPT/HCPCS: 72114; 73502

== ENCOUNTER 2023-08-01 21:07 | Emergency (ER) | payer MEDICARE ==
[2023-08-01 21:28] VITALS: TEMP 98.8
--- NOTE | 2023-08-01 22:00 | ED ---
General Adult HPI - General Source: patient, RN notes reviewed Mode of arrival: ambulatory Limitations: no limitations <Afia Estevez - Last Filed: 08/02/23 00:52> <Ute Verma - Last Filed: 08/02/23 01:36> - General Chief complaint: Extremity Injury, Upper Stated complaint: fall-left arm injury Time Seen by Provider: 08/01/23 21:30 - History of Present Illness Initial comments: 73-year-old female presents to the emergency department for evaluation of left wrist injury. Patient states that after bowling she was going to put her ball away when it started to roll away. She attempted to catch it but she lost her balance falling backwards. She states that she landed on her left outstretched wrist. She notes significant pain and swelling to the wrist. She states that she typically has numbness in her third and fourth digits but has had no changes since the injury. (Afia Estevez) - Related Data Home Medications Medication Instructions Recorded Confirmed Diphenox-Atrop 2.5-0.025 mg 2 tab PO TID PRN 11/09/13 10/30/21 [Lomotil] SUMAtriptan succinate [Imitrex] 100 mg PO DAILY PRN 02/25/14 10/30/21 Losartan/Hydrochlorothiazide 1 tab PO DAILY 12/24/16 10/30/21 [Losartan-Hctz 100-12.5 mg Tab] Aspirin [Adult Low Dose Aspirin EC] 81 mg PO DAILY 08/01/17 10/30/21 Omeprazole [PriLOSEC] 20 mg PO DAILY 09/19/18 10/30/21 Atorvastatin [Lipitor] 40 mg PO DAILY 10/30/21 10/30/21 Calcium Carbonate [Calcium] 500 mg PO DAILY 10/30/21 10/30/21 Cholecalciferol [Vitamin D3 (125 125 mcg PO DAILY 10/30/21 10/30/21 Mcg = 5000 Iu)] Cholestyramine (with Sugar) 9 gm PO TID PRN 10/30/21 10/30/21 [Cholestyramine Packet] Glucosam/Abhay-Msm1/C/Bravo/Bosw 1 each PO DAILY 10/30/21 10/30/21 [Glucosamine-Chondroitin Tablet] Magnesium Oxide [Magnesium] 500 mg PO DAILY 10/30/21 10/30/21 Potassium Chloride [K-Tab ER] 10 meq PO DAILY 10/30/21 10/30/21 Vitamin B Complex 1 each PO DAILY 10/30/21 10/30/21 Vitamin E (Dl,Tocopheryl Acet) 1,000 unit PO DAILY 10/30/21 10/30/21 [Vitamin E (1000 Iu = 450 MG)] Previous Rx's Medication Instructions Recorded HYDROcodone/APAP 5-325MG [[place] 1 tab PO Q6HR PRN 3 Days #12 tab 08/02/23 5-325] Allergies Allergy/AdvReac Type Severity Reaction Status Date / Time ketorolac tromethamine AdvReac Rapid Verified 08/01/23 21:19 [From Toradol] Heart Rate mannitol AdvReac joint pain Verified 08/01/23 21:19 zoledronic acid AdvReac joint pain Verified 08/01/23 21:19 Review of Systems ROS Other: All systems not noted in ROS Statement are negative. <Afia Estevez - Last Filed: 08/02/23 00:52> ROS Other: All systems not noted in ROS Statement are negative. <Ute Vemra - Last Filed: 08/02/23 01:36> ROS Statement: Those systems with pertinent positive or pertinent negative responses have been documented in the HPI. Past Medical History Past Medical History: GERD/Reflux, GI Bleed, Hyperlipidemia, Hypertension, Pneumonia, Renal Disease, Supraventricular Tachycardia (SVT) Additional Past Medical History / Comment(s): SVT with ablation, colitis, crohn disease, hx bowel resection x3., short gut syndrome, hemorrrhoids, Hx lower GI bleed, antral ulcer, gastritis, RLS, migraine headaches, hx "broken back" History of Any Multi-Drug Resistant Organisms: None Reported Past Surgical History: Adenoidectomy, Appendectomy, Bowel Resection, Cardiac Ablation, Heart Catheterization, Orthopedic Surgery, Tonsillectomy, Uterine Ablation Additional Past Surgical History / Comment(s): ANTERIOR CERVICAL DISCECTOMY AND FUSION with plate, ORIF Rt femur with vineet, bowel resection X3 1959, 1967, 1975, recto- vagina fistula repairs x 3, EGD/colonoscopy/polypectomy, occipital steroid injections, L eye lasik. Past Anesthesia/Blood Transfusion Reactions: No Reported Reaction Past Psychological History: No Psychological Hx Reported Smoking Status: Former smoker Past Alcohol Use History: Occasional Past Drug Use History: None Reported - Past Family History Mother Family Medical History: Cancer, Hypertension Additional Family Medical History / Comment(s): SKIN CANCER Father Family Medical History: Neurologic Disorder Brother(s) Family Medical History: No Reported History Daughter(s) Family Medical History: No Reported History Son(s) Family Medical History: No Reported History <Afia Estevez - Last Filed: 08/02/23 00:52> General Exam Limitations: no limitations General appearance: alert, in no apparent distress Head exam: Present: atraumatic, normocephalic, normal inspection Eye exam: Present: normal appearance, PERRL, EOMI. Absent: scleral icterus, conjunctival injection, periorbital swelling ENT exam: Present: normal exam, mucous membranes moist Neck exam: Present: normal inspection. Absent: tenderness, meningismus, lymphadenopathy Respiratory exam: Present: normal lung sounds bilaterally. Absent: respiratory distress, wheezes, rales, rhonchi, stridor Cardiovascular Exam: Present: regular rate, normal rhythm, normal heart sounds. Absent: systolic murmur, diastolic murmur, rubs, gallop, clicks Extremities exam: Present: tenderness (Left wrist), normal capillary refill, joint swelling, other. Absent: full ROM Neurological exam: Present: alert, oriented X3 Psychiatric exam: Present: normal affect, normal mood Skin exam: Present: warm, dry, intact, other (ecchymosis to medial left wrist). Absent: normal color <Afia Estevez - Last Filed: 08/02/23 00:52> Course Vital Signs 08/01/23 08/02/23 21:18 01:00 Temperature 98.8 F Pulse Rate 91 107 H Respiratory 18 16 Rate Blood Pressure 147/83 119/85 O2 Sat by Pulse 96 94 L Oximetry Procedures - Nerve Block Local Anesthetic Used: Lidocaine 1% Amount of anesthesia used: 8 Side: left Nerve Blocks: hematoma block Procedure Successful: Yes Complications: none Patient Tolerated Procedure: well, no complications - Orthopedic Fracture Reduction Fracture #1 Consent Obtained: verbal consent Side: left Fracture Reduction Location: radius Analgesia: hematoma block Technique: direct manipulation Post-Reduction Neuro Exam: intact Post-Reduction Vascular Exam: intact Splint Applied: Yes Patient Tolerated Procedure: well - Orthopedic Splinting/Casting Injury #1 Side: left Upper Extremity Immobilizer: sugar tong splint <Afia Estevez - Last Filed: 08/02/23 00:52> Medical Decision Making <Afia Estevez - Last Filed: 08/02/23 00:52> <Darryl Vermassholger Tucker - Last Filed: 08/02/23 01:36> - Medical Decision Making Was pt. sent in by a medical professional or institution (, PA, NET TECHNICAL ARCHITECT, urgent care, hospital, or [facility]...) When possible be specific @ -No Did you speak to anyone other than the patient for history (EMS, parent, family, police, friend...)? What history was obtained from this source @ -Patient's friend in the room providing some history Did you review nursing and triage notes (agree or disagree)? Why? @ -I reviewed and agree with nursing and triage notes Were old charts reviewed (outside hosp., previous admission, EMS record, old EKG, old radiological studies, urgent care reports/EKG's, [facility] records)? Report findings @ -No old charts were reviewed Differential Diagnosis (chest pain, altered mental status, abdominal pain women, abdominal pain men, vaginal bleeding, weakness, fever, dyspnea, syncope, headache, dizziness, GI bleed, back pain, seizure, CVA, palpatations, mental health, musculoskeletal)? @ -Differential Musculoskeletal Muscular strain, contusion, ligament sprain, fracture, arthritis, septic arthritis, bursitis, cellulitis, muscle spasm, nerve compression, DVT, arterial occlusion, herpes zoster, electrolyte abnormality, tumor.... This is not meant to be in all inclusive list EKG interpreted by me (3pts min.). @ -None X-rays interpreted by me (1pt min.). @ -X-ray of the left wrist shows an ulnar styloid fracture, impacted distal radius fracture with dorsal displacement and angulation CT interpreted by me (1pt min.). @ -None done U/S interpreted by me (1pt. min.). @ -None done What testing was considered but not performed or refused? (CT, X-rays, U/S, labs)? Why? @ -None What meds were considered but not given or refused? Why? @ -None Did you discuss the management of the patient with other professionals (professionals i.e. , PA, NET TECHNICAL ARCHITECT, lab, RT, psych nurse, social media sr strategy manager, egg sorter, teacher, crime prevention police officer, bottle caser)? Give summary @ -No Was smoking cessation discussed for >3mins.? @ -No Was critical care preformed (if so, how long)? @ -No Were there social determinants of health that impacted care today? How? (Homelessness, low income, unemployed, alcoholism, drug addiction, transportation, low edu. Level, literacy, decrease access to med. care, retirement, rehab)? @ -No Was there de-escalation of care discussed even if they declined (Discuss DNR or withdrawal of care, Hospice)? DNR status @ -No What co-morbidities impacted this encounter? (DM, HTN, Smoking, COPD, CAD, Cancer, CVA, ARF, Chemo, Hep., AIDS, mental health diagnosis, sleep apnea, morbid obesity)? @ -None Was patient admitted / discharged? Hospital course, mention meds given and route, prescriptions, significant lab abnormalities, going to OR and other pertinent info. @ -Discharged. Patient presented to the emergency department for evaluation of left wrist injury. Patient states that she fell after bowling landing on her left outstretched wrist. Denies any other injury, denies head injury. She is not on blood thinners. X-rays of the left wrist obtained which show a comminuted impacted distal radius fracture with dorsal displacement and angulation, ulnar styloid fracture. Hematoma block performed by Dr. Verma along with close reduction. Patient placed in a sugar-tong splint. She is provided prescription for narcotic pain medication x 3 days. Advised to rest, ice, elevate and call orthopedics in the a.m. for appointment. Patient understanding agreeable with plan. Patient stable at time of discharge. Case discussed Dr. Verma. Undiagnosed new problem with uncertain prognosis? @ -No Drug Therapy requiring intensive monitoring for toxicity (Heparin, Nitro, Insulin, Cardizem)? @ -No Were any procedures done? @ -Hematoma block, close reduction, splint Diagnosis/symptom? @ -Distal radius fracture, left Acute, or Chronic, or Acute on Chronic? @ -Acute Uncomplicated (without systemic symptoms) or Complicated (systemic symptoms)? @ -Uncomplicated Side effects of treatment? @ -No Exacerbation, Progression, or Severe Exacerbation? @ -No Poses a threat to life or bodily function? How? (Chest pain, [place], [place], pneumonia, PE, COPD, DKA, ARF, appy, cholecystitis, CVA, Diverticulitis, Homicidal, Suicidal, threat to staff... and all critical care pts) @ -No (Afia Estevez) Personally saw and evaluated this patient, given the patient's advanced age and current state of alcohol intoxication I did not feel she was a good candidate for procedural sedation. Patient was agreeable to proceeding with hematoma block, hematoma block was moderately successful patient did had some decrease sensation and was able to tolerate closed reduction and splinting. [facility] will contact them tomorrow for outpatient follow-up. I suspect this will likely require operative repair patient was updated on the plan placed in a sling and discharged home in stable condition. (Ute Verma) Disposition Is patient prescribed a controlled substance at d/c from ED?: Yes When asked, does pt state using other controlled substances?: No If prescribed controlled substance>3 days was MAPS reviewed?: Prescribed <3 Days <Afia Estevez - Last Filed: 08/02/23 00:52> <Ute Verma - Last Filed: 08/02/23 01:36> Clinical Impression: Distal radius fracture, left Disposition: HOME SELF-CARE Condition: Stable Instructions (If sedation given, give patient instructions): Wrist Fracture in Adults (ED) Additional Instructions: Please follow up with orthopedics. Rest, ice, elevate. Return to the emergency department for new or worsening symptoms. Prescriptions: HYDROcodone/APAP 5-325MG [[place] 5-325] 1 tab PO Q6HR PRN 3 Days #12 tab PRN Reason: Pain Referrals: Matthias Dixon MD [Primary Care Provider] - 1-2 days
[2023-08-01] MEDS: HYDROmorphone 0.5 MG/0.5 ML SYRINGE IM STA (22:11)
--- NOTE | 2023-08-01 22:28 | XR ---
EXAMINATION TYPE: XR wrist limited LT DATE OF EXAM: 08/01/2023 CLINICAL HISTORY: FOOSH TECHNIQUE: Frontal and lateral images of the left wrist are obtained. COMPARISON: None FINDINGS: There is acute avulsion type fracture from the ulnar styloid with 4 mm fracture fragment. There is acute comminuted displaced impacted intra-articular fracture through the distal radial meta- epiphysis. There is slight dorsal displacement and angulation and radial displacement of distal fract ure fragment. Associated mild to moderate soft tissue swelling is seen. Incidental moderate triscaphe joint degenerative change. IMPRESSION: As above.
[2023-08-01] MEDS: LIDOCAINE 1% INJ 10MG/ML (20 ML MDV) SQ ONE (22:51)
[2023-08-01] MEDS: HYDROmorphone 1 MG/ML 1 ML SYRINGE IM STA (22:51)
[2023-08-02] MEDS: ACET/COD 300 MG/30 MG STARTER PACK 6 TAB BTL PO STA (00:56)
[2023-08-02 01:34] VITALS: BP 119/85; PULSE 107; RESP 16
== END 2023-08-02 01:00 | disposition home or self-care (01) ==
LOC: EC 21:07
DX: S52.572A Other intraarticular fracture of lower end of left radius, initial encounter for closed fracture (principal); S52.612A Displaced fracture of left ulna styloid process, initial encounter for closed fracture; Z88.6 Allergy status to analgesic agent; Z88.8 Allergy status to other drugs, medicaments and biological substances; Z87.891 Personal history of nicotine dependence; W18.30XA Fall on same level, unspecified, initial encounter; Y93.54 Activity, bowling
CPT/HCPCS: 25605; 99284; 96372 ×2; 73100; J2001; J1170 ×2

== ENCOUNTER → 2023-10-18 | Outpatient (CLI) | payer MEDICARE ==
--- NOTE | 2023-10-18 14:11 | NM ---
EXAMINATION TYPE: NM bone scan whole body DATE OF EXAM: 10/18/2023 COMPARISON: NONE CLINICAL INDICATION: Female, 73 years old with history of M54.51 VERTEBROGENIC LOW BACK PAIN; Delayed whole-body scanning was performed following the injection of 21.9 mCi Tc 99m MDP. Images acq uired 4.25 hours post injection. FINDINGS: Intense linear radiotracer accumulation noted at T12, L1 and L2 which may reflect acute compression f ractures. Underlying pathologic component not excluded. There is also intense uptake noted about the left wrist and second left metacarpal which could be posttraumatic in nature. There is evidence of pr ior fracture since study of 08/01/2023 about the wrist. Degenerative uptake about the shoulders, mota oclavicular joints, bilateral hips, bilateral knees and ankles. IMPRESSION: 1. Intense linear radiotracer accumulation involving T12, L1 and L2 which likely reflect acute compre ssion fractures of underlying pathologic component to exclude. Correlate clinically.
== END | disposition home or self-care (01) ==
LOC: RADNMMAIN 07:11
PROVIDERS: ATTEND Physical Medicine & Rehabilitation
DX: M54.51 Vertebrogenic low back pain (principal); M48.062 Spinal stenosis, lumbar region with neurogenic claudication; M47.816 Spondylosis without myelopathy or radiculopathy, lumbar region; M43.16 Spondylolisthesis, lumbar region; S22.080A Wedge compression fracture of T11-T12 vertebra, initial encounter for closed fracture
CPT/HCPCS: 78306; A9503

== ENCOUNTER → 2023-11-03 | Outpatient (CLI) | payer MEDICARE ==
[2023-11-03 09:13] LABS: HCT 41.8 % (34.0-46.0); HGB 12.7 gm/dL (11.4-16.0); MCH 29.5 pg (25.0-35.0); MCHC 30.5 g/dL (31.0-37.0); MCV 96.7 fL (80.0-100.0); Platelet Count 288 k/uL (150-450); RBC 4.32 m/uL (3.80-5.40); WBC 6.3 k/uL (3.8-10.6)
[2023-11-03 09:21] LABS: Partial Thromboplastin Time 24.2 sec (22.0-30.0)
[2023-11-03 15:53] LABS: BUN/Creat Ratio 11.89 Ratio (12.00-20.00); Blood Urea Nitrogen 10.7 mg/dL (9.0-27.0); Calcium 9.7 mg/dL (8.7-10.3); Carbon Dioxide 20.2 mmol/L (21.6-31.8); Chloride 108 mmol/L (96-109); Glucose 82 mg/dL (70-110); Potassium 3.2 mmol/L (3.5-5.5); Sodium 142 mmol/L (135-145)
== END | disposition home or self-care (01) ==
LOC: LABWHC1 08:44
PROVIDERS: ATTEND Orthopaedic Surgery Orthopaedic Surgery of the Spine
DX: M54.59 Other low back pain (principal)
CPT/HCPCS: 36415; 80048; 85027; 85610; 85730

== ENCOUNTER → 2024-04-13 | Outpatient (CLI) | payer MEDICARE ==
--- NOTE | 2024-04-13 15:43 | BD ---
EXAMINATION TYPE: Axial Bone Density DATE OF EXAM: 04/13/2024 CLINICAL HISTORY: 73 years old Female. ICD-10 CODE: M85.851 OSTEOPENIA , Additional History: Height: 60 Weight: 124 FRAX RISK QUESTIONS: Family History (Parent hip fracture): no History of Fracture in Adulthood: yes Secondary Osteoporosis: no RISK FACTORS HISTORY OF: Spine Fracture: yes When: 2023 History of bilat Wrist Fracture: yes When: Surgery to lumbar Spine/Hip(right)/Wrist (left): yes When: MEDICATIONS: Thyroid Medications: no Osteoporosis Medications: no EXAM MEASUREMENTS: Bone mineral densitometry was performed using the [employer] System. Bone mineral density about the L hip (g/cm2): 0.735 T Score values are as follows: -----L Neck: -2.7 -----L Total: -2.2 Z Score values are as follows: -----L Neck: -0.6 -----L Total: -0.3 Bone mineral density has:Decreased -0.5% since study of: 09/13/2015 FRAX%s: The graph provided illustrates a 26.5% chance for a major osteoporotic fx and a 8.6% chance f or the hips probability for fx in 10 years time. IMPRESSION: Note that the assessment is limited as only 1 site was available for bone density measurements. Impression is based on measurements at the left hip. Osteoporosis (T Score less than -2.5). There is increased fracture risk and therapy is usually indicated based on age. Re-Screen 1-2 years. NOTE: T-SCORE=SD OF THE YOUNG ADULT MEAN. [facility], , 04/13/2024 3:41 PM
--- NOTE | 2024-04-14 18:10 | MM ---
Reason for Exam: Screening (asymptomatic). Last mammogram was performed 7 year(s) and 0 month(s) ago. Patient History: Menarche at age 13. First Full-Term at age 22. Postmenopausal. Maternal cousin had breast cancer. Risk Values: Rosa 5 year model risk: 1.6%. NCI Lifetime model risk: 3.9%. Prior Study Comparison: 05/06/2017 Bilateral Screening Mammogram, [facility]. 05/19/2017 Bilateral Diagnostic Mammogram, [facility]. Tissue Density: The breasts are heterogeneously dense, which may obscure small masses. Findings: Analyzed By CAD. Areas of asymmetric density are unchanged. There is no suspicious group of microcalcifications or new suspicious mass in either breast. Overall Assessment: Benign, BI-RAD 2 Management: Screening Mammogram of both breasts in 1 year. . Patient should continue monthly self-breast exams. A clinical breast exam by your physician is recommended on an annual basis. This exam should not preclude additional follow-up of suspicious palpable abnormalities. Note on Rosa scores and lifetime risk: 1. A Rosa score greater than 3% is considered moderate risk. If this is the case, consider specialist referral to assess eligibility for a risk reducing agent. 2. If overall lifetime risk for the development of breast cancer is 20% or higher, the patient may qualify for future screening with alternating mammogram and breast MRI. [facility], , 04/14/2024 6:07 PM. Electronically signed and approved by: Yair Ricardo M.D. Radiologist
== END | disposition home or self-care (01) ==
LOC: RADMAMWWP 09:48
PROVIDERS: ATTEND Internal Medicine
DX: Z12.31 Encounter for screening mammogram for malignant neoplasm of breast (principal); Z13.820 Encounter for screening for osteoporosis; R92.333 Mammographic heterogeneous density, bilateral breasts; M81.0 Age-related osteoporosis without current pathological fracture; M85.851 Other specified disorders of bone density and structure, right thigh; Z78.0 Asymptomatic menopausal state; Z80.3 Family history of malignant neoplasm of breast
CPT/HCPCS: 77063; 77067; 77080

== ENCOUNTER 2024-08-13 18:26 | Emergency (ER) | payer MEDICARE ==
--- NOTE | 2024-08-13 18:42 | ED ---
Altered Mental Status HPI - General Chief Complaint: Altered Mental Status Stated Complaint: Unknown Time Seen by Provider: 08/13/24 18:38 Source: EMS, RN notes reviewed, old records reviewed Mode of arrival: EMS Limitations: altered mental status - History of Present Illness Initial Comments: This is a 74 female she presents today for evaluation of altered mental status, patient apparently was seen yesterday acting appropriately was found today in he r bathroom with a pillow. Patient is unable to provide history to EMS unable unable provide history here in the emergency department she is awake alert responding but nonsensical. No significant evidence of traumatic injury noted on exam, patient unable to provide any history MD Complaint: altered mental status, confusion, weakness -: unknown Consistency of Symptoms: constant Treatments Prior to Arrival: IV fluid, oxygen, spinal immobilization - Related Data Home Medications Medication Instructions Recorded Confirmed Diphenox-Atrop 2.5-0.025 mg 2 tab PO TID PRN 11/09/13 10/30/21 [Lomotil] SUMAtriptan succinate [Imitrex] 100 mg PO DAILY PRN 02/25/14 10/30/21 Losartan/Hydrochlorothiazide 1 tab PO DAILY 12/24/16 10/30/21 [Losartan-Hctz 100-12.5 mg Tab] Aspirin [Adult Low Dose Aspirin EC] 81 mg PO DAILY 08/01/17 10/30/21 Omeprazole [PriLOSEC] 20 mg PO DAILY 09/19/18 10/30/21 Atorvastatin [Lipitor] 40 mg PO DAILY 10/30/21 10/30/21 Calcium Carbonate [Calcium] 500 mg PO DAILY 10/30/21 10/30/21 Cholecalciferol [Vitamin D3 (125 125 mcg PO DAILY 10/30/21 10/30/21 Mcg = 5000 Iu)] Cholestyramine (with Sugar) 9 gm PO TID PRN 10/30/21 10/30/21 [Cholestyramine Packet] Glucosam/Abhay-Msm1/C/Bravo/Bosw 1 each PO DAILY 10/30/21 10/30/21 [Glucosamine-Chondroitin Tablet] Magnesium Oxide [Magnesium] 500 mg PO DAILY 10/30/21 10/30/21 Potassium Chloride [K-Tab ER] 10 meq PO DAILY 10/30/21 10/30/21 Vitamin B Complex 1 each PO DAILY 10/30/21 10/30/21 Vitamin E (Dl,Tocopheryl Acet) 1,000 unit PO DAILY 10/30/21 10/30/21 [Vitamin E (1000 Iu = 450 MG)] Previous Rx's Medication Instructions Recorded HYDROcodone/APAP 5-325MG [[place] 1 tab PO Q6HR PRN 3 Days #12 tab 08/02/23 5-325] Allergies Allergy/AdvReac Type Severity Reaction Status Date / Time ketorolac tromethamine AdvReac Rapid Verified 08/13/24 18:33 [From Toradol] Heart Rate mannitol AdvReac joint pain Verified 08/13/24 18:33 zoledronic acid AdvReac joint pain Verified 08/13/24 18:33 Review of Systems ROS Statement: Those systems with pertinent positive or pertinent negative responses have been documented in the HPI. ROS Other: All systems not noted in ROS Statement are negative. Past Medical History Past Medical History: GERD/Reflux, GI Bleed, Hyperlipidemia, Hypertension, Pneumonia, Renal Disease, Supraventricular Tachycardia (SVT) Additional Past Medical History / Comment(s): SVT with ablation, colitis, crohn disease, hx bowel resection x3., short gut syndrome, hemorrrhoids, Hx lower GI bleed, antral ulcer, gastritis, RLS, migraine headaches, hx "broken back" History of Any Multi-Drug Resistant Organisms: None Reported Past Surgical History: Adenoidectomy, Appendectomy, Bowel Resection, Cardiac Ablation, Heart Catheterization, Orthopedic Surgery, Tonsillectomy, Uterine Ablation Additional Past Surgical History / Comment(s): ANTERIOR CERVICAL DISCECTOMY AND FUSION with plate, ORIF Rt femur with vineet, bowel resection X3 1959, 1967, 1975, recto- vagina fistula repairs x 3, EGD/colonoscopy/polypectomy, occipital steroid injections, L eye lasik. Past Anesthesia/Blood Transfusion Reactions: No Reported Reaction Past Psychological History: No Psychological Hx Reported Smoking Status: Former smoker Past Alcohol Use History: Occasional Past Drug Use History: None Reported - Past Family History Mother Family Medical History: Cancer, Hypertension Additional Family Medical History / Comment(s): SKIN CANCER Father Family Medical History: Neurologic Disorder Brother(s) Family Medical History: No Reported History Daughter(s) Family Medical History: No Reported History Son(s) Family Medical History: No Reported History General Exam Limitations: altered mental status, physical limitation General appearance: alert, lethargic, obtunded, in distress Head exam: Present: atraumatic, normocephalic, normal inspection Eye exam: Present: normal appearance, PERRL, EOMI. Absent: scleral icterus, conjunctival injection, periorbital swelling ENT exam: Present: normal exam, mucous membranes moist Neck exam: Present: normal inspection. Absent: tenderness, meningismus, lymphadenopathy Respiratory exam: Present: normal lung sounds bilaterally. Absent: respiratory distress, wheezes, rales, rhonchi, stridor Cardiovascular Exam: Present: normal rhythm, tachycardia, normal heart sounds. Absent: systolic murmur, diastolic murmur, rubs, gallop, clicks GI/Abdominal exam: Present: soft, normal bowel sounds. Absent: distended, tenderness, guarding, rebound, rigid Extremities exam: Present: normal inspection, full ROM, normal capillary refill. Absent: tenderness, pedal edema, joint swelling, calf tenderness Back exam: Present: normal inspection Neurological exam: Present: alert, altered Psychiatric exam: Present: agitated Skin exam: Present: warm, dry, intact, normal color. Absent: rash Course Vital Signs 08/13/24 08/13/24 18:31 19:06 Temperature 98.8 F Pulse Rate 111 H 96 Respiratory 20 16 Rate Blood Pressure 140/79 141/74 O2 Sat by Pulse 100 91 L Oximetry - Reevaluation(s) Reevaluation #1: 08/13/24 18:58 Medical records reviewed Patient shows no traumatic injury no traumatic page was made Reevaluation #2: 08/13/24 19:20 Patient has no change in symptoms here in the ER No evidence of airway compromise, breathing appropriately Reevaluation #3: 08/13/24 19:20 Patient informed of results unable to understand Reevaluation #4: Was pt. sent in by a medical professional or institution (, PA, LINING CLEANER, urgent care, hospital, or penitentiary...) When possible be specific @ -no Did you speak to anyone other than the patient for history (EMS, parent, family, police, friend...)? What history was obtained from this source @ -no Did you review nursing and triage notes (agree or disagree)? Why? @ -agree Are old charts reviewed (outside hosp., previous admission, EMS record, old EKG, old radiological studies, urgent care reports/EKG's, penitentiary records)? Report findings @ -yes Differential Diagnosis (chest pain, altered mental status, abdominal pain women, abdominal pain men, vaginal bleeding, weakness, fever, dyspnea, syncope, he adache, dizziness, GI bleed, back pain, seizure, CVA, palpatations, mental health, musculoskeletal)? @ -prior EKG interpreted by me (3pts min.). @ -yes X-rays interpreted by me (1pt min.). @ -yes negative for acute disease CT interpreted by me (1pt min.). @ -no U/S interpreted by me (1pt. min.). @ -no What testing was considered but not performed or refused? (CT, X-rays, U/S, labs)? Why? @ -none What meds were considered but not given or refused? Why? @ -none Did you discuss the management of the patient with other professionals (professionals i.e. , PA, LINING CLEANER, lab, RT, psych nurse, social science professor, vinyl installer, teacher, fire officer, case manager specialist)? Give summary @ -no Was smoking cessation discussed for >3mins.? @ -no Was critical care preformed (if so, how long)? @ -no Were there social determinants of health that impacted care today? How? (Homelessness, low income, unemployed, alcoholism, drug addiction, transportation, low edu. Level, literacy, decrease access to med. care, assisted, rehab)? @ -none Was there de-escalation of care discussed even if they declined (Discuss DNR or withdrawal of care, Hospice)? DNR status @ -no What co-morbidities impacted this encounter? (DM, HTN, Smoking, COPD, CAD, Cancer, CVA, ARF, Chemo, Hep., AIDS, mental health diagnosis, sleep apnea, m orbid obesity)? @ -none Was patient admitted / discharged? Hospital course, mention meds given and route, prescriptions, significant lab abnormalities, going to OR and other pertinent info. @ - Undiagnosed new problem with uncertain prognosis? @ -no Drug Therapy requiring intensive monitoring for toxicity (Heparin, Nitro, Insulin, Cardizem)? @ -no Were any procedures done? @ -no Diagnosis/symptom? @ - Acute, or Chronic, or Acute on Chronic? @ -Acute Uncomplicated (without systemic symptoms) or Complicated (systemic symptoms)? @ -Complicated Side effects of treatment? @ -no Exacerbation, Progression, or Severe Exacerbation? @ -exacerbation Poses a threat to life or bodily function? How? (Chest pain, USA, MD, pneumonia, PE, COPD, DKA, ARF, appy, cholecystitis, CVA, Diverticulitis, Homicidal, Suicidal, threat to staff... and all critical care pts) @ -yes Reevaluation #5: Differential Altered Mental Status: Hypoglycemia, DKA, hypercapnia, ETOH, overdose, CO poisoning, trauma, myxedema coma, HTN encephalopathy, infection, encephalitis, psychosis, intercranial hemorrhage, hepatic encephalopathy, meningitis, CVA, this is not meant to be an all-inclusive list - Consultations Consultation #1: Spoke with [facility] patient will transfer Medical Decision Making - Medical Decision Making 74 female to the ER for evaluation, patient appears to have acute intracranial hemorrhage, unknown history on this patient and will transfer to Kev Sanchez for neurosurgical evaluation and treatment - Lab Data Result diagrams: 08/13/24 18:30 08/13/24 18:30 Lab Results 08/13/24 08/13/24 08/13/24 Range/Units 18:30 18:30 18:30 WBC 18.5 H (3.8-10.6) k/uL RBC 4.16 (3.80-5.40) m/uL Hgb 12.6 (11.4-16.0) gm/dL Hct 39.0 (34.0-46.0) % MCV 93.8 (80.0-100.0) fL MCH 30.3 (25.0-35.0) pg MCHC 32.3 (31.0-37.0) g/dL RDW 12.8 (11.5-15.5) % Plt Count 351 (150-450) k/uL MPV 8.2 Neutrophils % 89 % Lymphocytes % 6 % Monocytes % 4 % Eosinophils % 0 % Basophils % 0 % Neutrophils # 16.5 H (1.3-7.7) k/uL Lymphocytes # 1.1 (1.0-4.8) k/uL Monocytes # 0.7 (0-1.0) k/uL Eosinophils # 0.1 (0-0.7) k/uL Basophils # 0.0 (0-0.2) k/uL PT 10.9 (10.0-12.5) sec INR 1.0 (<1.2) APTT 21.6 L (22.0-30.0) sec Sodium 133 L (137-145) mmol/L Potassium 3.7 (3.5-5.1) mmol/L Chloride 99 (98-107) mmol/L Carbon Dioxide 20 L (22-30) mmol/L Anion Gap 14 mmol/L BUN 15 (7-17) mg/dL Creatinine 0.65 (0.52-1.04) mg/dL Est GFR (CKD-EPI)AfAm >90 (>60 ml/min/1.73 sqM) Est GFR (CKD-EPI)NonAf 88 (>60 ml/min/1.73 sqM) Glucose 172 H (74-99) mg/dL Calcium 9.6 (8.4-10.2) mg/dL Phosphorus 2.9 (2.5-4.5) mg/dL Magnesium 1.6 (1.6-2.3) mg/dL Total Bilirubin 1.1 (0.2-1.3) mg/dL AST 34 (14-36) U/L ALT 39 H (4-34) U/L Alkaline Phosphatase 84 (38-126) U/L Ammonia (<30) umol/L Creatine Kinase 79 (30-135) U/L Troponin I (0.000-0.034) ng/mL Total Protein 7.4 (6.3-8.2) g/dL Albumin 4.4 (3.5-5.0) g/dL Salicylates <1.0 mg/dL Acetaminophen <10.0 ug/mL Serum Alcohol <10 mg/dL 08/13/24 08/13/24 Range/Units 18:30 18:30 WBC (3.8-10.6) k/uL RBC (3.80-5.40) m/uL Hgb (11.4-16.0) gm/dL Hct (34.0-46.0) % MCV (80.0-100.0) fL MCH (25.0-35.0) pg MCHC (31.0-37.0) g/dL RDW (11.5-15.5) % Plt Count (150-450) k/uL MPV Neutrophils % % Lymphocytes % % Monocytes % % Eosinophils % % Basophils % % Neutrophils # (1.3-7.7) k/uL Lymphocytes # (1.0-4.8) k/uL Monocytes # (0-1.0) k/uL Eosinophils # (0-0.7) k/uL Basophils # (0-0.2) k/uL PT (10.0-12.5) sec INR (<1.2) APTT (22.0-30.0) sec Sodium (137-145) mmol/L Potassium (3.5-5.1) mmol/L Chloride (98-107) mmol/L Carbon Dioxide (22-30) mmol/L Anion Gap mmol/L BUN (7-17) mg/dL Creatinine (0.52-1.04) mg/dL Est GFR (CKD-EPI)AfAm (>60 ml/min/1.73 sqM) Est GFR (CKD-EPI)NonAf (>60 ml/min/1.73 sqM) Glucose (74-99) mg/dL Calcium (8.4-10.2) mg/dL Phosphorus (2.5-4.5) mg/dL Magnesium (1.6-2.3) mg/dL Total Bilirubin (0.2-1.3) mg/dL AST (14-36) U/L ALT (4-34) U/L Alkaline Phosphatase (38-126) U/L Ammonia <9 (<30) umol/L Creatine Kinase (30-135) U/L Troponin I <0.012 (0.000-0.034) ng/mL Total Protein (6.3-8.2) g/dL Albumin (3.5-5.0) g/dL Salicylates mg/dL Acetaminophen ug/mL Serum Alcohol mg/dL - EKG Data -: EKG Interpreted by Me (EKG is sinus tachycardia 109 ND 148 QRS 82 QTc 418) - Radiology Data Radiology results: report reviewed (Chest and pelvis x-ray negative for acute disease CT brain positive for significant intracranial hemorrhage), image reviewed Critical Care Time Critical Care Time: Yes Total Critical Care Time: 31 Disposition Clinical Impression: Altered mental status, Intracranial hemorrhage Disposition: OTHER INSTITUTION NOT DEFINED Condition: Critical Is patient prescribed a controlled substance at d/c from ED?: No Referrals: Matthias Dioxn MD [Primary Care Provider] - 1-2 days Time of Disposition: 19:10
[2024-08-13] MEDS: LORazepam 2 MG/ML INJ IV STA (18:45)
[2024-08-13] MEDS: SODIUM CHLORIDE 0.9% 1,000 ML IV ONE (18:45)
[2024-08-13] MEDS: HYDROmorphone 1 MG/ML 1 ML SYRINGE IVP STA (18:46)
--- NOTE | 2024-08-13 18:52 | XR ---
EXAMINATION TYPE: XR chest 1V DATE OF EXAM: 08/13/2024 6:48 PM COMPARISON: 03/02/2018 CLINICAL INDICATION: Female, 74 years old with history of ams, TECHNIQUE: XR chest 1V view(s) obtained. FINDINGS: The heart size is normal. The pulmonary vasculature is normal. The lungs are clear. IMPRESSION: 1. No acute pulmonary process. [facility], , 08/13/2024 6:50 PM
--- NOTE | 2024-08-13 18:53 | XR ---
EXAMINATION TYPE: XR pelvis AP view DATE OF EXAM: 08/13/2024 6:48 PM COMPARISON: Right hip 03/11/2022 CLINICAL INDICATION: Female, 74 years old with history of ams, pain TECHNIQUE: AP view(s) obtained. FINDINGS: No acute fracture or dislocation evident. Femoral heads articular the acetabulum. Prior medullary vineet placement within the femur is evident. Sacroiliac joints and symphysis pubis are normal. IMPRESSION: 1. No acute osseous abnormality. Pelvis [facility], , 08/13/2024 6:51 PM
[2024-08-13 18:54] LABS: Basophils % (A) 0 %; Eosinophils # (A) 0.1 k/uL (0-0.7); Eosinophils % (A) 0 %; HGB 12.6 gm/dL (11.4-16.0); Lymphocytes # (A) 1.1 k/uL (1.0-4.8); Lymphocytes % (A) 6 %; MCH 30.3 pg (25.0-35.0); MCHC 32.3 g/dL (31.0-37.0); MCV 93.8 fL (80.0-100.0); Mean Platelet Volume 8.2; Monocytes # (A) 0.7 k/uL (0-1.0); Monocytes % (A) 4 %; Neutrophils # (A) 16.5 k/uL (1.3-7.7); Neutrophils % (A) 89 %; Platelet Count 351 k/uL (150-450); RBC 4.16 m/uL (3.80-5.40); RDW 12.8 % (11.5-15.5); WBC 18.5 k/uL (3.8-10.6)
[2024-08-13 19:02] LABS: ALT 39 U/L (4-34); AST 34 U/L (14-36); Acetaminophen <10.0 ug/mL; African American GFR (CKD) >90 (>60 ml/min/1.73 sqM); Albumin 4.4 g/dL (3.5-5.0); Alcohol <10 mg/dL; Alkaline Phosphatase 84 U/L (38-126); Anion Gap 14 mmol/L; Blood Urea Nitrogen 15 mg/dL (7-17); Calcium 9.6 mg/dL (8.4-10.2); Carbon Dioxide 20 mmol/L (22-30); Chloride 99 mmol/L (98-107); Creatine Kinase 79 U/L (30-135); Glucose 172 mg/dL (74-99); Magnesium 1.6 mg/dL (1.6-2.3); Non-African American GFR(CKD) 88 (>60 ml/min/1.73 sqM); Phosphorus 2.9 mg/dL (2.5-4.5); Potassium 3.7 mmol/L (3.5-5.1); Salicylate <1.0 mg/dL; Sodium 133 mmol/L (137-145); Total Bilirubin 1.1 mg/dL (0.2-1.3); Total Protein 7.4 g/dL (6.3-8.2)
[2024-08-13 19:10] LABS: Prothrombin Time 10.9 sec (10.0-12.5)
[2024-08-13 19:13] LABS: Partial Thromboplastin Time 21.6 sec (22.0-30.0)
--- NOTE | 2024-08-13 19:21 | CT ---
EXAMINATION TYPE: CT brain cspine wo con DATE OF EXAM: 08/13/2024 7:07 PM COMPARISON: None. CLINICAL INDICATION: Female, 74 years old with history of ams, Found in closet, extreme confusion. La st known well x 24 hours ago., pain TECHNIQUE: CT of the brain is performed utilizing 3 mm thick sections through the posterior fossa and 3 mm thick sections through the remaining calvarium. Study is performed within 24 hours of arrival to the hospital. Contrast used: mL of , (none if empty) CT DLP: 1347.5 mGycm, Automated exposure control for dose reduction was used. FINDINGS: Hyperintensity is present within the fourth ventricle lateral ventricle third ventricle and to a smal l degree the right lateral ventricle compatible with hemorrhage. This extends likely from a large lef t Parietal occipital hemorrhage measuring 5.1 x 3.7 cm. Example image series 202 image 41. Mass effec t and some mild adjacent edema is present. No subfalcine herniation is identified. Quadrigeminal plat e and ambient cisterns remain patent. No temporal horn dilatation is evident. Report was called to [facility] emergency room physician by Dr. Park by telephone at time of final interpretation 191 hours 08/13. Physician was aware of the findings prior to the call. No mass lesion is evident. No acute infarcts are evident. There may be some mild effacement of sulci greater on the left. The left lateral ventricle is somewha t prominent. Paranasal sinuses and mastoid air cells within the kygca-ow-netd are clear. IMPRESSIONS: 1. Large left parietal-occipital hemorrhage measuring 3.7 x 5.1 cm decompressed into the left lateral ventricle and subsequent third and fourth ventricles. 2. Mild effacement of sulci without subfalcine herniation or significant hydrocephalus. CT cervical spine. COMPARISON: MRI 11/27/2020 TECHNIQUE: CT of the cervical spine is performed in the axial plane at 2 mm thick sections. Reconstr ucted images in the coronal, and sagittal plane are reviewed on the computer. FINDINGS: No acute fractures are evident. Prior anterior cervical fusion is evident C3-C6. Vertebral body alignment is normal. Disc heights are preserved. There is old mild superior endplate compression fracture of T1 No spinal canal stenosis is evident. Uncovertebral joint hypertrophy is foraminal narrowing. IMPRESSION: 1. No acute osseous abnormality cervical spine. Chronic degenerative changes present [facility], , 08/13/2024 7:19 PM
--- NOTE | 2024-08-13 19:30 | CT ---
EXAMINATION TYPE: CT angio head neck DATE OF EXAM: 08/13/2024 7:21 PM COMPARISON: 12/23/2016 CLINICAL INDICATION: Female, 74 years old with history of aneurysm, Found in closet, extreme confusio n. Last known well x 24 hours ago. TECHNIQUE: CTA scan is performed with axial images are obtained, coronal and sagittal reformatted jose ges are reviewed. MIP images created on a separate workstation and submitted for review. 3-D reconstr ucted images are created on an independent workstation and reviewed. Source images are reviewed. MADDIE CET criteria was used in interpretation of this exam? Contrast used:65 mL of Isovue 370 with IV Contrast, (none if empty) Oral contrast used: (none if empty) CT DLP: 357.5 mGycm, Automated exposure control for dose reduction was used. FINDINGS: Carotid/Vascular Structures: There is a 3 vessel arch. Common carotid arteries bifurcate into internal and external carotid arteries without significant kaitlin w limiting stenosis. Vertebral arteries are codominant. Internal carotid arteries and vertebral arteries are patent to the skull base. Cervical of [place]: Vertebral basilar system appears normal. Posterior cerebral vasculature is unrema rkable. Internal carotid arteries bifurcate normally into A1 and M1 segments. A2 segments are normal. The anterior communicating artery is patent. The right posterior communicating artery is not clearly identified.. The left posterior communicating artery is patent. Other: The patient's right parietal occipital hemorrhage is evident. The decompression into the later al ventricle is evident. There is effacement of the occipital horn of the left lateral ventricle. Not e is made of some mild effacement of the vasculature into the right parietal occipital region. No ane urysms within this region is identified on the current exam. Hemorrhage has mass effect on the adjace nt brain. IMPRESSION: 1. No flow-limiting stenosis bilateral carotid bifurcations. 2. Normal [place] of [place]. 3. Left parieto-occipital hemorrhage with mass effect on the adjacent brain. Some attenuation of the vascular structures within the periphery of this region is evident. [facility], , 08/13/2024 7:28 PM
[2024-08-13 19:44] VITALS: RESP 18
[2024-08-13] MEDS: CLEVIDIPINE BUTYRATE 25 MG in EMPTY BAG 1 BAG IV SCH (19:44)
[2024-08-13 21:04] VITALS: BP 135/79; PULSE 112; TEMP 97.8
== END 2024-08-13 20:35 | disposition other institution (70) ==
LOC: EC 18:26
DX: I62.9 Nontraumatic intracranial hemorrhage, unspecified (principal); R41.82 Altered mental status, unspecified; Z87.891 Personal history of nicotine dependence; Z88.6 Allergy status to analgesic agent; Z88.8 Allergy status to other drugs, medicaments and biological substances
CPT/HCPCS: 36415; 93005; 80053; 82140; 82550; 83735; 84100; 84484; 85025; 85610; 85730; 80143; 80179; 72170; 71045; 72125; 70496; 70450; 70498; 99291; 96365; 96375 ×2; 96361; G0480; J2060; J1171; C9248; Q9967; 80320

== ENCOUNTER → 2024-09-12 | Outpatient (CLI) | payer MEDICARE ==
--- NOTE | 2024-09-12 11:44 | CT ---
EXAMINATION TYPE: CT brain wo con CT DLP: 1183 mGycm, Automated exposure control for dose reduction was used. DATE OF EXAM: 09/12/2024 11:34 AM COMPARISON: CT brain C-spine 08/13/2024, CTA head and neck 08/13/2024, CT brain 09/19/2018 CLINICAL INDICATION:Female, 74 years old with history of I61.9 NONTRAUMATIC INTRACEREBRAL HEMORRHAGE, UNSPE, f/u hemorrhage TECHNIQUE: Brain: Multiple axial CT images of the brain were obtained without IV contrast. . Coronal and sagitta l reformats reviewed. FINDINGS: Brain: Extra-axial spaces: No abnormal extra-axial fluid collections. Ventricular system: No hydrocephalus. Resolution of previously demonstrated intraventricular hemorrha ge. There is effacement of the posterior horn of the left lateral ventricle due to adjacent intrapare nchymal hemorrhage. Cerebral parenchyma: Decreased size of intraparenchymal hyperdense hemorrhage centered within the lef t parietal/occipital region with surrounding vasogenic edema. This focal region of hemorrhage measure s grossly 4.4 x 2.3 cm, previously measured 5.1 x 3.7 cm. There is continued effacement of the periph eral sulci. The ny-white junction is well differentiated. Scattered hypoattenuating areas are seen within the periventricular white matter. Cerebellum: Unremarkable. Mass effect: Approximately 4 mm of midline shift to the right, previously 5 mm. Intracranial vasculature: unremarkable Soft tissues: Normal. Calvarium/osseous structures: No depressed skull fracture. Paranasal sinuses and mastoid air cells: Clear Visualized orbits: Bilateral aphakia IMPRESSION: 1. Mildly decreased size of left parietal/occipital region intraparenchymal hemorrhage with surroundi ng vasogenic edema. There is marginal decrease in rightward midline shift now 4 mm. Resolution of pre viously demonstrated intraventricular hemorrhage. 2. Nonspecific white matter changes, likely secondary to chronic small vessel ischemic disease. [facility], , 09/12/2024 11:42 AM
== END | disposition home or self-care (01) ==
LOC: RADCTMAIN 11:02
PROVIDERS: ATTEND Internal Medicine
DX: R90.82 White matter disease, unspecified (principal); I61.9 Nontraumatic intracerebral hemorrhage, unspecified; Z86.73 Personal history of transient ischemic attack (TIA), and cerebral infarction without residual deficits
CPT/HCPCS: 70450